=== PATIENT | male | born 1970 | race Hispanic/Latino ===

== ENCOUNTER → 2020-05-09 | Emergency (ER) | payer MEDICARE, OTHER ==
[~2020-05-09] VITALS: Ht 190.5 cm; Wt 145.1 kg
[~2020-05-09] MED LIST: ABILIFY10 MG PO; AMITRIPTYLINE100 MG PO; BACTRIM DS TAB1 EACH PO; CLONIDINE HCL 0.1 MG TAB ONE; DIPHENHYDRAMINE HCL INJ 50 MG/ML VIAL IV ONE; KETOROLAC TROMETHAMINE 30 MG/ML VIAL IV STA; METOCLOPRAMIDE HCL 10 MG/2ML VIAL IV ONE; NORCO 10-325 T1 EACH PO; ONDANSETRON HCL INJ 2MG/ML 2ML 2 MG/ML VIAL IV STA; PANTOPRAZOLE 40 MG 10ML VIAL IV STA; SODIUM CHLORIDE 0.9% 1000ML 1,000 ML IV STA; SOMA350 MG PO; XANAX2 MG PO
[2020-05-09 17:14] LABS: CLARITY,URINE CLEAR (CLEAR); COLOR,URINE YELLOW (YELLOW)
[2020-05-09 17:15] LABS: BILIRUBIN,URINE NEGATIVE (NEGATIVE); KETONES,URINE NEGATIVE (NEGATIVE); LEUKOCYTE ESTERASE ,URINE NEGATIVE (NEGATIVE); NITRITE,URINE NEGATIVE (NEGATIVE); PROTEIN,URINE DIPSTICK NEGATIVE (NEGATIVE); URINE UROBILINOGEN 0.2 mg/dL (0.2 - 1)
[2020-05-09 17:25] LABS: EPITHELIAL CELLS,URINE FEW /LPF
[2020-05-09 17:33] LABS: BASOPHILS # (AUTO) 0.1 (0.0-0.1); BASOPHILS % 0.7 % (0.0-1.0); EOSINOPHILS # (AUTO) 0.3 (0.0-0.4); EOSINOPHILS % 3.7 % (0.0-6.0); HEMATOCRIT 33.4 % (38.2-49.6); HEMOGLOBIN 10.8 g/dL (14.0-18.0); LYMPHOCYTES # (AUTO) 2.4 (1.0-3.2); LYMPHOCYTES % 31.6 % (18.0-39.1); MEAN CORPUSCULAR HEMOGLOBIN 27.2 pg (28-32); MEAN CORPUSCULAR HGB CONC 32.3 g/dL (31-35); MEAN CORPUSCULAR VOLUME 84.1 fL (81-99); MONOCYTES # (AUTO) 0.7 (0.2-0.8); MONOCYTES % 9.1 % (4.4-11.3); NEUTROPHILS # (AUTO) 4.1 (2.1-6.9); NEUTROPHILS % 54.6 % (38.7-80.0); PLATELET COUNT 233 x10e3/uL (140-360); RED BLOOD COUNT 3.97 x10e6/uL (4.3-5.7)
[2020-05-09 17:36] LABS: ALANINE AMINOTRANSFERASE 26 IU/L (0-55); ALBUMIN 3.5 g/dL (3.5-5.0); ALBUMIN/GLOBULIN RATIO 0.9 (0.8-2.0); ALKALINE PHOSPHATASE 109 IU/L (40-150); ANION GAP 12.8 mmol/L (8-16); BLOOD UREA NITROGEN 15 mg/dL (7-26); BUN/CREATININE RATIO 13 (6-25); CALCIUM 8.4 mg/dL (8.4-10.2); CARBON DIOXIDE 24 mmol/L (22-29); CHLORIDE 104 mmol/L (98-107); CREATINE KINASE 181 IU/L (30-200); CREATININE, SERUM 1.15 mg/dL (0.72-1.25); EST GLOMERULAR FILTRATION RATE > 60 ML/MIN (60-); GLUCOSE 108 mg/dL (74-118); LIPASE 162 U/L (8-78); MAGNESIUM 1.6 MG/DL (1.3-2.1); POTASSIUM 3.8 mmol/L (3.5-5.1); SODIUM 137 mmol/L (136-145)
--- NOTE | 2020-05-09 17:38 | Diagnostic Imaging Report ---
Exam: Head CT without contrast History: Headache, nausea, vomiting Comparison studies: None Technique: Axial images were obtained from the skull base to the vertex. Coronal and sagittal images reconstructed from the axial data. Dose modulation, iterative reconstruction, and/or weight based adjustment of the mA/kV was utilized to reduce the radiation dose to as low as reasonably achievable. Radiation dose: Total DLP: 936.21 mGy*cm. Estimated effective dose: DLP x 0.015 Intravenous contrast: None Findings: Scalp: No abnormalities. Bones: No fractures, blastic or lytic lesions. Brain sulci: Appropriate for age. Ventricles: Normal in size and configuration. No hydrocephalus. Extra-axial spaces: No masses, no fluid collection. Parenchyma: No abnormal densities. No masses, acute hemorrhage, acute or chronic vascular insults. Sellar/suprasellar region: No abnormalities. Craniocervical junction: Patent foramen magnum. No Chiari one malformation. Incidental findings: Opacified right maxillary sinus which contains peripheral mucosal thickening and secretions. 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 IMPRESSION: 1. No acute intracranial abnormalities. 2. Nonspecific acute on chronic right maxillary sinusitis. Signed by: Dr. Anthony Noble M.D. on 05/09/2020 5:34 PM
--- NOTE | 2020-05-09 17:40 | Diagnostic Imaging Report ---
EXAMINATION: CHEST SINGLE (PORTABLE) INDICATION: ^N/V/HEADACHE ^[id number] ^1700 COMPARISON: None FINDINGS: AP view TUBES and LINES: None. LUNGS: Limited by body habitus. Lungs are well inflated. There is no evidence of pneumonia or pulmonary edema. PLEURA: No pleural effusion or pneumothorax. HEART AND MEDIASTINUM: The cardiomediastinal silhouette is unremarkable. BONES AND SOFT TISSUES: No acute osseous lesion. Tiny metallic densities projecting over right lateral chest and arm. Surgical clip projecting over left neck base. UPPER ABDOMEN: No free air under the diaphragm. IMPRESSION: No acute thoracic abnormality. Signed by: Dr. Shukri Mason MD on 05/09/2020 5:37 PM
[2020-05-09 17:43] LABS: PARTIAL THROMBOPLASTIN TIME 29.4 seconds (23.8-35.5)
[2020-05-09 17:48] LABS: INR 0.88; PROTHROMBIN TIME 12.5 seconds (11.9-14.5)
--- NOTE | 2020-05-09 19:26 | Emergency Department Note ---
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 Historian: Patient Arrival Mode: Car Live In Housekeeper Nanny Required: No Onset (how long ago): day(s) (YESTERDAY) Location: ENTIRE HEAD Quality: PAIN Radiation: Reports non-radiation Severity: severe Onset quality: gradual Timing of current episode: constant Progression: unchanged Chronicity: recurrent Context: Denies recent illness Relieving factors: none Exacerbating factors: none Associated symptoms: Reports denies other symptoms Treatments prior to arrival: none Past Medical/Family History Physician Review I have reviewed the patient's past medical and family history. Any updates have been documented here. Past Medical History Recent Fever: No Clinical Suspicion of Infectio: Yes New/Unexplained Change in Ment: No Past Medical History: Hypertension Other Medical History: DEPRESSION, PTSD, BIPOLAR cellulitis Other Surgery: CARDIAC STENTS right ankle right shoulder Social History Smoking Cessation: Current every day smoker Counseling Performed: Yes Alcohol Use: Social Any Illegal Drug Use: Yes TB Exposure/Symptoms: No Physically hurt or threatened: No Family History Family history of heart diseas: No Other Last Tetanus: 2004 Any Pre-Existing Lines (PICC,: No Review of Systems Review of Systems Constitutional: Reports no symptoms EENTM: Reports no symptoms Cardiovascular: Reports no symptoms Respiratory: Reports no symptoms Gastrointestinal: Reports as per HPI Genitourinary: Reports no symptoms Musculoskeletal: Reports no symptoms Integumentary: Reports no symptoms Neurological: Reports as per HPI Psychological: Reports no symptoms Endocrine: Reports no symptoms Hematological/Lymphatic: Reports no symptoms Physical Exam Related Data Allergies: Coded Allergies: No Known Allergies (Unverified , 04/30/14) Triage Vital Signs Vital Signs Date Time Temp Pulse Resp B/P (MAP) Pulse Ox O2 Delivery O2 Flow Rate FiO2 05/09/20 16:26 98.4 88 22 151/94 98 Room Air Vital signs reviewed: Yes Physical Exam CONSTITUTIONAL Constitutional: Present well-developed, Present well-nourished HENT HENT: Present normocephalic, Present atraumatic, Present oropharynx clear/moist, Present nose normal HENT L/R: Present left ext ear normal, Present right ext ear normal EYES Eyes: Reports PERRL, Reports conjunctivae normal NECK Neck: Present ROM normal PULMONARY Pulmonary: Present effort normal, Present breath sounds normal CARDIOVASCULAR Cardiovascular: Present regular rhythm, Present heart sounds normal, Present capillary refill normal, Present normal rate GASTROINTESTINAL Abdominal: Present soft, Present nontender, Present bowel sounds normal GENITOURINARY Genitourinary: Present exam deferred SKIN Skin: Present warm, Present dry MUSCULOSKELETAL Musculoskeletal: Present ROM normal NEUROLOGICAL Neurological: Present alert, Present oriented x 3, Present no gross motor or sensory deficits PSYCHOLOGICAL Psychological: Present mood/affect normal, Present judgement normal Results Laboratory Result Diagram: 05/09/20 1658 05/09/20 1658 Laboratory Laboratory Tests Test 05/09/20 16:58 05/09/20 16:11 White Blood Count 7.57 x10e3/uL (4.8-10.8) Red Blood Count 3.97 x10e6/uL (4.3-5.7) Hemoglobin 10.8 g/dL (14.0-18.0) Hematocrit 33.4 % (38.2-49.6) Mean Corpuscular Volume 84.1 fL (81-99) Mean Corpuscular Hemoglobin 27.2 pg (28-32) Mean Corpuscular Hemoglobin Concent 32.3 g/dL (31-35) Red Cell Distribution Width 13.0 % (11.7-14.4) Platelet Count 233 x10e3/uL (140-360) Neutrophils (%) (Auto) 54.6 % (38.7-80.0) Lymphocytes (%) (Auto) 31.6 % (18.0-39.1) Monocytes (%) (Auto) 9.1 % (4.4-11.3) Eosinophils (%) (Auto) 3.7 % (0.0-6.0) Basophils (%) (Auto) 0.7 % (0.0-1.0) Neutrophils # (Auto) 4.1 (2.1-6.9) Lymphocytes # (Auto) 2.4 (1.0-3.2) Monocytes # (Auto) 0.7 (0.2-0.8) Eosinophils # (Auto) 0.3 (0.0-0.4) Basophils # (Auto) 0.1 (0.0-0.1) Absolute Immature Granulocyte (auto 0.02 x10e3/uL (0-0.1) Prothrombin Time 12.5 seconds (11.9-14.5) Prothromb Time International Ratio 0.88 Activated Partial Thromboplast Time 29.4 seconds (23.8-35.5) Sodium Level 137 mmol/L (136-145) Potassium Level 3.8 mmol/L (3.5-5.1) Chloride Level 104 mmol/L (98-107) Carbon Dioxide Level 24 mmol/L (22-29) Anion Gap 12.8 mmol/L (8-16) Blood Urea Nitrogen 15 mg/dL (7-26) Creatinine 1.15 mg/dL (0.72-1.25) Estimat Glomerular Filtration Rate > 60 ML/MIN (60-) BUN/Creatinine Ratio 13 (6-25) Glucose Level 108 mg/dL (74-118) Lactic Acid Level 1.3 mmol/L (0.5-2.0) Calcium Level 8.4 mg/dL (8.4-10.2) Magnesium Level 1.6 MG/DL (1.3-2.1) Total Bilirubin 0.3 mg/dL (0.2-1.2) Aspartate Amino Transf (AST/SGOT) 29 IU/L (5-34) Alanine Aminotransferase (ALT/SGPT) 26 IU/L (0-55) Alkaline Phosphatase 109 IU/L (40-150) Creatine Kinase 181 IU/L (30-200) Creatine Kinase MB 3.40 ng/mL (0-5.0) Troponin I 0.009 ng/mL (0-0.300) Total Protein 7.6 g/dL (6.5-8.1) Albumin 3.5 g/dL (3.5-5.0) Globulin 4.1 g/dL (2.3-3.5) Albumin/Globulin Ratio 0.9 (0.8-2.0) Lipase 162 U/L (8-78) Urine Color Yellow (YELLOW) Urine Clarity Clear (CLEAR) Urine pH 6.5 (5 - 7) Urine Specific [place] 1.015 (1.010-1.025) Urine Protein Negative (NEGATIVE) Urine Glucose (UA) Negative (NEGATIVE) Urine Ketones Negative (NEGATIVE) Urine Blood Negative (NEGATIVE) Urine Nitrite Negative (NEGATIVE) Urine Bilirubin Negative (NEGATIVE) Urine Urobilinogen 0.2 mg/dL (0.2 - 1) Urine Leukocyte Esterase Negative (NEGATIVE) Urine RBC None /HPF (0-5) Urine WBC 6-10 /HPF (0-5) Urine Epithelial Cells Few /LPF (NONE) Urine Bacteria None /HPF (NONE) Lab results reviewed: Yes Imaging Imaging results reviewed: Yes Impressions EXAMINATION: CHEST SINGLE (PORTABLE) INDICATION: ^N/V/HEADACHE ^[id number] ^1699 COMPARISON: None FINDINGS: AP view TUBES and LINES: None. LUNGS: Limited by body habitus. Lungs are well inflated. There is no evidence of pneumonia or pulmonary edema. PLEURA: No pleural effusion or pneumothorax. HEART AND MEDIASTINUM: The cardiomediastinal silhouette is unremarkable. BONES AND SOFT TISSUES: No acute osseous lesion. Tiny metallic densities projecting over right lateral chest and arm. Surgical clip projecting over left neck base. UPPER ABDOMEN: No free air under the diaphragm. IMPRESSION: No acute thoracic abnormality. Signed by: Dr. Shukri Mason MD on 05/09/2020 5:37 PM Procedure: [id number] CT/CT BRAIN WO Exam Date: 05/09/20 Exam Time: 1705 REPORT STATUS: Signed Exam: Head CT without contrast History: Headache, nausea, vomiting Comparison studies: None Technique: Axial images were obtained from the skull base to the vertex. Coronal and sagittal images reconstructed from the axial data. Dose modulation, iterative reconstruction, and/or weight based adjustment of the mA/kV was utilized to reduce the radiation dose to as low as reasonably achievable. Radiation dose: Total DLP: 936.21 mGy*cm. Estimated effective dose: DLP x 0.015 Intravenous contrast: None Findings: Scalp: No abnormalities. Bones: No fractures, blastic or lytic lesions. Brain sulci: Appropriate for age. Ventricles: Normal in size and configuration. No hydrocephalus. Extra-axial spaces: No masses, no fluid collection. Parenchyma: No abnormal densities. No masses, acute hemorrhage, acute or chronic vascular insults. Sellar/suprasellar region: No abnormalities. Craniocervical junction: Patent foramen magnum. No Chiari one malformation. Incidental findings: Opacified right maxillary sinus which contains peripheral mucosal thickening and secretions. 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 IMPRESSION: 1. No acute intracranial abnormalities. 2. Nonspecific acute on chronic right maxillary sinusitis. Signed by: Dr. Anthony Noble M.D. on 05/09/2020 5:34 PM Procedures 12 Lead ECG Interpretation ECG Interpretation : ECG: ECG 1 Live In Housekeeper Nanny: Interpreted by ED physician Date: May 09, 2020 Time: 16:39 Rhythm: sinus rhythm Rate: normal QRS axis: normal ST segments normal: Yes T waves normal: Yes Clinical Impression: normal ECG Assessment & Plan Medical Decision Making MDM HEADACHE AND N/V, DRUG ABUSE - CBC, CHEM, CARDIACS, CXR, CT BRAIN, UA - R/O LEUKOCYTOSIS, RENAL INSUFF DEHYDRATION, STEMI/NSTEMI, CEREBRAL BLEED, RHABDOMYO LYSIS Reassessment Reassessment IMPROVED, DC HOME, FIORICET (#10), PHENERGAN (#10), F/U PCP TOMORROW Assessment & Plan Final Impression: (1) Headache (2) Drug abuse Depart Disposition: HOME, SELF-CARE Last Vital Signs Date Time Temp Pulse Resp B/P (MAP) Pulse Ox O2 Delivery O2 Flow Rate FiO2 05/09/20 16:26 98.4 88 22 151/94 98 Room Air Home Meds Reported Medications Sulfamethoxazole/Trimethoprim (BACTRIM DS TABLET) 1 Each Tablet, 1 TAB PO BID for 10 Days, TAB 03/10/16 Amitriptyline Hcl (AMITRIPTYLINE HCL) 100 Mg Tablet, 100 MG PO MG 04/30/14 Aripiprazole (ABILIFY) 10 Mg Tablet, 10 MG PO DAILY 04/30/14 Carisoprodol (SOMA) 350 Mg Tablet, 350 MG PO DAILY 04/30/14 Alprazolam (XANAX) 2 Mg Tablet, 2 MG PO BID 04/30/14 Hydrocodone Bit/Acetaminophen (NORCO 10-325 TABLET) 1 Each Tablet, 1 TAB PO PRN 04/30/14 Medications in the ED Pantoprazole Sodium 40 mg ONCE STAT IV Last administered on 05/09/20at 17:28; Admin Dose 40 MG; Start 05/09/20 at 16:29; Stop 05/09/20 at 16:53; Status DC Ondansetron HCl 4 mg ONCE STAT IV Last administered on 05/09/20at 17:28; Admin Dose 4 MG; Start 05/09/20 at 16:29; Stop 05/09/20 at 16:52; Status DC Sodium Chloride 1,000 ml @ 0 mls/hr Q0M STAT IV Last administered on 05/09/20at 17:28; Admin Dose 999 MLS/HR; Start 05/09/20 at 16:29; Stop 05/09/20 at 16:33; Status DC Ketorolac Tromethamine 30 mg ONCE STAT IV ; Start 05/09/20 at 18:46; Stop 05/09/20 at 18:49; Status DC Metoclopramide HCl 10 mg ONCE ONCE IV ; Start 05/09/20 at 19:00; Stop 05/09/20 at 19:01; Status DC Diphenhydramine HCl 25 mg NOW ONCE IV ; Start 05/09/20 at 19:00; Stop 05/09/20 at 19:01; Status DC SCOOTER DE LOS SANTOS MD May 09, 2020 19:26
[2020-05-09 20:47] VITALS: BP 136/72
== END | disposition home or self-care (01) ==
LOC: ER 15:53
DX: R51 Headache (principal); R11.2 Nausea with vomiting, unspecified; F15.10 Other stimulant abuse, uncomplicated; I10 Essential (primary) hypertension; F43.10 Post-traumatic stress disorder, unspecified; Z95.5 Presence of coronary angioplasty implant and graft; F17.210 Nicotine dependence, cigarettes, uncomplicated
CPT/HCPCS: 36415; 70450; 71045; 80053; 81001; 82550; 82553; 83605; 83690; 83735; 84484; 85025; 85610; 85730; 87040; 87086; 93005; 99284; C9113; J1200; J1885; J2405; J2765; J7030

== ENCOUNTER 2020-09-07 11:34 | Observation (INO) | payer MEDICARE, OTHER ==
[~2020-09-07] VITALS: Ht 188 cm; Wt 158.8 kg
[~2020-09-07 11:34] MED LIST changes: -CLONIDINE HCL 0.1 MG TAB ONE; -DIPHENHYDRAMINE HCL INJ 50 MG/ML VIAL IV ONE; -KETOROLAC TROMETHAMINE 30 MG/ML VIAL IV STA; -METOCLOPRAMIDE HCL 10 MG/2ML VIAL IV ONE; -ONDANSETRON HCL INJ 2MG/ML 2ML 2 MG/ML VIAL IV STA; -PANTOPRAZOLE 40 MG 10ML VIAL IV STA; -SODIUM CHLORIDE 0.9% 1000ML 1,000 ML IV STA
[2020-09-07] MEDS ORDERED: PANTOPRAZOLE 40 MG 10ML VIAL IV STA (12:22)
[2020-09-07 12:36] LABS: BASOPHILS # (AUTO) 0.1 (0.0-0.1); EOSINOPHILS # (AUTO) 0.6 (0.0-0.4); EOSINOPHILS % 7.6 % (0.0-6.0); HEMATOCRIT 40.2 % (38.2-49.6); HEMOGLOBIN 12.7 g/dL (14.0-18.0); LYMPHOCYTES # (AUTO) 2.4 (1.0-3.2); LYMPHOCYTES % 32.6 % (18.0-39.1); MEAN CORPUSCULAR HGB CONC 31.6 g/dL (31-35); MEAN CORPUSCULAR VOLUME 88.5 fL (81-99); MONOCYTES # (AUTO) 0.6 (0.2-0.8); MONOCYTES % 8.8 % (4.4-11.3); NEUTROPHILS # (AUTO) 3.6 (2.1-6.9); NEUTROPHILS % 49.9 % (38.7-80.0); PLATELET COUNT 269 x10e3/uL (140-360); RED BLOOD COUNT 4.54 x10e6/uL (4.3-5.7); RED CELL DISTRIBUTION WIDTH 13.8 % (11.7-14.4)
[2020-09-07 12:47] LABS: INR 0.94
[2020-09-07 12:48] LABS: PARTIAL THROMBOPLASTIN TIME 28.1 seconds (23.8-35.5)
--- OUTSIDE RECORDS SUMMARY | 2020-09-07 12:52 | XMS REPORT | Clinical Summary ---
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 PATHOLOGY AND GENOMIC MEDICINE [place] [id number] [address] [facility] * Group A strep, rapid antigen (04/12/2020 4:08 AM CDT) [facility] Group A strep, Negative for Group A [facility] rapid antigen Streptococcus antigen. TENRIISM result Comment: SYLVIA Specimen Information HOSPITAL Specimen Source: Throat Specimen Site: Not otherwise specified Specimen Throat - Not otherwise specified Performing Organization Address City/State/ZIP [place] [address] PATHOLOGY AND GENOMIC MEDICINE [place] [address] [place] [address] * Strep screen culture (04/12/2020 4:08 AM CDT) [facility] Strep screen No beta hemolytic Streptococci [facility] N culture isolate isolated [facility]ISM Comment: HOSPITAL Specimen Information Specimen Source: Throat Specimen Site: Not otherwise specified Specimen Throat - Not otherwise specified Performing Organization Address City/[facility] P severiano Number [facility] [place] [address] PATHOLOGY AND GENOMIC MEDICINE [place] [address] [place] [address] HOSPITAL * Fibrinogen (04/12/2020 4:05 AM CDT) [facility] Fibrinogen 406.0Comment: The reference 200.0 - 450.0 mg/d L [place] range has changed starting TENRIISM 04/02/2010 @12:00pm [facility] Specimen Blood Performing Organization Address City/State/[facility] [place] [address] PATHOLOGY AND GENOMIC MEDICINE [place] [address] [place] [address] * D-dimer (04/12/2020 4:05 AM CDT) [facility] D-dimer 2.37 (H) 0.00 - 0.40 ug/mL [place] Comment: FEU T[facility]RIISM When combined with low SYLVIA clinical probability, D-dimer HOSPITAL results of less than 0.5 ug/ml FEU have a good negative predictive value in excluding PE or DVT. For D-dimer results greater than 0.5 ug/ml FEU further testing is indicated if PE or DVT is suspected clinically. Elevated D-dimer results have been reported in DVT, PE, and DIC cases and may indicate the presence of a clot. D-dimer results may be elevated due to old age, , inflammatory diseases, trauma, post-operative states, sepsis, and malignancies. Specimen Blood Performing Organization Address City/State/ZIP Code P severiano Number [facility] [place] [address] PATHOLOGY AND GENOMIC MEDICINE [address] * Type and screen (04/12/2020 4:05 AM CDT) ABO grouping O [facility] Rh type POS [facility] Antibody screen NEG [place] (gel) [facility] Specimen Blood Performing Organization Address City/State/ZIP [facility] P severiano Number [place] [address] PATHOLOGY AND GENOMIC MEDICINE [address] * C-reactive protein (04/12/2020 4:05 AM CDT) CRP 3.40 (H) 0.00 - 1.00 mg/dL [facility] Specimen Blood Performing Organization Address City/[facility]/ZIP Code P severiano Number [facility] [place] [address] PATHOLOGY AND GENOMIC MEDICINE [address] * LDH (04/12/2020 4:05 AM CDT) LDH 195 (L) 300 - 600 U/L [facility] Specimen Blood Performing Organization Address City/State/ZIP Code P severiano Number [place] [address] PATHOLOGY AND GENOMIC MEDICINE [address] * Ferritin level (04/12/2020 4:05 AM CDT) Ferritin level 132 18 - 464 ng/mL [facility] Specimen Blood Performing Organization Address City/State/ZIP Code P severiano Number [facility] [place] [address] PATHOLOGY AND GENOMIC MEDICINE [address] * Creatine kinase, total (CPK) (04/12/2020 4:05 AM CDT) Creatine kinase 90 35 - 200 U/L [facility] Specimen Blood Performing Organization Address City/State/ZIP Code P severiano Number [address] [address] PATHOLOGY AND GENOMIC MEDICINE [address] [place], [place] [address] [facility] * Lipid panel (04/12/2020 4:05 AM CDT) Cholesterol 120 0 - 199 mg/dL [facility] Triglycerides 90 0 - 149 mg/dL [facility] HDL cholesterol 37 (L) 40 - 9,999 mg/dL [facility] LDL cholesterol 74 0 - 99 mg/dL [facility] Lipid panel See below [facility] interpretation Comment: TENRIISM Total Cholesterol (mg/dL) [facility] <200 Desirable 200-239 Borderline-high >=240 High Triglycerides (mg/dL) <150 Normal 150-199 Borderline-high 200-499 High >=500 Very high HDL Cholesterol (mg/dL) <40 Low (male) <50 Low (female) LDL Cholesterol (mg/dL) <100 Optimal 100-129 Near or above optimal 130-159 Borderline-high 160-189 High >=190 Very high Risk Catergories that modify LDL goals. Risk Catergories LDL goal (mg/dL) CHD and CHD risk equivalent <100 (10-year risk >20%) Multiple (2+) risk factors <130 (10-year risk =<20%) 0-1 risk factors <160 (<10-year risk) Defining levels of lipids in metabolic syndrome Triglycerides >=150 mg/dL HDL Cholesterol Men <40 mg/dL Women <50 mg/dL Non-HDL cholesterol is a second target for therapy in persons with high triglycerides (>=200 mg/dL) Specimen Blood Performing Organization Address City/State/ZIP Code P severiano Number [address] [address] PATHOLOGY AND GENOMIC MEDICINE [address] [place], [place] [address] [facility] * Lactic acid level, SEPSIS - Now and repeat 2x every 3 hours (04/11/2020 10:40 PM CDT) Only the most recent of 2 results within the time period is included. Lactic acid 2.4 (H) 0.5 - 2.2 mmol/L [facility] Specimen Blood Performing Organization Address City/[facility]/ZIP Code P severiano Number [facility] DEPARTMENT [address] [facility] [address] [place] [address] PATHOLOGY AND GENOMIC MEDICINE [facility] [address] [facility] [address] [place], [place] [address] [facility] * CRITICAL CARE (04/11/2020 7:17 PM CDT) Narrative Performed At Tanika Barbosa MD 04/11/2020 9:02 PM Critical Care Performed by: Tanika Barbosa MD Authorized by: Tanika Barbosa MD Critical care provider statement: Critical care time (minutes): 35 Critical care start time: 04/11/2020 6:16 PM Critical care end time: 04/11/2020 8 :43 PM Critical care time was exclusive of: Separately billable procedures and treating other patients Critical care was necessary to treat or prevent imminent or life-threatening deterioration of the f ollowing conditions: Sepsis and respiratory failure Critical care was time spent personal ly by me on the following activities: Development of treatment plan with patient or surrogate, discussions with primary provider, eval uation of patient's response to treatment, examination of patient, inte rpretation of cardiac output measurements, ordering and performing t reatments and interventions, ordering and review of radiographic sherrell dies, ordering and review of laboratory studies, pulse oximetry, re- evaluation of patient's condition and review of old charts * COVID-19 qualitative PCR (04/11/2020 6:58 PM CDT) Interpretation Negative results do not MATTA preclude 2019-nCoV infection [facility] and should not be used as the HOSPITAL sole basis for treatment or other patient management decisions. Negative results must be combined with clinical observations, patient history, and epidemiological information. COVID-19 Not-Detected Not-Detected [facility] qualitative PCR [facility] result HOSPITAL COVID-19 See link below for PDF Lab [facility] qualitative PCR ReportComment: Case Number: T[facility]ISM [id number] HOSPITAL Specimen Performing Organization Address City/[facility]/ZIP Code P severiano Number [facility] DEPARTMENT OF [address] [place] [address] PATHOLOGY AND GENOMIC MEDICINE [facility] [address] [place] [address] [facility] * Blood culture, aerobic & anaerobic (04/11/2020 6:46 PM CDT) Only the most recent of 2 results within the time period is included. Blood culture No growth after 5 days of [place] isolate incubation. TENRIISM Comment: HOSPITAL Specimen Information Specimen Source: Blood Specimen Site: Arm, left Specimen Blood - Arm, left Performing Organization Address City/State/ZIP Code P severiano Number [facility] DEPARTMENT OF [address] [place] [address] PATHOLOGY AND GENOMIC MEDICINE [facility] [address] [place] [address] HOSPITAL * B natriuretic peptide (04/11/2020 6:42 PM CDT) BNP 56 0 - 100 pg/mL [facility] Specimen Blood Performing Organization Address City/State/ZIP [facility] P severiano Number [facility] DEPARTMENT [address] [facility] [address] [place] [address] PATHOLOGY AND GENOMIC MEDICINE [facility] [address] [facility] [address] [place], [place] [address] [facility] after 09/07/2019 Insurance Type Payer Benefit Subscriber ID Effective Phone Address Plan / Dates Group HMO [employer] [id number] 2019-P DUAL resent OPTIONS STARPLUS [facility] MEDICARE [place] [id number] 2020-P CONNECTED resent (MEDICARE- MEDICAID PLAN) Advance Directives For more information, please contact: [phone] 

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
--- OUTSIDE RECORDS SUMMARY | 2020-09-07 12:53 | XMS REPORT | Continuity of Care Document ---
Author Author [facility] Organization [facility] Address [address] [place] [id number] Phone Unavailable Care Team Providers Care Real Property Evaluator Name Role Phone Giovanny YOST, Latisha PCP Odita, N Arickmarielamejj Attphys Unavailable Odita, N Arickuemeka Attphys Unavailable Lester Mueller DO Attphys Judy MORENO Attphys Unavailable Toño Watkins Attphys Chelsey YOST, Tanika Attphys Antony YOST, Adriana Ware Attphys [phone] Ladonna YOST, Daly Attphys Ze Quezada MD Attphys Dede YOST, Ceci Kaplan Attphys BriannaVandanaa Attphys Apolinar Juarez Attphys Rafi Shepherd Attphys Naina Li Attphys Judy Dai Attphys Lina Russ Attphys Juvencio Dickson Jr Attphys Deepa Barkley Attphys Cj Costa Admphys Unavailable Toño Watkins Admphys DALY DOUGHERTY Admphys Unavailable Judy Dai Admphys Payers Payer Name Policy Type Policy Number Effective Date Expiration Date Debbie barnes [employer] D[employer] OPTIONS STARPLUS [id number] [id number] 2019 00:00:00 Lázaro Pedraza UHC MEDICAREUHC CONNECTED (MEDICARE-MEDICAID PLAN)xxxx [id number] 2020 00:00:00 Lázaro hurst Problems Condition Name Condition Details Condition Category Status Onset Date Resolution Date Last Treatment Date Treating Clinician Comments Source SHORT OF BREATH, CHEST PAIN SH ORT OF BREATH, CHEST PAIN Active 05/05/[address] [facility] [place] [place] Diagnosis Active 2020-05-05 00:00:0 0 2020-05-05 19:42:00 [facility] CELLULITIS OF RIGHT LOWER EXTREMITY, CHUN CELLULITIS OF RIGHT LOWER EXTREMITY, CHUN Active 05/05/[address] [facility] [place] [place] Diagnosis Active 2020-05-05 00:00:00 2020-05-21 14:36:00 [facility] Suspected COVID-19 virus infection Suspected COVID-19 virus infe ction Disease Active 2020-04-11 00:00:00 [place] [facility] CHEST DISCOMFORT CHES T DISCOMFORT Active 12/23/[address] [facility] [place] [place] Diagnosis Active 2019-12-23 00:00:00 2019-12-30 13:10:00 [facility] SOB SOB Active 07/24/[address] [facility] [place] [place] Diagnosis Active 2019-07-24 00:00:00 2020-07-30 11:22:00 [facility] , HEAR T BURN , Active 07/05/2019 [facility] Diagnosis Active 2019-07-05 00:00:00 2019-07-08 12:32:00 [facility] CELLULITIS CELL ULITIS Active 05/07/2019 [facility] Diagnosis Active 2019-05-07 00:00:00 2019-05-16 11:45:00 Aki Jett Bilateral lower extremity edema Bilateral lower extremity edema Dis ease Active 2019-02-27 00:00:00 Lázaro Pedraza LEG SWELLING LEG SWELLING Active 01/20/2019 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 Diagnosis Active 2016-12-24 00:00:00 2017-01-01 05:06:00 [facility] CHEST PAIN CHES T PAIN Active 08/28/2015 [facility] Diagnosis Active 2015-08-28 00:00:00 2015-08-28 20:19:00 [facility] ABSCESS ABSC ESS Active 07/02/2014 [facility] Diagnosis Active 2014-07-02 00:00:00 2014-07-02 14:28:00 [facility] TOOTH ACHE TOOT H ACHE Active 05/07/2014 [facility] Diagnosis Active 2014-05-07 00:00:00 2014-07-03 09:51:00 [facility] RASH RASH Active 01/04/2014 [facility] Diagnosis Active 2014-01-04 12:00:00 2014-07-03 09:49:00 [facility] Methicillin resistant Staphylococcus aureus (organism) Methicillin resistant Staphylococcus aureus (organism) Active 06/04/2013 Problem 05/08/2020 MRSA boil,Problem added by Discern Expert. [facility] [place] [place],[facility] Problem Active 2013-06-04 00:00:00 2020-05-08 21:28:42 [facility] Anxiety (finding) Anxi ety (finding) Resolved Problem 05/08/2020 [facility] [place] [place],[facility] Problem Resolved 2020-05-08 21:28:42 [facility] Chronic pain (finding) Aperture Mask Etcher adilene pain (finding) Resolved Problem 05/08/2020 [facility] [place] [place],[facility] Problem Resolved 2020-05-08 21:28:42 [facility] Hypertensive disorder, systemic arterial (disorder) Hypertensive disorder, systemic arterial (disorder) Resolved Problem 05/08/2020 [facility] [place] [place],[facility] Problem Resolved 2020-05-08 21:28:42 [facility] Psychiatry service (qualifier value) Psychiatry service (qualifier value) Resolved Problem 05/08/2020 [facility] [place] [place],[facility] Problem Resolved 2020-05-08 21:28:42 [facility] CELLULITIS NOS CELL ULITIS NOS Active [facility] Diagnosis Active 2014-07-18 12:04:00 [facility] CELLULITIS OF RIGHT LOWER LIMB CELLULITIS OF RIGHT LOWER LIMB Active [facility] [place] [place] Diagnosis Active 2019 14:36:00 [facility] CHEST PAIN, UNSPECIFIED CHES T PAIN, UNSPECIFIED Active [facility] [place] Diagnosis Active 2020-05-21 14:36:00 [facility] Other chest pain Othe r chest pain 12/23/2019 12/25/[address] [facility] [place] Problem 2019-12-23 18:00:00 2019-12-25 23:30: 38 2019-12-25 23:30:38 [facility] Acute upper respiratory infection, unspecified Acute upper respiratory infection, unspecified 07/24/2019 07/26/[address] [facility] [place] Problem 2019-07-24 17:00:00 2019-07-26 21:29:36 2019-07-26 21:29 :36 [facility] Edema, unspecified Owen a, unspecified 05/07/2019 05/09/2019 [facility] Problem 2019-05-07 17:00:00 2019-05-09 22:10:20 2019-05-09 22:10:20 [facility] Cellulitis of right lower limb Cellulitis of right lower limb 05/07/2019 05/09/2019 [facility] Problem 2019-05-0 6 17:00:00 2019-05-09 22:10:20 2019-05-09 22:10:20 [facility] rivera Discharge Diagnosis: Heroin abuse Discharge Diagnosis: Heroin abuse 12/24/2016 12/27/2016 [facility] Problem 2016-12-24 06:00:00 2016-12-27 04:18:03 2016-12-27 04:18:03 [facility]: Chest pain Discharge Diagnosis: Chest pain 12/24/2016 12/27/2016 [facility] Problem 2016-12-24 06:00:00 2016-12-27 04:18:03 2016-12-27 04:18:03 [facility] Dis[facility] Diagnosis: Chest pain Discharge Diagnosis: Chest pain 08/28/2015 08/31/2015 [facility] Problem 201 03-11-27 05:00:00 2015-08-31 04:35:14 2015-08-31 04:35:14 [facility] Discharge Diagnosis: Dental caries Discharge Diagnosis: Dental caries 05/07/2014 05/09/2014 [facility] Problem 2014-05-07 05:00:00 2014-05-09 21:51:16 2014-05-09 21:51:16 [facility] Diagnosis: Dental abscess Discharge Diagnosis: Dental abscess 05/07/2014 05/09/2014 [facility] Problem 2014-05-07 05:00:00 2014-05-09 21:51:16 2014-05-09 21:51:16 [facility] Allergies, Adverse Reactions, Alerts Allergy Name Allergy Type Status Severity Reaction(s) Onset Date Inacti ve Date Treating Clinician Comments Source No Known Allergies DA Active U 2019-10-19 00:00:00 [facility] No Known Allergies DA Active U 2018-07-12 00:00:00 [facility] No Known Allergies DA Active U 2018-01-02 00:00:00 [facility] No Known Medication Allergies No Known Medication Allergies Active [facility] Family History Family Member Diagnosis Comments Start Date Stop Date Source Natural father Heart disease Lázaro Pedraza Natural father Hypertension Lázaro Pedraza Natural father Stroke [facility] thodist Natural mother No Known Problems Efren Pedraza Social History Social Habit Start Date Stop Date Quantity Comments Source History of tobacco use Cigarette Smoker Lázaro Pedraza Sex Assigned At Efren Pedraza Tobacco use and exposure 2020-04-11 00:00:00 2020-04-11 00:00:00 Debra lowe used Lázaro Pedraza Alcohol intake 2020-04-11 00:00:00 2020-04-11 00:00:00 Current non-drinker of alcohol (finding) Lázaro Pedraza Social History 2014-01-05 00:15:48 2014-01-05 00:15:48 Aki Jett Smoking Status Start Date Stop Date Source Current some day smoker 2020-04-11 00:00:00 Taye Pedraza Social History Aki Jett Medications Ordered Medication Name Filled Medication Name Start Date Stop Da te Current Medication? Ordering Clinician Indication Dosage Frequency Signature (SIG) Comments Components Source clindamycin 150 mg oral capsule 2020-05-06 19:40:00 Yes 450 mg = 3 cap, PO, TID, X 9 day, # 81 cap, 0 Refill(s), Pharmacy: [facility] [id number], 187.96, cm, 05/06/20 1:51:00 CDT, Height, 145.227, kg, 05/06/20 1:51:00 CDT, Weight Aki Jett Robaxin 2020-05-06 17:05:00 No Notes: (Same as:Robaxin) Aki Jett Carisoprodol 2020-05-06 16:55:00 No 350 mg, Route: PO, Drug form: TAB, BID, Dosing Weight 145.227, kg, PRN Spasm, Start date: 05/06/20 11:55:00 CDT, Duration: 5 day, Stop date: 05/11/20 11:54:00 CDT [facility] Atenolol 50 MG Oral Tablet 2020-05-06 14:00:00 No Notes: (Same As:Tenormin) Aki Jett Clindamycin 2020-05-06 12:00:00 No 600 mg, 50 mL, Route: IVPB, Drug form: INJ, ABXQ8H, Dosing Weight 136.364, kg, Start date: 05/06/20 7:00:00 CDT, Duration: 5 day, Stop date: 05/10/20 23:00:00 CDT, ABX Indication: Skin/Soft Tissue Infection, 0 Aki Jett NS 1,000 mL 2020-05-06 04:47:00 No 1,000 mL, Rate: 75 ml/hr, Infuse over: 13.3 hr, Route: IV, Dosing Weight 136.364 kg, Total Volume: 1,000, Start date: 05/05/20 23:47:00 CDT, Duration: 30 day, Stop date: 06/04/20 23:46:00 CDT, 2.69, m2, 0 Aki Jett Dextrose 50% Syringe (D50W) 2020-05-06 04:40:00 No 12.5 gm, 25 mL, Route: IVP, Drug Form: INJ, Dosing Weight 136.364, kg, PRN, PRN Blood Glucose Results, Start date: 05/05/20 23:40:00 CDT, Duration: 30 day, Stop date: 06/04/20 23:39:00 CDT, 0 Aki Alexander n Glucagon 2020-05-06 04:40:00 No 1 mg, Route: IM, Drug form: PDR/INJ, PRN, Dosing Weight 136.364, kg, PRN Blood Glucose Results, Start date: 05/05/20 23:40:00 CDT, Duration: 30 day, Stop date: 06/04/20 23:39:00 CDT, 0 Aki Jett Docusate 2020-05-06 04:40:00 No Notes: (Same as: Colace) (Do Not Crush) Aki Jett Ondansetron 2020-05-06 04:40:00 No Notes: (Same as: Zofran) MEDICATION WASTE Product Size: 4 mg Product Wasted: ___ mg Aki Jett Melatonin 2020-05-06 04:40:00 No Notes: (Sa me as: Melatonin) [facility] Acetaminophen 2020-05-06 04:40:00 No Notes: Do not exceed 4 gm/day. (Same as: Tylenol) A[facility] Martinezann Benadryl 2020-05-06 04:38:00 No Notes: (Marco Antonio e as: Benadryl) [facility] Acetaminophen 325 MG / Hydrocodone Yevgeniy trate 7.5 MG Oral Tablet [[place] 7.5/325] 2020-05-06 04:38:00 No Notes: Same as [place] 325-7.5mg Do not exceed 4gm/day of acetaminophen. Kailee mcginnis [facility] Morphine 2020-05-06 04:38:00 No Not es: (Same as:MORPhine Sulfate) [facility] Aspirin 2020-05-06 04:23:00 No 325 mg, Route: PO, Drug form: TAB, ONCE, Dosing Weight 136.364, kg, Priority: STAT, Start date: 05/05/20 23:23:00 CDT, Stop date: 05/05/20 23:23:00 CDT Ms mira [facility] Morphine 2020-05-06 04:08:00 No Not es: (Same as:MORPhine Sulfate) [facility] Zofran 2020-05-06 04:08:00 No Notes: (Same as: Bishop) MEDICATION WASTE Product Size: 4 mg Product Wasted: ___ mg [facility] Clindamycin 2020-05-06 03:47:00 No 600 mg, 50 mL, Route: IVPB, Drug form: INJ, ONCE, Dosing Weight 136.364, kg, Priority: STAT, Start date: 05/05/20 22:47:00 CDT, Stop date: 05/05/20 22:47:00 CDT, ABX Indication: Skin/Soft Tissue Infection, 0 [facility] Morphine 2020-05-06 02:37:00 No 4 mg, Route: IVP, ONCE, Dosing Weight 136.364, kg, Priority: STAT, Start date: 05/05/20 21:37:00 CDT, Stop date: 05/05/20 21:37:00 CDT [facility] Zofran 2020-05-06 02:37:00 No 4 mg, Route: IVP, Drug form: INJ, ONCE, Dosing Weight 136.364, kg, Priority: STAT, Start date: 05/05/20 21:37:00 CDT, Stop date: 05/05/20 21:37:00 CDT Ms mira [facility] Saline Flush 0.9% 2020-05-05 23:56:00 No Notes: (Same as: BD Posiflush) Aki Jett HYDROcodone-acetaminophen (NORCO) 10-325 mg per tablet 2020-04-14 12:19:47 Yes 1{tbl} Q6H Take 1 tablet b y mouth every 6 (six) hours as needed for moderate pain. Lázaro Pedraza NIFEdipine XL (PROCARDIA XL) 30 MG 24 hr tablet 2020-04-14 00:00:00 2020-05-14 23:59:00 No 30mg QD Take 1 tablet (30 mg total) by mouth daily for 30 days. Lázaro Pedraza pantoprazole (Protonix) 40 MG EC tablet 00:00:00 2020-05-14 23:59:00 No 40mg QD Take 1 tablet (40 mg total) by mouth daily for 30 days. Lázaro Pedraza keTOROlac (TORadol) 10 mg tablet 2020-04-14 00:00:00 2020-04 23:59:00 No 10mg Q6H Take 1 tablet (10 mg total) by mouth every 6 (six) hours as needed for moderate pain for up to 5 days. Lázaro Pedraza tramadol hydrochloride 50 MG Oral Tablet 2019-12-24 03:52:00 Yes 50 mg, PO, Q4-6H, PRN Pain, X 4 day, # 20 tab, 0 Refill(s) Aki Jett Fentanyl 2019-12-24 03:31:00 No 50 microgram, Route: IVP, ONCE, Dosing Weight 145.455, kg, Priority: STAT, Start date: 12/23/19 21:31:00 [employer], Stop date: 12/23/19 21:31:00 [employer] Kailee Jett tramadol hydrochloride 50 MG Oral Tablet 2019-12-24 03:20:00 No Notes: Not to exceed 400mg/day. (Same As: Ultram) Aki Jett Saline Flush 0.9% 2019-12-24 01:34:00 No Notes: (Same as: BD Posiflush) Aki Jett Ketorolac 2019-12-24 01:34:00 No 4 days MEDICATION WASTE Product Size: 30 mg Product Wasted: ___ mg Aki Jett atenolol (TENORMIN) 50 MG tablet 2019-09-12 15:59:04 2019-09 15:59:03 No 50mg Q.5D Take 50 mg by mouth 2 (two) times a day. Lázaro Pedraza zolpidem (AMBIEN) 5 MG tablet 2019-09-09 15:18:24 2019-09-09 00: 00:00 No 5mg QD Take 5 mg by mouth nightly as needed for sleep. Lázaro Pedraza cholecalciferol, vitamin D3, (VITAMIN D3) 1,000 unit tablet 2019-09-09 15:17:12 2019-09-09 00:00:00 No 1000U QD Take 1,000 Units by mouth daily. Lázaro Pedraza carisoprodol (SOMA) 350 MG tablet 2019-09-09 15:16:59 2018 00:00:00 No 350mg Q.25D Take 350 mg by m outh 4 (four) times a day as needed for muscle spasms. Lázaro Pedraza 200 ACTUAT Albuterol 0.09 MG/ACTUAT Dry Powder Inhaler 2019-07-24 19:08:00 Yes 2 puff, INHALATION, Q4H, PRN Wheezing, # 1 unit, 0 Refill(s) Aki Jett Ketorolac 2019-07-24 17:34:00 No 4 days MEDICATION WASTE Product Size: 30 mg Product Wasted: ___ mg Aki Jett Saline Flush 0.9% 2019-07-24 17:19:00 No Notes: preservative free. Aki Jett omeprazole 40 mg oral delayed release capsule 2019-07-08 20:40:0 0 Yes 40 mg = 1 cap, PO, Daily, please take 45 minutes before a meal, # 60 cap, 1 Refill(s) Aki Jett Sucralfate 100 MG/ML Oral Suspension 2019-07-08 20:40:00 Ye s 1 gm = 10 ml, PO, Before Meals & Bedtime, # 400 mL, 0 Refill(s) Aki Jett Acetaminophen 325 MG / Hydrocodone Bitartrate 10 MG Or al Tablet [[place] 10/325] 2019-07-08 18:07:00 Yes 1 tab, PO, Q6H, 0 Refill(s) Aki Jett Carisoprodol 350 MG Oral Tablet [Soma] 2019-07-08 18:07:00 Yes 350 mg = 1 tab, PO, QID, 0 Refill(s) Kailee Jett meloxicam 2019-07-08 18:07:00 Yes 20 mg, PO, Daily, 0 Refill(s) Aki Jett losartan 50 mg oral tablet 2019-07-08 18:07:00 Yes 50 mg = 1 tab, PO, Daily, 0 Refill(s) Aki Jett Cephalexin 500 MG Oral Capsule [Keflex] 2019-05-08 01:50:00 Yes 500 mg = 1 cap, PO, QID, X 7 day, # 28 cap, 0 Refill(s) Aki Jett acetaminophen-codeine #3 2019-05-08 01:32:00 No Notes: Do not exceed 4gm/day of acetaminophen. (Same as: Tylenol with Codeine # 3) Aki Jett Keflex 2019-05-08 01:05:00 No Notes: Take on empty stomach. (Same As: Keflex) Aki Jett Lasix 2019-05-08 01:05:00 No Notes: (Same as: Lasix) MEDICATION WASTE Product Size: 40 mg Product Wasted: ___ mg [facility] losartan (COZAAR) 50 MG tablet 2019-02-22 00:00:00 Yes 100mg QD Take 100 mg by mouth daily. Lázaro Pedraza meloxicam (MOBIC) 15 mg tablet 2019-02-22 00:00:00 2019-09-09 00 :00:00 No TK 1 T PO BID Lázaro Velasquez ist Cephalexin 2019-01-21 19:00:00 No Notes: Take on empty stomach. (Same As: Keflex) [facility] Doxycycline 2019-01-21 19:00:00 No Notes: (Same as: Vibramycin) No milk/antacids/iron. [facility] cephalexin 500 mg oral tablet 2019-01-21 18:46:00 Yes 500 mg = 1 tab, PO, QID, X 7 day, # 28 tab, 0 Refill(s), Pharmacy: [facility] [id number] [facility] doxycycline hyclate 100 MG Oral Capsule 2019-01-21 18:46:00 Yes 100 mg = 1 cap, PO, BID, X 7 day, # 14 cap, 0 Refill(s), Pharmacy: [facility] [id number] [facility] Soma 2019-01-21 14:00:00 No 350 mg, Route: PO, Drug form: TAB, QID, Dosing Weight 140.455, kg, Start date: 01/21/19 9:00:00 CDT, Duration: 30 day, Stop date: 02/19/19 21:00:00 CDT Kailee Jett Robaxin 2019-01-21 07:30:00 No Notes: (Same as:Robaxin) [facility] Vancomycin 2019-01-21 06:00:00 No 2001 mg: infuse over 2.5 hours [facility] BD Normal Saline Flush 2019-01-21 05:34:00 No Notes: (Same as: BD Posiflush) [facility] Robaxin 2019-01-21 02:00:00 No Notes: (Same as:Robaxin) [facility] heparin 2019-01-21 02:00:00 No Notes: porci ne heparin [facility] Soma 2019-01-21 02:00:00 No 350 mg, Route: PO, Drug form: TAB, QID, Dosing Weight 140.455, kg, Start date: 01/20/19 21:00:00 CDT, Duration: 30 day, Stop date: 02/19/19 17:00:00 CDT Kailee Jett Acetaminophen 325 MG / Hydrocodone Bitartrate 10 MG Or al Tablet [[place] 10/325] 2019-01-21 01:53:00 No Note s: Do not exceed 4gm/day of acetaminophen. (Same as: [place] 325/10) [facility] Morphine 2019-01-21 01:53:00 No Not es: (Same as:MORPhine Sulfate) [facility] Acetaminophen 325 MG / Hydrocodone Bitartrate 10 MG Or al Tablet [[place] 10/325] 2019-01-21 01:26:00 No Note s: Do not exceed 4gm/day of acetaminophen. (Same as: [place] 325/10) [facility] Carisoprodol 350 MG Oral Tablet [[facility]] 2019-01-20 22:48:00 Yes 350 mg = 1 tab, PO, QID, # 21 tab, 0 Refill(s) [facility] Acetaminophen 325 MG / Hydrocodone Bitartrate 10 MG Or al Tablet [[place] 10/325] 2019-01-20 22:48:00 Yes 1-2 tab, PO, Q4-6H, PRN Pain, # 30 tab, 0 Refill(s) [facility] pneumococcal capsular polysaccharide typ e 1 vaccine / pneumococcal capsular polysaccharide type 10A vaccine / pneumococcal capsular polysaccharide type 11A vaccine / pneumococcal capsular polysaccharide type 12F vaccine / pneumococcal capsular polysacchar 2019-01-20 22:45:43 No Notes: (Same as: Pneumovax 23) Refrigerate [facility] cefepime 2019-01-20 22:00:00 No Notes: (Same As: Maxipime) MEDICATION WASTE Product Size: 1000 mg Product Wasted: _0__ mg [facility] Morphine 2019-01-20 21:58:00 No 2 mg, 1 mL, Route: IVP, Drug form: SOLN, ONCE, Dosing Weight 139.091, kg, Priority: STAT, Start date: 01/20/19 16:58:00 CDT, Stop date: 01/20/19 16:58:00 CDT [facility] Acetaminophen 2019-01-20 20:54:00 No Notes: Do not exceed 4 gm/day. (Same as: Tylenol) [facility] Vancomycin 2019-01-20 20:52:00 No 2001 mg: infuse over 2.5 hours [facility] Vancomycin 2019-01-20 20:18:00 No 2001 mg: infuse over 2.5 hours For adult patients only: Round to nearest 250 mg per Medical Staff approval MEDICATION WASTE Product Size: 1000 mg Product Wasted: 0mg [facility] Ancef + sterile water 20 mL 2019-01-20 20:18:00 No Notes: (Same As: AncNael castellanos) MEDICATION WASTE Product Size: 1000 mg Product Wasted: 0 mg [facility] Zofran 2019-01-20 18:25:00 No Notes: (Same as: Zofran) MEDICATION WASTE Product Size: 4 mg Product Wasted: _0__ mg [facility] Morphine 2019-01-20 18:25:00 No Not es: (Same as:MORPhine Sulfate) [facility] Sodium Chloride 0.9% (Bolus) IV 2019-01-20 16:49:00 No 500 mL, 500 ml/hr, Infuse Over: 1 hr, Route: IV, 500, Drug form: INJ, ONCE, Priority: STAT, Dosing Weight 139.091 kg, Start date: 01/20/19 11:49:00 CDT, Stop date: 01/20/19 11:49:00 CDT [facility] Saline Flush 0.9% 2019-01-20 16:49:00 No Notes: (Same as: BD Posiflush) [facility] Clindamycin 2019-01-20 16:49:00 No Notes: ( Same As: Cleocin) [facility] Acetaminophen 325 MG / Hydrocodone Bitartrate 5 MG Oral Tabl et [[place] 5/325] 2019-01-20 16:49:00 No Notes: (Same as: [place] 325/5) Do not exceed 4gm/day of acetaminophen. [facility] Saline Flush 0.9% 2016-12-24 06:41:00 No 10 mL, Route: IVP, Drug Form: INJ, Dosing Weight 121.364, kg, PRN, PRN Line Flush, Start date: 12/24/16 0:41:00 [employer], Duration: 30 day, Stop date: 01/23/17 1:40:00 CDT [facility] Acetaminophen 300 MG / Codeine Phosphate 30 MG Oral Tablet [Tylenol with Codeine #3] 2015-08-29 01:54:00 No 1 tab, Route: PO, Drug Form: TAB, Dosing Weight 136.364, kg, ONCE, STAT, Start date: 08/28/15 20:54:00, Stop date: 08/28/15 20:54:00 [facility] Ativan 2015-08-29 01:54:00 No 1 mg, Route: IVP, Drug form: INJ, ONCE, Dosing Weight 136.364, kg, Priority: STAT, Start date: 08/28/15 20:54:00, Stop date: 08/28/15 20:54:00 [facility] Saline Flush 0.9% 2015-08-28 23:43:00 No Notes: (Same as: BD Posiflush) [facility] Acetaminophen 325 MG / Hydrocodone Bitartrate 5 MG Oral Tabl et [[place] 5/325] 2014-07-02 19:40:00 Yes 1-2 tab, PO, Q4-6H, Pain, # 15 tab, 0 Refill(s) [facility] Cephalexin 500 MG Oral Capsule [Keflex] 2014-07-02 19:40:00 Yes 500 mg = 1 cap, PO, QID, # 40 cap, 0 Refill(s) Aki Jett Sulfamethoxazole 800 MG / Trimethoprim 160 MG Oral Tablet [B actrim] 2014-07-02 19:40:00 Yes 1 tab, PO, BID, # 20 tab, 0 Refill(s) Aki Jett Ibuprofen 2014-07-02 18:57:00 No 800 mg, Route: PO, Drug form: TAB, ONCE, Dosing Weight 150, kg, Priority: STAT, Start date: 07/02/14 13:57:00, Stop date: 07/02/14 13:57:00 Aki alejandro Acetaminophen 325 MG / Hydrocodone Bitartrate 5 MG Oral Tabl et [[place] 5/325] 2014-05-08 01:03:00 Yes 1-2 tab, PO, Q4-6H, Pain, # 30 tab, 0 Refill(s) Aki Jett Sulfamethoxazole 800 MG / Trimethoprim 160 MG Oral Tablet [B actrim] 2014-05-08 01:03:00 Yes 1 tab, PO, BID, # 20 tab, 0 Refill(s) Aki Jett Bupivacaine Hydrochloride 5 MG/ML / Epinephrine 0.005 MG/ML Injectable Solution 2014-05-08 01:02:00 Yes Note s: (bupivacaine-epi 0.5%-1:200,000 30 ml VL) Not for use in continuous infusion. (Same As: Marcaine w/Epi) Aki Jett Acetaminophen 325 MG / Hydrocodone Bitartrate 5 MG Oral Tabl et 2014-05-08 01:02:00 No 1 tab, Rou te: PO, Dosing Weight 140, kg, ONCE, STAT, Start date: 05/07/14 20:02:00, Stop date: 05/07/14 20:02:00 Aki Jett Vital Signs Vital Name Observation Time Observation Value Comments Source Systolic blood pressure 2020-07-04 09:20:00 120 mm[Hg] Lázaro Pedraza Diastolic blood pressure 2020-07-04 09:20:00 68 mm[Hg] Lázaro Pedraza Heart rate 2020-07-04 09:20:00 65 /min Lázaro Pedraza Body temperature 2020-07-04 09:20:00 36.61 Paulette Hous ton [facility] Respiratory rate 2020-07-04 09:20:00 19 /min Taye Pedraza Oxygen saturation in Arterial blood by Pulse oximetry 07-04 09:20:00 99 /min Lázaro Pedraza Body height 2020-07-04 07:17:00 188 cm Lázaro Sabianism Body weight 2020-07-04 07:17:00 147.419 kg Lázaro [facility]ism BMI 2020-07-04 07:17:00 41.73 kg/m2 Lázaro [facility]ian[facility] Temperature Oral (F) 2020-05-06 16:54:00 98.2 F [facility] Heart Rate 2020-05-06 16:54:00 [facility] Respitory Rate 2020-05-06 16:54:00 [facility] Systolic (mm Hg) 2020-05-06 16:54:00 [facility] Diastolic (mm Hg) 2020-05-06 16:54:00 [facility] Temperature Oral (F) 2020-05-06 12:49:00 98.3 F [facility] Systolic (mm Hg) 2020-05-06 12:49:00 [facility] Diastolic (mm Hg) 2020-05-06 12:49:00 [facility] Heart Rate 2020-05-06 12:49:00 [facility] Systolic (mm Hg) 2020-05-06 09:00:00 [facility] Diastolic (mm Hg) 2020-05-06 09:00:00 [facility] Temperature Oral (F) 2020-05-06 09:00:00 98.1 F [facility] Heart Rate 2020-05-06 09:00:00 [facility] Height 2020-05-06 06:51:00 187.96 cm [facility] Weight 2020-05-06 06:51:00 [facility] BMI Calculated 2020-05-06 06:51:00 [facility] Respitory Rate 2020-05-06 06:00:00 [facility] Respitory Rate 2020-05-06 04:00:00 [facility] BMI Calculated 2020-05-05 23:56:00 [facility] Height 2020-05-05 23:45:00 187.96 cm [facility] BMI Calculated 2020-05-05 23:45:00 [facility] Weight 2020-05-05 23:45:00 [facility] Respitory Rate 2019-12-24 04:26:00 [facility] Systolic (mm Hg) 2019-12-24 04:26:00 [facility] Diastolic (mm Hg) 2019-12-24 04:26:00 [facility] Temperature Oral (F) 2019-12-24 04:26:00 98.0 F [facility] Respitory Rate 2019-12-24 02:25:00 [facility] Systolic (mm Hg) 2019-12-24 02:25:00 [facility] Diastolic (mm Hg) 2019-12-24 02:25:00 [facility] BMI Calculated 2019-12-24 01:34:00 [facility] Systolic (mm Hg) 2019-12-24 00:14:00 [facility] Diastolic (mm Hg) 2019-12-24 00:14:00 [facility] Heart Rate 2019-12-24 00:14:00 [facility] Respitory Rate 2019-12-24 00:14:00 [facility] Temperature Oral (F) 2019-12-24 00:14:00 98.4 F [facility] Height 2019-12-24 00:14:00 187.96 cm [facility] BMI Calculated 2019-12-24 00:14:00 [facility] Weight 2019-12-24 00:14:00 [facility] Systolic (mm Hg) 2019-07-24 19:15:00 [facility] Diastolic (mm Hg) 2019-07-24 19:15:00 [facility] Temperature Oral (F) 2019-07-24 19:15:00 98.4 F [facility] Systolic (mm Hg) 2019-07-24 18:06:00 [facility] Diastolic (mm Hg) 2019-07-24 18:06:00 [facility] Temperature Oral (F) 2019-07-24 18:06:00 98.4 F [facility] Respitory Rate 2019-07-24 18:06:00 [facility] Systolic (mm Hg) 2019-07-24 16:49:00 [facility] Diastolic (mm Hg) 2019-07-24 16:49:00 [facility] Heart Rate 2019-07-24 16:49:00 [facility] Respitory Rate 2019-07-24 16:49:00 [facility] Temperature Oral (F) 2019-07-24 16:49:00 98.9 F [facility] Height 2019-07-24 16:49:00 187.96 cm [facility] BMI Calculated 2019-07-24 16:49:00 [facility] Weight 2019-07-24 16:49:00 [facility] Height 2019-07-08 18:03:00 187.96 cm [facility] Weight 2019-07-08 18:03:00 [facility] BMI Calculated 2019-07-08 18:03:00 [facility] Respitory Rate 2019-05-08 03:42:00 [facility] Heart Rate 2019-05-08 03:42:00 [facility] Systolic (mm Hg) 2019-05-08 03:42:00 [facility] Diastolic (mm Hg) 2019-05-08 03:42:00 [facility] Systolic (mm Hg) 2019-05-08 01:24:00 [facility] Diastolic (mm Hg) 2019-05-08 01:24:00 [facility] Respitory Rate 2019-05-08 01:24:00 [facility] Heart Rate 2019-05-08 01:24:00 [facility] Temperature Oral (F) 2019-05-08 01:24:00 98.2 F [facility] Weight 2019-05-07 22:10:00 [facility] BMI Calculated 2019-05-07 22:10:00 [facility] Height 2019-05-07 22:10:00 187.96 cm [facility] Temperature Oral (F) 2019-05-07 22:10:00 97.9 F [facility] Respitory Rate 2019-05-07 22:10:00 [facility] Systolic (mm Hg) 2019-05-07 22:10:00 [facility] Diastolic (mm Hg) 2019-05-07 22:10:00 [facility] Heart Rate 2019-05-07 22:10:00 [facility] Temperature Oral (F) 2019-01-21 20:00:00 97.8 F [facility] Heart Rate 2019-01-21 20:00:00 [facility] Respitory Rate 2019-01-21 20:00:00 [facility] Systolic (mm Hg) 2019-01-21 20:00:00 [facility] Diastolic (mm Hg) 2019-01-21 20:00:00 [facility] Respitory Rate 2019-01-21 16:00:00 [facility] Systolic (mm Hg) 2019-01-21 16:00:00 [facility] Diastolic (mm Hg) 2019-01-21 16:00:00 [facility] Temperature Oral (F) 2019-01-21 16:00:00 98.0 F [facility] Heart Rate 2019-01-21 16:00:00 [facility] Temperature Oral (F) 2019-01-21 12:00:00 97.8 F [facility] Heart Rate 2019-01-21 12:00:00 [facility] Respitory Rate 2019-01-21 12:00:00 [facility] Systolic (mm Hg) 2019-01-21 12:00:00 [facility] Diastolic (mm Hg) 2019-01-21 12:00:00 [facility] BMI Calculated 2019-01-20 22:40:00 [facility] Height 2019-01-20 22:40:00 187.96 cm [facility] Weight 2019-01-20 22:40:00 [facility] Weight 2019-01-20 16:40:00 [facility] BMI Calculated 2019-01-20 16:40:00 [facility] Height 2019-01-20 16:40:00 190.5 cm [facility] Respitory Rate 2016-12-24 10:30:00 [facility] Systolic (mm Hg) 2016-12-24 10:30:00 [facility] Diastolic (mm Hg) 2016-12-24 10:30:00 [facility] Systolic (mm Hg) 2016-12-24 06:53:00 [facility] Diastolic (mm Hg) 2016-12-24 06:53:00 [facility] Respitory Rate 2016-12-24 06:53:00 [facility] BMI Calculated 2016-12-24 06:35:00 [facility] Weight 2016-12-24 06:35:00 [facility] Height 2016-12-24 06:35:00 190.5 cm [facility] Temperature Oral (F) 2016-12-24 06:35:00 98.3 F [facility] Heart Rate 2016-12-24 06:35:00 [facility] Systolic (mm Hg) 2016-12-24 06:35:00 [facility] Diastolic (mm Hg) 2016-12-24 06:35:00 [facility] Respitory Rate 2016-12-24 06:35:00 [facility] Respitory Rate 2015-08-29 03:24:00 [facility] Systolic (mm Hg) 2015-08-29 03:24:00 [facility] Diastolic (mm Hg) 2015-08-29 03:24:00 [facility] Systolic (mm Hg) 2015-08-29 02:48:00 [facility] Diastolic (mm Hg) 2015-08-29 02:48:00 [facility] Respitory Rate 2015-08-29 02:48:00 [facility] Systolic (mm Hg) 2015-08-29 01:40:00 [facility] Diastolic (mm Hg) 2015-08-29 01:40:00 [facility] Respitory Rate 2015-08-29 01:40:00 [facility] Heart Rate 2015-08-28 22:49:00 [facility] BMI Calculated 2015-08-28 22:49:00 [facility] Weight 2015-08-28 22:49:00 [facility] Height 2015-08-28 22:49:00 190.5 cm [facility] Temperature Oral (F) 2015-08-28 22:49:00 97.9 F [facility] Respitory Rate 2014-07-02 19:54:00 [facility] Systolic (mm Hg) 2014-07-02 19:54:00 [facility] Diastolic (mm Hg) 2014-07-02 19:54:00 [facility] Temperature Oral (F) 2014-07-02 19:54:00 98.8 F [facility] Heart Rate 2014-07-02 19:54:00 [facility] Weight 2014-07-02 18:43:00 [facility] BMI Calculated 2014-07-02 18:43:00 [facility] Height 2014-07-02 18:43:00 187.96 cm [facility] Respitory Rate 2014-07-02 18:43:00 [facility] Heart Rate 2014-07-02 18:43:00 [facility] Temperature Oral (F) 2014-07-02 18:43:00 98.2 F [facility] Diastolic (mm Hg) 2014-07-02 18:43:00 [facility] Systolic (mm Hg) 2014-07-02 18:43:00 [facility] Respitory Rate 2014-05-08 02:20:00 [facility] Systolic (mm Hg) 2014-05-08 02:20:00 [facility] Diastolic (mm Hg) 2014-05-08 02:20:00 [facility] Temperature Oral (F) 2014-05-08 02:20:00 98.1 F [facility] Heart Rate 2014-05-08 02:20:00 [facility] Temperature Oral (F) 2014-05-07 23:59:00 98.6 F [facility] Respitory Rate 2014-05-07 23:59:00 [facility] Diastolic (mm Hg) 2014-05-07 23:59:00 [facility] Heart Rate 2014-05-07 23:59:00 [facility] Systolic (mm Hg) 2014-05-07 23:59:00 [facility] Procedures Procedure Date / Time Performed Performing Clinician [facility] e XR CHEST 1 VW PORTABLE 2020-07-04 08:22:[address] CRITICAL CARE, E/M 30-74 MINUTES 2020-07-04 07:58:49 Andriy Mueller ECG ED PRELIMINARY INTERPRETATION 2020-07-04 07:58:49 Giles Mueller HC COMPLETE BLD COUNT W/AUTO DIFF 2020-07-04 07:46:00 Giles Mueller COMPREHENSIVE METABOLIC PANEL 2020-07-04 07:46:00 Mike Mueller TROPONIN 2020-07-04 07:46:00 Andriy Mueller ethodist ESTIMATED GFR 2020-07-04 07:46:00 Andriy Mueller ethodist ECG 12-LEAD 2020-07-04 07:28:39 Eliza Yang Lázaro [facility] HC COMPLETE BLD COUNT W/AUTO DIFF 2020-04-14 06:40:00 Chino Barkley [facility] COMPREHENSIVE METABOLIC PANEL 2020-04-14 06:40:00 Gretchen Barkley [facility] T4, FREE 2020-04-14 06:40:00 Graciela Aguayoobolamemoe Ceci Sesay [facility] THYROID STIMULATING HORMONE 2020-04-14 06:40:00 Adejose Omobol anle Ceci Sesay [facility] ESTIMATED GFR 2020-04-14 06:40:00 AdeyekunGracielaobolanle Ceci Sesay [facility] VANCOMYCIN LEVEL, TROUGH 2020-04-13 09:12:00 Gretchen Barkley [facility] HC COMPLETE BLD COUNT W/AUTO DIFF 2020-04-13 03:38:00 Chino Barkley COMPREHENSIVE METABOLIC PANEL 2020-04-13 03:38:00 Gretchen Barkley [facility] ESTIMATED GFR 2020-04-13 03:38:[address] on [facility] [address] CHEST WO CONTRAST 2020-04-12 13:06:06 Soy Driscoll [facility] NM LUNG PERFUSION IMAGING 2020-04-12 13:05:05 Daly Dougherty LEGIONELLA URINARY ANTIGEN 2020-04-12 09:15:00 Gretchen Barkley STREPTOCOCCUS PNEUMONIAE URINARY ANTIGEN 2020-04-12 09:15:00 Gretchen aBrkley URINE CULTURE 2020-04-12 09:15:00 Gretchen Barkley on [facility] URINALYSIS SCREEN AND MICROSCOPY, WITH REFLEX TO CULTURE 202 09:15:00 Gretchen Barkley ARTERIAL BLOOD GAS 2020-04-12 05:23:00 Daly Dougherty ethodist INFLUENZA ANTIGEN 2020-04-12 04:10:00 Daly Dougherty [facility] RESPIRATORY PATHOGEN PANEL 2020-04-12 04:10:00 Daly Dougherty GROUP A STREP, RAPID ANTIGEN 2020-04-12 04:08:00 Daly Dougherty STREP SCREEN CULTURE 2020-04-12 04:08:00 Daly Dougherty HC COMPLETE BLD COUNT W/AUTO DIFF 2020-04-12 04:05:00 Ladonna Ra robynkaterinejudy Pedraza COMPREHENSIVE METABOLIC PANEL 2020-04-12 04:05:00 Lorrie Dougherty C-REACTIVE PROTEIN 2020-04-12 04:05:00 Daly Dougherty ethodist D-DIMER 2020-04-12 04:05:00 Daly Dougherty Meth odjalil CREATINE KINASE, TOTAL (CPK) 2020-04-12 04:05:00 Daly Dougherty FERRITIN LEVEL 2020-04-12 04:05:00 Daly Dougherty Meth odist FIBRINOGEN 2020-04-12 04:05:00 Daly Dougherty Meth odist LDH 2020-04-12 04:05:00 Daly Dougherty Meth odist LIPID PANEL 2020-04-12 04:05:00 Daly Dougherty odist TYPE AND SCREEN 2020-04-12 04:05:00 Daly Dougherty Meth odist ESTIMATED GFR 2020-04-12 04:05:00 Daly Dougherty Meth odist TROPONIN 2020-04-12 04:05:00 Daly Dougherty Meth odjalil LACTIC ACID LEVEL, SEPSIS - NOW AND REPEAT 2X EVERY 3 HOURS 2020-04-11 22:40:00 Tanika Barbosa ECG 12-LEAD 2020-04-11 20:57:[address] CRITICAL CARE, E/M 30-74 MINUTES 2020-04-11 19:17:37 Tanika Barbosa ECG ED PRELIMINARY INTERPRETATION 2020-04-11 19:17:37 Deepa Barbosa COVID-19 QUALITATIVE PCR 2020-04-11 18:58:00 Tanika Barbosa LACTIC ACID LEVEL, SEPSIS - NOW AND REPEAT 2X EVERY 3 HOURS 2020-04-11 18:55:00 Chelsey Tanikajudy Pedraza BLOOD CULTURE, AEROBIC & ANAEROBIC 2020-04-11 18:46:00 Chelsey Tanikajudy Pedraza BLOOD CULTURE, AEROBIC & ANAEROBIC 2020-04-11 18:42:00 Chelsey Tanikajudy Pedraza HC COMPLETE BLD COUNT W/AUTO DIFF 2020-04-11 18:42:00 Deepa Barbosa COMPREHENSIVE METABOLIC PANEL 2020-04-11 18:42:00 Agueda Barbosa TROPONIN 2020-04-11 18:42:00 Chelsey Tanikajudy Sesay [facility] B NATRIURETIC PEPTIDE 2020-04-11 18:42:00 Tanika Barbosa ESTIMATED GFR 2020-04-11 18:42:00 Sandra Barbosanicjudy Sesay [facility] XR CHEST 1 VW PORTABLE 2020-04-11 18:31:05 Tanika Barbosa Ankle joint operations [facility] Appendectomy [facility] Shoulder joint operations [facility] Open removal foreign body from joint [facility] ORIF - Open reduction of fracture of ankle with internal fixatio n [facility] Plan of Care Planned Activity Planned Date Details Comments Source Future Scheduled Test 2020 00:00:00 COLONOSCOPY SCREEN ING [code = COLONOSCOPY SCREENING] Lázaro Pedraza Future Scheduled Test 2020 00:00:00 SHINGLES VACCINES (#1) [code = SHINGLES VACCINES (#1)] Lázaro Pedraza Future Scheduled Test 2020-06-02 00:00:00 INFLUENZA VACCINE [code = INFLUENZA VACCINE] Lázaro Pedraza Encounters Start Date/Time End Date/Time Encounter Type Admission Type Attendi [facility] Care Department Encounter ID Source 2020-07-05 20:30:00 2020-07-07 18:30:00 Inpatient 1 O Chante duenas [place] [facility] [id number] [facility] 2020-07-05 20:30:00 2020-07-05 20:30:00 Inpatient 1 O Chante duenas [place] [facility] [id number] [facility] 2020-07-04 00:00:00 2020-07-04 00:00:00 Emergency MIKE MUELLER [facility] [id number] [facility] 2020-05-05 16:52:08 2020-05-06 15:48:00 [facility] [id number] 2020-05-06 14:16:00 2020-05-06 14:16:00 Outpatient E [facility] [id number] [facility] 2020-04-11 00:00:00 2020-04-14 00:00:00 Inpatient NJ AGUAYO [facility] [id number] [facility] 2019-12-23 18:13:00 2019-12-23 22:28:00 Outpatient BriannaGuilherme Vandana [facility] [id number] 2019-12-23 18:13:00 2019-12-23 18:13:00 Emergency E [facility] 2019-07-24 11:45:00 2019-07-24 14:58:00 Outpatient Enmanuel Juarez [facility] [id number] 2019-07-24 11:45:00 2019-07-24 11:45:00 Emergency E [facility] [id number] [facility] 2019-07-08 12:20:00 2019-07-08 15:45:00 Outpatient Néstor Shepherd [facility] [id number] 2019-07-08 12:20:00 2019-07-08 12:20:00 Outpatient [facility] [id number] [facility] 2019-05-07 17:05:29 2019-05-07 22:46:00 Outpatient Andrea Hanson [facility] [id number] 2019-05-07 17:05:00 2019-05-07 17:05:00 Emergency E SW [facility] [id number] [facility] 2019-01-20 11:35:00 2019-01-21 18:15:00 Outpatient El Dai [id number] 2016-12-24 00:30:00 2016-12-24 04:30:00 Outpatient Indira Hudson [id number] 2015-08-28 17:34:00 2015-08-28 22:45:00 Outpatient Andriy Reyez [facility] [id number] 2014-07-02 13:42:00 2014-07-02 14:49:00 Outpatient Guilherme Reed [facility] [id number] 2014-05-07 18:45:00 2014-05-07 21:26:00 Outpatient Arleen Barkley V [facility] [id number] Results Test Description Test Time Test Comments Results Result Comments Source Urine Culture 2020-07-07 09:24:02 Test Item ORGANISM (test code = ORGANISM) Enterococcus group D Ampicillin (test code = Amp) S Ciprofloxacin (test code = Cipro) S Gentamicin synergy (test code = Gent-Syn) R Levofloxacin (test code = Levo) S Linezolid (test code = Linez) S Nitrofurantoin (test code = Nitro) S Penicillin (test code = Pen) S Streptomycin synergy (test code = Strep-Syn) S Tetracycline (test code = Tetra) R Vancomycin (test code = Vanc) S Final Report (test code = Final Report) 10,000 cfu/ml Enterococcus group D C Urine Added by [email or web address] Metabolic [id number] 07:18:28* Test Item Value Reference Range Interpretation Comments Sodium Level (test code = Sodium Level) 140.0 mmol/L 136.0-145.0 Potassium Level (test code = Potassium Level) 3.70 mmol/L 3.50-5.1 0 Chloride Level (test code = Chloride Level) 111.0 mmol/L 98.0-107.0 H CO2 (test code = CO2) 24 mmol/L 20-31 Anion Gap (test code = Anion Gap) 5.1 mmol/L 5.0-15.0 BUN (test code = BUN) 24 mg/dL 9-23 H Creatinine Level (test code = Creatinine Level) 1.25 mg/dL 0.70-1 .30 BUN/Creat Ratio (test code = BUN/Creat Ratio) 19.2 ratio 10.0-20. 0 Glucose Level (test code = Glucose Level) 90 mg/dL 74-106 Calcium Level (test code = Calcium Level) 8.0 mg/dL 8.3-10.6 L Hemolysis (test code = Hemolysis) 0 mg/dL 8-11 L Icterus (test code = Icterus) 0 mg/dL 8-11 L Lipemia (test code = Lipemia) 0 mg/dL 8-11 L Basic Metabolic [id number] 07:18:28* Test Item Value Reference Range Interpretation Comments Sodium Level (test code = Sodium Level) 140.0 mmol/L 136.0-145.0 Potassium Level (test code = Potassium Level) 3.70 mmol/L 3.50-5.1 0 Chloride Level (test code = Chloride Level) 111.0 mmol/L 98.0-107.0 H CO2 (test code = CO2) 24 mmol/L 20-31 Anion Gap (test code = Anion Gap) 5.1 mmol/L 5.0-15.0 BUN (test code = BUN) 24 mg/dL 9-23 H Creatinine Level (test code = Creatinine Level) 1.25 mg/dL 0.70-1 .30 BUN/Creat Ratio (test code = BUN/Creat Ratio) 19.2 ratio 10.0-20. 0 Glucose Level (test code = Glucose Level) 90 mg/dL 74-106 Calcium Level (test code = Calcium Level) 8.0 mg/dL 8.3-10.6 L eGFR AA (test code = eGFR AA) >60 mL/min/1.73 m2 >=60 eGFR (estimated Glomerular Filtration Rate) is an estimated value, calculated from the patient's serum creatinine using the MDRD equation. It is NOT the patient's actual GFR. The eGFR provides a more clinically useful measure of kidney disease than serum creatinine alone.This calculation takes sex and race into account, if the information is provided. If the race is not provided, and the patient is -[place]anese, multiply by 1.212. If sex is not provided, and the patient is female, multiply by 0.742. Results for patients <18 years of age have not been validated by the MDRD study and should be interpreted with caution. eGFR Result Interpretation:eGFR > or = 60 is in the Normal RangeeGFR < 60 may mean kidney diseaseeGFR < 15 may mean kidney failure Ranges recommended by the National Kidney Foundation, http://nkdep.nih.gov Hemolysis (test code = Hemolysis) 0 mg/dL 8-11 L Icterus (test code = Icterus) 0 mg/dL 8-11 L Lipemia (test code = Lipemia) 0 mg/dL 8-11 L Basic Metabolic [id number] 07:18:28* Test Item Value Reference Range Interpretation Comments Sodium Level (test code = Sodium Level) 140.0 mmol/L 136.0-145.0 Potassium Level (test code = Potassium Level) 3.70 mmol/L 3.50-5.1 0 Chloride Level (test code = Chloride Level) 111.0 mmol/L 98.0-107.0 H CO2 (test code = CO2) 24 mmol/L 20-31 Anion Gap (test code = Anion Gap) 5.1 mmol/L 5.0-15.0 BUN (test code = BUN) 24 mg/dL 9-23 H Creatinine Level (test code = Creatinine Level) 1.25 mg/dL 0.70-1 .30 BUN/Creat Ratio (test code = BUN/Creat Ratio) 19.2 ratio 10.0-20. 0 Glucose Level (test code = Glucose Level) 90 mg/dL 74-106 Calcium Level (test code = Calcium Level) 8.0 mg/dL 8.3-10.6 L eGFR AA (test code = eGFR AA) >60 mL/min/1.73 m2 >=60 eGFR (estimated Glomerular Filtration Rate) is an estimated value, calculated from the patient's serum creatinine using the MDRD equation. It is NOT the patient's actual GFR. The eGFR provides a more clinically useful measure of kidney disease than serum creatinine alone.This calculation takes sex and race into account, if the information is provided. If the race is not provided, and the patient is -Guyanese, multiply by 1.212. If sex is not provided, and the patient is female, multiply by 0.742. Results for patients <18 years of age have not been validated by the MDRD study and should be interpreted with caution. eGFR Result Interpretation:eGFR > or = 60 is in the Normal RangeeGFR < 60 may mean kidney diseaseeGFR < 15 may mean kidney failure Ranges recommended by the National Kidney Foundation, http://nkdep.nih.gov eGFR Non-AA (test code = eGFR Non-AA) >60.00 mL/min/1.73 m2 >=60.00 eGFR (estimated Glomerular Filtration Rate) is an estimated value, calculated from the patient's serum creatinine using the MDRD equation. It is NOT the patient's actual GFR. The eGFR provides a more clinically useful measure of kidney disease than serum creatinine alone.This calculation takes sex and race into account, if the information is provided. If the race is not provided, and the patient is -Guyanese, multiply by 1.212. If sex is not provided, and the patient is female, multiply by 0.742. Results for patients <18 years of age have not been validated by the MDRD study and should be interpreted with caution. eGFR Result Interpretation:eGFR > or = 60 is in the Normal RangeeGFR < 60 may mean kidney diseaseeGFR < 15 may mean kidney failure Ranges recommended by the National Kidney Foundation, http://nkdep.nih.gov Hemolysis (test code = Hemolysis) 0 mg/dL 8-11 L Icterus (test code = Icterus) 0 mg/dL 8-11 L Lipemia (test code = Lipemia) 0 mg/dL 8-11 L Complete Blood Count with [id number] 06:53:39* Test Item Value Reference Range Interpretation Comments WBC (test code = WBC) 6.7 x10 4.4-10.5 RBC (test code = RBC) 4.06 x10 4.10-5.70 L Hgb (test code = Hgb) 11.2 g/dL 13.4-17.4 L MCV (test code = MCV) 86.70 fL 80.00-100.00 Hct (test code = Hct) 35.2 % 38.7-52.0 L MCHC (test code = MCHC) 31.80 g/dL 32.00-37.50 L RDW CV (test code = RDW CV) 13.9 % 11.5-14.5 MCH (test code = MCH) 27.6 pg 27.0-32.5 Platelets (test code = Platelets) 193.0 x10 140.0-440.0 MPV (test code = MPV) 11.2 fL N Slide Review (test code = Slide Review) Auto Auto Result created by [email or web address] nRBC (test code = nRBC) 0 N NRBC Abs (test code = NRBC Abs) 0.00 x10 N Automated [id number] 06:53:39* Test Item Value Reference Range Interpretation Comments Neutro Auto (test code = Neutro Auto) 57.4 % 36.0-70.0 Lymph Auto (test code = Lymph Auto) 27.9 % 12.0-44.0 Dent Auto (test code = Dent Auto) 9.6 % 0.0-11.0 Eos, Auto (test code = Eos, Auto) 4.2 % 0.0-7.0 Basophil Auto (test code = Basophil Auto) 0.6 % 0.0-2.0 Neutro Absolute (test code = Neutro Absolute) 3.9 x10 1.6-7.4 Lymph Absolute (test code = Lymph Absolute) 1.88 x10 .50-4.60 Dent Absolute (test code = Dent Absolute) .65 x10 .00-1.20 Eos Absolute (test code = Eos Absolute) 0.28 x10 0.00-0.74 Baso Absolute (test code = Baso Absolute) 0.04 x10 0.00-0.21 IG [id number] 06:53:39* Test Item Value Reference Range Interpretation Comments IG (test code = IG) 0.3 % 0.0-5.0 IG Abs (test code = IG Abs) 0 x10 N Creatinine [id number] 04:20:12* Test Item Value Reference Range Interpretation Comments U Creatinine (test code = U Creatinine) 153.2 mg/dL N Reference ranges have not been established for this assay. Sodium [id number] 04:20:12* Test Item Value Reference Range Interpretation Comments U Sodium (test code = U Sodium) 62 mmol/L N Reference ranges have not been established for this assay. US Kidney [id number] 04:05:30Patient: MAGUI BUTLER Date/Time07/06/2020 03:43 CDTReason for ExamNausea and vomitingReportAFTER HOURS SERVICE ON: 07/06/2020 4:03 AMRenal UltrasoundLocation Code [id number]: Nausea and vomitingTechnique: Real-time johnson scale and color flow evaluation was performed using a dedicated transducer.Findings:The right kidney measures 9.2 x 5.3 x 6.9 cm. The left kidney measures 11.4 x 4.8 x 5.7 cm. Renal cortical echogenicities are within normal limits for patient's age. There is no hydronephrosis. Adequate flow noted in both kidneys.Bladder is unremarkable.Impression:Unremarkable renal ultrasound. Final Dictated by: MD Timmons Mohammad TDictated DT/TM: 07/06/2020 4:03 amSigned by: MD Timmons Mohammad TSigned (Electronic Signature): 07/06/2020 4:05 amUrinalysis [id number] 02:35:46* Test Item Value Reference Range Interpretation Comments UA WBC (test code = UA WBC) 6-10 0-5 A UA RBC (test code = UA RBC) 0-5 0-5 UA Bacteria (test code = UA Bacteria) None Seen UA Squam Epithelial (test code = UA Squam Epithelial) 6-10 A UA Mucous (test code = UA Mucous) Few A UA Gran Cast (test code = UA Gran Cast) 1-5 A UA WBC Cast (test code = UA WBC Cast) 1-5 A Urinalysis with Culture, if [id number] 02:18:42* Test Item Value Reference Range Interpretation Comments UA Color (test code = UA Color) YELLO Yellow UA Appear (test code = UA Appear) CLEAR Clear UA pH (test code = UA pH) 6.0 UA Spec Grav (test code = UA Spec Grav) 1.025 1.001-1.035 UA Glucose (test code = UA Glucose) NEG Negative UA Bili (test code = UA Bili) NEG Negative UA Ketones (test code = UA Ketones) NEG Negative UA Blood (test code = UA Blood) SML Negative A UA Protein (test code = UA Protein) 100 mg/dL N UA Urobilinogen (test code = UA Urobilinogen) .2 mg/dL >0.2 UA Nitrite (test code = UA Nitrite) NEG Negative UA Leuk Est (test code = UA Leuk Est) NEG Negative UA Micro Ind? (test code = UA Micro Ind?) Indicated Not Indicate d A Basic Metabolic [id number] 01:10:56* Test Item Value Reference Range Interpretation Comments Sodium Level (test code = Sodium Level) 137.0 mmol/L 136.0-145.0 Potassium Level (test code = Potassium Level) 4.30 mmol/L 3.50-5.1 0 Chloride Level (test code = Chloride Level) 107.0 mmol/L 98.0-107.0 CO2 (test code = CO2) 25 mmol/L 20-31 Anion Gap (test code = Anion Gap) 4.8 mmol/L 5.0-15.0 L BUN (test code = BUN) 26 mg/dL 9-23 H Creatinine Level (test code = Creatinine Level) 2.37 mg/dL 0.70-1 .30 H BUN/Creat Ratio (test code = BUN/Creat Ratio) 11.0 ratio 10.0-20. 0 Glucose Level (test code = Glucose Level) 94 mg/dL 74-106 Calcium Level (test code = Calcium Level) 8.1 mg/dL 8.3-10.6 L Hemolysis (test code = Hemolysis) 0 mg/dL 8-11 L Icterus (test code = Icterus) 0 mg/dL 8-11 L Lipemia (test code = Lipemia) 0 mg/dL 8-11 L Basic Metabolic [id number] 01:10:56* Test Item Value Reference Range Interpretation Comments Sodium Level (test code = Sodium Level) 137.0 mmol/L 136.0-145.0 Potassium Level (test code = Potassium Level) 4.30 mmol/L 3.50-5.1 0 Chloride Level (test code = Chloride Level) 107.0 mmol/L 98.0-107.0 CO2 (test code = CO2) 25 mmol/L 20-31 Anion Gap (test code = Anion Gap) 4.8 mmol/L 5.0-15.0 L BUN (test code = BUN) 26 mg/dL 9-23 H Creatinine Level (test code = Creatinine Level) 2.37 mg/dL 0.70-1 .30 H BUN/Creat Ratio (test code = BUN/Creat Ratio) 11.0 ratio 10.0-20. 0 Glucose Level (test code = Glucose Level) 94 mg/dL 74-106 Calcium Level (test code = Calcium Level) 8.1 mg/dL 8.3-10.6 L eGFR AA (test code = eGFR AA) 36 mL/min/1.73 m2 >=60 L eGFR (estimated Glomerular Filtration Rate) is an estimated value, calculated from the patient's serum creatinine using the MDRD equation. It is NOT the patient's actual GFR. The eGFR provides a more clinically useful measure of kidney disease than serum creatinine alone.This calculation takes sex and race into account, if the information is provided. If the race is not provided, and the patient is -[place], multiply by 1.212. If sex is not provided, and the patient is female, multiply by 0.742. Results for patients <18 years of age have not been validated by the MDRD study and should be interpreted with caution. eGFR Result Interpretation:eGFR > or = 60 is in the Normal RangeeGFR < 60 may mean kidney diseaseeGFR < 15 may mean kidney failure Ranges recommended by the National Kidney Foundation, http://nkdep.nih.gov Hemolysis (test code = Hemolysis) 0 mg/dL 8-11 L Icterus (test code = Icterus) 0 mg/dL 8-11 L Lipemia (test code = Lipemia) 0 mg/dL 8-11 L Basic Metabolic [id number] 01:10:56* Test Item Value Reference Range Interpretation Comments Sodium Level (test code = Sodium Level) 137.0 mmol/L 136.0-145.0 Potassium Level (test code = Potassium Level) 4.30 mmol/L 3.50-5.1 0 Chloride Level (test code = Chloride Level) 107.0 mmol/L 98.0-107.0 CO2 (test code = CO2) 25 mmol/L 20-31 Anion Gap (test code = Anion Gap) 4.8 mmol/L 5.0-15.0 L BUN (test code = BUN) 26 mg/dL 9-23 H Creatinine Level (test code = Creatinine Level) 2.37 mg/dL 0.70-1 .30 H BUN/Creat Ratio (test code = BUN/Creat Ratio) 11.0 ratio 10.0-20. 0 Glucose Level (test code = Glucose Level) 94 mg/dL 74-106 Calcium Level (test code = Calcium Level) 8.1 mg/dL 8.3-10.6 L eGFR AA (test code = eGFR AA) 36 mL/min/1.73 m2 >=60 L eGFR (estimated Glomerular Filtration Rate) is an estimated value, calculated from the patient's serum creatinine using the MDRD equation. It is NOT the patient's actual GFR. The eGFR provides a more clinically useful measure of kidney disease than serum creatinine alone.This calculation takes sex and race into account, if the information is provided. If the race is not provided, and the patient is -Guyanese, multiply by 1.212. If sex is not provided, and the patient is female, multiply by 0.742. Results for patients <18 years of age have not been validated by the MDRD study and should be interpreted with caution. eGFR Result Interpretation:eGFR > or = 60 is in the Normal RangeeGFR < 60 may mean kidney diseaseeGFR < 15 may mean kidney failure Ranges recommended by the National Kidney Foundation, http://nkdep.nih.gov eGFR Non-AA (test code = eGFR Non-AA) 29.34 mL/min/1.73 m2 >=60.00 L eGFR (estimated Glomerular Filtration Rate) is an estimated value, calculated from the patient's serum creatinine using the MDRD equation. It is NOT the patient's actual GFR. The eGFR provides a more clinically useful measure of kidney disease than serum creatinine alone.This calculation takes sex and race into account, if the information is provided. If the race is not provided, and the patient is -Guyanese, multiply by 1.212. If sex is not provided, and the patient is female, multiply by 0.742. Results for patients <18 years of age have not been validated by the MDRD study and should be interpreted with caution. eGFR Result Interpretation:eGFR > or = 60 is in the Normal RangeeGFR < 60 may mean kidney diseaseeGFR < 15 may mean kidney failure Ranges recommended by the National Kidney Foundation, http://nkdep.nih.gov Hemolysis (test code = Hemolysis) 0 mg/dL 8-11 L Icterus (test code = Icterus) 0 mg/dL 8-11 L Lipemia (test code = Lipemia) 0 mg/dL 8-[address] Abdomen and Pelvis w/o [id number] 00:11:06Patient: MAGUI BUTLER Date/Time07/05/2020 23:30 CDTReason for Examcreat too high for contrast;InjuryReportLOCATION: [id number]: 49-year-old male who presents with a trauma historyCOMMENT:Axial CT imaging of this patient's chest, abdomen, and pelvis was obtained from the thoracic inlet through the pelvic floor without IV contrast with trauma technique. Coronal and sagittal soft tissue reconstructions were included.Axial CT imaging of the thoracolumbar spine was included and submitted in soft tissue and bone technique. Coronal and sagittal reconstructions were provided.One or more of the following dose reduction techniques are used: Automated exposure control, adjustment of the mA and/or kV according the patient size, and/or utilization of iterative reconstruction technique.DLP: 2141.8 mGy-cmCONTRAST: NoneFINDIN GS:CHEST CT:The lungs are well-expanded and clear. The cardiac silhouette and va scular structures are unremarkable. No adenopathy is seen. The thoracic inlet an d chest wall are unremarkable. The visualized rib cage is intact.ABDOMEN/PELVIS CT:The liver, spleen, pancreas, adrenal glands, kidneys, and gallbladder are unr emarkable. The upper intestinal tract and small intestine are unremarkable. The appendix is not seen. The colon exhibits no acute findings. Scattered diverticul osis is seen in the left hemicolon. There is no ascites or adenopathy present. T he vascular anatomy is unremarkable. The musculoskeletal anatomy is unremarkable .Within the pelvis the urinary bladder, prostate gland, and seminal vesicles are unremarkable. The visualized bony pelvis and proximal femora are intact.THORACO LUMBAR SPINE CT:The lumbar skeleton and thoracic skeleton are intact. The alignm ent is adequate. Ventral spurring is seen at multiple levels in the thoracic spi ne examination. The paraspinous soft tissues and visualized rib cage are intact. In the lumbar spine degenerative spurring with disc disease is seen at multiple levels. Posterior facet arthropathy is widespread. The paraspinous soft tissues are unremarkable.IMPRESSION:Exam Date/Time07/05/2020 23:30 CDTReportThere are no acute injury seen in this patient's chest, abdomen, pelvis, thoracic spine, or l umbar spine this series of CT examinations obtained with trauma technique. Final Dictated by: MD Haley Robert LDictated DT/TM: 07/06/2020 0:06 am Signed by: MD Haley Robert LSigned (Electronic Signature): 07/06/2020 0:11 a mCT Spine Lumbar w/o [id number] 00:11:06Patient: MAGUI BUTLER Date/Time07/05/2020 23:30 CDTReason for ExamTraumaReportLOCATION: [id number]: 49-year-old male who presents with a trauma historyCOMMENT:Axial CT imaging of this patient's chest, abdomen, and pelvis was obtained from the thoracic inlet through the pelvic floor without IV contrast with trauma technique. Coronal and sagittal soft tissue reconstructions were included.Axial CT imaging of the thoracolumbar spine was included and submitted in soft tissue and bone technique. Coronal and sagittal reconstructions were provided.One or more of the following dose r eduction techniques are used: Automated exposure control, adjustment of the mA a nd/or kV according the patient size, and/or utilization of iterative reconstruct ion technique.DLP: 2141.8 mGy-cmCONTRAST: NoneFINDINGS:CHEST CT:The lungs are we ll-expanded and clear. The cardiac silhouette and vascular structures are unrema rkable. No adenopathy is seen. The thoracic inlet and chest wall are unremarkabl e. The visualized rib cage is intact.ABDOMEN/PELVIS CT:The liver, spleen, pancre as, adrenal glands, kidneys, and gallbladder are unremarkable. The upper intesti nal tract and small intestine are unremarkable. The appendix is not seen. The co romeo exhibits no acute findings. Scattered diverticulosis is seen in the left hem icolon. There is no ascites or adenopathy present. The vascular anatomy is unrem arkable. The musculoskeletal anatomy is unremarkable.Within the pelvis the urina ry bladder, prostate gland, and seminal vesicles are unremarkable. The visualize d bony pelvis and proximal femora are intact.THORACOLUMBAR SPINE CT:The lumbar s keleton and thoracic skeleton are intact. The alignment is adequate. Ventral spu rring is seen at multiple levels in the thoracic spine examination. The paraspin ous soft tissues and visualized rib cage are intact. In the lumbar spine degener ative spurring with disc disease is seen at multiple levels. Posterior facet art hropathy is widespread. The paraspinous soft tissues are unremarkable.IMPRESSION :Exam Date/Time07/05/2020 23:30 CDTReportThere are no acute injury seen in this pa tient's chest, abdomen, pelvis, thoracic spine, or lumbar spine this series of C T examinations obtained with trauma technique. Final Dictated by: Judy gonzalez MD, Andriy LDictated DT/TM: 07/06/2020 0:06 amSigned by: MD Haley Rober t LSigned (Electronic Signature): 07/06/2020 0:11 [facility] [place] [id number] 00:11:06Patient: MAGUI BUTLER Date/Time07/05/2020 23:30 CDTReason for ExamTraumaReportLOCATION: [id number]: 49-year-old male who presents with a trauma historyCOMMENT:Axial CT imaging of this patient's chest, abdomen, and pelvis was obtained from the thoracic inlet through the pelvic floor without IV contrast with trauma technique. Coronal and sagittal soft tissue reconstructions were included.Axial CT imaging of the thoracolumbar spine was included and submitted in soft tissue and bone technique. Coronal and sagittal reconstructions were provided.One or more of the following dose reduction techniques are used: Automated exposure control, adjustment of the mA and/or kV according the patient size, and/or utilization of iterative reconstruction technique.DLP: 2141.8 mGy-cmCONTRAST: NoneFINDINGS:CHEST CT:The lungs are well- expanded and clear. The cardiac silhouette and vascular structures are unrema rkable. No adenopathy is seen. The thoracic inlet and chest wall are unremarkabl e. The visualized rib cage is intact.ABDOMEN/PELVIS CT:The liver, spleen, pancre as, adrenal glands, kidneys, and gallbladder are unremarkable. The upper intesti nal tract and small intestine are unremarkable. The appendix is not seen. The co romeo exhibits no acute findings. Scattered diverticulosis is seen in the left hem icolon. There is no ascites or adenopathy present. The vascular anatomy is unrem arkable. The musculoskeletal anatomy is unremarkable.Within the pelvis the urina ry bladder, prostate gland, and seminal vesicles are unremarkable. The visualize d bony pelvis and proximal femora are intact.THORACOLUMBAR SPINE CT:The lumbar s keleton and thoracic skeleton are intact. The alignment is adequate. Ventral spu rring is seen at multiple levels in the thoracic spine examination. The paraspin ous soft tissues and visualized rib cage are intact. In the lumbar spine degener ative spurring with disc disease is seen at multiple levels. Posterior facet art hropathy is widespread. The paraspinous soft tissues are unremarkable.IMPRESSION :Exam Date/Time07/05/2020 23:30 CDTReportThere are no acute injury seen in this pa tient's chest, abdomen, pelvis, thoracic spine, or lumbar spine this series of C T examinations obtained with trauma technique. Final Dictated by: Judy gonzalez MD, Robert LDictated DT/TM: 07/06/2020 0:06 amSigned by: MD Haley Rober t LSigned (Electronic Signature): 07/06/2020 0:11 amCT Chest w/o Contrast 2020-07-06 00:11:06Patient: MAGUI BUTLER Date/Time07/05/2020 23:30 CDTReason for Examcreat too high for contrast;InjuryReportLOCATION: [id number]: 49-year-old male who presents with a trauma historyCOMMENT:Axial CT imaging of this patient's chest, abdomen, and pelvis was obtained from the thoracic inlet through the pelvic floor without IV contrast with trauma technique. Coronal and sagittal soft tissue reconstructions were included.Axial CT imaging of the thoracolumbar spine was included and submitted in soft tissue and bone technique. Coronal and sagittal reconstructions were provided.One or more of the following dose reduction techniques are used: Automated exposure control, adjustment of the mA and/or kV according the patient size, and/or utilization of iterative reconstruction technique.DLP: 2141.8 mGy-cmCONTRAST: NoneFINDINGS:CHEST CT:The lungs are well- expanded and clear. The cardiac silhouette and vascular structures are unremarkable. No adenopathy is seen. The thoracic inlet and chest wall are unremarkable. The visualized rib cage is intact.ABDOMEN/PELVIS CT:The liver, spleen, pancreas, adrenal glands, kidneys, and gallbladder are unremarkable. The upper intestinal tract and small intestine are unremarkable. The appendix is not seen. The colon exhibits no acute findings. Scattered diverticulosis is seen in the left hemicolon. There is no ascites or adenopathy present. The vascular anatomy is unremarkable. The musculoskeletal anatomy is unremarkable.Within the pelvis the urinary bladder, prostate gland, and seminal vesicles are unremarkable. The visualized bony pelvis and proximal femora are intact.THORACO LUMBAR SPINE CT:The lumbar skeleton and thoracic skeleton are intact. The alignm ent is adequate. Ventral spurring is seen at multiple levels in the thoracic spi ne examination. The paraspinous soft tissues and visualized rib cage are intact. In the lumbar spine degenerative spurring with disc disease is seen at multiple levels. Posterior facet arthropathy is widespread. The paraspinous soft tissues are unremarkable.IMPRESSION:Exam Date/Time07/05/2020 23:30 CDTReportThere are no acute injury seen in this patient's chest, abdomen, pelvis, thoracic spine, or l umbar spine this series of CT examinations obtained with trauma technique. Final Dictated by: MD Haley Robert LDictated DT/TM: 07/06/2020 0:06 am Signed by: MD Haley Robert LSigned (Electronic Signature): 07/06/2020 0:11 a mCT Maxillofacial w/o [id number] 00:04:15Patient: MAGUI BUTLER Date/Time07/05/2020 23:30 CDTReason for ExamInjuryReportLOCATION: [id number]: 49-year-old male who presents with a trauma history.COMMENT:CT imaging of this patient's head, cervical spine, and maxillofacial anatomy was obtained.Axial CT imaging of the patient's brain were obtained without intravenous contrast. Soft tissue and bone windowing technique were submitted. Coronal and sagittal soft tissue reconstructions were provided. The study was obtained within 24 hours of the patient's arrival to this facility.Axial CT imaging of the cervical spine was o btained. Soft tissue and bone the images were submitted. Coronal and sagittal re constructions were included. The patient was wearing a cervical collar.Axial CT imaging of the maxillofacial anatomy was obtained. Soft tissue and bone window i mages were submitted. Coronal and sagittal reconstructions were included.One or more of the following dose reduction techniques are used: Automated exposure con trol, adjustment of the mA and/or kV according to patient size, and/or utilizati on of iterative reconstruction technique.DLP: 2045.9 mGy-cmCONTRAST: NoneFINDING S:HEAD CT:There is no evidence of acute mass effect, midline shift, hemorrhage, or herniation. The ventricles, sulci, and cisterns are within normal limits. The re is no CT evidence of an acute infarct.The skeleton is intact. The visualized paranasal sinuses and air cells are clear. The soft tissues are unremarkable.C-S PINE CT:The cervical skeleton is intact and the alignment is anatomic. The inter vertebral discs, uncovertebral joints, and the posterior facet joints are unrema rkable. The soft tissues are unremarkableMAXILLOFACIAL CT:The midface skeleton i s intact. There is soft tissue swelling seen above the left orbit. The orbital c ontents is intact. The visualized paranasal sinuses and air cells are clear.IMPR ESSION:Soft tissue swelling is seen in the left frontal scalp just above the lef t bony orbit. The orbital contents is intact. No acute injury is seen elsewhere in the maxillofacial anatomy.Exam Date/Time07/05/2020 23:30 CDTReportNo acute inju ry is seen in the head CT examination or in the cervical spine CT examination. Final Dictated by: MD Haley Robert LDictated DT/TM: 07/05/2020 11: 59 pmSigned by: MD Haley Robert LSigned (Electronic Signature): 07/06/2020 0 :04 amCT Spine Cervical w/o [id number] 00:04:15Patient: MAGUI BUTLER Date/Time07/05/2020 23:30 CDTReason for ExamTraumaReportLOCATION: [id number]: 49-year-old male who presents with a trauma history.COMMENT:CT imaging of this patient's head, cervical spine, and maxillofacial anatomy was obtained.Axial CT imaging of the patient's brain were obtained without intravenous contrast. Soft tissue and bone windowing technique were submitted. Coronal and sagittal soft tissue reconstructions were provided. The study was obtained within 24 hours of the patient's arrival to this facility.Axial CT imaging of the cervical spine was o btained. Soft tissue and bone the images were submitted. Coronal and sagittal re constructions were included. The patient was wearing a cervical collar.Axial CT imaging of the maxillofacial anatomy was obtained. Soft tissue and bone window i mages were submitted. Coronal and sagittal reconstructions were included.One or more of the following dose reduction techniques are used: Automated exposure con trol, adjustment of the mA and/or kV according to patient size, and/or utilizati on of iterative reconstruction technique.DLP: 2045.9 mGy-cmCONTRAST: NoneFINDING S:HEAD CT:There is no evidence of acute mass effect, midline shift, hemorrhage, or herniation. The ventricles, sulci, and cisterns are within normal limits. The re is no CT evidence of an acute infarct.The skeleton is intact. The visualized paranasal sinuses and air cells are clear. The soft tissues are unremarkable.C-S PINE CT:The cervical skeleton is intact and the alignment is anatomic. The inter vertebral discs, uncovertebral joints, and the posterior facet joints are unrema rkable. The soft tissues are unremarkableMAXILLOFACIAL CT:The midface skeleton i s intact. There is soft tissue swelling seen above the left orbit. The orbital c ontents is intact. The visualized paranasal sinuses and air cells are clear.IMPR ESSION:Soft tissue swelling is seen in the left frontal scalp just above the lef t bony orbit. The orbital contents is intact. No acute injury is seen elsewhere in the maxillofacial anatomy.Exam Date/Time07/05/2020 23:30 CDTReportNo acute inju ry is seen in the head CT examination or in the cervical spine CT examination. Final Dictated by: MD Haley Robert LDictated DT/TM: 07/05/2020 11: 59 pmSigned by: MD Haley Robert LSigned (Electronic Signature): 07/06/2020 0 :04 amCT Brain/Head w/o [id number] 00:04:15Patient: MAGUI BUTLER Date/Time07/05/2020 23:30 CDTReason for ExamTraumaReportLOCATION: [id number]: 49-year-old male who presents with a trauma history.COMMENT:CT imaging of this patient's head, cervical spine, and maxillofacial anatomy was obtained.Axial CT imaging of the patient's brain were obtained without intravenous contrast. Soft tissue and bone windowing technique were submitted. Coronal and sagittal soft tissue reconstructions were provided. The study was obtained within 24 hours of the patient's arrival to this facility.Axial CT imaging of the cervical spine was o btained. Soft tissue and bone the images were submitted. Coronal and sagittal re constructions were included. The patient was wearing a cervical collar.Axial CT imaging of the maxillofacial anatomy was obtained. Soft tissue and bone window i mages were submitted. Coronal and sagittal reconstructions were included.One or more of the following dose reduction techniques are used: Automated exposure con trol, adjustment of the mA and/or kV according to patient size, and/or utilizati on of iterative reconstruction technique.DLP: 2045.9 mGy-cmCONTRAST: NoneFINDING S:HEAD CT:There is no evidence of acute mass effect, midline shift, hemorrhage, or herniation. The ventricles, sulci, and cisterns are within normal limits. The re is no CT evidence of an acute infarct.The skeleton is intact. The visualized paranasal sinuses and air cells are clear. The soft tissues are unremarkable.C-S PINE CT:The cervical skeleton is intact and the alignment is anatomic. The inter vertebral discs, uncovertebral joints, and the posterior facet joints are unrema rkable. The soft tissues are unremarkableMAXILLOFACIAL CT:The midface skeleton i s intact. There is soft tissue swelling seen above the left orbit. The orbital c ontents is intact. The visualized paranasal sinuses and air cells are clear.IMPR ESSION:Soft tissue swelling is seen in the left frontal scalp just above the lef t bony orbit. The orbital contents is intact. No acute injury is seen elsewhere in the maxillofacial anatomy.Exam Date/Time07/05/2020 23:30 CDTReportNo acute inju ry is seen in the head CT examination or in the cervical spine CT examination. Final Dictated by: MD Haley Robert LDictated DT/TM: 07/05/2020 11: 59 pmSigned by: MD Haley Robert LSigned (Electronic Signature): 07/06/2020 0 :04 amComplete Blood Count with [id number] 22:52:05* Test Item Value Reference Range Interpretation Comments WBC (test code = WBC) 10.2 x10 4.4-10.5 RBC (test code = RBC) 4.54 x10 4.10-5.70 Hgb (test code = Hgb) 12.5 g/dL 13.4-17.4 L MCV (test code = MCV) 89.00 fL 80.00-100.00 Hct (test code = Hct) 40.4 % 38.7-52.0 MCHC (test code = MCHC) 30.90 g/dL 32.00-37.50 L RDW CV (test code = RDW CV) 14.1 % 11.5-14.5 MCH (test code = MCH) 27.5 pg 27.0-32.5 Platelets (test code = Platelets) 244.0 x10 140.0-440.0 MPV (test code = MPV) 11.9 fL N Slide Review (test code = Slide Review) Auto Auto Result created by GL_SJM_SLIDE_REV_AUTO nRBC (test code = nRBC) 0 N NRBC Abs (test code = NRBC Abs) 0.00 x10 N Automated Hqyxfqyamjjp1392-64-34 22:52:05* Test Item Value Reference Range Interpretation Comments Neutro Auto (test code = Neutro Auto) 63.1 % 36.0-70.0 Lymph Auto (test code = Lymph Auto) 21.7 % 12.0-44.0 Dent Auto (test code = Dent Auto) 11.4 % 0.0-11.0 H Eos, Auto (test code = Eos, Auto) 2.6 % 0.0-7.0 Basophil Auto (test code = Basophil Auto) 0.8 % 0.0-2.0 Neutro Absolute (test code = Neutro Absolute) 6.4 x10 1.6-7.4 Lymph Absolute (test code = Lymph Absolute) 2.21 x10 .50-4.60 Dent Absolute (test code = Dent Absolute) 1.16 x10 .00-1.20 Eos Absolute (test code = Eos Absolute) 0.26 x10 0.00-0.74 Baso Absolute (test code = Baso Absolute) 0.08 x10 0.00-0.21 IG [id number] 22:52:05* Test Item Value Reference Range Interpretation Comments IG (test code = IG) 0.4 % 0.0-5.0 IG Abs (test code = IG Abs) 0 x10 N Comprehensive Metabolic Ibvfv8748-09-35 22:45:36* Test Item Value Reference Range Interpretation Comments Sodium Level (test code = Sodium Level) 135.0 mmol/L 136.0-145.0 L Potassium Level (test code = Potassium Level) 5.50 mmol/L 3.50-5.1 0 H Chloride Level (test code = Chloride Level) 103.0 mmol/L 98.0-107.0 CO2 (test code = CO2) 22 mmol/L 20-31 Anion Gap (test code = Anion Gap) 9.7 mmol/L 5.0-15.0 BUN (test code = BUN) 26 mg/dL 9-23 H Creatinine Level (test code = Creatinine Level) 2.79 mg/dL 0.70-1 .30 H BUN/Creat Ratio (test code = BUN/Creat Ratio) 9.3 ratio 10.0-20. 0 L Glucose Level (test code = Glucose Level) 93 mg/dL 74-106 Calcium Level (test code = Calcium Level) 9.1 mg/dL 8.3-10.6 Alk Phos (test code = Alk Phos) 125 U/L 46-116 H Bilirubin Total (test code = Bilirubin Total) 0.5 mg/dL 0.2-1.1 Albumin Level (test code = Albumin Level) 4.8 g/dL 3.2-4.8 Protein Total (test code = Protein Total) 7.3 g/dL 5.7-8.2 ALT (test code = ALT) 50 U/L 10-49 H AST (test code = AST) 79 U/L <=34 H Globulin (test code = Globulin) 2.5 g/dL 2.3-3.5 A/G Ratio (test code = A/G Ratio) 1.9 g/dL 0.8-2.0 Hemolysis (test code = Hemolysis) 0 g/dL 1-2 Icterus (test code = Icterus) 0 g/dL 1-2 Lipemia (test code = Lipemia) 0 g/dL 1-2 Comprehensive Metabolic [id number] 22:45:36* Test Item Value Reference Range Interpretation Comments Sodium Level (test code = Sodium Level) 135.0 mmol/L 136.0-145.0 L Potassium Level (test code = Potassium Level) 5.50 mmol/L 3.50-5.1 0 H Chloride Level (test code = Chloride Level) 103.0 mmol/L 98.0-107.0 CO2 (test code = CO2) 22 mmol/L 20-31 Anion Gap (test code = Anion Gap) 9.7 mmol/L 5.0-15.0 BUN (test code = BUN) 26 mg/dL 9-23 H Creatinine Level (test code = Creatinine Level) 2.79 mg/dL 0.70-1 .30 H BUN/Creat Ratio (test code = BUN/Creat Ratio) 9.3 ratio 10.0-20. 0 L Glucose Level (test code = Glucose Level) 93 mg/dL 74-106 Calcium Level (test code = Calcium Level) 9.1 mg/dL 8.3-10.6 Alk Phos (test code = Alk Phos) 125 U/L 46-116 H Bilirubin Total (test code = Bilirubin Total) 0.5 mg/dL 0.2-1.1 Albumin Level (test code = Albumin Level) 4.8 g/dL 3.2-4.8 Protein Total (test code = Protein Total) 7.3 g/dL 5.7-8.2 ALT (test code = ALT) 50 U/L 10-49 H AST (test code = AST) 79 U/L <=34 H Globulin (test code = Globulin) 2.5 g/dL 2.3-3.5 A/G Ratio (test code = A/G Ratio) 1.9 g/dL 0.8-2.0 eGFR AA (test code = eGFR AA) 29 mL/min/1.73 m2 >=60 L eGFR (estimated Glomerular Filtration Rate) is an estimated value, calculated from the patient's serum creatinine using the MDRD equation. It is NOT the patient's actual GFR. The eGFR provides a more clinically useful measure of kidney disease than serum creatinine alone.This calculation takes sex and race into account, if the information is provided. If the race is not provided, and the patient is -Guyanese, multiply by 1.212. If sex is not provided, and the patient is female, multiply by 0.742. Results for patients <18 years of age have not been validated by the MDRD study and should be interpreted with caution. eGFR Result Interpretation:eGFR > or = 60 is in the Normal RangeeGFR < 60 may mean kidney diseaseeGFR < 15 may mean kidney failure Ranges recommended by the National Kidney Foundation, http://nkdep.nih.gov Hemolysis (test code = Hemolysis) 0 g/dL 1-2 Icterus (test code = Icterus) 0 g/dL 1-2 Lipemia (test code = Lipemia) 0 g/dL 1-2 Alcohol [id number] 22:45:36* Test Item Value Reference Range Interpretation Comments Ethanol Level (test code = Ethanol Level) 4.1 mg/dL N The pharmacological response to blood alcohol levels may vary from individual to individual. The fatal concentration has been reported to be >400 mg/dl. Comprehensive Metabolic [id number] 22:45:36* Test Item Value Reference Range Interpretation Comments Sodium Level (test code = Sodium Level) 135.0 mmol/L 136.0-145.0 L Potassium Level (test code = Potassium Level) 5.50 mmol/L 3.50-5.1 0 H Chloride Level (test code = Chloride Level) 103.0 mmol/L 98.0-107.0 CO2 (test code = CO2) 22 mmol/L 20-31 Anion Gap (test code = Anion Gap) 9.7 mmol/L 5.0-15.0 BUN (test code = BUN) 26 mg/dL 9-23 H Creatinine Level (test code = Creatinine Level) 2.79 mg/dL 0.70-1 .30 H BUN/Creat Ratio (test code = BUN/Creat Ratio) 9.3 ratio 10.0-20. 0 L Glucose Level (test code = Glucose Level) 93 mg/dL 74-106 Calcium Level (test code = Calcium Level) 9.1 mg/dL 8.3-10.6 Alk Phos (test code = Alk Phos) 125 U/L 46-116 H Bilirubin Total (test code = Bilirubin Total) 0.5 mg/dL 0.2-1.1 Albumin Level (test code = Albumin Level) 4.8 g/dL 3.2-4.8 Protein Total (test code = Protein Total) 7.3 g/dL 5.7-8.2 ALT (test code = ALT) 50 U/L 10-49 H AST (test code = AST) 79 U/L <=34 H Globulin (test code = Globulin) 2.5 g/dL 2.3-3.5 A/G Ratio (test code = A/G Ratio) 1.9 g/dL 0.8-2.0 eGFR AA (test code = eGFR AA) 29 mL/min/1.73 m2 >=60 L eGFR (estimated Glomerular Filtration Rate) is an estimated value, calculated from the patient's serum creatinine using the MDRD equation. It is NOT the patient's actual GFR. The eGFR provides a more clinically useful measure of kidney disease than serum creatinine alone.This calculation takes sex and race into account, if the information is provided. If the race is not provided, and the patient is -Guyanese, multiply by 1.212. If sex is not provided, and the patient is female, multiply by 0.742. Results for patients <18 years of age have not been validated by the MDRD study and should be interpreted with caution. eGFR Result Interpretation:eGFR > or = 60 is in the Normal RangeeGFR < 60 may mean kidney diseaseeGFR < 15 may mean kidney failure Ranges recommended by the National Kidney Foundation, http://nkdep.nih.gov eGFR Non-AA (test code = eGFR Non-AA) 24.31 mL/min/1.73 m2 >=60.00 L eGFR (estimated Glomerular Filtration Rate) is an estimated value, calculated from the patient's serum creatinine using the MDRD equation. It is NOT the patient's actual GFR. The eGFR provides a more clinically useful measure of kidney disease than serum creatinine alone.This calculation takes sex and race into account, if the information is provided. If the race is not provided, and the patient is -Guyanese, multiply by 1.212. If sex is not provided, and the patient is female, multiply by 0.742. Results for patients <18 years of age have not been validated by the MDRD study and should be interpreted with caution. eGFR Result Interpretation:eGFR > or = 60 is in the Normal RangeeGFR < 60 may mean kidney diseaseeGFR < 15 may mean kidney failure Ranges recommended by the National Kidney Foundation, http://nkdep.nih.gov Hemolysis (test code = Hemolysis) 0 g/dL 1-2 Icterus (test code = Icterus) 0 g/dL 1-2 Lipemia (test code = Lipemia) 0 g/dL 1-2 XR Shoulder Complete 2+ Views Bgthp9630-05-89 21:15:39Patient: MAGUI BUTLER Date/Time07/05/2020 21:07 CDTReason for ExamTraumaReportLOCATION: [id number]: 49-year-old male presents with a trauma history.COMMENT:Frontal radiographs of the patient's right shoulder were obtained with the humerus in external and internal rotation.The skeleton is intact, and normally mineralized. The glenohumeral joint space and acromioclavicular joint space are within normal limits. The soft tissues are unremarkable.Small fragments of metal are superimposed on the shoulder soft tissues.IMPRESSION:Unremarkable radiographic examination of the right sh oulder. Final Dictated by: MD Haley Robert LDictated DT/TM: 07/05 9:15 pmSigned by: MD Haley Robert LSigned (Electronic Signature): 01/2020 9:15 pmXR Humerus Dpcrf6882-57-45 21:14:40Patient: MAGUI BUTLER Date/Time07/05/2020 21:07 CDTReason for ExamFallReportLOCATION: [id number]: 49-year-old male who suffered a fall.COMMENT:Frontal radiographs of the patient's right humerus were obtained with the arm in internal and external rotation.The humerus is intact and normally mineralized. The soft tissue anatomy is within normal limits.IMPRESSION:Unremarkable radiographic examination of the right humerus. Final Dictated by: MD Haley Robert LDictated DT/TM: 07/05/2020 9 :14 pmSigned by: MD Haley Robert LSigned (Electronic Signature): 07/05/2020 9:14 pmECG 12 rkvp2521-17-70 08:32:30* Test Item Value Reference Range Interpretation Comments Ventricular rate (test code = 253) 67 Atrial rate (test code = 255) 67 CT interval (test code = 266) 184 QRSD interval (test code = 260) 80 QT interval (test code = 264) 412 QTC interval (test code = 265) 435 P axis 1 (test code = 267) 17 QRS axis 1 (test code = 268) 25 T wave axis (test code = 270) 22 EKG impression (test code = 273) Normal sinus rhythm-E lectronically Signed By Aris Mckinley MD ([id number]) on 07/04/2020 8:32:27 AM [facility] MethodistXR Chest 1 Vw Sgqpwxlf1051-96-26 08:24:52Hm Interface, Radiology Results 07/04/2020 8:27 AM CDTEXAMINATION: XR CHEST 1 VW PORTABLECLINICAL HISTORY: SOBCOMPARISON: Most Recent Prior at HIMPRESSION:Lines: NoneLungs and pleura: No consolidations. No pleural effusion or pneumothorax.Heart and mediastinum: Stable appearance of cardiomediastinal si lhouette. Bones: No suspicious osseous lesions. Foreign bodies present over the right chest and axilla, unchanged.[id number]-[id number] MethodistTropodania 2020-07-04 08:17:39* Test Item Value Reference Range Interpretation Comments Troponin (test code = 30273-2) <0.006 0-0.04 In patients suspected of having a myocardial infarction, along with all other appropriate clinical measures and actions including ECG and other diagnostics as appropriate, measure Ultra TnI at 0 hrs and at 3 hrs.Myocardial infarction VERY LIKELYThe 0 hr TnI level is > 0.10 ng/mL Alexandru cardial infarction LIKELYThe 0 hr TnI level is > 0.04 ng/mL and 3 hr level is increased or decreased by at least 0.020 ng/mL Myocardi al infarction VERY UNLIKELYBoth the 0 hr and 3 hr TnI levels <= 0.04 ng/mL(within normal limits) OR 0 hr is > 0.04 ng/mL and 3 hr is increased OR decreased by less than 0.020 ng/mL [facility] MethodistComprehensive metabolic hyfvq8448-27-29 08:14:51* Test Item Value Reference Range Interpretation Comments Sodium (test code = 2951-2) 137 135- 148 mEq/L Potassium (test code = 2823-3) 3.5 3.5- 5.0 mEq/L Chloride (test code = 5-0) 98 98- 112 mEq/L CO2 (test code = 2027-9) 21 24- 31 mEq/L L Anion gap (test code = 17408-0) 18@ANIO 7- 15 mEq/L H BUN (test code = 3094-0) 23 mg/dL 6-20 H Creatinine (test code = 2160-0) 1.11 mg/dL 0.7-1.2 Glucose (test code = 2345-7) 102 mg/dL 65-99 H Calcium (test code = 94034-1) 8.4 mg/dL 8.3-10.2 Protein (test code = 2885-2) 7.6 g/dL 6.3-8.3 - 4.6- 7.0 g/dL1 week 4.4-7.6 g/dL7 months-1year 5.1-7.3 g/dL1-2 years 5.6-7.5 g/dL>3 years 6.0-8.0 g/aR57-621 6.3-8.3 g/dL Albumin (test code = 1751-7) 3.6 g/dL 3.5-5 A/G ratio (test code = 1759-0) 0.9 0.7-3.8 Alkaline phosphatase (test code = 6768-6) 121 U/L 40-129 AST (test code = 1920-8) 29 U/L 10-50 ALT (test code = 174-6) 31 U/L 5-50 Total bilirubin (test code = 1974-) <0.2 0-1.2 Lab Interpretation (test code = 65749-4) Abnormal [facility] MethodistEstimated [id number] 08:14:51* Test Item Value Reference Range Interpretation Comments Estimated GFR (test code = 5488) 77 mL/min/1.73 m2 Catergory Units InterpretationG1 >=90 Normal or highG2 60-89 Mildly onukjzhelL8d 45-59 Mildly to moderately mxgmjbgymG9f 30-44 Moderately to severely decreasedG4 15-29 Severely decreasedG5 <15 Kidney failureThe eGFR was calculated using the Chronic Kidney Disease Epidemiology Collaboration (CKD-EPI) equation. Interpretation is based on recommendations of the National Kidney Foundation-Kidney Disease Outcomes Quality Initiative (NKF-KDOQI) published in 2014. [facility]istCR[facility] LCKU2095-49-91 07:58:49Andriy Mueller DO 07/07/2020 7:24 AMCritical CarePerformed by: Andriy Mueller, DOAuthorized by: Andriy Mueller DO Critical care provider statement: Critical care time (minutes): 60 Critical care was necessary to treat or prevent imminent or life-threatening deterioration of the following conditions: Circulatory failure and metabolic crisis Critical care was time spent personally by me on the following activities: Ordering and performing treatments and interventions, ordering and review of laboratory studies, ordering and review of radiographic studies, pulse oximetry, re-evaluation of patient's condition, review of old charts, examination of patient, evaluation of patient's response to treatment, discussions with primary provider, discussions with consultants and development of treatment plan with [facility] or [facility] Preliminary Interpretation - Not an Oirwb5453-90-65 07:58:49Andriy Mueller DO 07/07/2020 7:24 AMECG ED Preliminary Interpretation - Not an OrderPerformed by: Andriy Mueller, Authorized by: Andriy Mueller DO ECG reviewed by ED Physician in the absence of a boat laborer: yes Previous ECG: Previous ECG: UnavailableRate: ECG rate: 68 ECG rate assessment: normal Rhythm: Rhythm: sinus rhythm Ectopy: Ectopy: none QRS: QRS axis: Normal QRS intervals: NormalConduction: Conduction: normal ST segments: ST segments: NormalT waves: T waves: normal [facility] DentonistCBC with platelet and differential 2020-07-04 07:49:14* Test Item Value Reference Range Interpretation Comments WBC (test code = 47303-0) 9.58 4.50- 11.00 k/uL RBC (test code = 30493-0) 4.32 m/uL 4.4-6 L HGB (test code = 718-7) 12.1 g/dL 14-18 L HCT (test code = 4544-3) 36.7 % 41-51 L MCV (test code = 787-2) 85.0 fL 82-100 MCH (test code = 785-6) 28.0 pg 27-34 MCHC (test code = 786-4) 33.0 g/dL 31-37 RDW - SD (test code = 84655-0) 43.2 fL 37-55 MPV (test code = 80637-9) 10.6 fL 8.8-13.2 Platelet count (test code = 71516-8) 247 150- 400 k/uL Nucleated RBC (test code = 04709-9) 0.00 /100 WBC Neutrophils (test code = 88902-9) 63.7 % 39-69 Lymphocytes (test code = 07291-2) 24.7 % 25-45 L Monocytes (test code = 66227-7) 7.8 % 0-10 Eosinophils (test code = 28114-4) 2.9 % 0-5 Basophils (test code = 41889-1) 0.6 % 0-1 Immature granulocytes (test code = 01071-6) 0.3 % 0-1 "Immature granulocytes" (promyelocytes, myelocytes, metamyelocytes) Lab Interpretation (test code = 06398-8) Abnormal [facility] SINGLE (PORTABLE)2020-05-09 17:36:00 [facility] [address] [address] Patient Name: MAGUI BUTLER MR #: [id number] : 1970 Age/Sex: 49/M Req #: [id number] Adm Physician: Ordered by: SCOOTER MORENO MD Report #: [id number] Location: ER Room/Bed: Procedure: [id number] DX/CHEST SINGLE ( PORTABLE) Exam Date: 05/09/20 Exam Time: 1700 REPORT STATUS: Signed EXAMINATION: CH EST SINGLE (PORTABLE) INDICATION: N/V/HEADACHE [id number] COMPARISON: None FINDINGS: AP view TUBES and LINES : None. LUNGS: Limited by body habitus. Lungs are well inflated. There i s no evidence of pneumonia or pulmonary edema. PLEURA: No pleural effusi on or pneumothorax. HEART AND MEDIASTINUM: The cardiomediastinal silhouett e is unremarkable. BONES AND SOFT TISSUES: No acute osseous lesion. T iny metallic densities projecting over right lateral chest and arm. Surgical c lip projecting over left neck base. UPPER ABDOMEN: No free air under the diaphragm. IMPRESSION: No acute thoracic abnormality. Signed by: Dr. Jimmie Heredia MD on 05/09/2020 5:37 PM Dictated By: JIMMIE HEREDIA MD 36 Transcribed By: JD on 05/09/201736 COPY TO: SCOOTER MORENO MD CT BRAIN WO 2020-05-09 17:31:00 [address] [address] Patient Name: MAGUI BUTLER MR #: [id number] : 1970 Age/Sex: 49/M Req #: [id number] Adm Physician: Ordered by: SCOOTER MORENO MD Report #: [id number] Location: Room/Bed: Procedure: [id number] CT/CT BRAIN ALLYSON palma Date: 05/09/20 Exam Time: 1705 REPORT STATUS: Signed Exam: Head CT without contra st History: Headache, nausea, vomiting Comparison studies: None Techni que: Axial images were obtained from the skull base to the vertex. Coronal a nd sagittal images reconstructed from the axial data. Dose modulation, iterat ashwini reconstruction, and/or weight based adjustment of the mA/kV was utilized t o reduce the radiation dose to as low as reasonably achievable. Radiati on dose: Total DLP: 936.21 mGy*cm. Estimated effective dose: DLP x 0.015 Intravenous contrast: None Findings: Scalp: No abnormalities. Bone s: No fractures, blastic or lytic lesions. Brain sulci: Appropriate for age . Ventricles: Normal in size and configuration. No hydrocephalus. Extra-axia l spaces: No masses, no fluid collection. Parenchyma: No abnormal densi ties. No masses, acute hemorrhage, acute or chronic vascular insults. Se llar/suprasellar region: No abnormalities. Craniocervical junction: Patent for amen magnum. No Chiari one malformation. Incidental findings: Opacified right maxillary sinus which contains peripheral mucosal thickening and secreti ons. 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 IMPRESSION: 1. No acute intracranial a bnormalities. 2. Nonspecific acute on chronic right maxillary sinusitis. Signed by: Dr. Sarbjit Ritter M.D. on 05/09/2020 5:34 PM Dictated By: SARBJIT RITTER MD 33 T ranscribed By: JD on 05/09/201733 COPY TO: SCOOTER MORENO MD CARDIAC HVHEWBG7135-99-60 10:51:00<0.02[facility]annCHEM ZULNS1029-08-26 10:51:0095[facility]annCHEM YOELO1130-49-91 10:51:0023[facility]annCHEM TDAKW3366-10-47 10:51:001.15[facility]annCHEM LPGPY3276-15-13 10:51:96520 [facility]annCHE[facility] HNJWM7852-59-14 10:51:004.4[facility]annCHEM PANEL 2020-05-06 10:51:01218Erdvcfse HermannCHEM JZKZF7972-05-06 10:51:0028[facility]annCHEM MFGGJ1967-06-55 10:51:008.1[facility]annCHEM ODMCF7291-07-49 10:51:009.4[facility]annCHEM GVZMV4641-99-65 10:51:0074[facility] SDTDFQMPUL8568-74-51 10:51:005.1[facility] QkzwfvmMBJZJTJMWG5183-43-85 10:51:00 4.26[facility] WjhohvlGTECRPBQVT7923-39-14 10:51:0011.9[facility] HermannHEMATOLOGY 2020-05-06 10:51:0036.4[facility] UoajqgsTDOILKXXNM1096-11-61 10:51:0085.3[facility] BltamypDLPIZPFBZE7789-15-08 10:51:00* Test Item Value Reference Range Interpretation Comments MCH (test code = MCH) 28.0 pg 27.0-31.0 [facility] FvhjacuINONOTXUNG9412-65-52 10:51:0032.8[facility] HermannHEMATOLOGY 2020-05-06 10:51:0014.1[facility] GtttabtCMDTYPKMZE8006-00-61 10:51:88773Prvjcryu ZqahxnhYJTCHSHFEH5055-26-13 10:51:008.6[facility] JzxupfpRTGJAZPANB1960-22-33 10:51:0036.7[facility] EqkkjxhWDKQRKSKDN9756-51-80 10:51:0040.4[facility] Johnie OOOYCVSFTW6770-06-48 10:51:0015.2[facility] LzqadmbCHPJJVASNS5853-94-94 10:51:00 6.8[facility] XycexylSGMKWMVKIT8793-04-16 10:51:000.9[facility]annHEMATOLOGY 2020-05-06 10:51:001.9[facility] PeqkedtBWWITYDJTU3450-72-77 10:51:002.1[facility] UyqddykNKFJWSTAXK1078-28-52 10:51:000.8[facility] AkxpahgZDLVNJQJZI8713-22-01 10:51:000.4[facility] HermannBACTERIAL - PFPYCCYF7895-26-27 06:31:00Negative (05/06/20 1:31 AM)[facility]annCARDIAC XXXXNKX6933-62-17 06:01:00<0.02[facility]annCHEM ZTSPC0150-10-87 05:00:001.7[facility]annCHEM WNODN5444-60-35 02:26:001.2[facility]annCARDIAC IUFZWZI5474-20-67 00:28:85389Jrdatdww Johnie CARDIAC YNTZHLI4164-43-87 00:28:0062[facility]annCHEM QRMIQ1417-38-92 00:28:0089[facility]annCHEM GRMJJ0372-09-64 00:28:0023[facility]annCHEM YRWDT1365-79-23 00:28:001.48[facility]annCHEM PKEVU7716-79-84 00:28:78089 [facility]annCHEM ZNHUA8846-51-88 00:28:004.5[facility]annCHEM PANEL 2020-05-06 00:28:76451Rfxzinub HermannCHEM IORTE8914-41-37 00:28:0032[facility]annCHEM SQGLJ3547-93-31 00:28:008.8[facility]annCHEM UWHEO4892-52-11 00:28:007.9[facility]annCHEM CRERU1247-18-73 00:28:003.7[facility]annCHEM TKMPS1930-88-91 00:28:0035[facility]annCHEM VPEKS0188-13-69 00:28:0032 [facility]annCHEM LOVVB9797-34-78 00:28:97493Kmdxgcbx HermannCHEM PANEL 2020-05-06 00:28:000.3[facility]annCHEM BGMSI1014-18-64 00:28:007.5[facility]annCHEM GTYEJ6941-10-60 00:28:00* Test Item Value Reference Range Interpretation Comments B/C Ratio (test code = B/C Ratio) 16 1 6-25 [facility]annCHEM GEYQQ3012-27-34 00:28:004.2[facility]annCHEM PANEL 2020-05-06 00:28:00* Test Item Value Reference Range Interpretation Comments A/G Ratio (test code = A/G Ratio) 0.9 1 0.7-1.6 [facility]annCHEM QDDZF8214-30-44 00:28:0055[facility]annCHEM PANEL 2020-05-06 00:28:000.08[facility] VvrrqkvXSMLZNQHSA5128-48-10 00:28:006.1[facility] OmfkzdvPXDQKVGOWX1707-46-75 00:28:004.44[facility] JetrwrlUOCRYHFMTW5565-64-55 00:28:0012.4[facility] VehcquoZYODALYZLC5625-62-12 00:28:0038.2[facility] RPUACSHYCF5755-64-57 00:28:0086.1[facility] YlczlwyJTTOGZUAZD4324-76-02 00:28:00* Test Item Value Reference Range Interpretation Comments MCH (test code = MCH) 28.0 pg 27.0-31.0 [facility] JsbjrurYEYCVTHDTH6156-06-53 00:28:0032.5[facility] HermannHEMATOLOGY 2020-05-06 00:28:0014.5[facility] QrbwewrDDTKCARZAZ2019-97-13 00:28:46461Ggiowkmc AphbmfiNYIGLKKCKP6362-98-40 00:28:008.1[facility] JvoteyuZAKSSJUYRD7702-45-21 00:28:00Normal (05/05/20 7:28 PM)[facility] JmxuessOAJBLNMERG4533-34-14 00:28:00 Normal (05/05/20 7:28 PM)[facility] ZxxalgtZDSOUFFDXL6919-02-97 00:28:0045.3[facility] BdpckroDFRQSBBVKQ6716-18-42 00:28:0035.2[facility] UlsneswOXBRLDJUES8205-32-33 00:28:0013.0[facility] UjtmrblQRYNVTZPNW0559-21-62 00:28:005.7[facility] Johnie VPFAYOJAMW5086-27-84 00:28:000.8[facility] KpdnsyuLZJNXUDYYB7150-03-72 00:28:002.8 [facility] BewlfccPKNIGPTPBJ6149-05-50 00:28:002.2[facility] HermannHEMATOLOGY 2020-05-06 00:28:000.8[facility] MpbyznhAUWNCBZKUD5592-22-30 00:28:000.3[facility] HermannBlood culture, aerobic & wrfaaluyg4905-27-33 00:03:03* Test Item Value Reference Range Interpretation Comments Blood culture isolate (test code = 600-7) No growth after 5 days of incubation. Specimen InformationSpecimen Source: BloodSpecimen Site: Arm, left [facility] MethodistStrep screen fmguciv4348-24-85 11:47:01* Test Item Value Reference Range Interpretation Comments Strep screen culture isolate (test code = 2246) No bet a hemolytic Streptococci isolated Specimen Information Specimen Source: ThroatSpecimen Site: Not otherwise specified [facility] MethodistGroup A strep, rapid cgaqmuq4499-26-55 11:47:01* Test Item Value Reference Range Interpretation Comments Group A strep, rapid antigen result (test code = 86643 79) Negative for Group A Streptococcus antigen. Specimen Informat ionSpecimen Source: ThroatSpecimen Site: Not otherwise specified Sesay MethodistT4, yabo2949-14-38 07:42:53* Test Item Value Reference Range Interpretation Comments T4, free (test code = 3024-7) 1.3 ng/dL 0.8-1.8 [facility] RonistThyroid stimulating vvkwtip9595-61-26 07:42:53* Test Item Value Reference Range Interpretation Comments TSH (test code = 3016-3) 3.50 0.55- 4.78 uIU/mL [facility] SabianismVancomycin level, nhmihg7846-89-73 09:54:01* Test Item Value Reference Range Interpretation Comments Vancomycin, trough (test code = 23234-1) 20.2 ug/mL 10-20 HH Therapeutic Ranges: Peak 30.0 - 40.0 ug/mL Trough 10.0 - 20.0 ug/mLFinal results called to and read back by Clayton White RN 04/13/2020 09:51 edp Lab Interpretation (test code = 18819-2) Abnormal [facility] MethodistLegionella urinary nzullni0935-92-35 17:08:11* Test Item Value Reference Range Interpretation Comments Legionella urinary antigen (test code = 1658) Negative for Legionella serogroup 1 antigen. Specimen Information Specimen Source: UrineSpecimen Site: Random void [facility] Auretreptococcus pneumoniae urinary lqcuoua3114-75-14 17:08:11* Test Item Value Reference Range Interpretation Comments Strep pneumo urinary Ag (test code = 2245) Negative fo r Streptococcus pneumoniae antigen. Specimen Information Specimen Source: UrineSpecimen Site: Random [facility] Ktglnra4998-92-22 16:40:31Hm Interface, Radiology Results - 04/12/2020 4:43 PM CDTPROCEDURE: NM LUNG PERFUSION IMAGINGINDICATION: PE suspected intermediate prob positive D-d kolton.COMPARISON: CT chest dated April 12, 2020. VQ scan dated February 07, 2007.TECH NIQUE: Ventilation images were not obtained. The patient was injected with 5 mC i of hitpmgszts-90c-WKV intravenously, followed by imaging of the lungs in 8 pro jections.FINDINGS: Mild left perihilar perfusion defect, nonsegmental. IMPRESSI ON:Very Low probability for pulmonary embolism. [facility]-[id number] and appro tarun by market president/fellow: Rolando Head M.D.I, Bro Grimes, personal ly reviewed the images and resident's/fellow's findings and agree with the final report.[facility]CT [facility] Wo Igxzkhus4680-06-05 13:29:43Hm Interface, Radiology Results 04/12/2020 1:32 PM CDTEXAMINATION: CT CHEST WO CONTRASTCLINICAL HISTORY: 49 years Male Shortness of breathTECHNIQUE: Multiple axial images of the chest were obtained without intravenous contrast. Sagittal and coronal computerized reformatted images were also obtained. CT imaging was performed with iterative reconstruction techniques and/or automated exposure control to reduce radiation dose. COMPARISON:To previous study from 02/17/2008 chest x-ray from 04/11/2020IMPRESSION:Lungs and airways: No acute airspace d isease or suspicious pulmonary nodules. Pleura: No pleural effusion or pneumotho rax.Mediastinum and lymph nodes: No lymphadenopathy. Cardiovascular: The heart s ize is normal. No pericardial effusion. The thoracic aorta is normal in caliber. Upper abdomen: No suspicious abnormalities.Bones: No suspicious osseous lesions. Arthritic changes are noted involving the spine.Other: None.SUMMARY:1.Negative study.[facility]-[id number] MethodistRespiratory pathogen cwrgn3091-35-17 12:40:04* Test Item Value Reference Range Interpretation Comments Adenovirus PCR (test code = 7092) Not Detected Specimen InformationSpecimen Source: NaresSpecimen Site: Left Coronavirus HKU1 PCR (test code = 7093) Not Detected Coronavirus NL63 PCR (test code = 7094) Not Detected Coronavirus 229E PCR (test code = 7095) Not Detected Coronavirus OC43 PCR (test code = 7096) Not Detected Human metapneumovirus PCR (test code = 7097) Not Detected Human rhinovirus/enterovirus PCR (test code = 7098) Not Detected Influenza A PCR (test code = 7099) Not Detected Influenza A/H1 PCR (test code = 7100) Not Reported Influenza A/H3 PCR (test code = 7102) Not Reported Influenza A/H1-2009 PCR (test code = 7101) Not Reported Influenza B PCR (test code = 7104) Not Detected Parainfluenza virus 1 PCR (test code = 7105) Not Detected Parainfluenza virus 2 PCR (test code = 7106) Not Detected Parainfluenza virus 3 PCR (test code = 7107) Not Detected Parainfluenza virus 4 PCR (test code = 7108) Not Detected Respiratory syncytial virus PCR (test code = 7109) Not Detected Bordetella pertussis PCR (test code = 5905760) Not Detected Bordetella parapertussis PCR (test code = 2219660) Not Detected Chlamydia pneumoniae PCR (test code = 3753) Not Detected Mycoplasma pneumoniae PCR (test code = 7110) Not Detected Influenza A no sub type PCR (test code = 7127) Not Reported Lázaro MethodistUrinalysis screen and microscopy, with reflex to culture 2020-04-12 09:48:58* Test Item Value Reference Range Interpretation Comments Specimen site (test code = 7320964) Clean catch Color, UA (test code = 5778-6) Yellow YELLOW Appearance, UA (test code = 5767-9) Clear Clear Specific gravity, UA (test code = 5811-5) 1.009 1.005-1.030 pH, UA (test code = 5803-2) 6.0 5.0-8.0 Protein, UA (test code = 11836-6) Negative Negative Glucose, UA (test code = 75397-3) Negative Negative Ketones, UA (test code = 2514-8) Negative Negative Bilirubin, UA (test code = 5770-3) Negative Negative Blood, UA (test code = 5794-3) Negative Negative Nitrite, UA (test code = 5802-4) Negative NEGATIVE Urobilinogen, UA (test code = 32961-9) <2.0 <2.0 E.U./dL Leukocyte esterase, UA (test code = 5799-2) Negative Negative Epithelial cells, UA (test code = 5787-7) <1 0- 15 /HPF WBC, UA (test code = 5821-4) 1 0- 5 /Hpf RBC, UA (test code = 18759-3) 3 0- 5 /HPF Bacteria, UA (test code = 61128-6) Few None seen A Yeast, UA (test code = 03034-1) None seen None Seen Yeast with pseudohyphae, UA (test code = 65174-3) None seen Lab Interpretation (test code = 59762-5) Abnormal [facility] MethodistUrine ejpuwqn1232-50-58 09:36:40* Test Item Value Reference Range Interpretation Comments Urine culture (test code = 9412177) SEE COMMENT Bacteriuria screen negative. [facility] MethodistInfluenza vtdrxvg5875-79-99 05:53:21* Test Item Value Reference Range Interpretation Comments Influenza antigen (test code = 67879-4) Negative for Influenza A/B antigen. Specimen InformationSpecimen Source: NaresSpecimen Site: Left [facility] MethodistArterial blood oaw1139-25-34 05:41:54* Test Item Value Reference Range Interpretation Comments pH, arterial (test code = 2744-1) 7.38 7.35- 7.45 Units pCO2, arterial (test code = 2019-06) 39 35- 45 mmHg pO2, arterial (test code = 2703-7) 93 83- 108 mmHg Bicarbonate, arterial (test code = 1959-4) 22.6 21.0- 28.0 mEq/L Base excess, arterial (test code = 1925-7) -1.7 -0.2 - 0.3 mEq-L L O2 saturation, arterial (test code = 2708-6) 97 % 95-98 FiO2 (test code = 3150-0) 21.0 Total CO2 (test code = 2027-) 21 mEq/L O2 content (test code = 1828) 15.1 15.0- 23.0 VOL % Lab Interpretation (test code = 09471-0) Abnormal [facility] MethodistType and nqoruz5734-02-28 05:28:00* Test Item Value Reference Range Interpretation Comments ABO grouping (test code = 883-9) O Rh type (test code = 52759-1) POS Antibody screen (gel) (test code = 890-4) NEG [facility] MethodistLipid aoyhh2511-17-10 05:17:03* Test Item Value Reference Range Interpretation Comments Cholesterol (test code = 2093-3) 120 mg/dL 0-199 Triglycerides (test code = 2571-8) 90 mg/dL 0-149 HDL cholesterol (test code = 5-9) 37 mg/dL 40-9999 L LDL cholesterol (test code = 2088-1) 74 mg/dL 0-99 Lipid panel interpretation (test code = 97892-8) See below Total Cholesterol (mg/dL) <200 Desirable 200-239 Borderline-high >=240 High Triglycerides (mg/dL) <150 Normal 150-199 Borderline-high 200-499 High >=500 Very high HDL Cholesterol (mg/dL) <40 Low (male) <50 Low (female) LDL Cholesterol (mg/dL) <100 Optimal 100-129 Near or above optimal 130-159 Borderline-high 160-189 High >=190 Very high Risk Catergories that modify LDL goals.Risk Catergories LDL goal (mg/dL)CHD and CHD risk equivalent <100 (10-year risk >20%)Multiple (2+) risk factors <130 (10-year risk =<20%)0-1 risk factors <160 (<10-year risk) Defining levels of lipids in metabolic syndromeTriglycerides >=150 mg/dLHDL Cholesterol Men <40 mg/dL Women <50 mg/dL Non-HDL cholesterol is a second target for therapy in personswith high triglycerides (>=200 mg/dL) Lab Interpretation (test code = 53019-5) Abnormal [facility] MethodistFerritin jqmwn4519-49-82 05:17:03* Test Item Value Reference Range Interpretation Comments Ferritin level (test code = 2276-4) 132 ng/mL 18-464 [facility] SabianismCreatine kinase, total (CPK)2020-04-12 05:17:01* Test Item Value Reference Range Interpretation Comments Creatine kinase (test code = 2157-6) 90 U/L 35-200 [facility] PtmpsuvrgSAO7426-98-17 05:16:58* Test Item Value Reference Range Interpretation Comments LDH (test code = 75580-4) 195 U/L 300-600 L Lab Interpretation (test code = 36770-5) Abnormal [facility] MethodistC-reactive drwthzi5130-50-50 05:16:58* Test Item Value Reference Range Interpretation Comments CRP (test code = 1988-5) 3.40 mg/dL 0-1 H Lab Interpretation (test code = 16987-3) Abnormal [facility] QhsfkjuzpX-hudhg1041-23-11 04:59:42* Test Item Value Reference Range Interpretation Comments D-dimer (test code = 86909-1) 2.37 0.00- 0.40 ug/mL FEU H When combined with low clinical probability, D-dimer results of less than 0.5 ug/ml FEU have a good negative predictive value in excluding PE or DVT. For D-dimer results greater than 0.5 ug/ml FEU further testing is indicated if PE or DVT is suspected clinically.Elevated D-dimer results have been reported in DVT, PE, and DIC cases and may indicate the presence of a clot. D-dimer results may be elevated due to old age, , inflammatory diseases, trauma, post-operative states, sepsis, and malignancies. Lab Interpretation (test code = 76052-9) Abnormal [facility] HopztisexOjmlhgodfm7086-19-14 04:57:03* Test Item Value Reference Range Interpretation Comments Fibrinogen (test code = 47628-3) 406.0 mg/dL 200-450 The reference range has changed starting 04/02/2010 @12:00pm Sesay SabianismCOVID-19 qualitative PPB3954-06-32 04:39:21* Test Item Value Reference Range Interpretation Comments Interpretation (test code = 7593699) Negative results do not preclude 2019-nCoV infection and should not be used as the sole basis for treatment or other patient management decisions. Negative results must be combined with clinical observations, patient history, and epidemiological information. COVID-19 qualitative PCR result (test code = 92959-8) Not-Detect ed Not-Detected COVID-19 qualitative PCR (test code = 7070) See link below for P DF Lab Report [facility] MethodistLactic acid level, SEPSIS - Now and repeat 2x every 3 hours 2020-04-11 23:12:04* Test Item Value Reference Range Interpretation Comments Lactic acid (test code = 92008-4) 2.4 mmol/L 0.5-2.2 H Lab Interpretation (test code = 09676-4) Abnormal [facility] MethodistB natriuretic kacclvn5286-17-45 19:38:44* Test Item Value Reference Range Interpretation Comments BNP (test code = 93804-9) 56 pg/mL 0-100 [facility] MethodistCRITICAL DUFJ8799-91-57 19:17:37Tanika Barbosa MD 04/11/2020 9:02 PMCritical CarePerformed by: Tanika Barbosa MDAuthorized by: Tanika Barbosa MD Critical care provider statement: Critical care time (minutes): 35 Critical care start time: 04/11/2020 6:16 PM Critical care end time: 04/11/2020 8:43 PM Critical care time was exclusive of: Separately billable procedures and treating other patients Critical care was necessary to treat or prevent imminent or life-threatening deterioration of the following conditions: Sepsis and respiratory failure Critical care was time spent personally by me on the following activities: Development of treatment plan with patient or surrogate, discussions with primary provider, evaluation of patient's response to treatment, examination of patient, interpretation of c ardiac output measurements, ordering and performing treatments and interventions , ordering and review of radiographic studies, ordering and review of laboratory studies, pulse oximetry, re-evaluation of patient's condition and review of old chartsTonica MethodistCARDIAC QZCUWVW3581-89-96 02:08:84406Sjwkfshh [place] CARDIAC VDKAVIE4051-18-10 02:08:00<0.02[facility] HermannCARDIAC UWESKMC7515-70-84 02:08:0053[facility] HermannCHEM LUSCA3709-87-97 02:08:0087[facility] HermannCHEM KXTWU4823-08-86 02:08:0022[facility] HermannCHEM SRAUZ2774-05-50 02:08:001.13 [facility]annCHEM YAZBG5024-04-23 02:08:04474Esctojno HermannCHEM PANEL 2019-12-24 02:08:004.3[facility] HermannCHEM WEXFV9654-63-07 02:08:35082Pkfzaozj HermannCHEM CRKYW8704-65-29 02:08:0025[facility] HermannCHEM URLMQ6965-39-57 02:08:009.1[facility] HermannCHEM OEIGR5977-82-72 02:08:009.2[facility] HermannCHEM FVXLB5703-37-58 02:08:004.2[facility] HermannCHEM PRUUJ4138-29-19 02:08:0044 [facility] HermannCHEM XWVXY9841-24-43 02:08:0026[facility] HermannCHEM PANEL 2019-12-24 02:08:11364Cuiteytb HermannCHEM VBZCG8826-18-83 02:08:000.3[facility] HermannCHEM NNDWY2601-45-00 02:08:009.3[facility] HermannCHEM LZZUO6325-17-72 02:08:00* Test Item Value Reference Range Interpretation Comments B/C Ratio (test code = B/C Ratio) 19 1 6-25 [facility] HermannCHEM DPHZU5821-48-75 02:08:005.0[facility] HermannCHEM PANEL 2019-12-24 02:08:00* Test Item Value Reference Range Interpretation Comments A/G Ratio (test code = A/G Ratio) 0.8 1 0.7-1.6 [facility] HermannCHEM IHDZP7865-01-24 02:08:0076[facility] HermannHEMATOLOGY 2019-12-24 02:08:009.4[facility] GpcolbbJGOHZONUYL3997-96-24 02:08:004.64[facility] KdccgamINDPWMZWQG2206-88-70 02:08:0013.2[facility] VxrsgdcRANUSBLVOB2100-29-70 02:08:0039.9[facility] VkzvmvkPBXADYFBMR1025-70-95 02:08:0086.0[facility] SECPQHSALZ5150-68-81 02:08:00* Test Item Value Reference Range Interpretation Comments MCH (test code = MCH) 28.4 pg 27.0-31.0 [facility] UdtzwfsIEBQCEHSMM9314-19-83 02:08:0033.0[facility] HermannHEMATOLOGY 2019-12-24 02:08:0015.1[facility] WhgvoyiDYGWFJHPKC7782-94-92 02:08:47928Sppifwso OltdmtcDLKNKAKPVT8875-73-46 02:08:009.3[facility] BokynpuRCDLODCTED7147-56-22 02:08:0070.1[facility] AhpixbtOSIQRPETMW7152-16-68 02:08:0019.3[facility] Johnie DVSGAUXPOB3029-71-79 02:08:007.8[facility] BfjdfofSDMMUZXZLB1485-11-24 02:08:001.6 [facility] EgrzjasGYNELDANNP1538-03-44 02:08:001.2[facility] HermannHEMATOLOGY 2019-12-24 02:08:006.6[facility] QuxavbeSVSBCDABAP6186-38-93 02:08:001.8[facility] IfgcietCKHPESYZOF8157-45-41 02:08:000.7[facility] PcjhjiaERMFMCXULR1049-43-33 02:08:000.2[facility] DtjpmjyIOYZCDMAWY8939-95-31 02:08:000.1[facility] Johnie IGIFZVKU-M5775-12-18 02:11:00* Test Item Value Reference Range Interpretation Comments TROPONIN-I (test code = TROPI) <0.020 ng/mL 0.000-0.034 N BASIC METABOLIC DLMRH1471-86-01 02:02:00* Test Item Value Reference Range Interpretation Comments SODIUM (test code = NA) 140 mmol/L 135-145 N POTASSIUM (test code = K) 3.7 mmol/L 3.6-5.0 N CHLORIDE (test code = CL) 107 mmol/L 101-111 N CARBON DIOXIDE (test code = CO2) 23 mmol/L 21-31 N GLUCOSE (test code = GLU) 117 mg/dl 70-100 H BLOOD UREA NITROGEN (test code = BUN) 15 mg/dl 6-20 N GLOMERULAR FILTRATION RATE (test code = GFR) >=60 max estimate >60 The estimated glomerular filtration rate is computed usingpatient race, age (>18), sex, and serum creatinine. If anyof the needed data elements are missing the Laboratory cannot compute an estimation of the glomerular filtration rate. CREATININE (test code = CREAT) 1.08 mg/dL 0.64-1.27 N CALCIUM (test code = CA) 8.7 mg/dL 8.5-10.5 N CBC W/AUTO [id number] 01:42:00* Test Item Value Reference Range Interpretation Comments WHITE BLOOD CELL (test code = WBC) 8.5 x10 3/uL 3.2-11.5 N RED BLOOD CELL (test code = RBC) 4.52 x10(6)/m 4.20-5.70 N HEMOGLOBIN (test code = HGB) 12.2 g/dL 12.9-17.3 L HEMATOCRIT (test code = HCT) 38.0 % 38.7-51.0 L MEAN CELL VOLUME (test code = MCV) 84 fL 80-100 N MEAN CELL HGB (test code = MCH) 27.0 pg 26.7-33.3 N MEAN CELL HGB CONCENTRATION (test code = MCHC) 32.1 g/dL 30.0-34 .0 N RED CELL DISTRIBUTION WIDTH (test code = RDW) 13.5 % 11.3-14. 5 N PLATELET COUNT (test code = PLT) 288 x10 3/uL 130-408 N MEAN PLATELET VOLUME (test code = MPV) 10.6 fL 8.6-12.6 N NEUTROPHIL % (test code = NT%) 45.8 % 40.0-70.0 N IMMATURE GRANULOCYTE % (test code = IG%) 0.2 % 0.0-2.0 N LYMPHOCYTE % (test code = LY%) 42.4 % 20-40 H MONOCYTE % (test code = MO%) 7.1 % 1-10 N EOSINOPHIL % (test code = EO%) 3.7 % 0.0-5.0 N BASOPHIL % (test code = BA%) 0.8 % 0.0-1.0 N NUCLEATED RBC % (test code = NRBC%) 0.0 % 0.0-0.9 N NEUTROPHIL # (test code = NT#) 3.9 x10 3/uL 1.6-7.2 N LYMPHOCYTE # (test code = LY#) 3.62 x10 3/uL 1.1-2.7 H MONOCYTE # (test code = MO#) 0.6 x10 3/uL 0.3-0.8 N EOSINOPHIL # (test code = EO#) 0.3 x10 3/uL 0.0-0.5 N BASOPHIL # (test code = BA#) 0.1 x10 3/uL 0.0-0.1 N - XR CHEST 1 [id number] 01:32:00Patient Name: MAGUI BUTLER Unit No: [id number] EXAMS: CPT: [id number] XR CHEST 1 V 92059 CHEST 1 VIEW CLINICAL HISTORY: Shortness of breath COMPARISON: None. A single frontal view of the chest is submitted. FINDINGS: The cardiac silhouette is normal in size. Vascularity appears normal. The lungs are clear. No pleural effusion or pneumothorax is seen. No osseous abnormalities are seen. IMPRESSION: Negative chest radiograph. at 0132 Reported and signed by: Andriy Price MD CC: Ochoa Zamudio MD Technologist: SAMANTHA Dutta Time: DAP (Gy m2): Air Kerma (mGy): Trscr Dt/Tm: 10/19/2019 (013) by:[email or web address] Orig Print D/T: S: 10/19/2019 (0135) BATCH NO: N/A Name: MAGUI BUTLER [facility] Phys: Ochoa Ellington MD [address] [facility] : 1970 Age: 49 Sex: [place] [address] Loc: N.ERS Exam Date: 10/19/2019 Status: PRE ER PH: FAX: PAGE 1 Signed Report CARDIAC [id number] 18:04:00 446[facility] HermannCHEM ZUDGT4965-79-44 18:04:83645Ttneafbn HermannCHEM PANEL 2019-07-24 18:04:0022[facility] HermannCHEM AHMZK1435-70-84 18:04:001.36[facility] HermannCHEM DOIJX2962-67-64 18:04:49230Ewktxixf HermannCHEM OTRPH2400-41-79 18:04:004.0[facility] HermannCHEM EECOW2903-16-26 18:04:85643Kyvtafrl HermannCHEM ANRHN5452-14-66 18:04:0025[facility] HermannCHEM IRXVZ1836-62-13 18:04:009.3 [facility] HermannCHEM GNRLZ8370-27-41 18:04:009.3[facility] HermannCHEM PANEL 2019-07-24 18:04:004.2[facility] HermannCHEM AANWC1694-27-16 18:04:0032[facility] HermannCHEM XZLIF0821-07-73 18:04:0028[facility] HermannCHEM PJKQW5322-62-51 18:04:71158Ypurdnyx HermannCHEM YHQYD8384-21-73 18:04:000.4[facility] HermannCHEM FLFED0278-67-28 18:04:0061[facility] HermannCHEM OALDO3063-01-70 18:04:0011.0 [facility] HermannCHEM NBADS5404-52-59 18:04:00* Test Item Value Reference Range Interpretation Comments B/C Ratio (test code = B/C Ratio) 16 1 6-25 [facility] HermannCHEM DXCYN8910-85-54 18:04:005.1[facility] HermannCHEM PANEL 2019-07-24 18:04:00* Test Item Value Reference Range Interpretation Comments A/G Ratio (test code = A/G Ratio) 0.8 1 0.7-1.6 [facility] PjiqighBCGLSVPEZK7180-42-04 18:04:0010.2[facility] HermannHEMATOLOGY 2019-07-24 18:04:004.87[facility] KnrdxfzKTLLMZLGNA6003-44-72 18:04:0014.1[facility] VorolevEPIKKBFIPO7411-84-17 18:04:0042.6[facility] UfghxfmUZEKTEJPLG7757-02-26 18:04:0087.5[facility] NdmmsmbXVKVETYADF9606-13-99 18:04:00* Test Item Value Reference Range Interpretation Comments MCH (test code = MCH) 29.0 pg 27.0-31.0 [facility] TheyizpLAKFPTISQI4677-60-83 18:04:0033.1[facility] HermannHEMATOLOGY 2019-07-24 18:04:0014.5[facility] AasujsfEZAKFXHPHO1080-20-79 18:04:23170Ufxtckoi JaiqcvtOITHSNBXAR2934-22-76 18:04:007.7[facility] MqedrmcSDCWTTRYGP2619-29-74 18:04:0068.3[facility] MrcpuafMGHHBHKEQJ6627-54-49 18:04:0022.0[facility] SWUXSZYNXU2225-42-55 18:04:008.3[facility] AzwidwfGDMORRSEBE9620-71-74 18:04:000.7 Memorial XpxvwfcDTJXXPXDCH7057-20-41 18:04:000.7[facility] HermannHEMATOLOGY 2019-07-24 18:04:007.0[facility] YwmahzoOICHFIMPWJ7792-68-05 18:04:002.2[facility] ZidqorkZACLHYWQHF7644-88-39 18:04:000.8[facility] NaaraobFKCPAOOOHG3676-34-40 18:04:000.1[facility] CtiiubdKAXUDCRRMM8762-20-96 18:04:000.1Morial HermannBASIC METABOLIC KCVMW2805-10-92 14:52:00* Test Item Value Reference Range Interpretation Comments SODIUM (test code = NA) 143 mmol/L 136-145 N POTASSIUM (test code = K) 3.8 mmol/L 3.5-5.1 N CHLORIDE (test code = CL) 110.0 mmol/L 98-107 H CARBON DIOXIDE (test code = CO2) 29.0 mmol/L 21-32 N ANION GAP (test code = GAP) 7.8 10-20 L GLUCOSE (test code = GLU) 82 mg/dL 74-106 N BLOOD UREA NITROGEN (test code = BUN) 19 mg/dL 7-18 H GLOMERULAR FILTRATION RATE (test code = GFR) > 60 mL/min >=60 Estimated GFR by using Modified MDRD formula.Chronic kidney disease is defined as either kidney damageor GFR <60 mL/min/1.73 m2 for >3 months. CREATININE (test code = CREAT) 1.20 mg/dL 0.7-1.3 N BUN/CREATININE RATIO (test code = BUN/CREA) 16.0 10-20 N CALCIUM (test code = CA) 9.1 mg/dL 8.5-10.1 N IS FINISHED FOR BLOOD. V.LAB.WV 06/26/19 1420CBC W/AUTO [id number] 14:42:00 * Test Item Value Reference Range Interpretation Comments WHITE BLOOD CELL (test code = WBC) 7.0 K/mm3 4.5-12.5 N RED BLOOD CELL (test code = RBC) 4.61 mill/mm3 4.0-5.8 N HEMOGLOBIN (test code = HGB) 13.0 gram/dL 13.0-17.5 N HEMATOCRIT (test code = HCT) 41.1 % 42.0-52.0 L MEAN CELL VOLUME (test code = MCV) 89.2 fL 80-98 N MEAN CELL HGB (test code = MCH) 28.2 picogram 27.0-33.0 N MEAN CELL HGB CONCETRATION (test code = MCHC) 31.6 gram/dL 33.0-36. 0 L RED CELL DISTRIBUTION WIDTH (test code = RDW) 14.2 % 11.6-16. 2 N RED CELL DISTRIBUTION WIDTH SD (test code = RDW-SD) 46.0 fL 37 .0-51.0 N PLATELET COUNT (test code = PLT) 303 K/mm3 150-450 N MEAN PLATELET VOLUME (test code = MPV) 9.9 fL 6.7-11.0 N NEUTROPHIL % (test code = NT%) 40.9 % 39.0-69.0 N IMMATURE GRANULOCYTE % (test code = IG%) 0.3 % 0.0-5.0 N LYMPHOCYTE % (test code = LY%) 44.2 % 25.0-55.0 N MONOCYTE % (test code = MO%) 5.8 % 0.0-10.0 N EOSINOPHIL % (test code = EO%) 7.8 % 0.0-5.0 H BASOPHIL % (test code = BA%) 1.0 % 0.0-1.0 N NUCLEATED RBC % (test code = NRBC%) 0.0 % 0-0 N NEUTROPHIL # (test code = NT#) 2.87 K/mm3 1.8-7.7 N IMMATURE GRANULOCYTE # (test code = IG#) 0.02 x10 3/uL 0-0.03 N LYMPHOCYTE # (test code = LY#) 3.11 K/mm3 1.0-5.0 N MONOCYTE # (test code = MO#) 0.41 K/mm3 0-0.8 N EOSINOPHIL # (test code = EO#) 0.55 K/mm3 0.0-0.5 H BASOPHIL # (test code = BA#) 0.07 K/mm3 0.0-0.2 N NUCLEATED RBC # (test code = NRBC#) 0.00 K/mm3 0.0-0.1 N MANUAL DIFF REQUIRED (test code = MDIFF) NO DONE FOR BLOOD V.LAB.SC 06/26/19 1421CBC W/AUTO [id number] 14:38:00* Test Item Value Reference Range Interpretation Comments WHITE BLOOD CELL (test code = WBC) K/mm3 4.5-12.5 RED BLOOD CELL (test code = RBC) mill/mm3 4.0-5.8 HEMOGLOBIN (test code = HGB) 13.0 gram/dL 13.0-17.5 N HEMATOCRIT (test code = HCT) % 42.0-52.0 MEAN CELL VOLUME (test code = MCV) fL 80-98 MEAN CELL HGB (test code = MCH) picogram 27.0-33.0 MEAN CELL HGB CONCETRATION (test code = MCHC) gram/dL 33.0-36. 0 RED CELL DISTRIBUTION WIDTH (test code = RDW) % 11.6-16. 2 RED CELL DISTRIBUTION WIDTH SD (test code = RDW-SD) fL 37 .0-51.0 PLATELET COUNT (test code = PLT) K/mm3 150-450 MEAN PLATELET VOLUME (test code = MPV) fL 6.7-11.0 NEUTROPHIL % (test code = NT%) % 39.0-69.0 IMMATURE GRANULOCYTE % (test code = IG%) % 0.0-5.0 LYMPHOCYTE % (test code = LY%) % 25.0-55.0 MONOCYTE % (test code = MO%) % 0.0-10.0 EOSINOPHIL % (test code = EO%) % 0.0-5.0 BASOPHIL % (test code = BA%) % 0.0-1.0 NEUTROPHIL # (test code = NT#) K/mm3 1.8-7.7 LYMPHOCYTE # (test code = LY#) K/mm3 1.0-5.0 MONOCYTE # (test code = MO#) K/mm3 0-0.8 EOSINOPHIL # (test code = EO#) K/mm3 0.0-0.5 BASOPHIL # (test code = BA#) K/mm3 0.0-0.2 DONE FOR BLOOD V.LAB.WV 06/26/19 1421- XR TIBIA/FIBULA 2 V [id number] 14:30:00 FAX: Elissa Siddiqui MD [phone] [place]: St: [facility] FAX: Guille Haley MD [phone] Name: LAW BUTLER [facility] : 1970 Age/S: 48/M [address] [facility] #: [id number] Loc: [place] [address] Phys: Guille Haley MD Acct: [id number] Dis Date: Status: REG ER PHONE #: [phone] Exam Date: 06/26/2019 1408 FAX #: [phone] Reason: concern for fx EXAMS: CPT CODE: [id number] XR TIBIA/FIBULA 2 [place] RT [id number] CLINICAL HISTORY: Pain status post fall TECHNIQUE: AP and lateral views of the right tibia/fibula COMPARISON: 09/02/17 FINDINGS: No acute fracture or dislocation. Bony t rabecular pattern is unremarkable. No cortical destruction or periosteal r eaction. Right knee degenerative arthrosis, most severe laterally. Small k nee joint effusion. Pretibial phleboliths. Lower leg soft tissue edema. IMPRESSION: No acute fracture or disloca tion of the right tibia/fibula. at 1430 Reported and signed by: Lorena villarreal D.O. CC: Elissa Siddiqui MD; Guille Haley MD Technologist: Sundeep Miller RT(R) T rnscrd Date/Time/By: 06/26/2019 (7552) : By: [email or web address] Orig Print D/T: S: 06/26/2019 (0763) PAGE 1 Sign ed Report CARDIAC [id number] 00:09:0097 [facility] [id number] 00:09:63506Vqsxfswb HermannCHEM PANEL 2019-05-08 00:09:0099[facility] [id number] 00:09:006[facility] [id number] 00:09:000.80[facility] [id number] 00:09:000.4[facility] [id number] 00:09:17347Leflmsbj [facility]annCHE[facility] [id number] 00:09:0048[facility] [id number] 00:09:0043 [facility] [id number] 00:09:007.6[facility] PANEL 2019-05-08 00:09:003.2[facility] HermannCHEM XNADD9663-76-80 00:09:008.5[facility]ann[facility]M PQPPE9015-53-03 00:09:003.5[facility]annCHEM VGPNN9849-40-46 00:09:53840Hhfsilrr HermannCHEM YRTEB9301-50-63 00:09:97261Ilgjmnlw HermannCHEM UYOXQ2785-91-59 00:09:0026[facility]ann[facility] VEUCW2789-12-12 00:09:00* Test Item Value Reference Range Interpretation Comments A/G Ratio (test code = A/G Ratio) 0.7 1 0.7-1.6 [facility] RLOVJ9714-28-48 00:09:00* Test Item Value Reference Range Interpretation Comments B/C Ratio (test code = B/C Ratio) 8 1 6-25 [facility]annCHEM OWDFP7608-16-99 00:09:004.4[facility]annCHEM PANEL 2019-05-08 00:09:009.5[facility] FaeovuvYAGRXJYCAB5268-91-98 00:09:007.9[facility] LbtlqqqMGBQUAKHVD6500-88-83 00:09:92793Plcfytjg KebnlvhWYYLRCWVAL2682-70-32 00:09:00* Test Item Value Reference Range Interpretation Comments MCH (test code = MCH) 28.7 pg 27.0-31.0 [facility] JeucdkmUJJQDTAHBM0820-16-09 00:09:0033.2[facility] HermannHEMATOLOGY 2019-05-08 00:09:0014.3[facility] AivhcwsZVJUZDROOH1424-89-78 00:09:0011.8[facility] CsrkbkoSGFRZDMOQV4096-48-01 00:09:005.4[facility] JffgzvaGBLVHSMPSC3675-53-51 00:09:004.13[facility] SnsveayNUMFBVODUH4755-43-79 00:09:0086.4[facility] VOKRKXCRPK1141-29-35 00:09:0035.7[facility] XmuogpiMVMNKSPGPS3790-34-08 00:09:00* Test Item Value Reference Range Interpretation Comments PT (test code = PT) 13.4 s 12.0-14.7 [facility] LnanzdlKEACAGTYLG0293-62-97 00:09:00* Test Item Value Reference Range Interpretation Comments INR (test code = INR) 1.04 1 0.85-1.17 [facility] HdqmugzPFVTFCGTMQ3431-89-52 00:09:00* Test Item Value Reference Range Interpretation Comments PTT (test code = PTT) 30.6 s 22.9-35.8 [facility] MkmdqhwTVTUYDDGDU0317-12-45 00:09:000.6[facility]annHEMATOLOGY 2019-05-08 00:09:000.0[facility] LfwtddeGUIGGWDKST9084-02-48 00:09:000.3[facility] SlgxfxgHHLOMZXISA3348-65-69 00:09:004.9[facility] ZltoxvdRRPTKVARHH9708-32-50 00:09:003.3[facility] BvezhtqOTHXMLOMJL8216-36-89 00:09:001.2[facility] AVZSABBZOK5959-71-19 00:09:000.5[facility] RghlldkLGPUYQWWUY8777-30-15 00:09:00 61.2[facility] DqzwhyoBKDTYRYITX5899-83-24 00:09:0012.0[facility]annHEMATOLOGY 2019-05-08 00:09:0021.4[facility] HermannCHEM MPPFO9565-60-47 09:24:96653Hqnmigya HermannCHEM BSPLP7301-41-01 09:24:85416Rpeblyve HermannCHEM ENXIY2218-42-72 09:24:0016[facility]annCHE[facility] VPUPB0299-31-54 09:24:000.76[facility]annCHEM ACHOO3886-47-97 09:24:0092[facility]annCHE[facility] ZPHRZ5635-31-20 09:24:0026 [facility]annCHE[facility] GIOAE9486-83-54 09:24:004.2[facility]annCHEM PANEL 2019-01-21 09:24:37706Oqsswkdc HermannCHEM LPCHJ7930-05-78 09:24:0020[facility]annCHE[facility] QKKHX2987-97-69 09:24:007.6[facility]annCHEM BNUAF0355-18-91 09:24:006.6[facility]annCHEM KMYYS7435-48-38 09:24:002.6[facility]annCHEM AYBDX9713-27-96 09:24:0017[facility]annCHE[facility] BLKLF9727-52-64 09:24:0078 [facility]CHE[facility] OQCEG7110-39-01 09:24:000.2[facility]annCHEM PANEL 2019-01-21 09:24:00* Test Item Value Reference Range Interpretation Comments A/G Ratio (test code = A/G Ratio) 0.6 1 0.7-1.6 [facility]CHE[facility] CMXYA3565-13-98 09:24:00* Test Item Value Reference Range Interpretation Comments B/C Ratio (test code = B/C Ratio) 21 1 6-25 [facility]CHE[facility] OFZTR7567-97-78 09:24:004.0[facility]annCHEM PANEL 2019-01-21 09:24:007.2[facility] TslbejbEVGRGAMAET5564-13-27 09:24:008.2[facility] IdfibunKUZRTLEXIP2809-74-90 09:24:13437Mwehmvsc KjmovqqHBZUOPKFAQ1342-04-69 09:24:0014.3[facility] SvtylaqTGUVJHMSUN2599-48-30 09:24:006.5[facility] AGQHZDWHXM4151-29-10 09:24:003.31[facility] GxsoixaWKSQBNGMOJ7267-72-85 09:24:00 9.6[facility] OhedyqiMHQENLYESN1100-97-02 09:24:0028.2[facility]annHEMATOLOGY 2019-01-21 09:24:00* Test Item Value Reference Range Interpretation Comments MCH (test code = MCH) 29.0 pg 27.0-31.0 [facility] JcoigqkBRJTRRLOSE9157-02-89 09:24:0085.2[facility] HermannHEMATOLOGY 2019-01-21 09:24:0034.0[facility] EfsokzeYBWZZKKYZG5096-13-44 09:24:0011.1[facility] KbohauzIXBMMJACXG8165-58-44 09:24:000.9[facility] TzhbxcgRTXGJGLOBM0067-46-08 09:24:008.0[facility] GeqzduqMGGBVTLQLV0132-85-28 09:24:000.1[facility] CXHYHLMJDZ7299-16-25 09:24:000.5[facility] UrpmiwfCZNJWMVLQS1516-24-04 09:24:003.7 [facility] BqhsxdvSBWGOQTRLD2106-48-26 09:24:000.7[facility] HermannHEMATOLOGY 2019-01-21 09:24:001.5[facility] OqkbhhrADBGWNAVIF6414-38-33 09:24:0057.0[facility] AuevotwFXOBLEIQPU5020-24-34 09:24:0023.0[facility] HermannBACTERIAL - SEROLOGY 2019-01-21 04:24:00Negative (01/20/19 11:24 PM)[facility]annCHEM PANEL 2019-01-20 21:56:001.2[facility] HermannDRUG BGZKRN4767-93-13 18:53:00Negative *NA*(01/20/19 1:53 PM)[facility]annDR[facility] KYAFMN0798-11-88 18:53:00See Note (01/20/19 1:53 PM)[facility] BMJARV3894-18-38 18:53:00Negative *NA*(01/20/19 1:53 PM)[facility] KLKQWR1323-10-80 18:53:00Positive *ABN*(01/20/19 1:53 PM)[facility] UVHRNF8020-79-20 18:53:00Negative *NA*(01/20/19 1:53 PM)[facility] TDZCJG0651-68-92 18:53:00Negative *NA*(01/20/19 1:53 PM)[facility] FECYPK1919-13-25 18:53:00Negative *NA*(01/20/19 1:53 PM)[facility] KIQSJL7856-10-99 18:53:00Negative *NA*(01/20/19 1:53 PM)[facility]annCARDIAC NOGJEIF4128-66-05 17:17:0031 [facility]annCARDIAC MSXSSLD1920-04-60 17:17:00<0.02[facility]annCHEM SGQXK1969-94-24 17:17:002.1[facility] HermannCHEM FOFHP1705-70-45 17:17:0089 [facility]annCHE[facility] EHLNB6344-87-70 17:17:0098[facility]annCHEM PANEL 2019-01-20 17:17:0024[facility]annCHE[facility] EEZPG8943-66-57 17:17:0027[facility]annCHEM KXVUK5784-89-94 17:17:000.2[facility] HermannCHEM QUKEQ1361-26-67 17:17:78984Ksgbdcpz HermannCHEM BXLRA5316-87-86 17:17:0026[facility]annCHE[facility] SHMWX9090-14-43 17:17:008.0[facility]annCHEM QTIEC8439-46-60 17:17:008.3 [facility]CHE[facility] ZZXNW8431-76-87 17:17:003.1[facility] HermannCHEM PANEL 2019-01-20 17:17:001.00[facility]annCHEM RZNQW4055-66-57 17:17:0020[facility]annCHEM WPEJI7650-82-55 17:17:004.0[facility] HermannCHEM AQISW0252-17-62 17:17:28906Vefgxpeo HermannCHEM OZLOR0545-14-61 17:17:0086[facility]annCHEM PFFUV2084-57-61 17:17:00* Test Item Value Reference Range Interpretation Comments B/C Ratio (test code = B/C Ratio) 20 1 6-25 [facility]annCHE[facility] BRUOO9988-38-38 17:17:00* Test Item Value Reference Range Interpretation Comments A/G Ratio (test code = A/G Ratio) 0.6 1 0.7-1.6 [facility]CHE[facility] FZTGP2178-52-21 17:17:004.9[facility] HermannCHEM PANEL 2019-01-20 17:17:0011.0[facility] FpemthkTCVYDQSZFP9016-89-10 17:17:0096[facility] HzhxpkfIDMHJHCWNZ7758-64-01 17:17:30569Bxvoovol RdxihhqNFVTJYFKLB1882-68-67 17:17:008.0[facility] VtutnmcGZFNBKABHW3283-59-09 17:17:0085.4[facility] QHRJLKGFED4728-11-69 17:17:00* Test Item Value Reference Range Interpretation Comments MCH (test code = MCH) 28.5 pg 27.0-31.0 [facility] YpjxzwyQIGENYODXD6299-32-37 17:17:0014.5[facility] HermannHEMATOLOGY 2019-01-20 17:17:0033.3[facility] KynlmnqHRWOHOWHMI7660-08-53 17:17:003.73[facility] MvynstbEVNNMQMOTG7624-04-49 17:17:0031.9[facility] KtwhrflYPVPZZQEFD3109-24-07 17:17:0010.6[facility] NwvfkltKBLTDKENSU1556-50-67 17:17:007.7[facility] HEFPEEHULB1487-96-56 17:17:000.5[facility] BwnofbnPSPSEDRQHB3689-97-11 17:17:000.1 [facility] XhhucnkBXLEZMVSAB3571-83-79 17:17:007.5[facility] HermannHEMATOLOGY 2019-01-20 17:17:006.7[facility] GrxnwvyPDMHTIYXCG3222-91-36 17:17:000.8[facility] ManicipPRUIRUXCUZ2177-85-23 17:17:005.3[facility] BasayqkLWUEMYWJMF3988-30-81 17:17:001.3[facility] KlbzyugGSAEIMASEC9956-56-66 17:17:000.6[facility] OVXEGKHOKY8904-47-40 17:17:0068.3[facility] TfavcddLGTTCXPKSJ8086-42-03 17:17:00 16.7[facility] FjfvpghDYXJRLZTUR2920-49-53 17:17:0085.7[facility] HermannCARDIAC KEQDZYF8058-23-47 09:27:003.8[facility]annCARDIAC DGVEZGW5871-02-77 09:27:00 964[facility]annCARDIAC SDNOTYZ4016-60-01 09:27:00<0.02[facility] CARDIAC VPFKWQZ6772-29-35 09:27:000.4[facility] HermannCARDIAC XDNKHRI1935-93-05 06:48:00<0.02[facility]annCARDIAC EWFHIJU6104-31-47 06:48:86849Xkyjgpbk HermannCARDIAC BHDDSAA2388-63-45 06:48:003.8[facility] HermannCARDIAC ENZYMES 2016-12-24 06:48:000.4[facility] HermannCHEM AOJMU9569-57-32 06:48:0077[facility]annCHEM YQKMI7154-00-05 06:48:0034[facility]annCHEM LLTVJ7344-58-83 06:48:0033[facility]annCHEM RSJDF5920-65-69 06:48:007.5[facility]annCHEM WBSJC9886-07-74 06:48:003.4[facility]annCHEM YSLUE8294-49-75 06:48:004.1 [facility]annCHEM ELMCK9354-05-91 06:48:000.8[facility] HermannCHEM PANEL 2016-12-24 06:48:0011[facility]annCHEM IQPDV1790-00-79 06:48:000.6[facility]annCHEM LLIDX8153-49-65 06:48:0012.1[facility] HermannCHEM FNYDL2120-37-05 06:48:66824Bbpckwbk HermannCHEM WEWBV2900-42-71 06:48:008.0[facility]annCHEM FUHFY4954-94-39 06:48:0029[facility]annCHEM ODDYI1730-42-47 06:48:28507 [facility]annCHE[facility] UJRCO4682-30-46 06:48:92265Msgvwviv HermannCHEM PANEL 2016-12-24 06:48:004.1[facility] HermannCHEM MMZTF6386-75-20 06:48:0012[facility]annCHEM CUEXK7845-46-18 06:48:001.14[facility]annCHEM DKLIJ6027-49-20 06:48:0080[facility] WafjkobQSWQPQWMEP0540-81-79 06:48:007.5[facility] MFDFNFMUFG7240-79-11 06:48:37331Dwvjtfdg JajbedgPBQOWCDQIH8605-36-90 06:48:00 14.1[facility] PkewtniUMRBHPGQUK2551-98-26 06:48:0033.2[facility] HermannHEMATOLOGY 2016-12-24 06:48:00* Test Item Value Reference Range Interpretation Comments MCH (test code = MCH) 28.3 pg 27.0-31.0 [facility] MrzmfxmINCQRVYMNV4600-95-66 06:48:0011.2[facility] HermannHEMATOLOGY 2016-12-24 06:48:003.97[facility] VvtdrjeFWJYUAEYLQ1919-13-22 06:48:0033.9[facility] VwtqiziCHBXBPKQTC1563-36-52 06:48:0085.3[facility] GgtujqcSOHOJTNKNV0327-46-58 06:48:0016.6[facility] CgpeybvSXRWJGMSBM9534-66-25 06:48:000.9[facility] GQPECIQTKM8205-99-30 06:48:001.1[facility] CzhkyxnKJWDZTRJDY9402-41-51 06:48:00 11.4[facility] HvofskgFPDWJSTOGF3422-26-76 06:48:007.7[facility]annHEMATOLOGY 2016-12-24 06:48:000.2[facility] EdelatdHAHALATCMQ9340-43-92 06:48:0013.1[facility] ClwgnddTMQJRXIDQJ4267-28-11 06:48:000.1[facility] UpyeqasABRAMQJNAM3662-38-67 06:48:001.9[facility] IeiopdxRRMAOVGHBP9163-07-61 06:48:001.3[facility] LFSODZELHA9283-03-89 06:48:0078.9[facility] HermannCARDIAC FMXLXIJ2979-20-17 23:59:001.2[facility] HermannCARDIAC HKHGZJX1835-52-32 23:59:00<0.02[facility]annCARDIAC BFQAFLG2353-67-30 23:59:90570Eegwlsfy HermannCARDIAC ENZYMES 2015-08-28 23:59:000.5[facility] HermannCHEM VQOCA6969-75-61 23:59:000.7[facility] HermannCHEM WPCHD8022-69-78 23:59:0029[facility]annCHEM NDIMB8713-85-59 23:59:0041[facility]annCHEM GMLHV7407-38-04 23:59:0019[facility]annCHEM FMVFY4746-74-62 23:59:004.8[facility] HermannCHEM UHRKA2633-11-57 23:59:008.3 [facility]annCHEM MDWII5150-71-58 23:59:0015[facility]annCHEM PANEL 2015-08-28 23:59:0090[facility]annCHEM GTUHV6935-24-21 23:59:96250Bkfrmqqr [facility]annCHEM HZLPI6900-82-36 23:59:000.2[facility] HermannCHEM FCESC1303-58-69 23:59:17636Wqdbiuai HermannCHEM PEZOW5296-16-51 23:59:000.8[facility]annCHEM QHBFK7202-85-09 23:59:0010.5[facility]annCHEM QJEVA3994-86-78 23:59:003.5 [facility]annCHE[facility] HVJZB2846-66-30 23:59:004.5[facility] HermannCHEM PANEL 2015-08-28 23:59:45971Xroslpqg [facility]annCHE[facility] XIRQE5760-53-21 23:59:008.6[facility]annCHEM UJJTR9757-86-04 23:59:0029[facility]annCHEM KYXBE6507-92-65 23:59:50735Lzpinqsk WcgjnraYMVOTTJSNL1811-80-42 23:59:0089.0[facility] DFUFTHYYXU7501-05-44 23:59:0013.5[facility] YfodrbnKHWIRRBSWP0247-00-65 23:59:00* Test Item Value Reference Range Interpretation Comments MCH (test code = MCH) 29.4 pg 27.0-31.0 [facility] SrqxjijDYAOMUSGEI3865-22-12 23:59:0033.1[facility]annHEMATOLOGY 2015-08-28 23:59:008.9[facility] ImzkfznSFYRIUIDRN2234-12-82 23:59:0040.7[facility] FqenzhjQLCVOEISKS3148-91-10 23:59:0013.2[facility] XwoyvtjOILLHKCZWX2008-18-82 23:59:17054Meytcjcl DkxiaquQHIDNIOKFD5436-90-54 23:59:004.57[facility] ZABGFEJKLM4633-41-06 23:59:0010.2[facility] LfbotynAXEPOYQSXM6319-44-48 23:59:00 0.96[facility] AnganjoCNNIDVLEKD7926-08-03 23:59:00* Test Item Value Reference Range Interpretation Comments PTT (test code = PTT) 26.0 s 22.9-35.8 [facility] RxsjoobFRCZLRLWFH6561-00-88 23:59:00* Test Item Value Reference Range Interpretation Comments PT (test code = PT) 13.1 s 12.0-14.7 [facility] YzgaeyaCJIEBGJCVX1004-89-16 23:59:0034.9[facility]annHEMATOLOGY 2015-08-28 23:59:0050.5[facility] OhjknraTGNLMIGWDV7967-16-75 23:59:000.6[facility] UcakituQGPJIFKJEN9109-18-28 23:59:000.1[facility] KcsyvkcNATTRXAHFJ3914-26-47 23:59:000.8[facility] QtjqoggDSWDQODHYQ2972-45-47 23:59:008.1[facility] YZQKXUZOPD5090-84-70 23:59:005.5[facility] VqoqqcxZRKAIDXIMV1945-81-83 23:59:003.6 [facility] TcvzynmPWHSNMFVSI2485-93-88 23:59:001.0[facility]annHEMATOLOGY 2015-08-28 23:59:005.2[facility]
[2020-09-07 12:54] LABS: ALANINE AMINOTRANSFERASE 39 IU/L (0-55); ALBUMIN/GLOBULIN RATIO 0.9 (0.8-2.0); ALKALINE PHOSPHATASE 121 IU/L (40-150); ANION GAP 15.3 mmol/L (8-16); BLOOD UREA NITROGEN 18 mg/dL (7-26); BUN/CREATININE RATIO 16 (6-25); CALCIUM 9.2 mg/dL (8.4-10.2); CARBON DIOXIDE 22 mmol/L (22-29); CHLORIDE 106 mmol/L (98-107); CREATINE KINASE 360 IU/L (30-200); CREATININE, SERUM 1.12 mg/dL (0.72-1.25); EST GLOMERULAR FILTRATION RATE > 60 ML/MIN (60-); GLUCOSE 87 mg/dL (74-118); MAGNESIUM 2.3 MG/DL (1.3-2.1); POTASSIUM 4.3 mmol/L (3.5-5.1); SODIUM 139 mmol/L (136-145)
--- NOTE | 2020-09-07 14:17 | Diagnostic Imaging Report ---
EXAMINATION: CHEST SINGLE (PORTABLE) INDICATION: Chest pain COMPARISON: Chest radiograph 05/09/2020 FINDINGS: LINES/TUBES:None LUNGS:The lungs are well-inflated. No focal consolidation or pulmonary edema. PLEURA:No pleural effusion or pneumothorax. MEDIASTINUM:The cardiomediastinal silhouette appears normal in size and shape. BONES/SOFT TISSUES:No acute osseous injury. Unchanged metallic fragments overlying the right chest. ABDOMEN:No free air under the diaphragm. IMPRESSION: No focal pneumonia or pulmonary edema. Signed by: Robb Farias MD on 09/07/2020 2:14 PM
[2020-09-07] MEDS ORDERED: ASPIRIN 81 MG CHEW TAB PO STA (14:29)
[2020-09-07] MEDS ORDERED: ONDANSETRON HCL INJ 2MG/ML 2ML 2 MG/ML VIAL IV STA (14:29)
[2020-09-07] MEDS ORDERED: MORPHINE SULFATE 2 MG/ML SYR 1ML IV STA (14:29)
[2020-09-07] MEDS ORDERED: SODIUM CHLORIDE 0.9% 500ML 500 ML IV ONE (14:30)
[2020-09-07] MEDS ORDERED: ENOXAPARIN SODIUM INJ 100 MG/ML SYR SC ONE (14:30)
--- NOTE | 2020-09-07 15:23 | Emergency Department Note ---
History of Present Illnes History of Present Illness Chief Complaint: Chest Pain History of Present Illness This is a 50 year old male PATIENT IN FROM HOME WITH COMPLAINTS OF SHORTNESS OF BREATH AND CHEST PAIN SINCE YESTERDAY, CONSTANT, WORSE WITH DEEP BREATHS; RATES PAIN 8/10. PATIENT ALERT AND ORIENTED, RESP EVEN AND NONLABORED, APPEARS IN NO DISTRESS, AMBULATORY WITH CANE. Historian: Patient Arrival Mode: Car Assistant Purchasing Manager Required: No Onset (how long ago): day(s) Location: CHEST Quality: SHARP Radiation: Reports back Severity: severe Onset quality: gradual Timing of current episode: constant Progression: unchanged Chronicity: new Context: Denies recent illness Relieving factors: none Exacerbating factors: none Associated symptoms: Reports chest pain, Reports shortness of breath; Denies cough Past Medical/Family History Physician Review I have reviewed the patient's past medical and family history. Any updates have been documented here. Past Medical History Recent Fever: No Clinical Suspicion of Infectio: No New/Unexplained Change in Ment: No Past Medical History: Hypertension, Anxiety, Depression, Other Mental Illness, Chronic Back Pain Other Medical History: DEPRESSION, PTSD, BIPOLAR cellulitis Past Surgical History: PCI, Back Surgery Other Surgery: CARDIAC STENTS right ankle right shoulder Social History Smoking Cessation: Former smoker Counseling Performed: No Alcohol Use: None Any Illegal Drug Use: No TB Exposure/Symptoms: No Physically hurt or threatened: No Family History Family history of heart diseas: No Other Last Tetanus: 2004 Any Pre-Existing Lines (PICC,: No Review of Systems Review of Systems Constitutional: Reports no symptoms EENTM: Reports no symptoms Cardiovascular: Reports as per HPI, Reports chest pain Respiratory: Reports dyspnea Gastrointestinal: Reports no symptoms Genitourinary: Reports no symptoms Musculoskeletal: Reports no symptoms Integumentary: Reports no symptoms Neurological: Reports no symptoms Psychological: Reports no symptoms Endocrine: Reports no symptoms Hematological/Lymphatic: Reports no symptoms Physical Exam Related Data Allergies: Coded Allergies: No Known Allergies (Unverified , 09/07/20) Triage Vital Signs Vital Signs Date Time Temp Pulse Resp B/P (MAP) Pulse Ox O2 Delivery O2 Flow Rate FiO2 09/07/20 11:40 98.2 61 24 127/70 100 Room Air Vital signs reviewed: Yes Physical Exam CONSTITUTIONAL Constitutional: Present well-developed, Present well-nourished, Present morbidly obese HENT HENT: Present normocephalic, Present atraumatic, Present oropharynx clear/moist, Present nose normal HENT L/R: Present left ext ear normal, Present right ext ear normal EYES Eyes: Reports PERRL, Reports conjunctivae normal NECK Neck: Present ROM normal PULMONARY Pulmonary: Present effort normal, Present breath sounds normal CARDIOVASCULAR Cardiovascular: Present regular rhythm, Present heart sounds normal, Present capillary refill normal, Present normal rate GASTROINTESTINAL Abdominal: Present soft, Present nontender, Present bowel sounds normal GENITOURINARY Genitourinary: Present exam deferred SKIN Skin: Present warm, Present dry MUSCULOSKELETAL Musculoskeletal: Present ROM normal, Present edema (2+ BILAT LE'S) NEUROLOGICAL Neurological: Present alert, Present oriented x 3, Present no gross motor or sensory deficits PSYCHOLOGICAL Psychological: Present mood/affect normal, Present judgement normal Results Laboratory Result Diagram: 09/07/20 1204 09/07/20 1204 Laboratory Laboratory Tests Test 09/07/20 12:04 White Blood Count 7.25 x10e3/uL (4.8-10.8) Red Blood Count 4.54 x10e6/uL (4.3-5.7) Hemoglobin 12.7 g/dL (14.0-18.0) Hematocrit 40.2 % (38.2-49.6) Mean Corpuscular Volume 88.5 fL (81-99) Mean Corpuscular Hemoglobin 28.0 pg (28-32) Mean Corpuscular Hemoglobin Concent 31.6 g/dL (31-35) Red Cell Distribution Width 13.8 % (11.7-14.4) Platelet Count 269 x10e3/uL (140-360) Neutrophils (%) (Auto) 49.9 % (38.7-80.0) Lymphocytes (%) (Auto) 32.6 % (18.0-39.1) Monocytes (%) (Auto) 8.8 % (4.4-11.3) Eosinophils (%) (Auto) 7.6 % (0.0-6.0) Basophils (%) (Auto) 1.0 % (0.0-1.0) Neutrophils # (Auto) 3.6 (2.1-6.9) Lymphocytes # (Auto) 2.4 (1.0-3.2) Monocytes # (Auto) 0.6 (0.2-0.8) Eosinophils # (Auto) 0.6 (0.0-0.4) Basophils # (Auto) 0.1 (0.0-0.1) Absolute Immature Granulocyte (auto 0.01 x10e3/uL (0-0.1) Prothrombin Time 13.0 seconds (11.9-14.5) Prothromb Time International Ratio 0.94 Activated Partial Thromboplast Time 28.1 seconds (23.8-35.5) D-Dimer Quantitative (PE/DVT) 1.44 ug/mLFEU (0.00-0.45) Sodium Level 139 mmol/L (136-145) Potassium Level 4.3 mmol/L (3.5-5.1) Chloride Level 106 mmol/L (98-107) Carbon Dioxide Level 22 mmol/L (22-29) Anion Gap 15.3 mmol/L (8-16) Blood Urea Nitrogen 18 mg/dL (7-26) Creatinine 1.12 mg/dL (0.72-1.25) Estimat Glomerular Filtration Rate > 60 ML/MIN (60-) BUN/Creatinine Ratio 16 (6-25) Glucose Level 87 mg/dL (74-118) Calcium Level 9.2 mg/dL (8.4-10.2) Magnesium Level 2.3 MG/DL (1.3-2.1) Total Bilirubin 0.3 mg/dL (0.2-1.2) Aspartate Amino Transf (AST/SGOT) 40 IU/L (5-34) Alanine Aminotransferase (ALT/SGPT) 39 IU/L (0-55) Alkaline Phosphatase 121 IU/L (40-150) Creatine Kinase 360 IU/L (30-200) Creatine Kinase MB 5.50 ng/mL (0-4.3) Troponin I < 0.05 ng/mL (0.0-0.40) B-Type Natriuretic Peptide 315.0 pg/mL (0-100) Total Protein 8.6 g/dL (6.5-8.1) Albumin 4.0 g/dL (3.5-5.0) Globulin 4.6 g/dL (2.3-3.5) Albumin/Globulin Ratio 0.9 (0.8-2.0) Lab results reviewed: Yes Imaging Imaging results reviewed: Yes Imaging Comments CT CHEST PENDING Procedures 12 Lead ECG Interpretation ECG Interpretation : ECG: ECG 1 Assistant Purchasing Manager: Interpreted by ED physician Date: Sep 07, 2020 Time: 11:42 Rhythm: sinus bradycardia (TOOK EXTRA ATENOLOL TODAY DUE TO BP HIGH AT HOME) Rate: bradycardia BPM: 58 QRS axis: normal ST segments normal: Yes T waves normal: Yes Clinical Impression: normal ECG Assessment & Plan Medical Decision Making MDM CHEST PAIN - CBC, CHEM, ECG, CARDIACS, BNP, CXR, D-DIMER, CT CHEST IF D-DIMER POS - R/O STEMI/NSTEMI, CHF, PULM EMBOLUS, PNEUMONIA Reassessment Reassessment ADMIT TO DR HERNANDEZ - D-DIMER POSITIVE - DR HERNANDEZ WILL F/U CT CHEST, I GAVE DOSE OF LOVENOX Assessment & Plan Final Impression: (1) Chest pain Depart Disposition: ADMITTED Last Vital Signs Date Time Temp Pulse Resp B/P (MAP) Pulse Ox O2 Delivery O2 Flow Rate FiO2 09/07/20 11:40 98.2 61 24 127/70 100 Room Air Home Meds Reported Medications Carisoprodol (SOMA) 350 Mg Tablet, 350 MG PO DAILY 04/30/14 Alprazolam (XANAX) 2 Mg Tablet, 2 MG PO BID 04/30/14 Hydrocodone Bit/Acetaminophen (NORCO 10-325 TABLET) 1 Each Tablet, 1 TAB PO PRN 04/30/14 Discontinued Reported Medications Sulfamethoxazole/Trimethoprim (BACTRIM DS TABLET) 1 Each Tablet, 1 TAB PO BID for 10 Days, TAB 03/10/16 Amitriptyline Hcl (AMITRIPTYLINE HCL) 100 Mg Tablet, 100 MG PO MG 04/30/14 Aripiprazole (ABILIFY) 10 Mg Tablet, 10 MG PO DAILY 04/30/14 Medications in the ED Pantoprazole Sodium 40 mg ONCE STAT IV ; Start 09/07/20 at 12:22; Stop 09/07/20 at 12:34; Status DC Enoxaparin Sodium 100 mg NOW ONCE SC ; Start 09/07/20 at 14:30; Stop 09/07/20 at 14:40; Status DC Sodium Chloride 500 ml @ 0 mls/hr Q0M ONCE IV ; Start 09/07/20 at 14:30; Stop 09/07/20 at 14:31; Status DC Morphine Sulfate 4 mg ONCE STAT IV ; Start 09/07/20 at 14:29; Stop 09/07/20 at 14:40; Status DC Ondansetron HCl 4 mg ONCE STAT IV ; Start 09/07/20 at 14:29; Stop 09/07/20 at 14:40; Status DC Aspirin 81 mg ONCE STAT PO ; Start 09/07/20 at 14:29; Stop 09/07/20 at 14:40; Status DC SCOOTER MORENO MD Sep 07, 2020 15:23
[2020-09-07] MEDS ORDERED: ONDANSETRON HCL INJ 2MG/ML 2ML 2 MG/ML VIAL IV PRN (16:45)
[2020-09-07] MEDS ORDERED: NITROGLYCERIN 0.4 MG SUBL SL PRN (16:45)
[2020-09-07] MEDS ORDERED: MORPHINE SULFATE 2 MG/ML SYR 1ML IV PRN (16:45)
[2020-09-07] MEDS ORDERED: ATENOLOL50 MG (16:54)
[2020-09-07] MEDS ORDERED: CARISOPRODOL350 MG (16:54)
[2020-09-07] MEDS ORDERED: BUPRENORP-NALO1 EACH (16:54)
[2020-09-07] MEDS ORDERED: MELOXICAM15 MG (16:54)
[2020-09-07] MEDS ORDERED: QUETIAPINE FUM200 MG (16:54)
--- OUTSIDE RECORDS SUMMARY | 2020-09-07 16:56 | XMS REPORT | Clinical Summary ---
Author Author Lázaro [facility] Organization [place] [facility] Address Unknown Phone Unavailable Care Team Providers Care Rubber Turner Name Role Phone Latisha Baltazar MD PCP [...] Ladonna Alves Rajitha, MD Fotso, MD Dede King, Eusebio Ornelas MD Suspected Covid-19 Virus Infection (Prim jaleel Dx); Severe sepsis (HCC) 04/11/2020 [facility] Internal Sd dicine - Encounter 04/14/2020 after 09/07/2019 Surgical History Surgery Date Site/Laterality Comments BACK SURGERY LAMINECTOMY, LUMBAR 05/12/2018 Spine Procedure: LUMBAR LAMINECTOMY L4-L5, L5-S1, Lumbar/Posterio DRAINAGE OF EPIDURAL ABSCES S; Surgeon: Alan Quintanilla MD; Location: [facility] OR; Service: Neurosurgery; Laterality: Posterior; ANKLE SURGERY [...] PRELIMINARY Routine 07/04/2020 INTERPRETATION 7:58 AM CDT [facility] CRITICAL CARE, E/M Routine 07/04/2020 30-74 MINUTES [...] PRELIMINARY Routine 04/11/2020 INTERPRETATION 7:17 PM CDT [place] CRITICAL CARE, E/M Routine 04/11/2020 30-74 MINUTES [...] HISTORY: SOB COMPARISON: Most Recent Prior at [facility] IMPRESSION: Lines: None Lungs and pleura: No consolidations. No pleural effusion or pneumothorax. Heart and mediastinum: Stable appearanc e of cardiomediastinal silhouette. Bones: No suspicious osseous lesions. F oreign bodies present over the right chest and axilla, unchanged. [id number] Procedure Note Hm Interface, Radiology Results Incoming - 07/04/2020 8:27 AM CDT EXAMINATION: XR CHEST 1 VW PORTABLE CLINICAL HISTORY: SOB COMPARISON: Most Recent Prior at [facility] IMPRESSION: Lines: None Lungs and pleura: No consolidations. No pleural effusion or pneumothorax. Heart and mediastinum: Stable appearance of cardiomediastinal silhouette. Bones: No suspicious osseous lesions. Foreign bodies present over the right chest and axilla, unchanged. 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 [facility] Estimated GFR 77 mL/min/1.73 m2 [facility] Comment: [facility] Interpretation G1 >=90 Normal or high G2 [...] Organization Address City/State/ZIP Code P severiano Number [facility] DEPARTMENT OF [address] [place] [address] PATHOLOGY AND GENOMIC MEDICINE [facility] [address] [place] [address] HOSPITAL * Troponin (07/04/2020 7:46 AM CDT) Only the most recent of 3 results within the time period is included. [facility] Troponin <0.006 0.000 - 0.040 ng/mL [facility] Comment: [facility] In patients suspected of HOSPITAL having a [...] Organization Address City/State/ZIP Code P severiano Number [facility] DEPARTMENT OF [address] [place] [address] PATHOLOGY AND GENOMIC MEDICINE [address] * CBC with platelet and differential (07/04/2020 7:46 AM CDT) Only the most recent of 5 results within the time period is included. [facility] WBC 9.58 4.50 - 11.00 k/uL [facility] RBC 4.32 (L) 4.40 - 6.00 m/uL [facility] HGB 12.1 (L) 14.0 - 18.0 g/dL [facility] HCT 36.7 (L) 41.0 - 51.0 % [facility] MCV 85.0 82.0 - 100.0 fL [facility] MCH 28.0 27.0 - 34.0 pg [facility] MCHC 33.0 31.0 - 37.0 g/dL [facility] RDW - SD 43.2 37.0 - 55.0 fL [facility] MPV 10.6 8.8 - 13.2 fL [facility] Platelet count 247 150 - 400 k/uL [facility] Nucleated RBC 0.00 /100 WBC [facility] Neutrophils 63.7 39.0 - 69.0 % [facility] Lymphocytes 24.7 (L) 25.0 - 45.0 % [facility] Monocytes 7.8 0.0 - 10.0 % [facility] Eosinophils 2.9 0.0 - 5.0 % [facility] Basophils 0.6 0.0 - 1.0 % [facility] Immature 0.3Comment: "Immature 0.0 - 1.0 % [facility] granulocytes granulocytes" (promyelocytes, METHOD IST myelocytes, metamyelocytes) HOSPITAL Specimen Blood Performing Organization Address City/State/ZIP Code P severiano Number [facility] DEPARTMENT OF [address] [place] [address] PATHOLOGY AND GENOMIC MEDICINE [address] * Comprehensive metabolic panel (07/04/2020 7:46 AM CDT) Only the most recent of 5 results within the time period is included. Sodium 137 135 - 148 mEq/L [facility] Potassium 3.5 3.5 - 5.0 mEq/L [facility] Chloride 98 98 - 112 mEq/L [facility] CO2 21 (L) 24 - 31 mEq/L [facility] Anion gap 18@ANIO (H) 7 - 15 mEq/L [facility] BUN 23 (H) 6 - 20 mg/dL [facility] Creatinine 1.11 0.70 - 1.20 mg/dL [facility] Glucose 102 (H) 65 - 99 mg/dL [facility] Calcium 8.4 8.3 - 10.2 mg/dL [facility] Protein 7.6 6.3 - 8.3 g/dL [facility] Comment: [facility] [place] 4.6-7.0 g/dL 1 week 4.4-7.6 g/dL 7 months-1year 5.1-7.3 g/dL 1-2 years 5.6-7.5 g/dL >3 years 6.0-8.0 g/dL 18-150 6.3-8.3 g/dL Albumin 3.6 3.5 - 5.0 g/dL [facility] A/G ratio 0.9 0.7 - 3.8 [facility] Alkaline 121 40 - 129 U/L [facility] phosphatase [facility] AST 29 10 - 50 U/L [facility] ALT 31 5 - 50 U/L [facility] Total bilirubin <0.2 0.0 - 1.2 mg/dL [facility] Specimen Blood Performing Organization Address City/[facility]/ZIP Code P severiano Number [facility] [address] [place] [address] PATHOLOGY AND GENOMIC MEDICINE [address] * ECG 12 lead (07/04/2020 7:28 AM CDT) Only the most recent of 2 results within the time period is included. Ventricular 67 [facility] rate Atrial rate 67 [facility] OH interval 184 [facility] QRSD interval 80 [facility] QT interval 412 [facility] QTC interval 435 [facility] P axis 1 17 [facility] QRS axis 1 25 [facility] T wave axis 22 [facility] EKG impression Normal sinus [facility] rhythm- Specimen Narrative Performed At This result has an attachment that is n ot available. Performing Organization Address City/[facility]/ZIP Code P severiano Number [facility] [address] [place] [id number] * Thyroid stimulating hormone (04/14/2020 6:40 AM CDT) TSH 3.50 0.55 - 4.78 uIU/mL [facility] Specimen Blood Performing Organization Address City/State/ZIP Code P severiano Number [facility] DEPARTMENT [address] [facility] [address] [place] [address] PATHOLOGY AND GENOMIC MEDICINE [facility] [address] [facility] [address] [place] [address] [facility] * T4, free (04/14/2020 6:40 AM CDT) T4, free 1.3 0.8 - 1.8 ng/dL [facility] Specimen Blood Performing Organization Address City/State/ZIP Code P seveirano Number [place] [address] PATHOLOGY AND GENOMIC MEDICINE [address] * Vancomycin level, trough (04/13/2020 9:12 AM CDT) Vancomycin, 20.2 () 10.0 - 20.0 ug/mL [facility] trough Comment: [facility] Therapeutic Ranges: [facility] Peak 30.0 - 40.0 HOSPITAL ug/mL Trough 10.0 - 20.0 ug/mL Final results called to and read back by Clayton White RN 04/13/2020 09:51 edp Specimen Blood Performing Organization Address City/State/ZIP Code P severiano [place] [address] PATHOLOGY AND GENOMIC MEDICINE [address] * CT Chest Wo Contrast (04/12/2020 [...] the spine. Other: None. SUMMARY: 1.Negative study. [facility]-[id number] Procedure Note Hm Interface, Radiology Results Incoming [...] the spine. Other: None. SUMMARY: 1.Negative study. [facility]-[id number] Performing Organization Address City/State/ZIP Code P severiano Number [facility] [address] [place] [address] * NM Lung Perfusion Imaging (04/12/2020 1:05 PM CDT) Specimen Narrative Performed At PROCEDURE: NM LUNG PERFUSION IMAGING [facility] INDICATION: PE suspected intermediate prob positive D-dimer. COMPARISON: CT chest dated April 12 020. VQ scan dated February 07, 2007. TECHNIQUE: Ventilation images were no t obtained. The patient was injected with 5 mCi of [id number] intravenous ly, followed by imaging of the lungs in 8 projections. FINDINGS: Mild left perihilar perfusion defect, nonsegmental. IMPRESSION: Very Low probability for pulmonary embo lism. [facility]-[id number] Dictated and approved by radiology resi dent/fellow: [...] patient was injected with 5 mCi of [id number] intravenously, followed by imaging of the lungs in 8 projections. FINDINGS: Mild left perihilar perfusion defect, nonsegmental. IMPRESSION: Very Low probability for pulmonary embolism. [facility]-[id number] Dictated and approved by radiology ct technologist/fellow: Rolando Head M.D. I, Bro Grimes, personally reviewed the images and resident's/fellow's findings and agree with the final report. Performing Organization Address City/[facility]/ZIP Code P severiano Number [facility] [address] [place] [address] * Urinalysis screen and microscopy, with reflex to culture (04/12/2020 9:15 AM CDT) Specimen site Clean catch [facility] Color, UA Yellow YELLOW [facility] Appearance, UA Clear Clear [facility] Specific 1.009 1.005 - 1.030 [facility] gravity, [facility] pH, UA 6.0 5.0 - 8.0 [facility] Protein, UA Negative Negative [facility] Glucose, UA Negative Negative [facility] Ketones, UA Negative Negative [facility] Bilirubin, UA Negative Negative [facility] Blood, UA Negative Negative [facility] Nitrite, UA Negative NEGATIVE [facility] Urobilinogen, <2.0 <2.0 E.U./dL [facility] Leukocyte Negative Negative [facility] esterase, [facility] Epithelial <1 0 - 15 /HPF [facility] cells, [facility] WBC, UA 1 0 - 5 /Hpf [facility] RBC, UA 3 0 - 5 /HPF [facility] Bacteria, UA Few (A) None seen [facility] Yeast, UA None seen None Seen [facility] Yeast with None seen [facility] pseudohyphae, [facility] Specimen Urine Performing Organization Address City/State/ZIP Code P severiano Number [facility] [address] [place] [address] PATHOLOGY AND GENOMIC MEDICINE [facility] [address] [facility] [address] [place], [place] [address] [facility] * Streptococcus pneumoniae urinary antigen (04/12/2020 9:15 AM CDT) Strep pneumo Negative for Streptococcus [facility] urinary Ag pneumoniae antigen. [facility] Comment: HOSPITAL Specimen Information Specimen Source: Urine Specimen Site: Random void Specimen Urine - Random void Performing Organization Address City/State/ZIP Code P severiano Number [facility] [place] [address] PATHOLOGY AND GENOMIC MEDICINE [address] * Legionella urinary antigen (04/12/2020 9:15 AM CDT) Legionella Negative for Legionella [facility] urinary antigen serogroup 1 antigen. [facility] Comment: HOSPITAL Specimen Information Specimen Source: Urine Specimen Site: Random void Specimen Urine - Random void Performing Organization Address City/[facility] [place] [address] PATHOLOGY AND GENOMIC MEDICINE [address] * Urine culture (04/12/2020 9:15 AM CDT) Urine culture SEE COMMENTComment: [facility] Bacteriuria screen negative. [facility] Specimen Performing Organization Address [facility] [place] [address] PATHOLOGY AND GENOMIC MEDICINE [address] [address] [facility] * Arterial blood gas (04/12/2020 5:23 AM CDT) pH, arterial 7.38 7.35 - 7.45 Units [facility] pCO2, arterial 39 35 - 45 mmHg [facility] pO2, arterial 93 83 - 108 mmHg [facility] Bicarbonate, 22.6 21.0 - 28.0 mEq/L [facility] Base excess, -1.7 (L) -0.2 - 0.3 mEq/L [facility] O2 saturation, 97 95 - 98 % [facility] FiO2 21.0 [facility] Total CO2 21 mEq/L [facility] O2 content 15.1 15.0 - 23.0 VOL % [facility] Specimen Blood Performing Organization Address City/[facility]/ZIP [place] [address] PATHOLOGY AND GENOMIC MEDICINE [facility] [address] [facility] [address] [place], [place] [address] [facility] * Respiratory pathogen panel (04/12/2020 4:10 AM CDT) Pathologist [facility] Adenovirus PCR Not Detected [facility] Comment: [facility] Specimen Information HOSPITAL Specimen Source: Nares Specimen Site: Left Coronavirus Not Detected [facility] HKU1 PCR [facility] Coronavirus Not Detected [facility] NL63 [facility] Coronavirus Not Detected [facility] 229E [facility] Coronavirus Not Detected [facility] OC43 PCR [facility] Human Not Detected [facility] metapneumovirus [facility] PCR HOSPITAL Human Not Detected [facility] rhinovirus/ente [facility] rovirus PCR HOSPITAL Influenza A PCR Not Detected [facility] Influenza A/H1 Not Reported [facility] PCR [facility] Influenza A/H3 Not Reported [facility] Influenza Not Reported [facility] A/H1-2009 [facility] Influenza B PCR Not Detected [facility] Parainfluenza Not Detected [facility] virus 1 PCR [facility] Parainfluenza Not Detected [facility] virus 2 PCR [facility] Parainfluenza Not Detected [facility] virus 3 PCR [facility] Par[facility]fluenza Not Detected [facility] virus 4 PCR [facility] Respiratory Not Detected [facility] syncytial virus [facility] PCR [facility] Bordetella Not Detected [facility] pertussis PCR [facility] Bordetella Not Detected [facility] parapertussis [facility] Chlamydia Not Detected [facility] pneumoniae PCR [facility] Mycoplasma Not Detected [facility] pneumoniae PCR [facility] Influenza A no Not Reported [facility] sub type PCR [facility] Specimen Nares - Left Performing Organization Address City/State/ZIP Code P severiano Number [facility] [place] [address] PATHOLOGY AND GENOMIC MEDICINE [address] * Influenza antigen (04/12/2020 4:10 AM CDT) Pathologist [facility] Influenza Negative for Influenza A/B [facility] antigen antigen. [facility] Comment: [facility] Specimen Information HOSPITAL Specimen Source: Nares Specimen Site: Left Specimen Nares - Left Performing Organization Address City/State/ZIP Code P severiano Number [facility] [id number] [place] [address]. [address] [place] [address] PATHOLOGY AND GENOMIC MEDICINE [facility] [address] [address] [facility] * Group A strep, rapid antigen (04/12/2020 4:08 AM CDT) [facility] Group A strep, Negative for Group A [facility] rapid antigen Streptococcus antigen. [facility] result Comment: [facility] Specimen Information HOSPITAL Specimen Source: Throat Specimen Site: Not otherwise specified Specimen Throat - Not otherwise specified Performing Organization Address City/State/[place] [address] PATHOLOGY AND GENOMIC MEDICINE [facility] [address] [place] [address] * Strep screen culture (04/12/2020 4:08 AM CDT) [facility] Strep screen No beta hemolytic Streptococci [place] N culture isolate isolated [facility] Comment: HOSPITAL Specimen Information Specimen Source: Throat Specimen Site: Not otherwise specified Specimen Throat - Not otherwise specified Performing Organization Address City/[facility] P severiano Number [facility] [place] [address] PATHOLOGY AND GENOMIC MEDICINE [facility] [address] [place] [address] HOSPITAL * Fibrinogen (04/12/2020 4:05 AM CDT) [facility] Fibrinogen 406.0Comment: The reference 200.0 - 450.0 mg/d L [facility] range has changed starting [facility] 04/02/2010 @12:00pm [facility] Specimen Blood Performing Organization Address City/State/[facility] [place] [address] PATHOLOGY AND GENOMIC MEDICINE [facility] [address] [place] [address] * D-dimer (04/12/2020 4:05 AM CDT) [facility] D-dimer 2.37 (H) 0.00 - 0.40 ug/mL [facility] Comment: FEU [facility] When combined with low [facility] clinical probability, D-dimer HOSPITAL results of less [...] Organization Address City/State/ZIP Code P severiano Number [facility] [place] [address] PATHOLOGY AND GENOMIC MEDICINE [address] * Type and screen (04/12/2020 4:05 AM CDT) ABO grouping O [facility] Rh type POS [facility] Antibody screen NEG [facility] (gel) [facility] Specimen Blood Performing Organization Address City/State/ZIP [facility] P severiano Number [place] [address] PATHOLOGY AND GENOMIC MEDICINE [address] * C-reactive protein (04/12/2020 4:05 AM CDT) CRP 3.40 (H) 0.00 - 1.00 mg/dL [facility] Specimen Blood Performing Organization Address City/[facility]/ZIP Code P severiano Number [facility] [place] [address] PATHOLOGY AND GENOMIC MEDICINE [address] * LDH (04/12/2020 4:05 AM CDT) LDH 195 (L) 300 - 600 U/L [facility] Specimen Blood Performing Organization Address City/State/ZIP Code P severiano Number [place] [address] PATHOLOGY AND GENOMIC MEDICINE [address] * Ferritin level (04/12/2020 4:05 AM CDT) Ferritin level 132 18 - 464 ng/mL [facility] Specimen Blood Performing Organization Address City/State/ZIP Code P severiano Number [place] [address] PATHOLOGY AND GENOMIC MEDICINE [address] * Creatine kinase, total (CPK) (04/12/2020 4:05 AM CDT) Creatine kinase 90 35 - 200 U/L [facility] Specimen Blood Performing Organization Address City/State/ZIP Code P severiano Number [address] [address] PATHOLOGY AND GENOMIC MEDICINE [address] [place], [place] [address] [facility] * Lipid panel (04/12/2020 4:05 AM CDT) Cholesterol 120 0 - 199 mg/dL [facility] Triglycerides 90 0 - 149 mg/dL [facility] HDL cholesterol 37 (L) 40 - 9,999 mg/dL [facility] LDL cholesterol 74 0 - 99 mg/dL [facility] Lipid panel See below [facility] interpretation Comment: [facility] Total Cholesterol (mg/dL) [facility] <200 Desirable 200-239 Borderline-high >=240 High Triglycerides [...] Organization Address City/State/ZIP Code P severiano Number [address] [address] PATHOLOGY AND GENOMIC MEDICINE [address] [place] [address] [facility] * Lactic acid level, SEPSIS - Now and repeat 2x every 3 hours (04/11/2020 10:40 PM CDT) Only the most recent of 2 results within the time period is included. Lactic acid 2.4 (H) 0.5 - 2.2 mmol/L [facility] Specimen Blood Performing Organization Address City/[facility]/ZIP Code P severiano Number [facility] DEPARTMENT [address] [facility] [address] [place] [address] PATHOLOGY AND GENOMIC MEDICINE [facility] [address] [facility] [address] [place] [address] [facility] * CRITICAL CARE (04/11/2020 7:17 PM CDT) [...] results do not MATTA preclude 2019-nCoV infection [facility] and should not be used as the HOSPITAL sole basis for treatment or other patient management decisions. Negative results must be combined with clinical observations, patient history, and epidemiological information. COVID-19 Not-Detected Not-Detected [facility] qualitative PCR [facility] result HOSPITAL COVID-19 See link below for PDF Lab [facility] qualitative PCR ReportComment: Case Number: [facility] [id number] HOSPITAL Specimen Performing Organization Address City/[facility]/ZIP Code P severiano Number [facility] DEPARTMENT OF [address] [place] [address] PATHOLOGY AND GENOMIC MEDICINE [facility] [address] [place] [address] [facility] * Blood culture, aerobic & anaerobic (04/11/2020 6:46 PM CDT) Only the most recent of 2 results within the time period is included. Blood culture No growth after 5 days of [facility] isolate incubation. [facility] Comment: HOSPITAL Specimen Information Specimen Source: Blood Specimen Site: Arm, left Specimen Blood - Arm, left Performing Organization Address City/State/ZIP Code P severiano Number [facility] DEPARTMENT OF [address] [place] [address] PATHOLOGY AND GENOMIC MEDICINE [facility] [address] [place] [address] HOSPITAL * B natriuretic peptide (04/11/2020 6:42 PM CDT) BNP 56 0 - 100 pg/mL [facility] Specimen Blood Performing Organization Address City/State/ZIP [facility] P severiano Number [facility] DEPARTMENT [address] [facility] [address] [place] [address] PATHOLOGY AND GENOMIC MEDICINE [facility] [address] [facility] [address] [place] [address] [facility] after 09/07/2019 Insurance Type Payer Benefit Subscriber ID Effective Phone Address Plan / Dates Group HMO [employer] [id number] 2019-P DUAL resent OPTIONS [facility] MEDICARE [facility] [id number] 2020-P CONNECTED resent (MEDICARE- MEDICAID PLAN) Advance Directives For more information, please contact: [phone] 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
--- OUTSIDE RECORDS SUMMARY | 2020-09-07 16:56 | XMS REPORT | Continuity of Care Document ---
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 (Same As: Keflex) Inactive 01/21/2019 [facility] Doxycycline Notes: (Same as: V ibramycin) No milk/antacids/iron. Inactive 01/21/2019 [facility] cephalexin 500 mg oral tablet 500 mg = 1 tab, PO, QID, X 7 day, # 28 tab, 0 Refill(s), [id number] 01/21/2019 [facility] doxycycline hyclate 100 MG Oral Capsule 100 mg = 1 cap, PO, BID, X 7 day, # 14 cap, 0 Refill(s), Pharmacy: [id number] Active 01/21/2019 [facility] Soma 350 mg, Route: PO, Drug f orm: TAB, QID, Dosing Weight 140.455, kg, Start date: 01/21/19 9:00:00 CDT, Duration: 30 day, Stop date: 02/19/19 21:00:00 CDT Inactive 01/21/2019 [facility] Robaxin Notes: (Same as:Robaxi n) Inactive 01/21/2019 [facility] Vancomycin 2001 mg: infuse ov er 2.5 hours Inactive 01/21/2019 [facility] BD Normal Saline Flush Notes: (Same as: BD Posiflush) Inactive 01/21/2019 [facility] Robaxin Notes: (Same as:Robaxi n) Inactive 01/21/2019 [facility] heparin Notes: porcine heparin No Longer Active 01/21/2019 [facility] Soma 350 mg, Route: PO, Drug f orm: TAB, QID, Dosing Weight 140.455, kg, Start date: 01/20/19 21:00:00 CDT, Duration: 30 day, Stop date: 02/19/19 17:00:00 CDT Inactive 01/21/2019 [facility] Acetaminophen 325 MG / Hydrocodone Yevgeniy trate 10 MG Oral Tablet [[place] 10/325] Notes: Do not exceed 4gm/day of acetamin ophen. (Same as: [place] 325/10) No Longer Active 01/21/2019 [facility] Morphine Notes: (Same as:MORPh ine Sulfate) No Longer Active 01/21/2019 [facility] Acetaminophen 325 MG / Hydrocodone Yevgeniy trate 10 MG Oral Tablet [[place] 10/325] Notes: Do not exceed 4gm/day of acetamin ophen. (Same as: [place] 325/10) Inactive 01/21/2019 [facility] Carisoprodol 350 MG Oral Tablet [Soma] 350 mg = 1 tab, PO, QID, # 21 tab, 0 Refill(s) Active 01/20/2019 [facility] Acetaminophen 325 MG / Hydrocodone Yevgeniy trate 10 MG Oral Tablet [[place] 10/325] 1-2 tab, PO, Q4-6H, PRN Pain, # 30 tab, 0 Refill(s) Active 01/20/2019 [facility] pneumococcal capsular polysaccharide typ e 1 vaccine / pneumococcal capsular polysaccharide type 10A vaccine / pneumococcal capsular polysaccharide type 11A vaccine / pneumococcal capsular polysaccharide type 12F vaccine / pneumococcal capsular polysacchar Notes: (Same as: Pneumovax 23) Refrigerate No Longer Active 01/20/2019 [facility] cefepime Notes: (Same As: Jt little) MEDICATION WASTE Product Size: 1000 mg Product Wasted: _0__ mg No Longer Active 01/20/2019 [facility] Morphine 2 mg, 1 mL, Route: IV P, Drug form: SOLN, ONCE, Dosing Weight 139.091, kg, Priority: STAT, Start date: 01/20/19 16:58:00 CDT, Stop date: 01/20/19 16:58:00 CDT Inactive 01/20/2019 [facility] Acetaminophen Notes: Do not ex ceed 4 gm/day. (Same as: Tylenol) No Longer Active 01/20/2019 [facility] Vancomycin 2001 mg: infuse ov er 2.5 hours Inactive 01/20/2019 [facility] Vancomycin 2001 mg: infuse ov er 2.5 hours For adult patients only: Round to nearest 250 mg per Medical Staff approval MEDICATION WASTE Product Size: 1000 mg Product Wasted: 0mg Inactive 01/20/2019 [facility] Ancef + sterile water 20 mL No lucila: (Same As: Ancef, Kefzol) MEDICATION WASTE Product Size: 1000 mg Product Wasted: 0 mg Inactive 01/20/2019 [facility] Zofran Notes: (Same as: Zofran ) MEDICATION WASTE Product Size: 4 mg Product Wasted: _0__ mg Inactive 01/20/2019 [facility] Morphine Notes: (Same as:MORPh ine Sulfate) Inactive 01/20/2019 [facility] Sodium Chloride 0.9% (Bolus) IV 500 mL, 500 ml/hr, Infuse Over: 1 hr, Route: IV, 500, Drug form: INJ, ONCE, Priority: STAT, Dosing Weight 139.091 kg, Start date: 01/20/19 11:49:00 CDT, Stop date: 01/20/19 11:49:00 CDT Inactive 01/20/2019 [facility] Saline Flush 0.9% Notes: (Same as: BD Posiflush) No Longer Active 01/20/2019 [facility] Clindamycin Notes: (Same As: C leocin) Inactive 01/20/2019 [facility] Acetaminophen 325 MG / Hydrocodone Yevgeniy trate 5 MG Oral Tablet [[place] 5/325] Notes: (Same as: [place] 325/5) Do not ex ceed 4gm/day of acetaminophen. Inactive 01/20/2019 [facility] Allergies, Adverse Reactions, Alerts No Known [...] should be multiplied by the estimated BMI. [facility] CHEM PANEL Sodium Lvl 142 135 - 145 01/21/2019 [facility] CHEM PANEL BUN 16 7 - 22 01/21/2019 [facility] CHEM PANEL Creatinine Lvl 0.76 0.50 - 1.40 01/21/2019 [facility] CHEM PANEL Glucose Lvl 92 70 - 99 01/21/2019 [facility] CHEM PANEL CO2 26 24 - 32 01/21/2019 [facility] CHEM PANEL Potassium Lvl 4.2 3.5 - 5.1 01/21/2019 [facility] CHEM PANEL Chloride Lvl 113 95 - 109 01/21/2019 [facility] CHEM PANEL ALT 20 0 - 65 01/21/2019 [facility] CHEM PANEL Calcium Lvl 7.6 8.5 - 10.5 01/21/2019 [facility] CHEM PANEL Total Protein 6.6 6.4 - 8.4 01/21/2019 [facility] CHEM PANEL Albumin Lvl 2.6 3.5 - 5.0 01/21/2019 [facility] CHEM PANEL AST 17 0 - 37 01/21/2019 [facility] CHEM PANEL Alk Phos 78 39 - 136 01/21/2019 [facility] CHEM PANEL Bili Total 0.2 0.2 - 1.3 01/21/2019 [facility] CHEM PANEL A/G Ratio 0.6 0.7 - 1.6 01/21/2019 [facility] CHEM PANEL B/C Ratio 21 6 - 25 01/21/2019 [facility] CHEM PANEL Globulin 4.0 2.7 - 4.2 01/21/2019 [facility] CHEM PANEL AGAP 7.2 10.0 - 20.0 01/21/2019 [facility] HEMATOLOGY MPV 8.2 7.4 - 10.4 01/21/2019 [facility] HEMATOLOGY Platelet 210 133 - 450 01/21/2019 [facility] HEMATOLOGY RDW 14.3 11.5 - 14.5 01/21/2019 [facility] HEMATOLOGY WBC 6.5 3.7 - 10.4 01/21/2019 [facility] HEMATOLOGY RBC 3.31 4.70 - 6.10 01/21/2019 [facility] HEMATOLOGY Hgb 9.6 14.0 - 18.0 01/21/2019 [facility] HEMATOLOGY Hct 28.2 42.0 - 54.0 01/21/2019 [facility] HEMATOLOGY MCH 29.0 27.0 - 31.0 01/21/2019 [facility] HEMATOLOGY MCV 85.2 80.0 - 94.0 01/21/2019 [facility] HEMATOLOGY MCHC 34.0 32.0 - 36.0 01/21/2019 [facility] HEMATOLOGY Monocytes 11.1 2.0 - 12.0 01/21/2019 [facility] HEMATOLOGY Basophils 0.9 0.0 - 1.0 01/21/2019 [facility] HEMATOLOGY Eosinophils 8.0 0.0 - 4.0 01/21/2019 [facility] HEMATOLOGY Basophils # 0.1 0.0 - 0.2 01/21/2019 [facility] HEMATOLOGY Eosinophils # 0.5 0.0 - 0.5 01/21/2019 [facility] HEMATOLOGY Neutrophils # 3.7 1.5 - 8.1 01/21/2019 [facility] HEMATOLOGY Monocytes # 0.7 0.0 - 0.8 01/21/2019 [facility] HEMATOLOGY Lymphocytes # 1.5 1.0 - 5.5 01/21/2019 [facility] HEMATOLOGY Segs 57.0 45.0 - 75.0 01/21/2019 [facility] HEMATOLOGY Lymphocytes 23.0 20.0 - 40.0 01/21/2019 [facility] BACTERIAL - SEROLOGY MRSA by PCR Negative (01/20/19 11:24 PM) 01/21/2019 [facility] CHEM PANEL Lactic Acid Lvl 1.2 0.5 - 2.2 01/20/2019 [facility] DRUG SCREEN U Benzodiaz Scr Nega tive *NA* (01/20/19 1:53 PM) Negative 01/20/2019 [facility] DRUG SCREEN UDS Note See Note (01/20/19 1:53 PM) 01/20/2019 [facility] DRUG SCREEN U Phencyclidine Scr Nega tive *NA* (01/20/19 1:53 PM) Negative 01/20/2019 [facility] DRUG SCREEN U Opiate Scr Posi tive *ABN* (01/20/19 1:53 PM) Negative 01/20/2019 [facility] DRUG SCREEN U Cannab Scr Nega tive *NA* (01/20/19 1:53 PM) Negative 01/20/2019 [facility] DRUG SCREEN U Cocaine Scr Nega tive *NA* (01/20/19 1:53 PM) Negative 01/20/2019 [facility] DRUG SCREEN U Brenda Scr Nega tive *NA* (01/20/19 1:53 PM) Negative 01/20/2019 [facility] DRUG SCREEN U Amph Scr Nega tive *NA* (01/20/19 1:53 PM) Negative 01/20/2019 [facility] CARDIAC ENZYMES BNP 31 <=100 pg/mL 01/20/2019 [facility] CARDIAC ENZYMES Troponin-I <0.02 0.00 - 0.40 01/20/2019 [facility] CHEM PANEL Lactic Acid Lvl 2.1 0.5 - 2.2 01/20/2019 [facility] CHEM PANEL eGFR 89 01/20/2019 Result [...] should be multiplied by the estimated BMI. [facility] CHEM PANEL Alk Phos 98 39 - 136 01/20/2019 [facility] CHEM PANEL AST 24 0 - 37 01/20/2019 [facility] CHEM PANEL ALT 27 0 - 65 01/20/2019 [facility] CHEM PANEL Bili Total 0.2 0.2 - 1.3 01/20/2019 [facility] CHEM PANEL Chloride Lvl 107 95 - 109 01/20/2019 [facility] CHEM PANEL CO2 26 24 - 32 01/20/2019 [facility] CHEM PANEL Total Protein 8.0 6.4 - 8.4 01/20/2019 [facility] CHEM PANEL Calcium Lvl 8.3 8.5 - 10.5 01/20/2019 [facility] CHEM PANEL Albumin Lvl 3.1 3.5 - 5.0 01/20/2019 [facility] CHEM PANEL Creatinine Lvl 1.00 0.50 - 1.40 01/20/2019 [facility] CHEM PANEL BUN 20 7 - 22 01/20/2019 [facility] CHEM PANEL Potassium Lvl 4.0 3.5 - 5.1 01/20/2019 [facility] CHEM PANEL Sodium Lvl 140 135 - 145 01/20/2019 [facility] CHEM PANEL Glucose Lvl 86 70 - 99 01/20/2019 [facility] CHEM PANEL B/C Ratio 20 6 - 25 01/20/2019 [facility] CHEM PANEL A/G Ratio 0.6 0.7 - 1.6 01/20/2019 [facility] CHEM PANEL Globulin 4.9 2.7 - 4.2 01/20/2019 [facility] CHEM PANEL AGAP 11.0 10.0 - 20.0 01/20/2019 [facility] CHEM PANEL Procalcitonin Lvl <0.05 ng/mL 0.00 - 0.10 01/20/2019 [facility] HEMATOLOGY Sed Rate 96 0 - 15 01/20/2019 [facility] HEMATOLOGY Platelet 260 133 - 450 01/20/2019 [facility] HEMATOLOGY MPV 8.0 7.4 - 10.4 01/20/2019 [facility] HEMATOLOGY MCV 85.4 80.0 - 94.0 01/20/2019 [facility] HEMATOLOGY MCH 28.5 27.0 - 31.0 01/20/2019 [facility] HEMATOLOGY RDW 14.5 11.5 - 14.5 01/20/2019 [facility] HEMATOLOGY MCHC 33.3 32.0 - 36.0 01/20/2019 [facility] HEMATOLOGY RBC 3.73 4.70 - 6.10 01/20/2019 [facility] HEMATOLOGY Hct 31.9 42.0 - 54.0 01/20/2019 [facility] HEMATOLOGY Hgb 10.6 14.0 - 18.0 01/20/2019 [facility] HEMATOLOGY WBC 7.7 3.7 - 10.4 01/20/2019 [facility] HEMATOLOGY Eosinophils # 0.5 0.0 - 0.5 01/20/2019 [facility] HEMATOLOGY Basophils # 0.1 0.0 - 0.2 01/20/2019 [facility] HEMATOLOGY Monocytes 7.5 2.0 - 12.0 01/20/2019 [facility] HEMATOLOGY Eosinophils 6.7 0.0 - 4.0 01/20/2019 [facility] HEMATOLOGY Basophils 0.8 0.0 - 1.0 01/20/2019 [facility] HEMATOLOGY Neutrophils # 5.3 1.5 - 8.1 01/20/2019 [facility] HEMATOLOGY Lymphocytes # 1.3 1.0 - 5.5 01/20/2019 [facility] HEMATOLOGY Monocytes # 0.6 0.0 - 0.8 01/20/2019 [facility] HEMATOLOGY Segs 68.3 45.0 - 75.0 01/20/2019 [facility] HEMATOLOGY Lymphocytes 16.7 20.0 - 40.0 01/20/2019 [facility] IMMUNOLOGY C-REACTIVE PROTEIN 85.7 <=2.9 mg/L 01/20/2019 [facility] Pathology Reports No Data Provided for [...] No acute abnormality of the chest. SL: [id number] 01/20/2019 [facility] Tibia fibula series DX Patient Name: LAW BUTLER : 1970; Age: 48 years y/o Male MR: [id number] Study: 4 view examination of the right tibia/fibula dated 01/20/2019. Clinical Indication: Right calf pain and swelling - Pain, swelling and redness right lower leg; history of osteomyelitis of spine; Comparison: None There is near [id number] to the lateral joint compartment of the [...] knee and right ankle soft tissues. SL: [id number] 01/20/2019 [facility] Ext Lower Venous Doppler [facility] Patient Name: LAW BUTLER : 1970; Age: 48 years y/o Male MR: [id number] * RIGHT LOWER EXTREMITY VENOUS DOPPLER HISTORY: [...] deep venous thrombosis or venous obstruction. SL: [id number] 01/20/2019 [facility] Consultation Notes No Data Provided for This Section Discharge Summaries No Data Provided for This Section History and Physicals No Data Provided for This Section Vital Signs Vital Sign Value Date Comments Source Temperature Oral (F) 97.8 F 01/21/2019 [facility] Heart Rate 84 01/21/2019 [facility] Respitory Rate 18 01/21/2019 [facility] Systolic (mm Hg) 135 01/21/2019 [facility] Diastolic (mm Hg) 78 01/21/2019 [facility] Respitory Rate 18 01/21/2019 [facility] Systolic (mm Hg) 136 01/21/2019 [facility] Diastolic (mm Hg) 82 01/21/2019 [facility] Temperature Oral (F) 98.0 F 01/21/2019 [facility] Heart Rate 78 01/21/2019 [facility] Temperature Oral (F) 97.8 F 01/21/2019 [facility] Heart Rate 74 01/21/2019 [facility] Respitory Rate 18 01/21/2019 [facility] Systolic (mm Hg) 129 01/21/2019 [facility] Diastolic (mm Hg) 78 01/21/2019 [facility] BMI Calculated 39.76 01/20/2019 [facility] Height 187.96 cm 01/20/2019 [facility] Weight 140.455 01/20/2019 [facility] Weight 139.091 01/20/2019 [facility] BMI Calculated 38.33 01/20/2019 [facility] Height 190.5 cm 01/20/2019 [facility] Encounters Location Location Details Encounter Type Encounter Number Reason For Visit Attending Provider ADM Date DC Date Status Source [facility] Observation [id number] [place] 01/20/2019 01/21/2019 [facility] Procedures Procedure Code Date Perfomer Comments Source Open removal foreign body from joint [id number] [facility] ORIF - Open reduction of fracture of ank le with internal fixation [id number] [facility] Assessment and Plan Assessment and Plan [...] abscess treated last year at the local [facility]. He presents to the hospital with [...] primary care provider as an outpatient. 01/21/2019 [facility] Plan of Care No Data Provided for This Section Social History Social History Date Source Social History TypeResponse Smoking Status Never smoker; Previous treatment: None; Concerns about tobacco use in household: No; Exposure to Tobacco Smoke None; Cigarette Smoking Last 365 Days No; Reg Smoking Cessation Counseling No entered on: 01/20/19 01/20/2019 [facility] Family History No Data Provided for This Section Advance Directives No Data Provided for This Section Functional Status No Data Provided for This Section
--- OUTSIDE RECORDS SUMMARY | 2020-09-07 16:57 | XMS REPORT | Continuity of Care Document ---
Author Author [facility] Organization [facility] Address 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 Name Role Phone Giovanny YOST, Latisha PCP Judy MORENO Attphys Unavailable Odita, N [place]a Attphys Unavailable Odita, N [place]a Attphys Unavailable Lester Mueller DO Attphys Toño Watkins Attphys Chelsey YOST, Tanika Attphys Antony YOST, Adriana Ware Attphys [phone] Ladonna YOST, Daly Attphys Ze Quezada MD Attphys Dede YOST, Ceci Kaplan Attphys BriannaVandanaa Attphys Apolinar Juarez Attphys Rafi Shepherd Attphys Naina Li Attphys Judy Dai Attphys Lina Russ Attphys [phone] Juvencio Dickson Jr Attphys Deepa Barkley Attphys Flavia Costa Admphys Unavailable Toño Watkins Admphys DALY DOUGHERTY Admphys Unavailable Judy Dai Admphys Payers Payer Name Policy Type Policy Number Effective Date Expiration Date Debbie barnes AMERIGROUPAMERIGROUP DUAL OPTIONS STARPLUS [id number]/[id number] 020-PresentHMO [id number] 2019 00:00:00 Lázaro Pedraza UHC MEDICAREUHC CONNECTED (MEDICARE-MEDICAID PLAN)xxxx [id number] 2019-PresentHMO [id number] 2020 00:00:00 Lázaro hurst Problems Condition Name Condition Details Condition Category Status Onset Date Resolution Date Last Treatment Date Treating Clinician Comments Source SHORT OF BREATH, CHEST PAIN SH ORT OF BREATH, CHEST PAIN Active 05/05/2020 [facility] Diagnosis Active 2020-05-05 00:00:0 0 2020-05-05 19:42:00 [facility] CELLULITIS OF RIGHT LOWER EXTREMITY, CHUN CELLULITIS OF RIGHT LOWER EXTREMITY, CHUN Active 05/05/2020 [facility] Diagnosis Active 2020-05-05 00:00:00 2020-05-21 14:36:00 [facility] Suspected COVID-19 virus infection Suspected COVID-19 virus infe ction Disease Active 2020-04-11 00:00:00 [place] CHEST DISCOMFORT CHES T DISCOMFORT Active 12/23/2019 [facility] Diagnosis Active 2019-12-23 00:00:00 2019-12-30 13:10:00 [facility] SOB SOB Active 07/24/2019 [facility] Diagnosis Active 2019-07-24 00:00:00 2020-07-30 11:22:00 [facility] HE[facility] BURN , HEAR T BURN , Active 07/05/2019 [facility] Diagnosis Active 2019-07-05 00:00:00 2019-07-08 12:32:00 [facility] CELLULITIS CELL ULITIS Active 05/07/2019 [facility] Diagnosis Active 2019-05-07 00:00:00 2019-05-16 11:45:00 Aki Jett Bilateral lower extremity edema Bilateral lower extremity edema Dis ease Active 2019-02-27 00:00:00 Lázaro Pedraza LEG SWELLING LEG SWELLING Active 01/20/2019 [facility] Diagnosis Active 2019-01-20 00:00:00 2019-01-24 16:16:00 Aki Jett Acute renal failure Acute renal failure Disease Active 2019-01-14 00:00 :00 Lázaro Pedraza 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 Disease Active 2018-05-11 00:00:00 Lázaro Pedraza ABD PAIN ABD PAIN Active 12/24/2016 [facility] Diagnosis Active 2016-12-24 00:00:00 2017-01-01 05:06:00 [facility] CHEST PAIN CHES T PAIN Active 08/28/2015 [facility] Diagnosis Active 2015-08-28 00:00:00 2015-08-28 20:19:00 [facility] ABSCESS ABSC ESS Active 07/02/2014 [facility] Diagnosis Active 2014-07-02 00:00:00 2014-07-02 14:28:00 [facility] TOOTH ACHE TOOT H ACHE Active 05/07/2014 [facility] Diagnosis Active 2014-05-07 00:00:00 2014-07-03 09:51:00 [facility] RASH RASH Active 01/04/2014 [facility] Diagnosis Active 2014-01-04 12:00:00 2014-07-03 09:49:00 [facility] Methicillin resistant Staphylococcus aureus (organism) Methicillin resistant Staphylococcus aureus (organism) Active 06/04/2013 Problem 05/08/2020 MRSA boil,Problem added by Discern Expert. [facility] Problem Active 2013-06-04 00:00:00 2020-05-08 21:28:42 [facility] Anxiety (finding) Anxi ety (finding) Resolved Problem 05/08/2020 [facility] Problem Resolved 2020-05-08 21:28:42 [facility] Chronic pain (finding) Clinical Dental Technician adilene pain (finding) Resolved Problem 05/08/2020 [facility] Problem Resolved 2020-05-08 21:28:42 [facility] Hypertensive disorder, systemic arterial (disorder) Hypertensive disorder, systemic arterial (disorder) Resolved Problem 05/08/2020 [facility] Problem Resolved 2020-05-08 21:28:42 [facility] Psychiatry service (qualifier value) Psychiatry service (qualifier value) Resolved Problem 05/08/2020 [facility] Problem Resolved 2020-05-08 21:28:42 [facility] CELLULITIS NOS CELL ULITIS NOS Active [facility] Diagnosis Active 2014-07-18 12:04:00 [facility] CELLULITIS OF RIGHT LOWER LIMB CELLULITIS OF RIGHT LOWER LIMB Active [facility] Diagnosis Active 2019 14:36:00 [facility] CHEST PAIN, UNSPECIFIED CHES T PAIN, UNSPECIFIED Active [facility] Diagnosis Active 2020-05-21 14:36:00 [facility] Other chest pain Othe r chest pain 12/23/2019 12/25/2019 [facility] Problem 2019-12-23 18:00:00 2019-12-25 23:30: 38 2019-12-25 23:30:38 [facility] Acute upper respiratory infection, unspecified Acute upper respiratory infection, unspecified 07/24/2019 07/26/2019 [facility] Problem 2019-07-24 17:00:00 2019-07-26 21:29:36 2019-07-26 21:29 :36 [facility] Edema, unspecified Owen a, unspecified 05/07/2019 05/09/2019 [facility] Problem 2019-05-07 17:00:00 2019-05-09 22:10:20 2019-05-09 22:10:20 [facility] Cellulitis of right lower limb Cellulitis of right lower limb 05/07/2019 05/09/2019 [facility] Problem 2019-05-0 6 17:00:00 2019-05-09 22:10:20 2019-05-09 22:10:20 [facility] rivera Discharge Diagnosis: Heroin abuse Discharge Diagnosis: Heroin abuse 12/24/2016 12/27/2016 [facility] Problem 2016-12-24 06:00:00 2016-12-27 04:18:03 2016-12-27 04:18:03 [facility]: Chest pain Discharge Diagnosis: Chest pain 12/24/2016 12/27/2016 [facility] Problem 2016-12-24 06:00:00 2016-12-27 04:18:03 2016-12-27 04:18:03 [facility] Dis[facility] Diagnosis: Chest pain Discharge Diagnosis: Chest pain 08/28/2015 08/31/2015 [facility] Problem 201 03-11-27 05:00:00 2015-08-31 04:35:14 2015-08-31 04:35:14 [facility] Discharge Diagnosis: Dental caries Discharge Diagnosis: Dental caries 05/07/2014 05/09/2014 [facility] Problem 2014-05-07 05:00:00 2014-05-09 21:51:16 2014-05-09 21:51:16 [facility] Discharge Diagnosis: Dental abscess Discharge Diagnosis: Dental abscess 05/07/2014 05/09/2014 [facility] Problem 2014-05-07 05:00:00 2014-05-09 21:51:16 2014-05-09 21:51:16 [facility] Allergies, Adverse Reactions, Alerts Allergy Name Allergy Type Status Severity Reaction(s) Onset Date Inacti ve Date Treating Clinician Comments Source No Known Allergies DA Active U 2019-10-19 00:00:00 [facility] No Known Allergies DA Active U 2018-07-12 00:00:00 [facility] No Known Allergies DA Active U 2018-01-02 00:00:00 [facility] No Known Medication Allergies No Known Medication Allergies Active [facility] Family History Family Member Diagnosis Comments Start Date Stop Date Source Natural father Heart disease Lázaro Pedraza Natural father Hypertension Lázaro Pedraza Natural father Stroke [facility] thodist Natural mother No Known Problems Efren [...] day, # 81 cap, 0 Refill(s), Pharmacy: [facility] 392, 187.96, cm, 05/06/20 1:51:00 CDT, Height, 145.227, kg, 05/06/20 1:51:00 CDT, Weight Aki Jett Robaxin 2020-05-06 17:05:00 No Notes: (Same as:Robaxin) Aki Jett Carisoprodol 2020-05-06 16:55:00 No 350 mg, Route: PO, Drug form: TAB, BID, Dosing Weight 145.227, kg, PRN Spasm, Start date: 05/06/20 11:55:00 CDT, Duration: 5 day, Stop date: 05/11/20 11:54:00 CDT [facility] Atenolol 50 MG Oral Tablet [...] 04:40:00 No Notes: (Sa me as: Melatonin) [facility] Acetaminophen 2020-05-06 04:40:00 No Notes: Do not exceed 4 gm/day. (Same as: Tylenol) Aki Martinezann Benadryl 2020-05-06 04:38:00 No Notes: (Marco Antonio e as: Benadryl) [facility] Acetaminophen 325 MG / Hydrocodone Yevgeniy trate 7.5 MG Oral Tablet [[place] 7.5/325] 2020-05-06 04:38:00 No Notes: Same as [place] 325-7.5mg Do not exceed 4gm/day of acetaminophen. Kailee mcginnis [place] Morphine 2020-05-06 04:38:00 No Not es: (Same as:MORPhine Sulfate) [facility] Aspirin 2020-05-06 04:23:00 No 325 mg, Route: PO, Drug form: TAB, ONCE, Dosing Weight 136.364, kg, Priority: STAT, Start date: 05/05/20 23:23:00 CDT, Stop date: 05/05/20 23:23:00 CDT Ga mir[facility] Morphine 2020-05-06 04:08:00 No Not es: (Same as:MORPhine Sulfate) [facility] Zofran 2020-05-06 04:08:00 No Notes: (Same as: [place]) MEDICATION WASTE Product Size: 4 mg Product Wasted: ___ mg [facility] Clindamycin 2020-05-06 03:47:00 No 600 mg, 50 mL, Route: IVPB, Drug form: INJ, ONCE, Dosing Weight 136.364, kg, Priority: STAT, Start date: 05/05/20 22:47:00 CDT, Stop date: 05/05/20 22:47:00 CDT, ABX Indication: Skin/Soft Tissue Infection, 0 [facility] Morphine 2020-05-06 02:37:00 No 4 mg, Route: IVP, ONCE, Dosing Weight 136.364, kg, Priority: STAT, Start date: 05/05/20 21:37:00 CDT, Stop date: 05/05/20 21:37:00 CDT [facility] Zofran 2020-05-06 02:37:00 No 4 mg, Route: IVP, Drug form: INJ, ONCE, Dosing Weight 136.364, kg, Priority: STAT, Start date: 05/05/20 21:37:00 CDT, Stop date: 05/05/20 21:37:00 CDT [facility] [place] Saline Flush 0.9% 2020-05-05 23:56:00 No Notes: [...] kg, Priority: STAT, Start date: 12/23/19 21:31:00 RECEIPT AND REPORT CLERK, Stop date: 12/23/19 21:31:00 RECEIPT AND REPORT CLERK Kailee Jett tramadol hydrochloride 50 MG Oral [...] Hydrocodone Bitartrate 10 MG Or al Tablet [[place] 10/325] 2019-07-08 18:07:00 Yes 1 tab, PO, [...] Size: 40 mg Product Wasted: ___ mg [facility] losartan (COZAAR) 50 MG tablet 2019-02-22 00:00:00 Yes 100mg QD Take 100 mg by mouth daily. Lázaro Pedraza meloxicam (MOBIC) 15 mg tablet 2019-02-22 00:00:00 2019-09-09 00 :00:00 No TK 1 T PO BID Lázaro Velasquez ist Cephalexin 2019-01-21 19:00:00 No Notes: Take on empty stomach. (Same As: Keflex) [facility] Doxycycline 2019-01-21 19:00:00 No Notes: (Same as: Vibramycin) No milk/antacids/iron. [facility] cephalexin 500 mg oral tablet 2019-01-21 18:46:00 Yes 500 mg = 1 tab, PO, QID, X 7 day, # 28 tab, 0 Refill(s), Pharmacy: [facility] [id number] [facility] doxycycline hyclate 100 MG Oral Capsule 2019-01-21 18:46:00 Yes 100 mg = 1 cap, PO, BID, X 7 day, # 14 cap, 0 Refill(s), Pharmacy: [facility] [id number] [facility] Soma 2019-01-21 14:00:00 No 350 mg, Route: PO, Drug form: TAB, QID, Dosing Weight 140.455, kg, Start date: 01/21/19 9:00:00 CDT, Duration: 30 day, Stop date: 02/19/19 21:00:00 CDT Kailee Jett Robaxin 2019-01-21 07:30:00 No Notes: (Same as:Robaxin) [facility] Vancomycin 2019-01-21 06:00:00 No 2001 mg: infuse over 2.[address] [facility] BD Normal Saline Flush 2019-01-21 05:34:00 No Notes: (Same as: BD Posiflush) [facility] Robaxin 2019-01-21 02:00:00 No Notes: (Same as:Robaxin) [facility] heparin 2019-01-21 02:00:00 No Notes: porci ne heparin [facility] Soma 2019-01-21 02:00:00 No 350 mg, Route: PO, Drug form: TAB, QID, Dosing Weight 140.455, kg, Start date: 01/20/19 21:00:00 CDT, Duration: 30 day, Stop date: 02/19/19 17:00:00 CDT Kailee Jett Acetaminophen 325 MG / Hydrocodone Bitartrate 10 MG Or al Tablet [[place] 10/325] 2019-01-21 01:53:00 No Note s: Do not exceed 4gm/day of acetaminophen. (Same as: [place] 325/10) [facility] Morphine 2019-01-21 01:53:00 No Not es: (Same as:MORPhine Sulfate) [facility] Acetaminophen 325 MG / Hydrocodone Bitartrate 10 MG Or al Tablet [[place] 10/325] 2019-01-21 01:26:00 No Note s: Do not exceed 4gm/day of acetaminophen. (Same as: [place] 325/10) [facility] Carisoprodol 350 MG Oral Tablet [[facility]] 2019-01-20 22:48:00 Yes 350 mg = 1 tab, PO, QID, # 21 tab, 0 Refill(s) [facility] Acetaminophen 325 MG / Hydrocodone Bitartrate 10 MG Or al Tablet [[place] 10/325] 2019-01-20 22:48:00 Yes 1-2 tab, PO, Q4-6H, PRN Pain, # 30 tab, 0 Refill(s) [facility] pneumococcal capsular polysaccharide typ e 1 vaccine / pneumococcal capsular polysaccharide type 10A vaccine / pneumococcal capsular polysaccharide type 11A vaccine / pneumococcal capsular polysaccharide type 12F vaccine / pneumococcal capsular polysacchar 2019-01-20 22:45:43 No Notes: (Same as: Pneumovax 23) Refrigerate [facility] russ cefepime 2019-01-20 22:00:00 No Notes: (Same As: Maxipime) MEDICATION WASTE Product Size: 1000 mg Product Wasted: _0__ mg [facility] Morphine 2019-01-20 21:58:00 No 2 mg, 1 mL, Route: IVP, Drug form: SOLN, ONCE, Dosing Weight 139.091, kg, Priority: STAT, Start date: 01/20/19 16:58:00 CDT, Stop date: 01/20/19 16:58:[address] [facility] Acetaminophen 2019-01-20 20:54:00 No Notes: Do not exceed 4 gm/day. (Same as: Tylenol) [facility] Vancomycin 2019-01-20 20:52:00 No 2001 mg: infuse over 2.[address] [facility] Vancomycin 2019-01-20 20:18:00 No 2001 mg: infuse over 2.5 hours For adult patients only: Round to nearest 250 mg per Medical Staff approval MEDICATION WASTE Product Size: 1000 mg Product Wasted: 0mg [facility] Ancef + sterile water 20 mL 2019-01-20 20:18:00 No Notes: (Same As: AncNael castellanos) MEDICATION WASTE Product Size: 1000 mg Product Wasted: [address] [facility] Zofran 2019-01-20 18:25:00 No Notes: (Same as: Zofran) MEDICATION WASTE Product Size: 4 mg Product Wasted: _0__ mg [facility] Morphine 2019-01-20 18:25:00 No Not es: (Same as:MORPhine Sulfate) [facility] Sodium Chloride 0.9% (Bolus) IV 2019-01-20 16:49:00 No 500 mL, 500 ml/hr, Infuse Over: 1 hr, Route: IV, 500, Drug form: INJ, ONCE, Priority: STAT, Dosing Weight 139.091 kg, Start date: 01/20/19 11:49:00 CDT, Stop date: 01/20/19 11:49:[address] [facility] Saline Flush 0.9% 2019-01-20 16:49:00 No Notes: (Same as: BD Posiflush) [facility] Clindamycin 2019-01-20 16:49:00 No Notes: ( Same As: Cleocin) [facility] Acetaminophen 325 MG / Hydrocodone Bitartrate 5 MG Oral Tabl et [[place] 5/325] 2019-01-20 16:49:00 No Notes: (Same as: [place] 325/5) Do not exceed 4gm/day of acetaminophen. [facility] Saline Flush 0.9% 2016-12-24 06:41:00 No 10 mL, Route: IVP, Drug Form: INJ, Dosing Weight 121.364, kg, PRN, PRN Line Flush, Start date: 12/24/16 0:41:00 RECEIPT AND REPORT CLERK, Duration: 30 day, Stop date: 01/23/17 1:40:[address] [facility] Acetaminophen 300 MG / Codeine Phosphate 30 MG Oral Tablet [Tylenol with Codeine #3] 2015-08-29 01:54:00 No 1 tab, Route: PO, Drug Form: TAB, Dosing Weight 136.364, kg, ONCE, STAT, Start date: 08/28/15 20:54:00, Stop date: 08/28/15 20:54:00 [facility] Ativan 2015-08-29 01:54:00 No 1 mg, Route: IVP, Drug form: INJ, ONCE, Dosing Weight 136.364, kg, Priority: STAT, Start date: 08/28/15 20:54:00, Stop date: 08/28/15 20:54:00 [facility] Saline Flush 0.9% 2015-08-28 23:43:00 No Notes: (Same as: BD Posiflush) [facility] Acetaminophen 325 MG / Hydrocodone Bitartrate 5 MG Oral Tabl et [[place] 5/325] 2014-07-02 19:40:00 Yes 1-2 tab, PO, Q4-6H, Pain, # 15 tab, 0 Refill(s) [facility] Cephalexin 500 MG Oral Capsule [Keflex] 2014-07-02 [...] Hydrocodone Bitartrate 5 MG Oral Tabl et [[place] 5/325] 2014-05-08 01:03:00 Yes 1-2 tab, PO, [...] temperature 2020-07-04 09:20:00 36.61 Paulette [facility] Respiratory rate 2020-07-04 09:20:00 19 /min Taye Pedraza Oxygen saturation in Arterial blood by Pulse oximetry 07-04 09:20:00 99 /min Lázaro Pedraza Body height 2020-07-04 07:17:00 188 cm Lázaro Gnosticism Body weight 2020-07-04 07:17:00 147.419 kg Lázaro Gnosticism BMI 2020-07-04 07:17:00 41.73 kg/m2 Lázaro Gnostic[facility] Temperature Oral (F) 2020-05-06 16:54:00 98.2 F [facility] Heart Rate 2020-05-06 16:54:00 [facility] Respitory Rate 2020-05-06 16:54:00 [facility] Systolic (mm Hg) 2020-05-06 16:54:00 Lex [facility] Diastolic (mm Hg) 2020-05-06 16:54:00 [facility] Temperature Oral (F) 2020-05-06 12:49:00 98.3 F [facility] Systolic (mm Hg) 2020-05-06 12:49:00 Lex [facility] [place] Diastolic (mm Hg) 2020-05-06 12:49:00 [facility] [place] Heart Rate 2020-05-06 12:49:00 [facility] Systolic (mm Hg) 2020-05-06 09:00:00 [facility] [place] Diastolic (mm Hg) 2020-05-06 09:00:00 [facility] [place] Temperature Oral (F) 2020-05-06 09:00:00 98.1 F [facility] Heart Rate 2020-05-06 09:00:00 [facility] Height 2020-05-06 06:51:00 187.96 cm [facility] Weight 2020-05-06 06:51:00 [facility] BMI Calculated 2020-05-06 06:51:00 [facility] Respitory Rate 2020-05-06 06:00:00 [facility] Respitory Rate 2020-05-06 04:00:00 [facility] BMI Calculated 2020-05-05 23:56:00 [facility] Height 2020-05-05 23:45:00 187.96 cm [facility] BMI Calculated 2020-05-05 23:45:00 [facility] Weight 2020-05-05 23:45:00 [facility] Respitory Rate 2019-12-24 04:26:00 [facility] Systolic (mm Hg) 2019-12-24 04:26:00 [facility] [place] Diastolic (mm Hg) 2019-12-24 04:26:00 [facility] Temperature Oral (F) 2019-12-24 04:26:00 98.0 F [facility] Respitory Rate 2019-12-24 02:25:00 [facility] Systolic (mm Hg) 2019-12-24 02:25:00 Lex [facility] Diastolic (mm Hg) 2019-12-24 02:25:00 [facility] BMI Calculated 2019-12-24 01:34:00 [facility] Systolic (mm Hg) 2019-12-24 00:14:00 Lex [facility] Diastolic (mm Hg) 2019-12-24 00:14:00 [facility] [place] Heart Rate 2019-12-24 00:14:00 [facility] Respitory Rate 2019-12-24 00:14:00 [facility] Temperature Oral (F) 2019-12-24 00:14:00 98.4 F [facility] Height 2019-12-24 00:14:00 187.96 cm [facility] BMI Calculated 2019-12-24 00:14:00 [facility] Weight 2019-12-24 00:14:00 [facility] Systolic (mm Hg) 2019-07-24 19:15:00 [facility] [place] Diastolic (mm Hg) 2019-07-24 19:15:00 [facility] Temperature Oral (F) 2019-07-24 19:15:00 98.4 F [facility] Systolic (mm Hg) 2019-07-24 18:06:00 Lex [facility] Diastolic (mm Hg) 2019-07-24 18:06:00 [facility] Temperature Oral (F) 2019-07-24 18:06:00 98.4 F [facility] Respitory Rate 2019-07-24 18:06:00 [facility] Systolic (mm Hg) 2019-07-24 16:49:00 Lex [facility] Diastolic (mm Hg) 2019-07-24 16:49:00 [facility] Heart Rate 2019-07-24 16:49:00 [facility] Respitory Rate 2019-07-24 16:49:00 [facility] Temperature Oral (F) 2019-07-24 16:49:00 98.9 F [facility] Height 2019-07-24 16:49:00 187.96 cm [facility] BMI Calculated 2019-07-24 16:49:00 [facility] Weight 2019-07-24 16:49:00 [facility] Height 2019-07-08 18:03:00 187.96 cm [facility] Weight 2019-07-08 18:03:00 [facility] BMI Calculated 2019-07-08 18:03:00 [facility] Respitory Rate 2019-05-08 03:42:00 [facility] Heart Rate 2019-05-08 03:42:00 [facility] Systolic (mm Hg) 2019-05-08 03:42:00 Lex [facility] Diastolic (mm Hg) 2019-05-08 03:42:00 [facility] Systolic (mm Hg) 2019-05-08 01:24:00 [facility] Diastolic (mm Hg) 2019-05-08 01:24:00 [facility] Respitory Rate 2019-05-08 01:24:00 [facility] Heart Rate 2019-05-08 01:24:00 [facility] Temperature Oral (F) 2019-05-08 01:24:00 98.2 F [facility] Weight 2019-05-07 22:10:00 [facility] BMI Calculated 2019-05-07 22:10:00 [facility] Height 2019-05-07 22:10:00 187.96 cm [facility] Temperature Oral (F) 2019-05-07 22:10:00 97.9 F [facility] Respitory Rate 2019-05-07 22:10:00 [facility] Systolic (mm Hg) 2019-05-07 22:10:00 Lex [facility] Diastolic (mm Hg) 2019-05-07 22:10:00 [facility] Heart Rate 2019-05-07 22:10:00 [facility] Temperature Oral (F) 2019-01-21 20:00:00 97.8 F [facility] Heart Rate 2019-01-21 20:00:00 [facility] Respitory Rate 2019-01-21 20:00:00 [facility] Systolic (mm Hg) 2019-01-21 20:00:00 [facility] Diastolic (mm Hg) 2019-01-21 20:00:00 [facility] Respitory Rate 2019-01-21 16:00:00 [facility] Systolic (mm Hg) 2019-01-21 16:00:00 [facility] Diastolic (mm Hg) 2019-01-21 16:00:00 [facility] Temperature Oral (F) 2019-01-21 16:00:00 98.0 F [facility] Heart Rate 2019-01-21 16:00:00 [facility] Temperature Oral (F) 2019-01-21 12:00:00 97.8 F [facility] Heart Rate 2019-01-21 12:00:00 [facility] Respitory Rate 2019-01-21 12:00:00 [facility] Systolic (mm Hg) 2019-01-21 12:00:00 [facility] Diastolic (mm Hg) 2019-01-21 12:00:00 [facility] BMI Calculated 2019-01-20 22:40:00 [facility] Height 2019-01-20 22:40:00 187.96 cm [facility] Weight 2019-01-20 22:40:00 [facility] Weight 2019-01-20 16:40:00 [facility] BMI Calculated 2019-01-20 16:40:00 [facility] Height 2019-01-20 16:40:00 190.5 cm [facility] Respitory Rate 2016-12-24 10:30:00 [facility] Systolic (mm Hg) 2016-12-24 10:30:00 [facility] Diastolic (mm Hg) 2016-12-24 10:30:00 [facility] Systolic (mm Hg) 2016-12-24 06:53:00 [facility] [place] Diastolic (mm Hg) 2016-12-24 06:53:00 [facility] Respitory Rate 2016-12-24 06:53:00 [facility] BMI Calculated 2016-12-24 06:35:00 [facility] Weight 2016-12-24 06:35:00 [facility] Height 2016-12-24 06:35:00 190.5 cm [facility] Temperature Oral (F) 2016-12-24 06:35:00 98.3 F [facility] Heart Rate 2016-12-24 06:35:00 [facility] Systolic (mm Hg) 2016-12-24 06:35:00 [facility] Diastolic (mm Hg) 2016-12-24 06:35:00 [facility] Respitory Rate 2016-12-24 06:35:00 [facility] Respitory Rate 2015-08-29 03:24:00 [facility] Systolic (mm Hg) 2015-08-29 03:24:00 Lex rial [place] Diastolic (mm Hg) 2015-08-29 03:24:00 Mem [facility] [place] Systolic (mm Hg) 2015-08-29 02:48:00 Lex rial [place] Diastolic (mm Hg) 2015-08-29 02:48:00 Mem [facility] [place] Respitory Rate 2015-08-29 02:48:00 Memori al Johnie Systolic (mm Hg) 2015-08-29 01:40:00 Lex rial [place] Diastolic (mm Hg) 2015-08-29 01:40:00 Mem orial [place] Respitory Rate 2015-08-29 01:40:00 [facility] [place] Heart Rate 2015-08-28 22:49:00 [facility] [place] BMI Calculated 2015-08-28 22:49:00 [facility] Weight 2015-08-28 22:49:00 [facility] [place] Height 2015-08-28 22:49:00 190.5 cm [facility] [place] Temperature Oral (F) 2015-08-28 22:49:00 97.9 F [facility] Respitory Rate 2014-07-02 19:54:00 Memori al [place] Systolic (mm Hg) 2014-07-02 19:54:00 Lex [facility] [place] Diastolic (mm Hg) 2014-07-02 19:54:00 Mem orial [place] Temperature Oral (F) 2014-07-02 19:54:00 98.8 F [facility] [place] Heart Rate 2014-07-02 19:54:00 [facility] Weight 2014-07-02 18:43:00 [facility] [place] BMI Calculated 2014-07-02 18:43:00 Memori al [facility] Height 2014-07-02 18:43:00 187.96 cm [facility] [place] Respitory Rate 2014-07-02 18:43:00 Memori al [place] Heart Rate 2014-07-02 18:43:00 [facility] [place] Temperature Oral (F) 2014-07-02 18:43:00 98.2 F [facility] [place] Diastolic (mm Hg) 2014-07-02 18:43:00 [facility] [place] Systolic (mm Hg) 2014-07-02 18:43:00 Lex [facility] [place] Respitory Rate 2014-05-08 02:20:00 [facility] [place] Systolic (mm Hg) 2014-05-08 02:20:00 Lex [facility] [place] Diastolic (mm Hg) 2014-05-08 02:20:00 Mem o[facility] [place] Temperature Oral (F) 2014-05-08 02:20:00 98.1 F [facility] [place] Heart Rate 2014-05-08 02:20:00 [facility] [place] Temperature Oral (F) 2014-05-07 23:59:00 98.6 F [facility] Respitory Rate 2014-05-07 23:59:00 [facility] [place] Diastolic (mm Hg) 2014-05-07 23:59:00 Mem o[facility] [place] Heart Rate 2014-05-07 23:59:00 [facility] Systolic (mm Hg) 2014-05-07 23:59:00 Lex rial [place] Procedures Procedure Date / Time Performed Performing Clinician [facility] e XR CHEST 1 VW PORTABLE 2020-07-04 08:22:29 Andriy Mueller [place] CRIT[facility] [place]ARE, E/M 30-74 MINUTES 2020-07-04 07:58:49 Andriy Mueller ECG ED PRELIMINARY INTERPRETATION 2020-07-04 07:58:49 Giles Mueller HC COMPLETE BLD COUNT W/AUTO DIFF 2020-07-04 07:46:00 Giles Mueller COMPREHENSIVE METABOLIC PANEL 2020-07-04 07:46:00 Mike Mueller TROPONIN 2020-07-04 07:46:00 Andriy Mueller ethodist ESTIMATED GFR 2020-07-04 07:46:00 Andriy Mueller ethodist ECG 12-LEAD 2020-07-04 07:28:39 Eliza Yang Lázaro Gnosticism HC COMPLETE BLD COUNT W/AUTO DIFF 2020-04-14 06:40:00 Chino Barkley Gn[facility] COMPREHENSIVE METABOLIC PANEL 2020-04-14 06:40:00 Gretchen Barkley Gn[facility] T4, FREE 2020-04-14 06:40:00 Graciela Aguayoobolamemoe Ceci Sesay Gn[facility] THYROID STIMULATING HORMONE 2020-04-14 06:40:00 Adejose Omobol anle Ceci Sesay [facility] ESTIMATED GFR 2020-04-14 06:40:00 AdeyekunGracielaobolanle Ceci Sesay [facility] VANCOMYCIN LEVEL, TROUGH 2020-04-13 09:12:00 Gretchen Barkley Gnostic[facility] HC COMPLETE BLD COUNT W/AUTO DIFF 2020-04-13 03:38:00 Chino Barkley COMPREHENSIVE METABOLIC PANEL 2020-04-13 03:38:00 Gretchen Barkley Gnostic[facility] ESTIMATED GFR 2020-04-13 03:38:[address] on Gnosticism [address] CHEST WO CONTRAST 2020-04-12 13:06:06 Soy Driscoll [facility] NM LUNG PERFUSION IMAGING 2020-04-12 13:05:05 Daly Dougherty LEGIONELLA URINARY ANTIGEN 2020-04-12 09:15:00 Gretchen Barkley STREPTOCOCCUS PNEUMONIAE URINARY ANTIGEN 2020-04-12 09:15:00 Gretchen Barkley URINE CULTURE 2020-04-12 09:15:00 Gretchen Barkley on Gnosticism URINALYSIS SCREEN AND MICROSCOPY, WITH REFLEX TO [...] 12-LEAD 2020-04-11 20:57:02 Tanika Barbosa Me thodist [place] CRITICAL CARE, E/M 30-74 MINUTES 2020-04-11 19:17:37 Tanika Barbosa ECG ED PRELIMINARY INTERPRETATION 2020-04-11 19:17:37 Deepa Barbosa COVID-19 QUALITATIVE PCR 2020-04-11 18:58:00 Tanika Barbosa LACTIC ACID LEVEL, SEPSIS - NOW AND REPEAT 2X EVERY 3 HOURS 2020-04-11 18:55:00 hCelsey Tanikajudy Pedraza BLOOD CULTURE, AEROBIC & ANAEROBIC 2020-04-11 18:46:00 Chelsey Tanikajudy Pedraza BLOOD CULTURE, AEROBIC & ANAEROBIC 2020-04-11 18:42:00 Chelsey Tanikajudy Pedraza HC COMPLETE BLD COUNT W/AUTO DIFF 2020-04-11 18:42:00 Deepa Barbosa COMPREHENSIVE METABOLIC PANEL 2020-04-11 18:42:00 Agueda Barbosa TROPONIN 2020-04-11 18:42:00 Chelsey Tanikajudy Sesay Ga [facility]od[facility] B NATRIURETIC PEPTIDE 2020-04-11 18:42:00 Tanika Barbosa ESTIMATED GFR 2020-04-11 18:42:00 Sandra Barbosanicjudy Sesay Ga [facility]ist XR CHEST 1 VW PORTABLE 2020-04-11 18:31:05 Tanika Barbosa stoflavia Pedraza Open removal foreign body from joint [facility] ORIF - Open reduction of fracture of ankle with internal fixatio n [facility] Ankle joint operations [facility] Appendectomy [facility] Shoulder joint operations [facility] Plan of Care Planned Activity Planned Date Details Comments Source Future Scheduled Test 2020 00:00:00 COLONOSCOPY SCREEN ING [code = COLONOSCOPY SCREENING] Lázaro Pedraza Future Scheduled Test 2020 00:00:00 SHINGLES VACCINES (#1) [code = SHINGLES VACCINES (#1)] Lázaro Pedraza Future Scheduled Test 2020-06-02 00:00:00 INFLUENZA VACCINE [code = INFLUENZA VACCINE] Lázaro Pedraza Encounters Start Date/Time End Date/Time Encounter Type Admission Type Attendi [facility] Care Department Encounter ID Source 2020-07-05 20:30:00 2020-07-07 18:30:00 Inpatient 1 O Chante duenas Ch[place]emeka [facility] [id number] [facility] 2020-07-05 20:30:00 2020-07-05 20:30:00 Inpatient 1 O Chante duenas Ch[place]em[place]a [facility] [id number] [facility] 2020-07-04 00:00:00 2020-07-04 00:00:00 Emergency MIKE MUELLER [facility] [id number] [facility] 2020-05-05 16:52:08 2020-05-06 15:48:00 Outpatient [facility]it [facility] [id number] 2020-05-06 14:16:00 2020-05-06 14:16:00 Outpatient E [facility] [id number] [place] 2020-04-11 00:00:00 2020-04-14 00:00:00 Inpatient NJ AGUAYO [facility] [id number] [facility] 2019-12-23 18:13:00 2019-12-23 22:28:00 Outpatient BriannaGuilherme Vandana [facility] [id number] 2019-12-23 18:13:00 2019-12-23 18:13:00 Emergency E [facility] NW [address] [facility] 2019-07-24 11:45:00 2019-07-24 14:58:00 Outpatient Enmanuel Juarez [facility] [id number] 2019-07-24 11:45:00 2019-07-24 11:45:00 Emergency E [facility] 9265 [facility] 2019-07-08 12:20:00 2019-07-08 15:45:00 Outpatient Néstor Shepherd [facility] [id number] 2019-07-08 12:20:00 2019-07-08 12:20:00 Outpatient [facility] [id number] [facility] 2019-05-07 17:05:29 2019-05-07 22:46:00 Outpatient Andrea Hanson [facility] [id number] 2019-05-07 17:05:00 2019-05-07 17:05:00 Emergency E SW [facility] [facility] 2019-01-20 11:35:00 2019-01-21 18:15:00 Outpatient El Dai [id number] 2016-12-24 00:30:00 2016-12-24 04:30:00 Outpatient Indira Hudson [id number] 2015-08-28 17:34:00 2015-08-28 22:45:00 Outpatient [place]riy Reyez [place] [id number] 2014-07-02 13:42:00 2014-07-02 14:49:00 Outpatient BriannaEzraa Vandana [place] [id number] 2014-05-07 18:45:00 2014-05-07 21:26:00 Outpatient rAleen Barkley V IE IE [id number] Results Test Description Test Time Test Comments Results Result Comments Source CHEST SINGLE (PORTABLE) 2020-09-07 14:13:00 [facility] : 1970 Sex: M [facility] [address] [place] [address] Patient Name: MAGUI BUTLER MR #: [id number] : 1970 Age/Sex: 50/M Req #: [id number] Adm Physician: Ordered by: SCOOTER MORENO MD Report #: [id number] Location: ER Room/Bed: Procedure: [id number] DX/CHEST SINGLE (PORTABLE) Exam Date: 09/07/20 Exam Time: 1315 REPORT STATUS: Signed EXAMINATION: CHEST SINGLE (PORTABLE) INDICATION: Chest pain COMPARISON: Chest radiograph 05/09/2020 FINDINGS: LINES/TUBES:None LUNGS:The lungs are well-inflated. No focal consolidation or pulmonary edema. PLEURA:No pleural effusion or pneumothorax. MEDIASTINUM:The cardiomediastinal silhouette appears normal in size and shape. BONES/SOFT TISSUES:No acute osseous injury. Unchanged metallic fragments overlying the right chest. ABDOMEN:No free air under the diaphragm. IMPRESSION: No focal pneumonia or pulmonary edema. Signed by: Charity Mckenzie MD on 09/07/2020 2:14 PM Dictated By: CHARITY MCKENZIE MD [id number] Transcribed By: JD on 09/07/20 1414 COPY TO: SCOOTER MORENO MD Urine Culture 2020-07-07 09:24:02 Test Item ORGANISM [...] D C Urine Added by GL_SJM_UA_CUL_INDBasic Metabolic Jbicy9379-97-42 07:18:28* Test Item Value Reference Range Interpretation [...] Lipemia) 0 mg/dL 8-11 L Basic Metabolic Dvfdr4042-61-24 07:18:28* Test Item Value Reference Range Interpretation [...] is not provided, and the patient is -[place], multiply by 1.212. If sex is not [...] Lipemia) 0 mg/dL 8-11 L Basic Metabolic Tqbgm9157-04-22 07:18:28* Test Item Value Reference Range Interpretation [...] is not provided, and the patient is -[place], multiply by 1.212. If sex is not [...] is not provided, and the patient is -[place], multiply by 1.212. If sex is not [...] mg/dL 8-11 L Complete Blood Count with Yhgirozdxkmv7641-82-83 06:53:39* Test Item Value Reference Range Interpretation [...] = NRBC Abs) 0.00 x10 N Automated Angdjxupgkds3293-58-74 06:53:39* Test Item Value Reference Range Interpretation Comments Neutro Auto (test code = Neutro Auto) 57.4 % 36.0-70.0 Lymph Auto (test code = Lymph Auto) 27.9 % 12.0-44.0 Villalba Auto (test code = Villalba Auto) 9.6 % 0.0-11.0 Eos, Auto (test code = Eos, Auto) 4.2 % 0.0-7.0 Basophil Auto (test code = Basophil Auto) 0.6 % 0.0-2.0 Neutro Absolute (test code = Neutro Absolute) 3.9 x10 1.6-7.4 Lymph Absolute (test code = Lymph Absolute) 1.88 x10 .50-4.60 Villalba Absolute (test code = Villalba Absolute) .65 x10 .00-1.20 Eos Absolute (test code = Eos Absolute) 0.28 x10 0.00-0.74 Baso Absolute (test code = Baso Absolute) 0.04 x10 0.00-0.21 IG Ivqtz2859-20-08 06:53:39* Test Item Value Reference Range Interpretation Comments IG (test code = IG) 0.3 % 0.0-5.0 IG Abs (test code = IG Abs) 0 x10 N Creatinine Wvsdj3495-77-51 04:20:12* Test Item Value Reference Range Interpretation Comments U Creatinine (test code = U Creatinine) 153.2 mg/dL N Reference ranges have not been established for this assay. Sodium Vkahl5427-49-78 04:20:12* Test Item Value Reference Range Interpretation Comments U Sodium (test code = U Sodium) 62 mmol/L N Reference ranges have not been established for this assay. US Kidney Mzyohmdlc4910-27-84 04:05:30Patient: MAGUI BUTLER Date/Time07/06/2020 03:43 CDTReason for ExamNausea and vomitingReportAFTER HOURS SERVICE ON: 07/06/2020 4:03 AMRenal UltrasoundLocation Code N24Covxuqw: Nausea and vomitingTechnique: Real-time johnson scale and [...] Mohammad TSigned (Electronic Signature): 07/06/2020 4:05 amUrinalysis Xddbwccipmk8425-52-04 02:35:46* Test Item Value Reference Range Interpretation [...] Cast) 1-5 A Urinalysis with Culture, if nmftzqgfa6123-28-19 02:18:42* Test Item Value Reference Range Interpretation [...] Indicated Not Indicate d A Basic Metabolic Kxbmb7350-53-47 01:10:56* Test Item Value Reference Range Interpretation [...] Lipemia) 0 mg/dL 8-11 L Basic Metabolic Udkwg2385-97-24 01:10:56* Test Item Value Reference Range Interpretation [...] is not provided, and the patient is -[place], multiply by 1.212. If sex is not [...] Lipemia) 0 mg/dL 8-11 L Basic Metabolic Sgtop6386-35-02 01:10:56* Test Item Value Reference Range Interpretation [...] is not provided, and the patient is -[place], multiply by 1.212. If sex is not [...] is not provided, and the patient is -[place], multiply by 1.212. If sex is not [...] 8-[address] Abdomen and Pelvis w/o Tzayruci7063-90-54 00:11:06Patient: MAGUI BUTLER Date/Time07/05/2020 23:30 CDTReason for Examcreat too high for contrast;InjuryReportLOCATION: [id number]: 49-year-old male who presents with a trauma [...] 07/06/2020 0:11 a mCT Spine Lumbar w/o Siitenhs5408-69-86 00:11:06Patient: MAGUI BUTLER Date/Time07/05/2020 23:30 CDTReason for ExamTraumaReportLOCATION: Z03HGICQRB: 49-year-old male who presents with a trauma [...] t LSigned (Electronic Signature): 07/06/2020 0:11 amCT Spine Thoracic w/o Dhfikwzi6082-16-48 00:11:06Patient: MAGUI BUTLER Date/Time07/05/2020 23:30 CDTReason for ExamTraumaReportLOCATION: E06LXKQOCD: 49-year-old male who presents with a trauma [...] CDTReason for Examcreat too high for contrast;InjuryReportLOCATION: M37EHTASWF: 49-year-old male who presents with a trauma [...] Signature): 07/06/2020 0:11 a mCT Maxillofacial w/o Kcdzxxrq2242-75-93 00:04:15Patient: MAGUI BUTLER Date/Time07/05/2020 23:30 CDTReason for ExamInjuryReportLOCATION: R29ZFGKIRM: 49-year-old male who presents with a trauma [...] 07/06/2020 0 :04 amCT Spine Cervical w/o Phzymmcm3495-88-81 00:04:15Patient: MAGUI BUTLER Date/Time07/05/2020 23:30 CDTReason for ExamTraumaReportLOCATION: Z76DLWXQLY: 49-year-old male who presents with a trauma [...] Signature): 07/06/2020 0 :04 amCT Brain/Head w/o Jslfzvog8433-32-48 00:04:15Patient: MAGUI BUTLER Date/Time07/05/2020 23:30 CDTReason for ExamTraumaReportLOCATION: F24PCFIALP: 49-year-old male who presents with a trauma [...] 07/06/2020 0 :04 amComplete Blood Count with Blyjeszpnwsc3933-59-12 22:52:05* Test Item Value Reference Range Interpretation [...] = NRBC Abs) 0.00 x10 N Automated Vuufjrkiqbin7071-17-25 22:52:05* Test Item Value Reference Range Interpretation Comments Neutro Auto (test code = Neutro Auto) 63.1 % 36.0-70.0 Lymph Auto (test code = Lymph Auto) 21.7 % 12.0-44.0 Villalba Auto (test code = Villalba Auto) 11.4 % 0.0-11.0 H Eos, Auto (test code = Eos, Auto) 2.6 % 0.0-7.0 Basophil Auto (test code = Basophil Auto) 0.8 % 0.0-2.0 Neutro Absolute (test code = Neutro Absolute) 6.4 x10 1.6-7.4 Lymph Absolute (test code = Lymph Absolute) 2.21 x10 .50-4.60 Villalba Absolute (test code = Villalba Absolute) 1.16 x10 .00-1.20 Eos Absolute (test code = Eos Absolute) 0.26 x10 0.00-0.74 Baso Absolute (test code = Baso Absolute) 0.08 x10 0.00-0.21 IG Stsyt2586-14-79 22:52:05* Test Item Value Reference Range Interpretation Comments IG (test code = IG) 0.4 % 0.0-5.0 IG Abs (test code = IG Abs) 0 x10 N Comprehensive Metabolic Itrtl2022-57-10 22:45:36* Test Item Value Reference Range Interpretation [...] = Lipemia) 0 g/dL 1-2 Comprehensive Metabolic Cimdh0205-17-83 22:45:36* Test Item Value Reference Range Interpretation [...] is not provided, and the patient is -[place], multiply by 1.212. If sex is not [...] code = Lipemia) 0 g/dL 1-2 Alcohol Nmlno7878-27-14 22:45:36* Test Item Value Reference Range Interpretation Comments Ethanol Level (test code = Ethanol Level) 4.1 mg/dL N The pharmacological response to blood alcohol levels may vary from individual to individual. The fatal concentration has been reported to be >400 mg/dl. Comprehensive Metabolic Hgdzc8950-89-01 22:45:36* Test Item Value Reference Range Interpretation [...] is not provided, and the patient is -[place], multiply by 1.212. If sex is not [...] is not provided, and the patient is -[place], multiply by 1.212. If sex is not [...] g/dL 1-2 XR Shoulder Complete 2+ Views Bugmv3843-57-44 21:15:39Patient: MAGUI BUTLER Date/Time07/05/2020 21:07 CDTReason for ExamTraumaReportLOCATION: D16MQVWGGN: 49-year-old male presents with a trauma history.COMMENT:Frontal [...] LSigned (Electronic Signature): 01/2020 9:15 pmXR Humerus Ageet1110-11-04 21:14:40Patient: MAGUI BUTLER Date/Time07/05/2020 21:07 CDTReason for ExamFallReportLOCATION: Q29DUZLOIG: 49-year-old male who suffered a fall.COMMENT:Frontal radiographs of the patient's right humerus were obtained with the arm in internal and external rotation.The humerus is intact and normally mineralized. The soft tissue anatomy is within normal limits.IMPRESSION:Unremarkable radiographic examination of the right humerus. Final Dictated by: MD Haley Robert LDictated DT/TM: 07/05/2020 9 :14 pmSigned by: Tera, MD, Andriy LSigned (Electronic Signature): 07/05/2020 9:14 pmECG 12 rutr1951-93-98 08:32:30* Test Item Value Reference Range Interpretation Comments Ventricular rate (test code = 253) 67 Atrial rate (test code = 255) 67 [place] interval (test code = 266) 184 QRSD [...] Normal sinus rhythm-E lectronically Signed By Aris Mckinely MD ([id number]) on 07/04/2020 8:32:27 AM Sesay MethodistXR Chest 1 Vw Suutiiws6660-97-68 08:24:52Hm Interface, Radiology Results Incoming - 07/04/2020 8:27 AM CDTEXAMINATION: XR CHEST 1 VW PORTABLECLINICAL HISTORY: SOBCOMPARISON: Most Recent Prior at HIMPRESSION:Lines: NoneLungs and pleura: No consolidations. No pleural effusion or pneumothorax.Heart and mediastinum: Stable appearance of cardiomediastinal si lhouette. Bones: No suspicious osseous lesions. Foreign bodies present over the right chest and axilla, unchanged.HMSJ-5YH7573R21Wkddqeu Kieran 2020-07-04 08:17:39* Test Item Value Reference Range Interpretation Comments Troponin (test code = 77118-8) <0.006 0-0.04 In patients suspected of having [...] OR decreased by less than 0.020 ng/mL [place] [facility]Com[facility] cjvpw3510-02-05 08:14:51* Test Item Value Reference Range Interpretation Comments Sodium (test code = 2951-2) 137 135- 148 mEq/L Potassium (test code = 2823-3) 3.5 3.5- 5.0 mEq/L Chloride (test code = 2075-0) 98 98- 112 mEq/L CO2 (test code = 2027-9) 21 24- 31 mEq/L L Anion gap (test code = 48321-8) 18@ANIO 7- 15 mEq/L H BUN (test code = 3094-0) 23 mg/dL 6-20 H Creatinine (test code = 2160-0) 1.11 mg/dL 0.7-1.2 Glucose (test code = 2345-7) 102 mg/dL 65-99 H Calcium (test code = 72108-5) 8.4 mg/dL 8.3-10.2 Protein (test code = 2885-2) 7.6 g/dL 6.3-8.3 -[place] 4.6- 7.0 g/dL1 week 4.4-7.6 g/dL7 months-1year 5.1-7.3 g/dL1-2 years 5.6-7.5 g/dL>3 years 6.0-8.0 g/xM09-214 6.3-8.3 g/dL Albumin (test code = 1751-7) 3.6 g/dL 3.5-5 A/G ratio (test code = 1759-0) 0.9 0.7-3.8 Alkaline phosphatase (test code = 6768-6) 121 U/L 40-129 AST (test code = 1920-8) 29 U/L 10-50 ALT (test code = 1742-6) 31 U/L 5-50 Total bilirubin (test code = 1975-2) <0.2 0-1.2 Lab Interpretation (test code = 87971-8) Abnormal Sesay MethodistEstimated ATC2300-64-66 08:14:51* Test Item Value Reference Range Interpretation Comments Estimated GFR (test code = 5488) 77 mL/min/1.73 m2 Catergory Units InterpretationG1 >=90 Normal or highG2 60-89 Mildly anfflzqgbF3h 45-59 Mildly to moderately sdkiqdvbhQ1m 30-44 Moderately to severely decreasedG4 15-29 Severely decreasedG5 <15 Kidney failureThe eGFR was calculated using the Chronic Kidney Disease Epidemiology Collaboration (CKD-EPI) equation. Interpretation is based on recommendations of the National Kidney Foundation-Kidney Disease Outcomes Quality Initiative (NKF-KDOQI) published in 2014. [facility] CenteristCRITICAL AWHM1938-28-53 07:58:49Andriy Mueller DO 07/07/2020 7:24 AMCritical CarePerformed by: Andriy Mueller DOAuthorized by: Andriy Mueller DO Critical care [...] development of treatment plan with patient or surrogateSt[facility] Preliminary Interpretation - Not an Kajzs5059-66-97 07:58:49Andriy Mueller DO 07/07/2020 7:24 AMECG ED Preliminary Interpretation - Not an OrderPerformed by: Andriy Mueller DOAuthorized by: Andriy Mueller DO ECG reviewed by ED Physician in the absence of a wall scraper: yes Previous ECG: Previous ECG: UnavailableRate: ECG rate: 68 ECG rate assessment: normal Rhythm: Rhythm: sinus rhythm Ectopy: Ectopy: none QRS: QRS axis: Normal QRS intervals: NormalConduction: Conduction: normal ST segments: ST segments: NormalT waves: T waves: normal [facility] with platelet and differential 2020-07-04 07:49:14* Test Item Value Reference Range Interpretation Comments WBC (test code = 32209-9) 9.58 4.50- 11.00 k/uL RBC (test code = 27139-8) 4.32 m/uL 4.4-6 L HGB (test code = 718-7) 12.1 g/dL 14-18 L HCT (test code = 4544-3) 36.7 % 41-51 L MCV (test code = 787-2) 85.0 fL 82-100 MCH (test code = 785-6) 28.0 pg 27-34 MCHC (test code = 786-4) 33.0 g/dL 31-37 RDW - SD (test code = 26175-7) 43.2 fL 37-55 MPV (test code = 63279-7) 10.6 fL 8.8-13.2 Platelet count (test code = 00075-8) 247 150- 400 k/uL Nucleated RBC (test code = 31491-0) 0.00 /100 WBC Neutrophils (test code = 15658-2) 63.7 % 39-69 Lymphocytes (test code = 18661-4) 24.7 % 25-45 L Monocytes (test code = 00568-1) 7.8 % 0-10 Eosinophils (test code = 99451-2) 2.9 % 0-5 Basophils (test code = 98243-9) 0.6 % 0-1 Immature granulocytes (test code = 41786-5) 0.3 % 0-1 "Immature granulocytes" (promyelocytes, myelocytes, metamyelocytes) Lab Interpretation (test code = 22664-9) Abnormal [facility] SINGLE (PORTABLE)2020-05-09 17:36:00 [place] [address] Patient Name: MAGUI BUTLER MR #: [id number] : 1970 Age/Sex: 49/M Req #: [id number] Adm Physician: Ordered by: SCOOTER MORENO MD Report #: [id number] Location: ER Room/Bed: Procedure: [id number] DX/CHEST SINGLE ( PORTABLE) Exam Date: 05/09/20 Exam Time: 170 REPORT STATUS: Signed EXAMINATION: CH EST SINGLE [...] MORENO MD CT BRAIN WO 2020-05-09 17:31:00 [place] [address] Patient Name: MAGUI BUTLER MR #: [id number] : 1970 Age/Sex: 49/M Req #: [id number] Adm Physician: Ordered by: SCOOTER MORENO MD Report #: [id number] Location: ER Room/Bed: Procedure: [id number] CT/CT BRAIN ALLYSON palma Date: 05/09/20 Exam [...] 05/09/201733 COPY TO: SCOOTER MORENO MD CARDIAC TPKULZS7860-13-86 10:51:00<0.02[facility]annCHEM IHJYB3933-59-68 10:51:0095[facility] HermannCHEM NLBIL5043-04-36 10:51:0023Mem[facility] HermannCHEM DYRVX4101-20-98 10:51:001.15[facility] HermannCHEM DMWOK8199-57-46 10:51:00781 [facility]annCHEM GTFHY6755-32-01 10:51:004.4[facility] HermannCHEM PANEL 2020-05-06 10:51:52754Dtqriokf HermannCHEM EWYKZ5549-46-42 10:51:0028[facility] HermannCHEM XMAJP1913-07-29 10:51:008.1[facility] HermannCHEM PIOGE7009-81-85 10:51:009.4[facility] HermannCHEM TYWOC0591-43-27 10:51:0074[facility] Johnie TGWXEWFPMR1128-84-56 10:51:005.1[facility] SfiwkmgDWTQLNFGWN7281-16-17 10:51:00 4.26Mem[facility] SuwcmcaWYPXVNQXCC4625-15-74 10:51:0011.9[facility] HermannHEMATOLOGY 2020-05-06 10:51:0036.4[facility] NeadnyvXLHGEJDNZS8448-92-15 10:51:0085.3[facility] EwmpcslKJQPNTZXJB2277-24-76 10:51:00* Test Item Value Reference Range Interpretation Comments MCH (test code = MCH) 28.0 pg 27.0-31.0 Memorial YfioptoOKCHADKVGG9376-23-65 10:51:0032.8[facility] HermannHEMATOLOGY 2020-05-06 10:51:0014.1[facility] YbbsbbiGRIHDSYIVY4456-00-63 10:51:40110Phwcioyq GmipcqrHAXDSBXQYX0546-02-73 10:51:008.6[facility] TerucrjYBOXZDKAPH9938-64-96 10:51:0036.7[facility] OymtmbvDXKBXMMAXI8938-34-08 10:51:0040.4[facility] Johnie DBIRDDMWFF3310-43-50 10:51:0015.2[facility] OnxbrmaZZRUHXUXFS0203-94-16 10:51:00 6.8[facility] EqqgbpmVJHUTSQHXI4344-47-85 10:51:000.9[facility]annHEMATOLOGY 2020-05-06 10:51:001.9[facility] RwsnckgRVLHPYPQPX9975-60-62 10:51:002.1[facility] WfuwzvuIPLAHYAQKW7813-50-96 10:51:000.8[facility] ImchawyNVFDPIIPMX3569-81-25 10:51:000.4[facility] HermannBACTERIAL - MASEHMZF9524-60-73 06:31:00Negative (05/06/20 1:31 AM)[facility]annCARDIAC FLBBKBH9129-49-10 06:01:00<0.02[facility]annCHEM EIXGM3306-00-80 05:00:001.7[facility]annCHEM VBEYW4638-17-87 02:26:001.2[facility]annCARDIAC XHYHNSF9750-89-70 00:28:60384Kjgpgxtd [place] CARDIAC PNKETHR8016-19-84 00:28:0062[facility]annCHEM PZAAM4695-86-86 00:28:0089[facility]annCHEM ZFDSR6433-24-88 00:28:0023[facility]annCHEM ARQVQ5656-93-82 00:28:001.48[facility]annCHEM XYOOI1364-38-44 00:28:29296 [facility]annCHEM MTJVF2717-38-68 00:28:004.5[facility]annCHEM PANEL 2020-05-06 00:28:59372Dlbdcdpq HermannCHEM FLDBR4602-27-22 00:28:0032[facility] HermannCHEM BNOHF2833-89-62 00:28:008.8[facility] HermannCHEM GMGVD2799-48-00 00:28:007.9[facility] HermannCHEM UFBFB0711-37-10 00:28:003.7[facility] HermannCHEM GTXTU4228-86-52 00:28:0035[facility] HermannCHEM ANDZU1427-85-34 00:28:0032 [facility]annCHEM KXFNM1858-94-53 00:28:35752Cmdlozxa HermannCHEM PANEL 2020-05-06 00:28:000.3[facility] HermannCHEM CFDJD0251-15-61 00:28:007.5[facility] HermannCHEM PUXPD1306-55-53 00:28:00* Test Item Value Reference Range Interpretation Comments B/C Ratio (test code = B/C Ratio) 16 1 6-25 [facility]annCHEM WAPQV1819-33-27 00:28:004.2[facility] HermannCHEM PANEL 2020-05-06 00:28:00* Test Item Value Reference Range Interpretation Comments A/G Ratio (test code = A/G Ratio) 0.9 1 0.7-1.6 [facility]annCHEM YEREO3136-88-95 00:28:0055[facility] HermannCHEM PANEL 2020-05-06 00:28:000.08[facility] GlajcvdABTMNIFYDT5075-82-25 00:28:006.1[facility] XwlwrhcNGFLLVEJWS7328-61-52 00:28:004.44[facility] JzksbazYALLNSYBGD2727-50-25 00:28:0012.4[facility] FghtomhUMVVIGVRKF1588-20-21 00:28:0038.2[facility] OIBQEQDVYH3126-73-98 00:28:0086.1[facility] PxzzuqzDAXDTJAPIS9532-22-89 00:28:00* Test Item Value Reference Range Interpretation Comments MCH (test code = MCH) 28.0 pg 27.0-31.0 [facility] JspbxnsPXELZHTSGR3801-08-98 00:28:0032.5[facility] HermannHEMATOLOGY 2020-05-06 00:28:0014.5[facility] NvecjtzVUQQQWCVWQ4045-17-79 00:28:33840Mlzswkmg MkzebkbAUSAXWPNME6234-37-73 00:28:008.1[facility] FwfewbcRSKHMUUUAI4387-28-49 00:28:00Normal (05/05/20 7:28 PM)[facility] ZtlsfdeNTHYUNILKN8500-75-17 00:28:00 Normal (05/05/20 7:28 PM)[facility] QvyxbbkXJXWFXALQY7968-55-55 00:28:0045.3[facility] DrybdnnTJEVFCTKND0231-69-81 00:28:0035.2[facility] LibbiddHGFMPOGQTX7306-27-68 00:28:0013.0[facility] BbtprupHHLFYHKCRN3352-14-87 00:28:005.7[facility] UQONGZPPXB8535-44-43 00:28:000.8[facility] RisorrsKEROCZMMCL7075-88-47 00:28:002.8 [facility] TgoeuujSVHSTGHRTZ6207-27-74 00:28:002.2[facility] HermannHEMATOLOGY 2020-05-06 00:28:000.8[facility] YadmkfiTHDOXDAWMD2191-65-45 00:28:000.3[facility] HermannBlood culture, aerobic & nzlsdigmw4647-55-08 00:03:03* Test Item Value Reference Range Interpretation Comments Blood culture isolate (test code = 600-7) No growth after 5 days of incubation. Specimen InformationSpecimen Source: BloodSpecimen Site: Arm, left [facility] MethodistStrep screen iuubqnq8703-99-49 11:47:01* Test Item Value Reference Range Interpretation Comments Strep screen culture isolate (test code = 2246) No bet a hemolytic Streptococci isolated Specimen Information Specimen Source: ThroatSpecimen Site: Not otherwise specified [facility] MethodistGroup A strep, rapid qbwhavx7194-74-46 11:47:01* Test Item Value Reference Range Interpretation Comments Group A strep, rapid antigen result (test code = 48557 79) Negative for Group A Streptococcus antigen. Specimen Informat ionSpecimen Source: ThroatSpecimen Site: Not otherwise specified [place] MethodistT4, gzyu6131-95-87 07:42:53* Test Item Value Reference Range Interpretation Comments T4, free (test code = 3024-7) 1.3 ng/dL 0.8-1.8 [facility] Methodunm [facility] hospitalThyroid stimulating kujlpke7550-31-46 07:42:53* Test Item Value Reference Range Interpretation Comments TSH (test code = 3016-3) 3.50 0.55- 4.78 uIU/mL [facility]landsVancomycin level, pfgdbd6893-93-54 09:54:01* Test Item Value Reference Range Interpretation Comments Vancomycin, trough (test code = 62533-0) 20.2 ug/mL 10-20 HH Therapeutic Ranges: Peak 30.0 - 40.0 ug/mL Trough 10.0 - 20.0 ug/mLFinal results called to and read back by Clayton White RN 04/13/2020 09:51 edp Lab Interpretation (test code = 17062-1) Abnormal Lázaro PedrazaLegionella urinary itxicgu2520-22-01 17:08:11* Test Item Value Reference Range Interpretation Comments Legionella urinary antigen (test code = 1658) Negative for Legionella serogroup 1 antigen. Specimen Information Specimen Source: UrineSpecimen Site: Random void [facility] RonistStreptococcus pneumoniae urinary vmprjcg2454-21-80 17:08:11* Test Item Value Reference Range Interpretation Comments Strep pneumo urinary Ag (test code = 2245) Negative fo r Streptococcus pneumoniae antigen. Specimen Information Specimen Source: UrineSpecimen Site: Random void [facility] GnosticismNM Lung Perfusion Kciidcn1927-04-81 16:40:31Hm Interface, Radiology Results Incoming - 04/12/2020 4:43 PM CDTPROCEDURE: NM LUNG PERFUSION IMAGINGINDICATION: PE suspected intermediate prob positive D-d kolton.COMPARISON: CT chest dated April 12, 2020. VQ scan dated February 07, 2007.TECH NIQUE: Ventilation images were not obtained. The patient was injected with 5 mC i of mfearsaykl-81s-GQZ intravenously, followed by imaging of the lungs in 8 pro jections.FINDINGS: Mild left perihilar perfusion defect, nonsegmental. IMPRESSI ON:Very Low probability for pulmonary embolism. [facility]-[id number] and appro tarun by residential life director/fellow: Rolando Head M.D.I, Bro Grimes, personal ly reviewed the images and resident's/fellow's findings and agree with the final report.[facility]landsCT Chest Wo Cmhgvrav1365-87-96 13:29:43Hm Interface, Radiology Results - 04/12/2020 1:32 PM CDTEXAMINATION: CT CHEST WO [...] changes are noted involving the spine.Other: None.SUMMARY:1.Negative study.[facility]-[id number] MethodistRespiratory pathogen svazp8314-66-66 12:40:04* Test Item Value Reference Range Interpretation [...] Detected Bordetella pertussis PCR (test code = 4785645) Not Detected Bordetella parapertussis PCR (test code = 9139022) Not Detected Chlamydia pneumoniae PCR (test code = 3753) Not Detected Mycoplasma pneumoniae PCR (test code = 7110) Not Detected Influenza A no sub type PCR (test code = 7127) Not Reported Lázaro MethodistUrinalysis screen and microscopy, with reflex to culture 2020-04-12 09:48:58* Test Item Value Reference Range Interpretation Comments Specimen site (test code = 5704310) Clean catch Color, UA (test code = 5778-6) Yellow YELLOW Appearance, UA (test code = 5767-9) Clear Clear Specific gravity, UA (test code = 5811-5) 1.009 1.005-1.030 pH, UA (test code = 5803-2) 6.0 5.0-8.0 Protein, UA (test code = 20975-3) Negative Negative Glucose, UA (test code = 48574-9) Negative Negative Ketones, UA (test code = 2514-8) Negative Negative Bilirubin, UA (test code = 5770-3) Negative Negative Blood, UA (test code = 5794-3) Negative Negative Nitrite, UA (test code = 5802-4) Negative NEGATIVE Urobilinogen, UA (test code = 16803-9) <2.0 <2.0 E.U./dL Leukocyte esterase, UA (test code = 5799-2) Negative Negative Epithelial cells, UA (test code = 5787-7) <1 0- 15 /HPF WBC, UA (test code = 5821-4) 1 0- 5 /Hpf RBC, UA (test code = 92739-4) 3 0- 5 /HPF Bacteria, UA (test code = 28756-3) Few None seen A Yeast, UA (test code = 03946-8) None seen None Seen Yeast with pseudohyphae, UA (test code = 92232-0) None seen Lab Interpretation (test code = 10149-5) Abnormal [facility] MethodistUrine ffixglh8812-60-11 09:36:40* Test Item Value Reference Range Interpretation Comments Urine culture (test code = 1069195) SEE COMMENT Bacteriuria screen negative. [facility] MethodistInfluenza fcmvvzl5122-14-73 05:53:21* Test Item Value Reference Range Interpretation Comments Influenza antigen (test code = 13550-9) Negative for Influenza A/B antigen. Specimen InformationSpecimen Source: NaresSpecimen Site: Left [facility] MethodistArterial blood yzi7994-40-96 05:41:54* Test Item Value Reference Range Interpretation Comments pH, arterial (test code = 2744-1) 7.38 7.35- 7.45 Units pCO2, arterial (test code = 2019-06) 39 35- 45 mmHg pO2, arterial (test code = 2703-7) 93 83- 108 mmHg Bicarbonate, arterial (test code = 1959-4) 22.6 21.0- 28.0 mEq/L Base excess, arterial (test code = 5-7) -1.7 -0.2 - 0.3 mEq-L L O2 saturation, arterial (test code = 2708-6) 97 % 95-98 FiO2 (test code = 3150-0) 21.0 Total CO2 (test code = 2027-) 21 mEq/L O2 content (test code = 1828) 15.1 15.0- 23.0 VOL % Lab Interpretation (test code = 51367-3) Abnormal [place] MethodistType and shphjq6197-04-56 05:28:00* Test Item Value Reference Range Interpretation Comments ABO grouping (test code = 883-9) O Rh type (test code = 78557-0) POS Antibody screen (gel) (test code = 890-4) NEG [facility] MethodistLipid xknyq8107-42-21 05:17:03* Test Item Value Reference Range Interpretation Comments Cholesterol (test code = 3-3) 120 mg/dL 0-199 Triglycerides (test code = 2571-8) 90 mg/dL 0-149 HDL cholesterol (test code = 2084-9) 37 mg/dL 40-9999 L LDL cholesterol (test code = 2088-1) 74 mg/dL 0-99 Lipid panel interpretation (test code = 58537-9) See below Total Cholesterol (mg/dL) <200 Desirable [...] (>=200 mg/dL) Lab Interpretation (test code = 13362-9) Abnormal [facility] MethodistFerritin ezpxk1203-39-88 05:17:03* Test Item Value Reference Range Interpretation Comments Ferritin level (test code = 2276-4) 132 ng/mL 18-464 [facility] MethodistCreatine kinase, total (CPK)2020-04-12 05:17:01* Test Item Value Reference Range Interpretation Comments Creatine kinase (test code = 2157-6) 90 U/L 35-200 [facility] VxepzrwpuGYS8963-77-44 05:16:58* Test Item Value Reference Range Interpretation Comments LDH (test code = 45326-7) 195 U/L 300-600 L Lab Interpretation (test code = 80246-1) Abnormal [facility] MethodistC-reactive lammrjw3889-62-12 05:16:58* Test Item Value Reference Range Interpretation Comments CRP (test code = 1988-5) 3.40 mg/dL 0-1 H Lab Interpretation (test code = 52333-8) Abnormal [facility] JhetarvuwF-eicvq1396-82-11 04:59:42* Test Item Value Reference Range Interpretation Comments D-dimer (test code = 96182-8) 2.37 0.00- 0.40 ug/mL FEU H When [...] and malignancies. Lab Interpretation (test code = 47718-8) Abnormal [facility] UrifvlgyqTghwmturnr0441-60-33 04:57:03* Test Item Value Reference Range Interpretation Comments Fibrinogen (test code = 47719-3) 406.0 mg/dL 200-450 The reference range has changed starting 04/02/2010 @12:00pm [place] MethodistCOVID-19 qualitative TPS0992-01-24 04:39:21* Test Item Value Reference Range Interpretation Comments Interpretation (test code = 7529975) Negative results do not preclude 2019-nCoV infection and should not be used as the sole basis for treatment or other patient management decisions. Negative results must be combined with clinical observations, patient history, and epidemiological information. COVID-19 qualitative PCR result (test code = 37925-3) Not-Detect ed Not-Detected COVID-19 qualitative PCR (test code = 7070) See link below for P DF Lab Report [facility] MethodistLactic acid level, SEPSIS - Now and repeat 2x every 3 hours 2020-04-11 23:12:04* Test Item Value Reference Range Interpretation Comments Lactic acid (test code = 39724-3) 2.4 mmol/L 0.5-2.2 H Lab Interpretation (test code = 31633-8) Abnormal [facility] MethodistB natriuretic qxftwoa0166-64-05 19:38:44* Test Item Value Reference Range Interpretation Comments BNP (test code = 52569-6) 56 pg/mL 0-100 [facility] MethodistCRITICAL DNEK6675-74-35 19:17:37Tanika Barbosa MD 04/11/2020 9:02 PMCritical CarePerformed [...] of patient's condition and review of old chartsBrightwood MethodistCARDIAC PXENAXA4704-86-07 02:08:43228Cusqdqrb [place] CARDIAC HLVSCCT7021-01-46 02:08:00<0.02[facility] HermannCARDIAC FTMNTQK2345-50-23 02:08:0053[facility] HermannCHEM IRZYY1893-68-98 02:08:0087[facility] HermannCHEM DYQLN1458-07-26 02:08:0022[facility] HermannCHEM QAAPT3824-35-96 02:08:001.13 [facility]annCHEM QNSOZ0112-43-28 02:08:30852Iusojrxp HermannCHEM PANEL 2019-12-24 02:08:004.3[facility] HermannCHEM OKTNA6633-64-26 02:08:94363Nxqampng HermannCHEM QPMOM2612-38-76 02:08:0025[facility] HermannCHEM ZOIWI5754-52-13 02:08:009.1[facility] HermannCHEM LKOLQ5954-13-26 02:08:009.2[facility] HermannCHEM PDPWB4254-49-86 02:08:004.2[facility] HermannCHEM LUDDK9186-96-73 02:08:0044 [facility] HermannCHEM QOKKM6259-37-63 02:08:0026[facility] HermannCHEM PANEL 2019-12-24 02:08:67546Wvjutpct HermannCHEM PVSPC0644-50-97 02:08:000.3[facility] HermannCHEM HKQMA0308-82-35 02:08:009.3[facility] HermannCHEM PHSJC7796-52-88 02:08:00* Test Item Value Reference Range Interpretation Comments B/C Ratio (test code = B/C Ratio) 19 1 6-25 [facility] HermannCHEM VIQOA8119-37-21 02:08:005.0[facility] HermannCHEM PANEL 2019-12-24 02:08:00* Test Item Value Reference Range Interpretation Comments A/G Ratio (test code = A/G Ratio) 0.8 1 0.7-1.6 [facility] HermannCHEM NMNKT5449-47-15 02:08:0076[facility] HermannHEMATOLOGY 2019-12-24 02:08:009.4[facility] ZdqcrytNWQQNLFHMU6844-92-28 02:08:004.64[facility] SbscxngSVASKMJCER6936-19-36 02:08:0013.2[facility] WjurhkvIEEMBCTWGZ2125-21-25 02:08:0039.9[facility] DpzhlnvOJEOWBQXFE6609-55-28 02:08:0086.0[facility] NJGUGTPOIC3633-21-52 02:08:00* Test Item Value Reference Range Interpretation Comments MCH (test code = MCH) 28.4 pg 27.0-31.0 [facility] DhvnfnrWQHYRLURQI9958-39-46 02:08:0033.0[facility] HermannHEMATOLOGY 2019-12-24 02:08:0015.1[facility] AjluphhLZAZHPYUXM2973-21-31 02:08:58736Ohrfzwjo DrpfdvcXWAGGLXKSC9261-33-57 02:08:009.3[facility] GbczfieJOSHEHZQMP6087-58-54 02:08:0070.1[facility] EzovutcLJTLIZFAIS9074-99-43 02:08:0019.3[facility] Johnie AACKGSYPXY0501-33-90 02:08:007.8[facility] HfnfbgoCUVOJELTGA0637-97-23 02:08:001.6 [facility] WdsoebmVNWLGTYGLF6118-36-49 02:08:001.2[facility] HermannHEMATOLOGY 2019-12-24 02:08:006.6[facility] UrmyvsyYWVBIQOKNG8113-65-98 02:08:001.8[facility] XyttkpkTLJCLWZXBX5349-61-66 02:08:000.7[facility] QanshxlXIBWWBFGKR0145-94-22 02:08:000.2[facility] SkatepdUYAUVINWQG4291-82-56 02:08:000.1[facility] TLADVFTF-E7835-29-18 02:11:00* Test Item Value Reference Range Interpretation Comments TROPONIN-I (test code = TROPI) <0.020 ng/mL 0.000-0.034 N BASIC METABOLIC HBTWG2637-54-65 02:02:00* Test Item Value Reference Range Interpretation [...] CA) 8.7 mg/dL 8.5-10.5 N CBC W/AUTO FMLQ7226-11-90 01:42:00* Test Item Value Reference Range Interpretation [...] 3/uL 0.0-0.1 N - XR CHEST 1 V2222-24-83 01:32:00Patient Name: MAGUI BUTLER Unit No: [id number] EXAMS: CPT: [id number] XR CHEST 1 V 72345 CHEST 1 VIEW CLINICAL HISTORY: Shortness of [...] (0135) BATCH NO: N/A Name: MAGUI BUTLER [facility] Phys: Ochoa Ellington MD [address] [facility] : 1970 Age: 49 Sex: [place] [address] Loc: N.ERS Exam Date: 10/19/2019 Status: PRE ER PH: FAX: PAGE 1 Signed Report CARDIAC IGGYSGB4820-14-18 18:04:00 446[facility] HermannCHEM FVBCA5022-67-87 18:04:36594Eyefyxrj HermannCHEM PANEL 2019-07-24 18:04:0022[facility] HermannCHEM GNWYZ6555-64-35 18:04:001.36[facility] HermannCHEM MNFNP2420-36-34 18:04:23719Visgozon HermannCHEM FTKZW3551-99-58 18:04:004.0[facility] HermannCHEM XHAVM6800-16-69 18:04:24085Qddettpd HermannCHEM FLCWK3296-40-30 18:04:0025[facility] HermannCHEM QCKOA9827-57-36 18:04:009.3 [facility] HermannCHEM NWZMX2032-61-81 18:04:009.3[facility] HermannCHEM PANEL 2019-07-24 18:04:004.2[facility] HermannCHEM CVLPR1183-92-02 18:04:0032[facility] HermannCHEM XWCAN3118-39-54 18:04:0028[facility] HermannCHEM LNHTV1692-91-23 18:04:16470Nrapqohq HermannCHEM CQECL4717-04-68 18:04:000.4[facility] HermannCHEM SPSOR4382-77-20 18:04:0061[facility] HermannCHEM JZFZZ3462-08-35 18:04:0011.0 [facility] HermannCHEM AEXJI6465-33-98 18:04:00* Test Item Value Reference Range Interpretation Comments B/C Ratio (test code = B/C Ratio) 16 1 6-25 [facility] HermannCHEM VFMVZ1685-51-80 18:04:005.1[facility] HermannCHEM PANEL 2019-07-24 18:04:00* Test Item Value Reference Range Interpretation Comments A/G Ratio (test code = A/G Ratio) 0.8 1 0.7-1.6 [facility] HiquvwsIJRMEJERZN4884-69-62 18:04:0010.2[facility] HermannHEMATOLOGY 2019-07-24 18:04:004.87[facility] EifaquqAIWBCPICUT6910-38-59 18:04:0014.1[facility] NbleaddKAEJXJQSYO1973-86-55 18:04:0042.6[facility] GvhxiruHMMGEXRCQL6075-17-32 18:04:0087.5[facility] NsvwwdqETINDVIPHL6339-49-75 18:04:00* Test Item Value Reference Range Interpretation Comments MCH (test code = MCH) 29.0 pg 27.0-31.0 [facility] NyesuisFEIXITDBKR2789-96-57 18:04:0033.1[facility] HermannHEMATOLOGY 2019-07-24 18:04:0014.5[facility] JrpptwfTYDTVEHEAA0363-53-12 18:04:52753Jbbdlnxk GbaajgjTQXEGLGGPJ9158-35-86 18:04:007.7[facility] MceuzkuFVLVESDUQT4726-01-54 18:04:0068.3[facility] BfasxqqSSLDYNZNUL3210-80-38 18:04:0022.0[facility]ie RYGBLUHGQX7882-97-81 18:04:008.3[facility] HlkglzmBHOMSFMUAO0209-79-33 18:04:000.7 [facility] OjtqmomZZJNRQDRKM7376-30-66 18:04:000.7[facility] HermannHEMATOLOGY 2019-07-24 18:04:007.0[facility] SfnvkydQOCFIXNSMJ6130-93-61 18:04:002.2[facility] MfpebeaZEBRRYFWTW6397-77-22 18:04:000.8[facility] WfxamupQTCJKBZLPQ1285-51-72 18:04:000.1[facility] EjzpgynKVRUREXARC3723-37-70 18:04:000.1[facility] HermannBASIC METABOLIC QQMYW3029-90-63 14:52:00* Test Item Value Reference Range Interpretation [...] mg/dL 8.5-10.1 N IS FINISHED FOR BLOOD. V.LAB.WY 06/26/19 1420CBC W/AUTO YQTO2511-71-30 14:42:00 * Test Item Value Reference Range [...] code = MDIFF) NO DONE FOR BLOOD V.LAB.WY 06/26/19 1421CBC W/AUTO DDCW5520-98-74 14:38:00* Test Item Value Reference Range Interpretation [...] = BA#) K/mm3 0.0-0.2 DONE FOR BLOOD V.LAB.WY 06/26/19 1421- XR TIBIA/FIBULA 2 V QS2499-00-29 14:30:00 FAX: Elissa Siddiqui MD [phone] [place]: St: REG FAX: Guille Haley MD [phone] Name: LAW BUTLER [facility] : 1970 Age/S: 48/M [address] [facility] Unit #: [id number] Loc: [place] [address] Phys: Guille Haley MD Acct: [id number] Dis Date: Status: REG ER PHONE #: [phone] Exam Date: 06/26/2019 1408 FAX #: [phone] Reason: concern for fx EXAMS: CPT CODE: [id number] XR TIBIA/FIBULA 2 V RT [address] CLINICAL HISTORY: Pain status post fall TECHNIQUE: [...] Sundeep Miller RT(R) T rnscrd Date/Time/By: 06/26/2019 (8460) : By: [email or web address] Orig Print D/T: S: 06/26/2019 (1828) PAGE 1 Sign ed Report CARDIAC TAQXFPQ4699-29-94 00:09:0097 [facility]annCHEM RSPHC0901-24-86 00:09:32171Bfcskhqd HermannCHEM PANEL 2019-05-08 00:09:0099[facility] HermannCHEM YTUHN6586-89-14 00:09:006[facility] HermannCHEM OQCEE3215-53-27 00:09:000.80[facility] HermannCHEM GRUOC6439-41-36 00:09:000.4[facility] HermannCHEM OOJPD4820-29-91 00:09:87925Harozziu HermannCHEM QXIYL6496-80-63 00:09:0048[facility] HermannCHEM WUBKP7164-17-12 00:09:0043 [facility] HermannCHEM HBRJS3836-37-18 00:09:007.6[facility] HermannCHEM PANEL 2019-05-08 00:09:003.2[facility] HermannCHEM ZZOBG7090-32-12 00:09:008.5[facility] HermannCHEM USMOV4542-96-58 00:09:003.5[facility] HermannCHEM SOWAP3111-51-48 00:09:67984Hvzskism HermannCHEM JJKEJ7632-46-14 00:09:35704Baxgzmfu HermannCHEM XYGHI4402-75-92 00:09:0026[facility] HermannCHEM UUQRH4843-54-24 00:09:00* Test Item Value Reference Range Interpretation Comments A/G Ratio (test code = A/G Ratio) 0.7 1 0.7-1.6 [facility] HermannCHEM KIPLB1520-78-41 00:09:00* Test Item Value Reference Range Interpretation Comments B/C Ratio (test code = B/C Ratio) 8 1 6-25 [facility] HermannCHEM OHTIT0519-92-04 00:09:004.4[facility] HermannCHEM PANEL 2019-05-08 00:09:009.5[facility] LmrqybvSBYTAHWGYY4050-64-96 00:09:007.9[facility] RmsselxZQRSNNMMTP7078-74-21 00:09:12475Lihvqvdn WpaohcqEPKZXWDVUN8525-92-73 00:09:00* Test Item Value Reference Range Interpretation Comments MCH (test code = MCH) 28.7 pg 27.0-31.0 [facility] BnwiwfvUUOXBHZXNL8220-13-82 00:09:0033.2[facility] HermannHEMATOLOGY 2019-05-08 00:09:0014.3[facility] UhqypthETVMMRNFDB1396-12-10 00:09:0011.8[facility] IagxkmgEMLGWSOEEW1816-54-01 00:09:005.4[facility] TqflgpcXLWJBCFIIV1713-32-93 00:09:004.13[facility] OmpkgpxRCNKCFBBUN6883-53-08 00:09:0086.4[facility] TTDJBIBVYC4733-90-06 00:09:0035.7[facility] XweyxugHOSZORYBJH6588-07-45 00:09:00* Test Item Value Reference Range Interpretation Comments PT (test code = PT) 13.4 s 12.0-14.7 [facility] RrqmaydVBFSFOSOAX9994-75-14 00:09:00* Test Item Value Reference Range Interpretation Comments INR (test code = INR) 1.04 1 0.85-1.17 [facility] AcqgmklZLIKKAEAOW2025-56-07 00:09:00* Test Item Value Reference Range Interpretation Comments PTT (test code = PTT) 30.6 s 22.9-35.8 [facility] CphqqrpWQAYLCBRYX0673-96-37 00:09:000.6[facility] HermannHEMATOLOGY 2019-05-08 00:09:000.0[facility] PcpsxruJNHZPCRNIV9176-22-45 00:09:000.3[facility] GuikjggNIREQHOYOM3756-35-76 00:09:004.9[facility] HnkdkprQACCIHVKBS1200-34-58 00:09:003.3[facility] KznsrmpRCGBRTHCNC0578-54-83 00:09:001.2[facility] Johnie RRZFNJSECU7215-63-03 00:09:000.5[facility] PanvxkyCRUUVXPPEQ4601-87-30 00:09:00 61.2[facility] WmopbyyAUBVFMEBEF7762-71-15 00:09:0012.0[facility] HermannHEMATOLOGY 2019-05-08 00:09:0021.4[facility] HermannCHEM PRLAZ9235-15-63 09:24:22845Tjngsfvu HermannCHEM TWIZB6643-71-11 09:24:52492Atemwlan HermannCHEM QJHNP0286-72-19 09:24:0016[facility] HermannCHEM ZRBCV7505-61-28 09:24:000.76[facility] HermannCHEM XPEHP9892-55-43 09:24:0092[facility] HermannCHEM CKLQW5034-62-84 09:24:0026 [facility] HermannCHEM JHESD9522-34-80 09:24:004.2[facility] HermannCHEM PANEL 2019-01-21 09:24:31237Wuksfzzr HermannCHEM CARPW4440-35-81 09:24:0020[facility] HermannCHEM LTWXO6902-93-93 09:24:007.6[facility] HermannCHEM NNYQN3348-59-91 09:24:006.6[facility] HermannCHEM DRMFR4419-28-62 09:24:002.6[facility] HermannCHEM LPIDH0845-77-62 09:24:0017[facility] HermannCHEM CNXTO1441-58-80 09:24:0078 [facility] HermannCHEM WXCDC7495-68-21 09:24:000.2[facility] HermannCHEM PANEL 2019-01-21 09:24:00* Test Item Value Reference Range Interpretation Comments A/G Ratio (test code = A/G Ratio) 0.6 1 0.7-1.6 [facility] HermannCHEM GGIKW5425-90-32 09:24:00* Test Item Value Reference Range Interpretation Comments B/C Ratio (test code = B/C Ratio) 21 1 6-25 [facility] HermannCHEM [id number] 09:24:004.0[facility]CHE[facility] PANEL 2019-01-21 09:24:007.2[facility] JodednlGBNNKTTMAF2630-49-34 09:24:008.2[facility] TllmjdaPHYBBJTBAC2434-28-62 09:24:28680Iwuuoxeg QcjclcwJERLWEJRRE4436-34-24 09:24:0014.3[facility] LggaxbhTECAZZODKD4018-16-34 09:24:006.5[facility] MZJGRJQAKT6250-49-13 09:24:003.31[facility] MwnlddrFOFKWKQQUP7243-04-60 09:24:00 9.6[facility] VsgtrtwREMOMCBPFL5378-52-75 09:24:0028.2[facility]annHEMATOLOGY 2019-01-21 09:24:00* Test Item Value Reference Range Interpretation Comments MCH (test code = MCH) 29.0 pg 27.0-31.0 [facility] AvwiszxBFNZTMTIFJ8127-58-35 09:24:0085.2[facility]annHEMATOLOGY 2019-01-21 09:24:0034.0[facility] XrrvxhjMNNYZOFYBE7977-42-24 09:24:0011.1[facility] SkzlxxoEIHYQPJFDM1835-02-34 09:24:000.9[facility] FpmunqhPSOZLIBSUX5375-98-40 09:24:008.0[facility] CfrfmktKJSGJCXRKO8519-02-72 09:24:000.1[facility] RLWWOGINCV2254-91-00 09:24:000.5[facility] OzymlqzXKOKQYYPAB1800-44-66 09:24:003.7 [facility] MphciqdLCXOGSKYGF9229-88-60 09:24:000.7[facility]annHEMATOLOGY 2019-01-21 09:24:001.5[facility] LpgfyfhQYPVMIWRXV9929-19-17 09:24:0057.0[facility] LymcwvdSXARRWBZHX6360-89-57 09:24:0023.0[facility]annBACTERIAL - SEROLOGY 2019-01-21 04:24:00Negative (01/20/19 11:24 PM)[facility]CHEM PANEL 2019-01-20 21:56:001.2[facility]annDR[facility] IICNGT7300-54-73 18:53:00Negative *NA*(01/20/19 1:53 PM)[facility] PBBQYQ7722-07-27 18:53:00See Note (01/20/19 1:53 PM)[facility] [id number] 18:53:00Negative *NA*(01/20/19 1:53 PM)[facility] LNAFZW2408-20-74 18:53:00Positive *ABN*(01/20/19 1:53 PM)[facility] RAYISA1690-26-87 18:53:00Negative *NA*(01/20/19 1:53 PM)[facility] IQSWTC0572-88-89 18:53:00Negative *NA*(01/20/19 1:53 PM)[facility] MRWUJA8364-74-30 18:53:00Negative *NA*(01/20/19 1:53 PM)[facility] BIMLBG1037-09-58 18:53:00Negative *NA*(01/20/19 1:53 PM)[facility]annCARDIAC OUASFZX5561-76-24 17:17:0031 [facility] KPUDBOY5793-38-38 17:17:00<0.02[facility]annCHE[facility] TBUOO8100-02-63 17:17:002.1[facility]annCHE[facility] YDAAC4226-44-04 17:17:0089 [facility]CHE[facility] UHHLM5242-28-78 17:17:0098[facility]annCHEM PANEL 2019-01-20 17:17:0024[facility]annCHE[facility] LMCFQ6719-66-48 17:17:0027[facility]annCHE[facility] AZKNR6522-71-54 17:17:000.2[facility]annCHE[facility] GQYQH1241-63-13 17:17:89976Fqjiqbvl HermannCHEM VPOWQ9489-33-62 17:17:0026[facility]annCHE[facility] CCAAJ2397-75-46 17:17:008.0[facility]annCHE[facility] OOKPJ5071-08-32 17:17:008.3 [facility]CHE[facility] YBFJS8100-31-39 17:17:003.1[facility]annCHE[facility] PANEL 2019-01-20 17:17:001.00[facility]annCHE[facility] ARRTB9546-75-50 17:17:0020[facility]CHE[facility] LZYDP2028-44-79 17:17:004.0[facility]annCHE[facility] HAQFJ1783-02-25 17:17:16219Dcqvbxad HermannCHEM GFLJI5237-83-06 17:17:0086[facility]ann[facility] QQQAX5206-56-28 17:17:00* Test Item Value Reference Range Interpretation Comments B/C Ratio (test code = B/C Ratio) 20 1 6-25 [facility] ILQHW2395-92-68 17:17:00* Test Item Value Reference Range Interpretation Comments A/G Ratio (test code = A/G Ratio) 0.6 1 0.7-1.6 [facility] HermannCHEM PNIBS5401-46-13 17:17:004.9[facility] HermannCHEM PANEL 2019-01-20 17:17:0011.0[facility] YbqbwagKQFRSPOLWF4181-20-53 17:17:0096[facility] EiuxmrsNPHJCNPBHU6945-04-03 17:17:29852Oswiuehx SxwutfmYDSZIIUJKN6181-17-70 17:17:008.0[facility] NsxtmikDRKCONKBUA5533-38-81 17:17:0085.4[facility] NSTDKHNQBS9785-60-88 17:17:00* Test Item Value Reference Range Interpretation Comments MCH (test code = MCH) 28.5 pg 27.0-31.0 [facility] YgiygcwNTSVXBHBBV3888-33-15 17:17:0014.5[facility] HermannHEMATOLOGY 2019-01-20 17:17:0033.3[facility] XwqasboGCWCYOATOO7956-78-02 17:17:003.73[facility] OforiffYTIYZTICHD3365-66-76 17:17:0031.9[facility] RlbbhlwCYSIYJPFUE3170-60-46 17:17:0010.6[facility] BpglxtpGAUGUKWQPH8725-96-54 17:17:007.7[facility] QBYXIUYBJA1088-12-02 17:17:000.5[facility] VdergqaIQVXOXFFAF4265-34-53 17:17:000.1 [facility] FenywvvOKVESNWRDP3892-81-80 17:17:007.5[facility]annHEMATOLOGY 2019-01-20 17:17:006.7[facility] TdoswryNKWOLTCZBM2371-78-34 17:17:000.8[facility] RqfetduVDQHUEOCPJ2982-98-84 17:17:005.3[facility] NpdkktuMDCQRWAIUL0087-51-32 17:17:001.3[facility] NukxmvmAJIZIRLAIO4778-75-89 17:17:000.6[facility] ZQFEIHKLUH7096-90-20 17:17:0068.3[facility] EsmlclyXGVJLYCRRL6896-48-57 17:17:00 16.7[facility] FwfsexgQWAQTJYNDQ7363-83-81 17:17:0085.7[facility] HermannCARDIAC TUFDDLU2494-10-19 09:27:003.8[facility] HermannCARDIAC GQTFQXQ7510-91-34 09:27:00 964[facility] HermannCARDIAC UJAUULX3591-11-79 09:27:00<0.02[facility] CARDIAC IASICCW1473-43-18 09:27:000.4[facility] HermannCARDIAC GJNLZHS9249-02-86 06:48:00<0.02[facility]annCARDIAC CMOYJBG1144-44-57 06:48:33678Rtdkrpll HermannCARDIAC GSOUIMP7227-14-22 06:48:003.8[facility] HermannCARDIAC ENZYMES 2016-12-24 06:48:000.4[facility] HermannCHEM MRKRC1076-10-86 06:48:0077[facility]annCHEM LBXLP8641-21-47 06:48:0034[facility]ann[facility] QZRRY9345-47-56 06:48:0033[facility]ann[facility] MBYFU5696-04-90 06:48:007.5[facility]annCHEM EAOZE8668-38-39 06:48:003.4[facility]annCHEM QXIAI8114-94-69 06:48:004.1 [facility]annCHE[facility] SKALT4887-02-52 06:48:000.8[facility]annCHEM PANEL 2016-12-24 06:48:0011[facility]annCHEM LVFSP3797-74-27 06:48:000.6[facility]annCHEM YWXSB7177-56-81 06:48:0012.1[facility]annCHEM XOVFC6109-12-42 06:48:37999Pxvxsjav HermannCHEM WNSZQ6225-18-42 06:48:008.0[facility]ann[facility] ADQMF4180-94-53 06:48:0029[facility]ann[facility] EVVHU3957-80-94 06:48:43230 [facility] VLLPD8982-50-48 06:48:77803Dphjmoul HermannCHEM PANEL 2016-12-24 06:48:004.1[facility]annCHEM JFPGM2225-11-81 06:48:0012[facility]ann[facility]M POYJB5943-91-95 06:48:001.14[facility]annCHEM KQJVI1680-47-24 06:48:0080[facility] PmxwoynNJIOLBYIAQ6238-03-72 06:48:007.5[facility] TNTCFMPHYL3201-37-67 06:48:68758Tpevgeub SbofsvxHTSXUWZFAC3819-74-55 06:48:00 14.1[facility] GryewhoWOHQRWVTSJ7526-04-27 06:48:0033.2[facility] HermannHEMATOLOGY 2016-12-24 06:48:00* Test Item Value Reference Range Interpretation Comments MCH (test code = MCH) 28.3 pg 27.0-31.0 [facility] PoitufeCXQBRBLJBZ3973-06-40 06:48:0011.2[facility] HermannHEMATOLOGY 2016-12-24 06:48:003.97[facility] YrguvxlMFINDAICJO6368-35-48 06:48:0033.9[facility] PobxwesKKVPQKXABP1946-04-39 06:48:0085.3[facility] IbeestwSZBODKSXZB5240-12-59 06:48:0016.6[facility] BykcvpwAMHPKEABPY2140-89-50 06:48:000.9[facility] XGHTIWJDLT6608-29-04 06:48:001.1[facility] QqicdwqUGIEICOAYK6224-17-44 06:48:00 11.4[facility] XvuccxuJQKUMAXCOP1804-76-95 06:48:007.7[facility] HermannHEMATOLOGY 2016-12-24 06:48:000.2[facility] JnxxpucHZBDKJEMFS0198-56-99 06:48:0013.1[facility] PvneqbdKEFDESXGYX5259-97-94 06:48:000.1[facility] HsawosjAUTRDXUWBG3665-41-39 06:48:001.9[facility] ShcygvgWQVLAWHCUH9209-96-54 06:48:001.3[facility] EDIPANMCBK5641-79-71 06:48:0078.9[facility] HermannCARDIAC VKGTDWX7400-44-50 23:59:001.2[facility] HermannCARDIAC DKDEGOX8038-22-19 23:59:00<0.02[facility]annCARDIAC YQEIHFP5062-72-37 23:59:59090Oqjtkqdd HermannCARDIAC ENZYMES 2015-08-28 23:59:000.5[facility] HermannCHEM LHEGH6292-02-95 23:59:000.7[facility]annCHEM BYWCX0899-64-59 23:59:0029[facility]annCHEM WJKBK5555-75-35 23:59:0041[facility]annCHEM XZTDM9837-04-76 23:59:0019[facility]annCHEM VETKV6314-09-26 23:59:004.8[facility]annCHEM KZLQB4357-64-39 23:59:008.3 [facility]annCHE[facility] ONVWG1850-28-81 23:59:0015[facility]annCHEM PANEL 2015-08-28 23:59:0090[facility]annCHEM DYUHY2193-14-57 23:59:34900Pbbfgecr HermannCHEM ALOEF8657-88-99 23:59:000.2[facility]annCHEM EYFYD3222-23-62 23:59:97195Nyfkwzug HermannCHEM KZMVQ0270-07-62 23:59:000.8[facility] HermannCHEM TCPIC9168-43-25 23:59:0010.5[facility]annCHEM HJBKE2449-47-44 23:59:003.5 [facility] RWMFG4880-23-88 23:59:004.5[facility] HermannCHEM PANEL 2015-08-28 23:59:48423Ghebzctl [facility]annCHEM IAKIQ0694-95-23 23:59:008.6[facility]annCHEM BWVYK1208-93-41 23:59:0029[facility]annCHEM RMKKA4221-58-40 23:59:85696Iobkkwhp GmxkexxFRLWQPNIRH6703-67-71 23:59:0089.0[facility] QVCHOTEAAV9138-02-84 23:59:0013.5[facility] HkhvqafORJFXRHEUK1374-83-26 23:59:00* Test Item Value Reference Range Interpretation Comments MCH (test code = MCH) 29.4 pg 27.0-31.0 [facility] ChshbgtWAEJQGZUJQ3210-84-31 23:59:0033.1[facility] HermannHEMATOLOGY 2015-08-28 23:59:008.9[facility] EehjwobJWAEQISOEF1818-29-74 23:59:0040.7[facility] EeasuisJXTMBRYENQ6980-87-32 23:59:0013.2[facility] IcdykbuGHTOQFBJNH9037-12-87 23:59:45003Rjcttlwy QbqkumxPFOPTQGWRR2777-71-87 23:59:004.57[facility] RBECHPUWUJ8677-29-85 23:59:0010.2[facility] RnifcclPRTESJFHRI8493-82-79 23:59:00 0.96[facility] WivwddaVGKPAJURUL0650-37-08 23:59:00* Test Item Value Reference Range Interpretation Comments PTT (test code = PTT) 26.0 s 22.9-35.8 [facility] VupmdicLKBIOFTSNF3576-20-32 23:59:00* Test Item Value Reference Range Interpretation Comments PT (test code = PT) 13.1 s 12.0-14.7 [facility] QityheyCLYAHVAYJI8331-02-17 23:59:0034.9[facility] HermannHEMATOLOGY 2015-08-28 23:59:0050.5[facility] KsvtntbVOMUHCLMSU3471-51-83 23:59:000.6[facility] FwnhuszNAQGPOZXDX4620-88-44 23:59:000.1[facility] YbtiaqkFVLRQDBZTD2244-00-20 23:59:000.8[facility] EerdwfeEESBWDNPTR3854-11-48 23:59:008.1[facility] IOONYQHQFR2918-66-31 23:59:005.5[facility] JxfjumoNVPCPBPGWT0416-68-31 23:59:003.6 [facility] YikahwgFVTVPPDXSC6425-85-59 23:59:001.0[facility] HermannHEMATOLOGY 2015-08-28 23:59:005.2[facility]
[2020-09-07] MEDS ORDERED: ACETAMINOPHEN 325 MG TAB PO PRN (17:15)
[2020-09-07] MEDS ORDERED: METOPROLOL TARTRATE INJ 1 MG/ML VIAL IV PRN (17:15)
--- NOTE | 2020-09-07 17:18 | NUR ---
TALKED TO SERVICE COORDINATOR [facility]ILITY TO CALL ECHO BACK IN FOR STAT ECHO.
[2020-09-07 17:32] LABS: CHOL/HDL RATIO 3.8 (3.9-4.7)
--- NOTE | 2020-09-07 17:36 | NUR ---
SPOKE WITH DR MORENO AND IS AWARE ECHO PENDING TO BE DONE AND IS ON HIS WAY IN AND PICC LINE TO BE PLACED AND HAVE CT DONE AND RESULTS TO BE CALLED TO DR BURK. NOTIFIED FUNMILAYO IN REPORT
[2020-09-07] MEDS ORDERED: FUROSEMIDE INJ 10 MG/ML 2 ML VIAL IV ONE (18:00)
[2020-09-07 18:10] LABS: THYROID STIMULATING HORMONE 0.796 uIU/mL (0.350-4.940)
--- NOTE | 2020-09-07 18:14 | NUR ---
Recvd patient from ER. AAOx3, Not in any distress, call light in reach, they doing Echo this time
[2020-09-07] MEDS: MORPHINE SULFATE INJ 4 MG/ML INJ 1ML IV PRN ×2 (18:50→23:52)
[2020-09-07 19:40] VITALS: BP 117/83
[2020-09-07 20:00] VITALS: BP 117/83
[2020-09-07 20:32] VITALS: BP 114/76
[2020-09-07 20:44] VITALS: BP 114/76
--- NOTE | 2020-09-07 21:07 | Diagnostic Imaging Report ---
EXAMINATION: CHEST XRAY LINE PLACEMENT INDICATION: confirm line placement COMPARISON: Same day chest radiograph. FINDINGS: TUBES and LINES: Right PICC which terminates at the distal SVC. LUNGS: Normal lung volumes. Lungs are clear. No consolidations. PLEURA: No pleural effusion or pneumothorax. HEART AND MEDIASTINUM: The cardiomediastinal silhouette is unremarkable. BONES AND SOFT TISSUES: No acute osseous lesion. Soft tissues are unremarkable. UPPER ABDOMEN: No free air under the diaphragm. IMPRESSION: Right PICC which terminates at the distal SVC. Otherwise no acute thoracic radiographic abnormality. Signed by: Jaiden Franco MD on 09/07/2020 9:03 PM
[2020-09-07] MEDS ORDERED: IOPAMIDOL 370 MG/ML 200 ML INFUS..BTL INJ ONE (21:30)
[2020-09-07] MEDS ORDERED: SODIUM CHLORIDE 0.9% 50ML 50 ML ONE (21:30)
--- NOTE | 2020-09-07 22:17 | Diagnostic Imaging Report ---
EXAM: CT Chest WITH contrast (PE Protocol) INDICATION: ^PE PROTOCOL COMPARISON: Chest x-ray dated 09/07/2020 TECHNIQUE: Chest was scanned utilizing a multidetector helical scanner from the lung apex through the level of the diaphragm after administration of IV contrast. Thin section reconstructions were obtained with special concentration on the pulmonary arteries. Coronal and sagittal reformations were obtained. Dose modulation, iterative reconstruction, and/or weight based adjustment of the mA/kV was utilized to reduce the radiation dose to as low as reasonably achievable. Pulmonary embolism protocol was performed. IV CONTRAST: 100 mL of Isovue-370 COMPLICATIONS: None RADIATION DOSE: Total DLP: 592.31 mGy*cm Estimated effective dose: (DLP x 0.014 x size factor) mSv CTDIvol has been reviewed. It is below the limits set by the Radiation Protocol Committee (RPC). FINDINGS: LINES/ TUBES: None. LUNGS AND AIRWAYS: No filling defect is identified within the pulmonary arteries to the segmental level. The lungs are unremarkable. Airways are normal. PLEURA: The pleural spaces are clear. HEART AND MEDIASTINUM: The thyroid gland is normal. No mediastinal, hilar or axillary lymphadenopathy. The heart is normal in size.. There is no pericardial effusion. . Main pulmonary artery measures 2.9 cm in diameter. UPPER ABDOMEN: Unremarkable BONES: The visualized bony thorax is within normal limits. SOFT TISSUES: Unremarkable. IMPRESSION: No pulmonary emboli. Signed by: Dr. Shukri Mason MD on 09/07/2020 10:14 PM
--- NOTE | 2020-09-07 23:44 | NUR ---
Notified Lauryn ALSTON/Dr. Rebollar to give CXR PICC Line placement results. Order given ok to use PICC line.
[2020-09-07 23:56] VITALS: BP 126/85
[2020-09-08] VITALS (7 sets, daily range): BP systolic 95–118; BP diastolic 53–72
[2020-09-08 02:20] LABS: CREATINE KINASE MB 3.2 ng/mL (0-5.0)
[2020-09-08] MEDS: MORPHINE SULFATE INJ 4 MG/ML INJ 1ML IV PRN (03:47)
[2020-09-08 06:14] LABS: BASOPHILS # (AUTO) 0.1 (0.0-0.1); BASOPHILS % 0.9 % (0.0-1.0); EOSINOPHILS # (AUTO) 0.5 (0.0-0.4); EOSINOPHILS % 7.4 % (0.0-6.0); HEMATOCRIT 31.2 % (38.2-49.6); HEMOGLOBIN 10.2 g/dL (14.0-18.0); LYMPHOCYTES # (AUTO) 2.8 (1.0-3.2); LYMPHOCYTES % 42.1 % (18.0-39.1); MEAN CORPUSCULAR HEMOGLOBIN 29.2 pg (28-32); MEAN CORPUSCULAR HGB CONC 32.7 g/dL (31-35); MEAN CORPUSCULAR VOLUME 89.4 fL (81-99); MONOCYTES # (AUTO) 0.6 (0.2-0.8); NEUTROPHILS # (AUTO) 2.7 (2.1-6.9); NEUTROPHILS % 40.5 % (38.7-80.0); PLATELET COUNT 219 x10e3/uL (140-360); RED BLOOD COUNT 3.49 x10e6/uL (4.3-5.7); RED CELL DISTRIBUTION WIDTH 13.8 % (11.7-14.4)
[2020-09-08 06:35] LABS: ALANINE AMINOTRANSFERASE 29 IU/L (0-55); ALBUMIN 3.3 g/dL (3.5-5.0); ALBUMIN/GLOBULIN RATIO 0.9 (0.8-2.0); ALKALINE PHOSPHATASE 92 IU/L (40-150); ANION GAP 10.2 mmol/L (8-16); BLOOD UREA NITROGEN 18 mg/dL (7-26); BUN/CREATININE RATIO 16 (6-25); CALCIUM 8.4 mg/dL (8.4-10.2); CARBON DIOXIDE 26 mmol/L (22-29); CHLORIDE 104 mmol/L (98-107); CHOL/HDL RATIO 4.2 (3.9-4.7); CHOLESTEROL 140 MD/DL (0-199); EST GLOMERULAR FILTRATION RATE > 60 ML/MIN (60-); GLUCOSE 99 mg/dL (74-118); HDL CHOLESTEROL 33 MG/DL (40-60); LDL CHOLESTEROL 81 MG/DL (60-130); POTASSIUM 4.2 mmol/L (3.5-5.1); SODIUM 136 mmol/L (136-145); TRIGLYCERIDES 131 MG/DL (0-149)
[2020-09-08 07:00] LABS: CREATINE KINASE MB 2.3 ng/mL (0-5.0)
[2020-09-08] MEDS: FAMOTIDINE 20 MG TAB PO SCH ×2 (08:48→18:13)
[2020-09-08] MEDS: ASPIRIN 81 MG ENTERIC COATED PO SCH (08:49)
[2020-09-08] MEDS: FUROSEMIDE INJ 10 MG/ML 2 ML VIAL IV SCH ×2 (09:11→18:13)
[2020-09-08] MEDS: POTASSIUM CHLORIDE 10MEQ EA PO SCH ×2 (09:11→18:13)
[2020-09-08] MEDS ORDERED: GABAPENTIN300 MG PO (09:28)
[2020-09-08] MEDS ORDERED: SUBOXONE 8 MG-1 EAC2 SL (09:28)
[2020-09-08] MEDS ORDERED: CYMBALTA60 MG PO (09:28)
[2020-09-08] MEDS ORDERED: SEROQUEL100 MG PO (09:28)
[2020-09-08] MEDS: HYDROCODONE/APAP 10MG-325MG TAB PO PRN (10:19)
--- NOTE | 2020-09-08 10:26 | Consultation ---
DATE OF CONSULTATION: 09/08/2020 REASON FOR CONSULTATION: Chest pain. CHIEF COMPLAINT: Shortness of breath, Chest pain HISTORY OF PRESENT ILLNESS: This is a 50-year-old male with history of depression, PTSD, bipolar, hypertension, and degenerative joint disease. The patient presents to [facility] ER with complaints of chest pain/ shortness of breath and Cardiology was consulted to evaluate the patient. CT noted, negative for PE. Patient is very poorly historian, very sedentary The patient reports that for the past several days, he has been having chest pain, pressure, retrosternal, reproducible with deep breathing and palpation. However, does report for the past several weeks, has noted that he has become more progressively short of breath with orthopnea, lower extremity edema, preliminary echocardiogram showing depressed EF. Cardiac enzymes negative thus far. EKG showing no changes suggestive of acute event. Long discussion with the patient regarding differential diagnosis. PAST MEDICAL HISTORY: Depression, PTSD, bipolar, hypertension, and degenerative joint disease. PAST SURGICAL HISTORY: Back surgery in 2019, left ankle, right shoulder. FAMILY HISTORY: Mother alive at age 79, reported healthy, father , history of CAD. Sister, history of stroke. SOCIAL HISTORY: He is single. Denies any tobacco use or alcohol use. HOME MEDICATIONS: Atenolol 50 mg daily, Soma 350 mg t.i.d., Cymbalta 60 mg daily, gabapentin 30 mg t.i.d., meloxicam 15 mg p.r.n., Seroquel 200 mg at bedtime, and deeper morphine p.r.n. ALLERGIES: NO KNOWN ALLERGIES. REVIEW OF SYSTEMS: GENERAL: Positive for weight gain. Denies any fevers, chills, or night sweats. SKIN: Denies any rashes or sores. HEENT: Denies any nausea, vomiting, vision changes, blurred vision, double vision, epistaxis, sore throat, or swollen neck. CARDIAC: Positive for chest pain. Positive for dyspnea on exertion. Positive lower extremity edema. Positive orthopnea. RESPIRATORY: Positive for shortness of breath. Denies any hemoptysis. GI: Reports good appetite. No nausea, vomiting, diarrhea, constipation, melena, tarry or bloody stools. URINARY: Positive for frequency and urgency. Denies any dysuria, hematuria, or nocturia. VASCULAR: Positive for lower extremity edema. Denies any claudication. MUSCULOSKELETAL: Positive for generalized back pain, joint pains, and knee pains. HEMATOLOGY: Denies any bleeding or bruising. ENDOCRINE: Denies heat or cold intolerance, polyuria, polydipsia, or polyphagia. NEUROLOGY: No localized weakness, very abnormal gait, uses a cane, very sedentary PSYCH: Long history PHYSICAL EXAMINATION: VITAL SIGNS: Weight 350 pounds, height 74 inches. Temperature 97.6, pulse 60, respiratory rate 20, blood pressure 118/64, and pulse ox 95%. GENERAL: Appears stated age, reliable informant, in no acute distress. SKIN: No rashes or bruises, tattoos throughout. HEENT: Normocephalic. Pupils are equal and reactive. Extraocular movements intact. Trachea midline. No JVD. No carotid bruit. HEART: Regular rate and rhythm. PMI about 5th intercostal space. LUNGS: Bilateral breath sounds. Clear to auscultation. ABDOMEN: Soft, nontender, and nondistended. No organomegaly noted. MUSCULOSKELETAL: Good strength throughout. Positive lower extremity edema. VASCULAR: +2 radial pulses bilateral, +1 DP/PT pulses bilaterally. NEUROLOGIC: Cranial nerves II through XII seem intact, legs deformity, abnormal gait secondary to back problems. LABORATORY DATA: Sodium 136, potassium 4.2, BUN 18 and creatinine 1.1. Troponin 0.004, next 0.004. BNP 315. LDL 95, HDL 43. TSH 0.7. White count 7, hemoglobin 12.7, hematocrit 40, platelets 269. D-dimer 1.44. COVID PCR pending. CT of the chest showing no PE. EKG showing sinus amado at 58. ASSESSMENT AND PLAN: 1. Chest pain. 2. Shortness of breath with elevated BNP. 3. Hypertension. 4. Chronic pain. 5. Psychosis 6. Left Popliteal DVT PLAN: 1. Start Xarleto 15 mg BID 2. The patient presents to [facility] ER with complaints of shortness of breath and chest pain. CT negative for PE. Chest pain symptoms largely atypical. However, preliminary echo showing depressed EF. Blood pressure report to follow. Long discussion with the patient regarding findings. Recommend ischemic evaluation. We will set up for stress test on Thursday. We will discuss at length with the patient. He wants to think about it and is contemplating leaving the hospital. However, we will continue anti-platelet, statin, beta-paty therapy. We will diurese the patient. 3. Continue telemonitoring. 4. Plan for stress test on Thursday. 5. We will continue to follow and adjust cardiac therapy as course. Thank you very much for this consult. Dictated by Anthony Candelario NP Seen and examined Agree wit note Dee Noyola MD DC/SIMONA /[id number] MTDD
--- NOTE | 2020-09-08 11:03 | NUR ---
As per Venous Doppler done by tech, they said it shows some clots. Notified Dr Judy Noyola, new order recvd for Xarelto 15mg PO BID, Patient up in bed, not in any distress. keep monitoring.
[2020-09-08] MEDS: GABAPENTIN 300 MG CAP PO SCH ×3 (13:40→20:37)
[2020-09-08] MEDS: RIVAROXABAN 15 MG TABLET PO SCH (14:10)
--- NOTE | 2020-09-08 18:10 | NUR ---
patient resting in bed, No distress noted, tolerated dinner, call light in reach
[2020-09-08] MEDS: QUETIAPINE FUMARATE 100 MG TAB PO SCH (20:22)
[2020-09-08] MEDS: DULOXETINE HCL 30 MG DELAYED RELEASE PO SCH (20:37)
[2020-09-08] MEDS ORDERED: INFLUENZA VIRUS VAC SPLIT INJ 0.5 ML SYR IM SCH (20:58)
--- NOTE | 2020-09-08 22:28 | NUR ---
pt resting comfortably in bed no signs of distress no complaints at this time
[2020-09-09] VITALS (8 sets, daily range): BP systolic 97–139; BP diastolic 56–83
--- NOTE | 2020-09-09 00:30 | NUR ---
pt resting comfortably in bed no signs of distress no complaints at this time
[2020-09-09] MEDS: FUROSEMIDE INJ 10 MG/ML 2 ML VIAL IV SCH (05:16)
[2020-09-09] MEDS: HYDROCODONE/APAP 10MG-325MG TAB PO PRN ×3 (05:17→18:30)
[2020-09-09 06:40] LABS: BASOPHILS # (AUTO) 0.1 (0.0-0.1); BASOPHILS % 0.9 % (0.0-1.0); EOSINOPHILS # (AUTO) 0.5 (0.0-0.4); HEMATOCRIT 31.9 % (38.2-49.6); HEMOGLOBIN 10.1 g/dL (14.0-18.0); LYMPHOCYTES # (AUTO) 1.6 (1.0-3.2); LYMPHOCYTES % 27.6 % (18.0-39.1); MEAN CORPUSCULAR HEMOGLOBIN 28.3 pg (28-32); MEAN CORPUSCULAR HGB CONC 31.7 g/dL (31-35); MEAN CORPUSCULAR VOLUME 89.4 fL (81-99); MONOCYTES # (AUTO) 0.5 (0.2-0.8); MONOCYTES % 8.8 % (4.4-11.3); NEUTROPHILS # (AUTO) 3.2 (2.1-6.9); NEUTROPHILS % 54.5 % (38.7-80.0); PLATELET COUNT 225 x10e3/uL (140-360); RED BLOOD COUNT 3.57 x10e6/uL (4.3-5.7); RED CELL DISTRIBUTION WIDTH 13.6 % (11.7-14.4)
[2020-09-09 07:00] LABS: ANION GAP 12.4 mmol/L (8-16); BLOOD UREA NITROGEN 20 mg/dL (7-26); BUN/CREATININE RATIO 18 (6-25); CALCIUM 8.2 mg/dL (8.4-10.2); CARBON DIOXIDE 26 mmol/L (22-29); CHLORIDE 104 mmol/L (98-107); CREATININE, SERUM 1.09 mg/dL (0.72-1.25); EST GLOMERULAR FILTRATION RATE > 60 ML/MIN (60-); GLUCOSE 91 mg/dL (74-118); POTASSIUM 4.4 mmol/L (3.5-5.1); SODIUM 138 mmol/L (136-145)
--- NOTE | 2020-09-09 07:10 | NUR ---
PATIENT IS AWAKE, ALERT, AND IN STABLE CONDITION WITH NO S/S OF RESPIRATORY DISTRESS. PATIENT DENIES PAIN AT THIS TIME. TELEMETRY APPLIED. PATIENT HAS PERSONAL CANE AVAILABLE TO HIM NEAR BEDSIDE NEEDED. CALL LIGHT IS WITHIN REACH, PATIENT INSTRUCTED TO CALL FOR ASSISTANCE NEEDED.
[2020-09-09] MEDS: FAMOTIDINE 20 MG TAB PO SCH ×2 (08:02→16:04)
[2020-09-09] MEDS: POTASSIUM CHLORIDE 10MEQ EA PO SCH ×2 (08:02→16:04)
[2020-09-09] MEDS: RIVAROXABAN 15 MG TABLET PO SCH ×2 (08:02→16:04)
[2020-09-09] MEDS: ASPIRIN 81 MG ENTERIC COATED PO SCH (08:02)
[2020-09-09] MEDS: GABAPENTIN 300 MG CAP PO SCH ×4 (08:02→19:29)
--- NOTE | 2020-09-09 19:00 | NUR ---
PATIENT IS IN STABLE CONDITION WITH NO S/S OF RESPIRATORY DISTRESS. RECENTLY RECEIVED PAIN MEDICATION AT 1830. TELEMETRY APPLIED. URINAL AVAILABLE FOR PATIENT NEAR BEDSIDE. CALL LIGHT IS WITHIN REACH, PATIENT INSTRUCTED TO CALL FOR ASSISTANCE NEEDED. BEDSIDE SHIFT REPORT GIVEN TO ONCOMING NURSE.
[2020-09-09] MEDS: QUETIAPINE FUMARATE 100 MG TAB PO SCH (19:29)
[2020-09-09] MEDS: DULOXETINE HCL 30 MG DELAYED RELEASE PO SCH (19:29)
[2020-09-09] MEDS ORDERED: CARISOPRODOL 350 MG TAB PO PRN (19:30)
[2020-09-10 00:01] VITALS: BP 122/68
[2020-09-10] MEDS: HYDROCODONE/APAP 10MG-325MG TAB PO PRN ×2 (01:00→12:25)
[2020-09-10 04:00] VITALS: BP 132/88
[2020-09-10 06:00] LABS: BASOPHILS # (AUTO) 0.1 (0.0-0.1); BASOPHILS % 0.9 % (0.0-1.0); EOSINOPHILS # (AUTO) 0.3 (0.0-0.4); EOSINOPHILS % 3.9 % (0.0-6.0); HEMOGLOBIN 11.4 g/dL (14.0-18.0); LYMPHOCYTES # (AUTO) 1.9 (1.0-3.2); LYMPHOCYTES % 27.5 % (18.0-39.1); MEAN CORPUSCULAR HEMOGLOBIN 27.6 pg (28-32); MEAN CORPUSCULAR HGB CONC 31.7 g/dL (31-35); MEAN CORPUSCULAR VOLUME 87.2 fL (81-99); MONOCYTES # (AUTO) 0.5 (0.2-0.8); MONOCYTES % 7.6 % (4.4-11.3); NEUTROPHILS # (AUTO) 4.1 (2.1-6.9); NEUTROPHILS % 59.7 % (38.7-80.0); PLATELET COUNT 257 x10e3/uL (140-360); RED BLOOD COUNT 4.13 x10e6/uL (4.3-5.7); RED CELL DISTRIBUTION WIDTH 13.5 % (11.7-14.4)
[2020-09-10 06:32] LABS: ANION GAP 12.2 mmol/L (8-16); BLOOD UREA NITROGEN 14 mg/dL (7-26); BUN/CREATININE RATIO 15 (6-25); CALCIUM 8.7 mg/dL (8.4-10.2); CARBON DIOXIDE 26 mmol/L (22-29); CHLORIDE 108 mmol/L (98-107); CREATININE, SERUM 0.96 mg/dL (0.72-1.25); EST GLOMERULAR FILTRATION RATE > 60 ML/MIN (60-); GLUCOSE 88 mg/dL (74-118); POTASSIUM 4.2 mmol/L (3.5-5.1); SODIUM 142 mmol/L (136-145)
[2020-09-10 07:56] VITALS: BP 143/56
[2020-09-10 08:48] VITALS: BP 143/56
[2020-09-10] MEDS ORDERED: FUROSEMIDE 40 MG TAB PO SCH (09:00)
[2020-09-10] MEDS ORDERED: FUROSEMIDE40 MG PO (09:31)
[2020-09-10] MEDS ORDERED: POTASSIUM CHLO20 ME1 PO (09:31)
[2020-09-10] MEDS ORDERED: XARELTO20 MG PO (09:31)
[2020-09-10] MEDS ORDERED: REGADENOSON 0.4 MG/5 ML SYR IV ONE (09:37)
--- NOTE | 2020-09-10 11:56 | NUR ---
Patient back from Stress Test, Alert with no distress, talked to Dr Noyola he said patient can go home and f/up in 2 weeks
[2020-09-10 12:32] VITALS: BP 150/87
[2020-09-10] MEDS: GABAPENTIN 300 MG CAP PO SCH (12:52)
[2020-09-10] MEDS: FAMOTIDINE 20 MG TAB PO SCH (12:52)
[2020-09-10] MEDS: POTASSIUM CHLORIDE 10MEQ EA PO SCH (12:52)
[2020-09-10] MEDS: RIVAROXABAN 15 MG TABLET PO SCH (12:52)
[2020-09-10] MEDS: ASPIRIN 81 MG ENTERIC COATED PO SCH (12:52)
[2020-09-10] MEDS ORDERED: ONDANSETRON HCL 4 MG ORAL DISINTEGRATING TAB PO PRN (13:00)
--- NOTE | 2020-09-10 13:38 | NUR ---
Patient discharged home, Removed PICC line as per order from Emily INSTRUMENT TECHNICIAN. Discharge instruction regarding Fluid restriction 1.2Ltr/day and new prescription given, Patient verbalized understanding. Tele box returned, Not in any distress, family here to pick him
--- NOTE | 2020-09-11 10:44 | Myoview Stress Test ---
DATE OF STUDY: 09/08/2020 13:35:00 TITLE OF THE STRESS TEST: Lexiscan nuclear tomographic cardiac stress test. TECHNICAL DETAILS: This was resting stress protocol. For the resting images, a total of 13 mCi Myoview injected followed edia-gj-ohik after injection with single photon computer tomography imaging and processing. For the stress part, the patient given Lexiscan 0.4 mg intravenously followed by 33 mCi of Myoview half an hour after that picture acquisition using gated single photon emission computed tomography and proper SPECT imaging and scanning. The patient tolerated this scan. There were no complications. RESULTS: A: Hemodynamics: 1. Heart rate remained stable from 65 to 87 per minute. 2. Blood pressure dropped from 140/80 to 120/77. 3. No EKG changes. B: Nuclear imagin. Myocardial perfusion: a. Resting Images: The resting images showed decreased uptake inferior, apical, and anterior segments. b. Stress Images: The stress images revealed also decreased uptake inferiorly, more pronounced in the apex and less pronounced in the anterior segments. 2. Segmental wall motion: There was mild hypokinesis in the apical segments. 3. Heart Volumes: End-diastolic volume of 163, systolic volume 54 with ejection fraction of 67%. IMPRESSION: Abnormal nuclear cardiac stress test with multiple defects combination of scar and ischemia with preserved left ventricular systolic function. Of note, the patient is morbidly obese, which would affect the quality of the picture. Of note, there is dictation number for the x-ray, it is [id number]. MD QUYNH Hawley/SIMONA /[id number] STEVE
== END 2020-09-10 13:17 | disposition home or self-care (01) ==
LOC: ER 11:55 → ERHOLD 16:44 → MED/SURG3 18:09
PROVIDERS: ADMIT Internal Medicine; ATTEND Internal Medicine
DX: I11.0 Hypertensive heart disease with heart failure (principal); I50.20 Unspecified systolic (congestive) heart failure; F41.9 Anxiety disorder, unspecified; E66.01 Morbid (severe) obesity due to excess calories; Z95.5 Presence of coronary angioplasty implant and graft; Z87.891 Personal history of nicotine dependence; Z83.3 Family history of diabetes mellitus; Z82.3 Family history of stroke; Z80.9 Family history of malignant neoplasm, unspecified; Z68.41 Body mass index [BMI] 40.0-44.9, adult; I82.432 Acute embolism and thrombosis of left popliteal vein; G89.29 Other chronic pain; F43.10 Post-traumatic stress disorder, unspecified; F29 Unspecified psychosis not due to a substance or known physiological condition
CPT/HCPCS: 36415 ×4; 36569; 71045 ×2; 71260; 78452; 80048 ×2; 80053 ×2; 80061 ×2; 82550 ×2; 82553 ×2; 83735; 83880; 84443; 84484 ×2; 85025 ×4; 85379; 85610; 85730; 93005; 93017; 93306; 93970; 99284; A9502; G0378 ×4; J1650; J1940 ×3; J2270 ×3; J2405; J2785; J7040; Q9967; U0002

== ENCOUNTER 2020-09-15 15:40 | Inpatient (IN) | payer MEDICARE, OTHER ==
[~2020-09-15] VITALS: Ht 188 cm; Wt 151.3 kg
[~2020-09-15 15:40] MED LIST changes: +ATENOLOL50 MG; +BUPRENORP-NALO1 EACH; +CARISOPRODOL350 MG; +CYMBALTA60 MG PO; +FUROSEMIDE40 MG PO; +GABAPENTIN300 MG PO; +MELOXICAM15 MG; +POTASSIUM CHLO20 ME1 PO; +QUETIAPINE FUM200 MG; +SEROQUEL100 MG PO; +SUBOXONE 8 MG-1 EAC2 SL; +XARELTO20 MG PO
--- NOTE | 2020-09-15 15:47 | NUR ---
PATIENT CALLED TO TRIAGE, HE IS IN BATHROOM
--- OUTSIDE RECORDS SUMMARY | 2020-09-15 16:03 | XMS REPORT | Continuity of Care Document ---
Author Author Fabricly LAW Velazquez ITegris Address Unknown Phone Unavailable Care Team Providers Care Director Of Child Welfare Services Name Role Phone [employer] Unavailable Un available Problems Problem Status Onset Date Classification Date Reported Comments Source LEG SWELLING Active 01/20/2019 [facility] Medications Medication Details Route Status Patient Instructions Ordering Provider Order Date Source Cephalexin Notes: Take on empt y stomach. (Same As: Keflex) Inactive 01/21/2019 [facility] Doxycycline Notes: (Same as: V ibramycin) No milk/antacids/iron. Inactive 01/21/2019 [facility] cephalexin 500 mg oral tablet 500 mg = 1 tab, PO, QID, X 7 day, # 28 tab, 0 Refill(s), [id number] Active 01/21/2019 [facility] doxycycline hyclate 100 MG Oral Capsule 100 mg = 1 cap, PO, BID, X 7 day, # 14 cap, 0 Refill(s), Pharmacy: [facility] [id number] Active 01/21/2019 [facility] Soma 350 mg, Route: PO, Drug f orm: TAB, QID, Dosing Weight 140.455, kg, Start date: 01/21/19 9:00:00 CDT, Duration: 30 day, Stop date: 02/19/19 21:00:00 CDT Inactive 01/21/2019 [facility] Robaxin Notes: (Same as:Robaxi n) Inactive 01/21/2019 [facility] Vancomycin 2001 mg: infuse ov er 2.5 hours Inactive 01/21/2019 [facility] BD Normal Saline Flush Notes: (Same as: BD Posiflush) Inactive 01/21/2019 [facility] Robaxin Notes: (Same as:Robaxi n) Inactive 01/21/2019 [facility] heparin Notes: porcine heparin No Longer Active 01/21/2019 [facility] Soma 350 mg, Route: PO, Drug f orm: TAB, QID, Dosing Weight 140.455, kg, Start date: 01/20/19 21:00:00 CDT, Duration: 30 day, Stop date: 02/19/19 17:00:00 CDT Inactive 01/21/2019 [facility] Acetaminophen 325 MG / Hydrocodone Yevgeniy trate 10 MG Oral Tablet [[place] 10/325] Notes: Do not exceed 4gm/day of acetamin ophen. (Same as: [place] 325/10) No Longer Active 01/21/2019 [facility] Morphine Notes: (Same as:MORPh ine Sulfate) No Longer Active 01/21/2019 [facility] Acetaminophen 325 MG / Hydrocodone Yevgeniy trate 10 MG Oral Tablet [[place] 10/325] Notes: Do not exceed 4gm/day of acetamin ophen. (Same as: [place] 325/10) Inactive 01/21/2019 [facility] Carisoprodol 350 MG Oral Tablet [Soma] 350 mg = 1 tab, PO, QID, # 21 tab, 0 Refill(s) Active 01/20/2019 [facility] Acetaminophen 325 MG / Hydrocodone Yevgeniy trate 10 MG Oral Tablet [[place] 10/325] 1-2 tab, PO, Q4-6H, PRN Pain, # 30 tab, 0 Refill(s) Active 01/20/2019 [facility] pneumococcal capsular polysaccharide typ e 1 vaccine / pneumococcal capsular polysaccharide type 10A vaccine / pneumococcal capsular polysaccharide type 11A vaccine / pneumococcal capsular polysaccharide type 12F vaccine / pneumococcal capsular polysacchar Notes: (Same as: Pneumovax 23) Refrigerate No Longer Active 01/20/2019 [facility] cefepime Notes: (Same As: Jt little) MEDICATION WASTE Product Size: 1000 mg Product Wasted: _0__ mg No Longer Active 01/20/2019 [facility] Morphine 2 mg, 1 mL, Route: IV P, Drug form: SOLN, ONCE, Dosing Weight 139.091, kg, Priority: STAT, Start date: 01/20/19 16:58:00 CDT, Stop date: 01/20/19 16:58:00 CDT Inactive 01/20/2019 [facility] Acetaminophen Notes: Do not ex ceed 4 gm/day. (Same as: Tylenol) No Longer Active 01/20/2019 [facility] Vancomycin 2001 mg: infuse ov er 2.5 hours Inactive 01/20/2019 [facility] Vancomycin 2001 mg: infuse ov er 2.5 hours For adult patients only: Round to nearest 250 mg per Medical Staff approval MEDICATION WASTE Product Size: 1000 mg Product Wasted: 0mg Inactive 01/20/2019 [facility] Ancef + sterile water 20 mL No lucila: (Same As: Ancef, Kefzol) MEDICATION WASTE Product Size: 1000 mg Product Wasted: 0 mg Inactive 01/20/2019 [facility] Zofran Notes: (Same as: Zofran ) MEDICATION WASTE Product Size: 4 mg Product Wasted: _0__ mg Inactive 01/20/2019 [facility] Morphine Notes: (Same as:MORPh ine Sulfate) Inactive 01/20/2019 [facility] Sodium Chloride 0.9% (Bolus) IV 500 mL, 500 ml/hr, Infuse Over: 1 hr, Route: IV, 500, Drug form: INJ, ONCE, Priority: STAT, Dosing Weight 139.091 kg, Start date: 01/20/19 11:49:00 CDT, Stop date: 01/20/19 11:49:00 CDT Inactive 01/20/2019 [facility] Saline Flush 0.9% Notes: (Same as: BD Posiflush) No Longer Active 01/20/2019 [facility] Clindamycin Notes: (Same As: C leocin) Inactive 01/20/2019 [facility] Acetaminophen 325 MG / Hydrocodone Yevgeniy trate 5 MG Oral Tablet [[place] 5/325] Notes: (Same as: [place] 325/5) Do not ex ceed 4gm/day of acetaminophen. Inactive 01/20/2019 [facility] Allergies, Adverse Reactions, Alerts No Known Medication [...] should be multiplied by the estimated BMI. [facility] CHEM PANEL Sodium Lvl 142 135 - 145 01/21/2019 [facility] CHEM PANEL BUN 16 7 - 22 01/21/2019 [facility] CHEM PANEL Creatinine Lvl 0.76 0.50 - 1.40 01/21/2019 [facility] CHEM PANEL Glucose Lvl 92 70 - 99 01/21/2019 [facility] CHEM PANEL CO2 26 24 - 32 01/21/2019 [facility] CHEM PANEL Potassium Lvl 4.2 3.5 - 5.1 01/21/2019 [facility] CHEM PANEL Chloride Lvl 113 95 - 109 01/21/2019 [facility] CHEM PANEL ALT 20 0 - 65 01/21/2019 [facility] CHEM PANEL Calcium Lvl 7.6 8.5 - 10.5 01/21/2019 [facility] CHEM PANEL Total Protein 6.6 6.4 - 8.4 01/21/2019 [facility] CHEM PANEL Albumin Lvl 2.6 3.5 - 5.0 01/21/2019 [facility] CHEM PANEL AST 17 0 - 37 01/21/2019 [facility] CHEM PANEL Alk Phos 78 39 - 136 01/21/2019 [facility] CHEM PANEL Bili Total 0.2 0.2 - 1.3 01/21/2019 [facility] CHEM PANEL A/G Ratio 0.6 0.7 - 1.6 01/21/2019 [facility] CHEM PANEL B/C Ratio 21 6 - 25 01/21/2019 [facility] CHEM PANEL Globulin 4.0 2.7 - 4.2 01/21/2019 [facility] CHEM PANEL AGAP 7.2 10.0 - 20.0 01/21/2019 [facility] HEMATOLOGY MPV 8.2 7.4 - 10.4 01/21/2019 [facility] HEMATOLOGY Platelet 210 133 - 450 01/21/2019 [facility] HEMATOLOGY RDW 14.3 11.5 - 14.5 01/21/2019 [facility] HEMATOLOGY WBC 6.5 3.7 - 10.4 01/21/2019 [facility] HEMATOLOGY RBC 3.31 4.70 - 6.10 01/21/2019 [facility] HEMATOLOGY Hgb 9.6 14.0 - 18.0 01/21/2019 [facility] HEMATOLOGY Hct 28.2 42.0 - 54.0 01/21/2019 [facility] HEMATOLOGY MCH 29.0 27.0 - 31.0 01/21/2019 [facility] HEMATOLOGY MCV 85.2 80.0 - 94.0 01/21/2019 [facility] HEMATOLOGY MCHC 34.0 32.0 - 36.0 01/21/2019 [facility] HEMATOLOGY Monocytes 11.1 2.0 - 12.0 01/21/2019 [facility] HEMATOLOGY Basophils 0.9 0.0 - 1.0 01/21/2019 [facility] HEMATOLOGY Eosinophils 8.0 0.0 - 4.0 01/21/2019 [facility] HEMATOLOGY Basophils # 0.1 0.0 - 0.2 01/21/2019 [facility] HEMATOLOGY Eosinophils # 0.5 0.0 - 0.5 01/21/2019 [facility] HEMATOLOGY Neutrophils # 3.7 1.5 - 8.1 01/21/2019 [facility] HEMATOLOGY Monocytes # 0.7 0.0 - 0.8 01/21/2019 [facility] HEMATOLOGY Lymphocytes # 1.5 1.0 - 5.5 01/21/2019 [facility] HEMATOLOGY Segs 57.0 45.0 - 75.0 01/21/2019 [facility] HEMATOLOGY Lymphocytes 23.0 20.0 - 40.0 01/21/2019 [facility] BACTERIAL - SEROLOGY MRSA by PCR Negative (01/20/19 11:24 PM) 01/21/2019 [facility] CHEM PANEL Lactic Acid Lvl 1.2 0.5 - 2.2 01/20/2019 [facility] DRUG SCREEN U Benzodiaz Scr Nega tive *NA* (01/20/19 1:53 PM) Negative 01/20/2019 [facility] DRUG SCREEN UDS Note See Note (01/20/19 1:53 PM) 01/20/2019 [facility] DRUG SCREEN U Phencyclidine Scr Nega tive *NA* (01/20/19 1:53 PM) Negative 01/20/2019 [facility] DRUG SCREEN U Opiate Scr Posi tive *ABN* (01/20/19 1:53 PM) Negative 01/20/2019 [facility] DRUG SCREEN U Cannab Scr Nega tive *NA* (01/20/19 1:53 PM) Negative 01/20/2019 [facility] DRUG SCREEN U Cocaine Scr Nega tive *NA* (01/20/19 1:53 PM) Negative 01/20/2019 [facility] DRUG SCREEN U Brenda Scr Nega tive *NA* (01/20/19 1:53 PM) Negative 01/20/2019 [facility] DRUG SCREEN U Amph Scr Nega tive *NA* (01/20/19 1:53 PM) Negative 01/20/2019 [facility] CARDIAC ENZYMES BNP 31 <=100 pg/mL 01/20/2019 [facility] CARDIAC ENZYMES Troponin-I <0.02 0.00 - 0.40 01/20/2019 [facility] CHEM PANEL Lactic Acid Lvl 2.1 0.5 - 2.2 01/20/2019 [facility] CHEM PANEL eGFR 89 01/20/2019 Result Comment: [...] should be multiplied by the estimated BMI. [facility] CHEM PANEL Alk Phos 98 39 - 136 01/20/2019 [facility] CHEM PANEL AST 24 0 - 37 01/20/2019 [facility] CHEM PANEL ALT 27 0 - 65 01/20/2019 [facility] CHEM PANEL Bili Total 0.2 0.2 - 1.3 01/20/2019 [facility] CHEM PANEL Chloride Lvl 107 95 - 109 01/20/2019 [facility] CHEM PANEL CO2 26 24 - 32 01/20/2019 [facility] CHEM PANEL Total Protein 8.0 6.4 - 8.4 01/20/2019 [facility] CHEM PANEL Calcium Lvl 8.3 8.5 - 10.5 01/20/2019 [facility] CHEM PANEL Albumin Lvl 3.1 3.5 - 5.0 01/20/2019 [facility] CHEM PANEL Creatinine Lvl 1.00 0.50 - 1.40 01/20/2019 [facility] CHEM PANEL BUN 20 7 - 22 01/20/2019 [facility] CHEM PANEL Potassium Lvl 4.0 3.5 - 5.1 01/20/2019 [facility] CHEM PANEL Sodium Lvl 140 135 - 145 01/20/2019 [facility] CHEM PANEL Glucose Lvl 86 70 - 99 01/20/2019 [facility] CHEM PANEL B/C Ratio 20 6 - 25 01/20/2019 [facility] CHEM PANEL A/G Ratio 0.6 0.7 - 1.6 01/20/2019 [facility] CHEM PANEL Globulin 4.9 2.7 - 4.2 01/20/2019 [facility] CHEM PANEL AGAP 11.0 10.0 - 20.0 01/20/2019 [facility] CHEM PANEL Procalcitonin Lvl <0.05 ng/mL 0.00 - 0.10 01/20/2019 [facility] HEMATOLOGY Sed Rate 96 0 - 15 01/20/2019 [facility] HEMATOLOGY Platelet 260 133 - 450 01/20/2019 [facility] HEMATOLOGY MPV 8.0 7.4 - 10.4 01/20/2019 [facility] HEMATOLOGY MCV 85.4 80.0 - 94.0 01/20/2019 [facility] HEMATOLOGY MCH 28.5 27.0 - 31.0 01/20/2019 [facility] HEMATOLOGY RDW 14.5 11.5 - 14.5 01/20/2019 [facility] HEMATOLOGY MCHC 33.3 32.0 - 36.0 01/20/2019 [facility] HEMATOLOGY RBC 3.73 4.70 - 6.10 01/20/2019 [facility] HEMATOLOGY Hct 31.9 42.0 - 54.0 01/20/2019 [facility] HEMATOLOGY Hgb 10.6 14.0 - 18.0 01/20/2019 [facility] HEMATOLOGY WBC 7.7 3.7 - 10.4 01/20/2019 [facility] HEMATOLOGY Eosinophils # 0.5 0.0 - 0.5 01/20/2019 [facility] HEMATOLOGY Basophils # 0.1 0.0 - 0.2 01/20/2019 [facility] HEMATOLOGY Monocytes 7.5 2.0 - 12.0 01/20/2019 [facility] HEMATOLOGY Eosinophils 6.7 0.0 - 4.0 01/20/2019 [facility] HEMATOLOGY Basophils 0.8 0.0 - 1.0 01/20/2019 [facility] HEMATOLOGY Neutrophils # 5.3 1.5 - 8.1 01/20/2019 [facility] HEMATOLOGY Lymphocytes # 1.3 1.0 - 5.5 01/20/2019 [facility] HEMATOLOGY Monocytes # 0.6 0.0 - 0.8 01/20/2019 [facility] HEMATOLOGY Segs 68.3 45.0 - 75.0 01/20/2019 [facility] HEMATOLOGY Lymphocytes 16.7 20.0 - 40.0 01/20/2019 [facility] IMMUNOLOGY C-REACTIVE PROTEIN 85.7 <=2.9 mg/L 01/20/2019 [facility] Pathology Reports No Data Provided for This [...] No acute abnormality of the chest. SL: [id number] 01/20/2019 [facility] Tibia fibula series DX Patient Name: LAW BUTLER : 1970; Age: 48 years y/o Male MR: [id number] Study: 4 view examination of the right tibia/fibula dated 01/20/2019. Clinical Indication: Right calf pain and swelling - Pain, swelling and redness right lower leg; history of osteomyelitis of spine; Comparison: None There is near [id number] to the lateral joint compartment of the [...] knee and right ankle soft tissues. SL: [id number] 01/20/2019 [facility] Ext Lower Venous Doppler [facility] Patient Name: LAW BUTLER : 1970; Age: 48 years y/o Male MR: [id number] * RIGHT LOWER EXTREMITY VENOUS DOPPLER HISTORY: [...] deep venous thrombosis or venous obstruction. SL: [id number] 01/20/2019 [facility] Consultation Notes No Data Provided for This Section Discharge Summaries No Data Provided for This Section History and Physicals No Data Provided for This Section Vital Signs Vital Sign Value Date Comments Source Temperature Oral (F) 97.8 F 01/21/2019 [facility] Heart Rate 84 01/21/2019 [facility] Respitory Rate 18 01/21/2019 [facility] Systolic (mm Hg) 135 01/21/2019 [facility] Diastolic (mm Hg) 78 01/21/2019 [facility] Respitory Rate 18 01/21/2019 [facility] Systolic (mm Hg) 136 01/21/2019 [facility] Diastolic (mm Hg) 82 01/21/2019 [facility] Temperature Oral (F) 98.0 F 01/21/2019 [facility] Heart Rate 78 01/21/2019 [facility] Temperature Oral (F) 97.8 F 01/21/2019 [facility] Heart Rate 74 01/21/2019 [facility] Respitory Rate 18 01/21/2019 [facility] Systolic (mm Hg) 129 01/21/2019 [facility] Diastolic (mm Hg) 78 01/21/2019 [facility] BMI Calculated 39.76 01/20/2019 [facility] Height 187.96 cm 01/20/2019 [facility] Weight 140.455 01/20/2019 [facility] Weight 139.091 01/20/2019 [facility] BMI Calculated 38.33 01/20/2019 [facility] Height 190.5 cm 01/20/2019 [facility] Encounters Location Location Details Encounter Type Encounter Number Reason For Visit Attending Provider ADM Date DC Date Status Source [facility] Observation [id number] [place] 01/20/2019 01/21/2019 [facility] Procedures Procedure Code Date Perfomer Comments Source Open removal foreign body from joint [id number] [facility] ORIF - Open reduction of fracture of ank le with internal fixation [id number] [facility] Assessment and Plan Assessment and Plan Date Source Extracted from:Title: Clinical Document Author: Jaclyn Olsno MD Date: 01/21/19 INPATIENT INFECTIOUS DISEASE CONSULTATION REFERRING PHYSICIAN: Dr. El Dai CHIEF COMPLAINT: This is a 48-year-old man with abscesses of the bilateral lower extremities HISTORY OF PRESENT ILLNESS: This is a 48-year-old man well-known to our service with past medical history significant for an epidural abscess treated last year at the local [facility]. He presents to the hospital with [...] primary care provider as an outpatient. 01/21/2019 [facility] Plan of Care No Data Provided for This Section Social History Social History Date Source Social History TypeResponse Smoking Status Never smoker; Previous treatment: None; Concerns about tobacco use in household: No; Exposure to Tobacco Smoke None; Cigarette Smoking Last 365 Days No; Reg Smoking Cessation Counseling No entered on: 01/20/19 01/20/2019 [facility] Family History No Data Provided for This Section Advance Directives No Data Provided for This Section Functional Status No Data Provided for This Section
--- OUTSIDE RECORDS SUMMARY | 2020-09-15 16:03 | XMS REPORT | Clinical Summary ---
Author Author Lázaro Yarsani Organization [employer] Address Unknown Phone Unavailable Care Team Providers Care Classroom Coordinator Name Role Phone Latisha Baltazar MD PCP Allergies No Known Active Allergies Medications End Date Status Medication Sig Dispensed Refills Start Date Active HYDROcodone-acetaminophen Take 1 tablet 0 (NORCO) 10-325 mg per by mouth tablet every 6 (six) hours as needed for moderate pain. Active losartan (COZAAR) 50 MG Take 100 mg 0 tablet by mouth 9 daily. 05/14/2020 NIFEdipine XL (PROCARDIA Take 1 tablet [...] (Prim jaleel Dx); Severe sepsis (HCC) 04/11/2020 [facility] Internal [place] dicine - Encounter 04/14/2020 after 09/15/2019 Surgical History Surgery Date Site/Laterality Comments BACK SURGERY LAMINECTOMY, LUMBAR 05/12/2018 Spine Procedure: LUMBAR LAMINECTOMY L4-L5, L5-S1, Lumbar/Posterio DRAINAGE OF EPIDURAL ABSCES S; Surgeon: Alan Quintanilla MD; Location: [facility] OR; Service: Neurosurgery; Laterality: Posterior; ANKLE SURGERY [...] PRELIMINARY Routine 07/04/2020 INTERPRETATION 7:58 AM CDT FL CRITICAL CARE, E/M Routine 07/04/2020 30-74 MINUTES [...] PRELIMINARY Routine 04/11/2020 INTERPRETATION 7:17 PM CDT FL CRITICAL CARE, E/M Routine 04/11/2020 30-74 MINUTES [...] PORTABLE STAT 04/11/2020 6:31 PM CDT after 09/15/2019 Results * XR Chest 1 Vw Portable (07/04/2020 8:22 AM CDT) Only the most recent of 2 results within the time period is included. Specimen Narrative Performed At EXAMINATION: XR CHEST 1 VW PORTABLE HM [facility] CLINICAL HISTORY: SOB COMPARISON: Most Recent Prior at [facility] IMPRESSION: Lines: None Lungs and pleura: No consolidations. No pleural effusion or pneumothorax. Heart and mediastinum: Stable appearanc e of cardiomediastinal silhouette. Bones: No suspicious osseous lesions. F oreign bodies present over the right chest and axilla, unchanged. [id number] Procedure Note Hm Interface, Radiology Results Incoming - 07/04/2020 8:27 AM CDT EXAMINATION: XR CHEST 1 VW PORTABLE CLINICAL HISTORY: SOB COMPARISON: Most Recent Prior at [facility] IMPRESSION: Lines: None Lungs and pleura: No consolidations. No pleural effusion or pneumothorax. Heart and mediastinum: Stable appearance of cardiomediastinal silhouette. Bones: No suspicious osseous lesions. Foreign bodies present over the right chest and axilla, unchanged. [id number] Performing Organization Address City/State/ZIP Code P severiano Number [facility] [address] [place] [address] * ECG ED Preliminary Interpretation - Not an Order (07/04/2020 7:58 AM CDT) Only the most recent of 2 results within the time period is included. Narrative Performed At Andriy Mueller DO 07/07/2020 7:24 AM ECG ED Preliminary Interpretation - Not an Order Performed by: Andriy Mueller DO Authorized by: Andriy Mueller DO ECG reviewed by ED Physician in the abs ence of a cremator: yes Previous ECG: Previous ECG: Unavailable Rate: [...] results within the time period is included. Estimated GFR 77 mL/min/1.73 m2 MENASHA Comment: AMISH [facility] Interpretation G1 >=90 Normal or high [...] Organization Address City/State/ZIP Code P severiano Number [facility] DEPARTMENT OF [address] [place] [address] PATHOLOGY AND GENOMIC MEDICINE MENASHA AMISH [address] * Troponin (07/04/2020 7:46 AM CDT) Only the most recent of 3 results within the time period is included. Troponin <0.006 0.000 - 0.040 ng/mL MENASHA Comment: AMISH In patients suspected of HOSPITAL having a [...] Organization Address City/State/ZIP Code P severiano Number [facility] DEPARTMENT OF [address] [place] [address] PATHOLOGY AND GENOMIC MEDICINE [address] * CBC with platelet and differential (07/04/2020 7:46 AM CDT) Only the most recent of 5 results within the time period is included. WBC 9.58 4.50 - 11.00 k/uL [facility] RBC 4.32 (L) 4.40 - 6.00 m/uL [facility] HGB 12.1 (L) 14.0 - 18.0 g/dL [facility] HCT 36.7 (L) 41.0 - 51.0 % [facility] MCV 85.0 82.0 - 100.0 fL [facility] MCH 28.0 27.0 - 34.0 pg [facility] MCHC 33.0 31.0 - 37.0 g/dL [facility] RDW - SD 43.2 37.0 - 55.0 fL [facility] MPV 10.6 8.8 - 13.2 fL [facility] Platelet count 247 150 - 400 k/uL [facility] Nucleated RBC 0.00 /100 WBC [facility] Neutrophils 63.7 39.0 - 69.0 % [facility] Lymphocytes 24.7 (L) 25.0 - 45.0 % [facility] Monocytes 7.8 0.0 - 10.0 % [facility] Eosinophils 2.9 0.0 - 5.0 % [facility] Basophils 0.6 0.0 - 1.0 % [facility] Immature 0.3Comment: "Immature 0.0 - 1.0 % MENASHA granulocytes granulocytes" (promyelocytes, METHOD IST myelocytes, metamyelocytes) [facility] Specimen Blood Performing Organization Address [facility] P severiano Number [facility] DEPARTMENT OF [address] [place] [address] PATHOLOGY AND GENOMIC MEDICINE [address] * Comprehensive metabolic panel (07/04/2020 7:46 AM CDT) Only the most recent of 5 results within the time period is included. Sodium 137 135 - 148 mEq/L [facility] Potassium 3.5 3.5 - 5.0 mEq/L [facility] Chloride 98 98 - 112 mEq/L [facility] CO2 21 (L) 24 - 31 mEq/L [facility] Anion gap 18@ANIO (H) 7 - 15 mEq/L [facility] BUN 23 (H) 6 - 20 mg/dL [facility] Creatinine 1.11 0.70 - 1.20 mg/dL [facility] Glucose 102 (H) 65 - 99 mg/dL [facility] Calcium 8.4 8.3 - 10.2 mg/dL [facility] Protein 7.6 6.3 - 8.3 g/dL MENASHA Comment: [facility] 4.6-7.0 g/dL 1 week 4.4-7.6 g/dL 7 months-1year 5.1-7.3 g/dL 1-2 years 5.6-7.5 g/dL >3 years 6.0-8.0 g/dL 18-150 6.3-8.3 g/dL Albumin 3.6 3.5 - 5.0 g/dL [facility] A/G ratio 0.9 0.7 - 3.8 [facility] Alkaline 121 40 - 129 U/L MENASHA phosphatase [facility] AST 29 10 - 50 U/L [facility] ALT 31 5 - 50 U/L [facility] Total bilirubin <0.2 0.0 - 1.2 mg/dL [facility] Specimen Blood Performing Organization Address City/[facility] P severiano Number [facility] DEPARTMENT OF [address] [place] [address] PATHOLOGY AND GENOMIC MEDICINE [address] * ECG 12 lead (07/04/2020 7:28 AM CDT) Only the most recent of 2 results within the time period is included. Ventricular 67 [facility] rate Atrial rate 67 [facility] FL interval 184 [facility] QRSD interval 80 [facility] QT interval 412 [facility] QTC interval 435 [facility] P axis 1 17 [facility] QRS axis 1 25 [facility] T wave axis 22 [facility] EKG impression Normal sinus [facility] MUSE rhythm- Specimen Narrative Performed At This result has an attachment that is n ot available. Performing Organization Address City/State/[place] [address] * Thyroid stimulating hormone (04/14/2020 6:40 AM CDT) Pathologist [facility] TSH 3.50 0.55 - 4.78 uIU/mL [facility] Specimen Blood Performing Organization Address City/State/ZIP [facility] [place] [address] PATHOLOGY AND [facility] MEDICINE [address] * T4, free (04/14/2020 6:40 AM CDT) Pathologist [facility] T4, free 1.3 0.8 - 1.8 ng/dL [facility] Specimen Blood Performing Organization Address City/State/ZIP [facility] P severiano Number [facility] [place] [address] PATHOLOGY AND GENOMIC MEDICINE [address] * Vancomycin level, trough (04/13/2020 9:12 AM CDT) Pathologist [facility] Vancomycin, 20.2 (HH) 10.0 - 20.0 ug/mL MENASHA trough Comment: AMISH Therapeutic Ranges: [place] Peak 30.0 - 40.0 HOSPITAL ug/mL Trough 10.0 - 20.0 ug/mL Final results called to and read back by Clayton White RN 04/13/2020 09:51 edp Specimen Blood Performing Organization Address City/State/ZIP Code P severiano Number [facility] [address] [place] [address] PATHOLOGY AND GENOMIC MEDICINE MENASHA AMISH [address] [facility] [address] [place], [place] [address] [facility] * CT Chest Wo Contrast (04/12/2020 1:06 PM CDT) Specimen Narrative Performed At EXAMINATION: CT CHEST WO CONTRAST [facility] CLINICAL HISTORY: 49 years Male Shortne ss of breath TECHNIQUE: Multiple axial images of t he chest were obtained without intravenous contrast. Sagittal [...] the spine. Other: None. SUMMARY: 1.Negative study. [facility]-[id number] Procedure Note Hm Interface, Radiology Results Incoming [...] the spine. Other: None. SUMMARY: 1.Negative study. [facility]-[id number] Performing Organization Address City/State/ZIP Code P severiano Number [facility] [address] [place] [address] * NM Lung Perfusion Imaging (04/12/2020 1:05 PM CDT) Specimen Narrative Performed At PROCEDURE: NM LUNG PERFUSION IMAGING [facility] INDICATION: PE suspected intermediate prob positive D-dimer. COMPARISON: CT chest dated April 12. VQ scan dated February 07, 2007. TECHNIQUE: Ventilation images were no t obtained. The patient was injected with 5 mCi of [id number] intravenous ly, followed by imaging of the lungs in 8 projections. FINDINGS: Mild left perihilar perfusion defect, nonsegmental. IMPRESSION: Very Low probability for pulmonary embo lism. [facility]-[id number] Dictated and approved by radiology resi dent/fellow: [...] patient was injected with 5 mCi of [id number] intravenously, followed by imaging of the lungs in 8 projections. FINDINGS: Mild left perihilar perfusion defect, nonsegmental. IMPRESSION: Very Low probability for pulmonary embolism. [facility]-[id number] Dictated and approved by interventional radiology technologist/fellow: Rolando Head M.D. I, Bro Grimes, personally reviewed the images and resident's/fellow's findings and agree with the final report. Performing Organization Address City/State/ZIP Code P severiano Number [facility] [address] [place] [address] * Urinalysis screen and microscopy, with reflex to culture (04/12/2020 9:15 AM CDT) Specimen site Clean catch [facility] Color, UA Yellow YELLOW [facility] Appearance, UA Clear Clear [facility] Specific 1.009 1.005 - 1.030 MENASHA gravity, UA [facility] pH, UA 6.0 5.0 - 8.0 [facility] Protein, UA Negative Negative [facility] Glucose, UA Negative Negative [facility] Ketones, UA Negative Negative [facility] Bilirubin, UA Negative Negative [facility] Blood, UA Negative Negative [facility] Nitrite, UA Negative NEGATIVE [facility] Urobilinogen, <2.0 <2.0 E.U./dL MENASHA UA [facility] Leukocyte Negative Negative MENASHA esterase, UA [facility] Epithelial <1 0 - 15 /HPF MENASHA cells, UA [facility] WBC, UA 1 0 - 5 /Hpf [facility] RBC, UA 3 0 - 5 /HPF [facility] Bacteria, UA Few (A) None seen [facility] Yeast, UA None seen None Seen [facility] Yeast with None seen MENASHA pseudohyphae, [facility] Specimen Urine Performing Organization Address City/State/ZIP Code P severiano Number [facility] DEPARTMENT [address] [place] [address] PATHOLOGY AND GENOMIC MEDICINE [address] [place], [place] [address] [facility] * Streptococcus pneumoniae urinary antigen (04/12/2020 9:15 AM CDT) Strep pneumo Negative for Streptococcus MENASHA urinary Ag pneumoniae antigen. AMISH Comment: HOSPITAL Specimen Information Specimen Source: Urine Specimen Site: Random void Specimen Urine - Random void Performing Organization Address City/State/ZIP Code P severiano Number [facility] [place] [address] PATHOLOGY AND GENOMIC MEDICINE MENASHA AMISH[address] * Legionella urinary antigen (04/12/2020 9:15 AM CDT) Legionella Negative for Legionella MENASHA urinary antigen serogroup 1 antigen. AMISH Comment: HOSPITAL Specimen Information Specimen Source: Urine Specimen Site: Random void Specimen Urine - Random void Performing Organization Address City/State/ZIP Code P severiano Number [facility] DEPARTMENT OF [address] [place] [address] PATHOLOGY AND GENOMIC MEDICINE [facility] [address] [place], [place] [id number] [place] [address] * Urine culture (04/12/2020 9:15 AM CDT) Pathologist [facility] Urine culture SEE COMMENTComment: MENASHA Bacteriuria screen negative. [facility] Specimen Performing Organization Address [facility] [place] [address] PATHOLOGY AND GENOMIC MEDICINE [address] * Arterial blood gas (04/12/2020 5:23 AM CDT) Pathologist [facility] pH, arterial 7.38 7.35 - 7.45 Units [facility] pCO2, arterial 39 35 - 45 mmHg [facility] pO2, arterial 93 83 - 108 mmHg [facility] Bicarbonate, 22.6 21.0 - 28.0 mEq/L MENASHA arterial [facility] Base excess, -1.7 (L) -0.2 - 0.3 mEq/L [facility] O2 saturation, 97 95 - 98 % MENASHA arterial [facility] FiO2 21.0 [facility] Total CO2 21 mEq/L [facility] O2 content 15.1 15.0 - 23.0 VOL % [facility] Specimen Blood Performing Organization Address City/[facility] [place] [address] PATHOLOGY AND GENOMIC MEDICINE [address] * Respiratory pathogen panel (04/12/2020 4:10 AM CDT) Adenovirus PCR Not Detected MENASHA Comment: AMISH Specimen Information HOSPITAL Specimen Source: Nares Specimen Site: Left Coronavirus Not Detected MENASHA HKU1 PCR [facility] Coronavirus Not Detected MENASHA NL63 PCR [facility] Coronavirus Not Detected MENASHA 229E PCR [facility] Coronavirus Not Detected MENASHA OC43 PCR [facility] Human Not Detected MENASHA metapneumovirus [facility] Not Detected MENASHA rhinovirus/ente AMISH rovirus PCR [facility] Influenza A PCR Not Detected [facility] Influenza A/H1 Not Reported [facility]SHA PCR [facility] Influenza A/H3 Not Reported [facility] PCR [facility] Influenza Not Reported MENASHA A/H1-2009 PCR [facility] Influenza B PCR Not Detected [facility] Parainfluenza Not Detected MENASHA virus 1 PCR AMISH [facility] Parainfluenza Not Detected MENASHA virus 2 PCR [facility] Parainfluenza Not Detected MENASHA virus 3 PCR AMISH [facility] Parainfluenza Not Detected MENASHA virus 4 PCR AMISH [facility] Respiratory Not Detected MENASHA syncytial virus [facility]ISH PCR HOSPITAL Bordetella Not Detected MENASHA pertussis PCR AMISH [facility] Bordetella Not Detected MENASHA parapertussis [facility]ISH PCR HOSPITAL Chlamydia Not Detected MENASHA pneumoniae PCR AMISH [facility] Mycoplasma Not Detected MENASHA pneumoniae PCR AMISH [facility] Influenza A no Not Reported MENASHA sub type PCR [facility] Specimen Nares - Left Performing Organization Address City/State/ZIP Code P severiano Number [facility] [place] [address] PATHOLOGY AND GENOMIC MEDICINE [address] * Influenza antigen (04/12/2020 4:10 AM CDT) [facility] Influenza Negative for Influenza A/B MENASHA antigen antigen. AMISH Comment: [facility] Specimen Source: Nares Specimen Site: Left Specimen Nares - Left Performing Organization Address City/State/[facility] [place] [address] PATHOLOGY AND GENOMIC MEDICINE [address] * Group A strep, rapid antigen (04/12/2020 4:08 AM CDT) [facility] Group A strep, Negative for Group A MENASHA rapid antigen Streptococcus antigen. AMISH result Comment: [facility] Specimen Source: Throat Specimen Site: Not otherwise specified Specimen Throat - Not otherwise specified Performing Organization Address City/State/ZIP [facility] [place] [address] PATHOLOGY AND GENOMIC MEDICINE [address] * Strep screen culture (04/12/2020 4:08 AM CDT) [facility] Strep screen No beta hemolytic Streptococci [place] N culture isolate isolated AMISH Comment: HOSPITAL Specimen Information Specimen Source: Throat Specimen Site: Not otherwise specified Specimen Throat - Not otherwise specified Performing Organization Address City/[facility]/ZIP Code P severiano Number [facility] DEPARTMENT OF [address] [place] [address] PATHOLOGY AND [facility] MEDICINE [address] * Fibrinogen (04/12/2020 4:05 AM CDT) Fibrinogen 406.0Comment: The reference 200.0 - 450.0 mg/d L MENASHA range has changed starting AMISH 04/02/2010 @12:00pm [facility] Specimen Blood Performing Organization Address City/[facility] P severiano Number [address] * D-dimer (04/12/2020 4:05 AM CDT) Pathologist [facility] D-dimer 2.37 (H) 0.00 - 0.40 ug/mL MENASHA Comment: FEU AMISH When combined with low [place] clinical probability, D-dimer HOSPITAL results of less [...] and malignancies. Specimen Blood Performing Organization Address City/[facility] [place] [address] PATHOLOGY AND [facility] MEDICINE [place] [id number] [facility] * Type and screen (04/12/2020 4:05 AM CDT) ABO grouping O [facility] Rh type POS [facility] Antibody screen NEG MENASHA (gel) [facility] Specimen Blood Performing Organization Address City/[facility]/ZIP Code [place] [address] [facility] * C-reactive protein (04/12/2020 4:05 AM CDT) CRP 3.40 (H) 0.00 - 1.00 mg/dL [facility] Specimen Blood Performing Organization Address City/State/ZIP Code [place] [address] PATHOLOGY AND GENOMIC MEDICINE [address] * LDH (04/12/2020 4:05 AM CDT) LDH 195 (L) 300 - 600 U/L [facility] Specimen Blood Performing Organization Address City/State/ZIP Code P severiano Number [facility] [place] [address] PATHOLOGY AND GENOMIC MEDICINE [address] * Ferritin level (04/12/2020 4:05 AM CDT) Ferritin level 132 18 - 464 ng/mL [facility] Specimen Blood Performing Organization Address City/State/ZIP Code P severiano Number [facility] [place] [address] PATHOLOGY AND GENOMIC MEDICINE [address] * Creatine kinase, total (CPK) (04/12/2020 4:05 AM CDT) Creatine kinase 90 35 - 200 U/L [facility] Specimen Blood Performing Organization Address City/State/Z[place] [address] PATHOLOGY AND GENOMIC MEDICINE [address] * Lipid panel (04/12/2020 4:05 AM CDT) Cholesterol 120 0 - 199 mg/dL [facility] Triglycerides 90 0 - 149 mg/dL [facility] HDL cholesterol 37 (L) 40 - 9,999 mg/dL [facility] LDL cholesterol 74 0 - 99 mg/dL [facility] Lipid panel See below MATTA interpretation Comment: AMISH Total Cholesterol (mg/dL) [facility] <200 Desirable 200-239 Borderline-high >=240 High Triglycerides [...] (>=200 mg/dL) Specimen Blood Performing Organization Address [facility] [place] [address] PATHOLOGY AND GENOMIC MEDICINE [address] * Lactic acid level, SEPSIS - Now and repeat 2x every 3 hours (04/11/2020 10:40 PM CDT) Only the most recent of 2 results within the time period is included. Lactic acid 2.4 (H) 0.5 - 2.2 mmol/L [facility] Specimen Blood Performing Organization Address [facility] [place] [address] PATHOLOGY AND GENOMIC MEDICINE [address] * CRITICAL CARE (04/11/2020 7:17 PM CDT) [...] COVID-19 qualitative PCR (04/11/2020 6:58 PM CDT) Pathologist [facility] Interpretation Negative results do not MATTA preclude 2019-nCoV infection AMISH and should not be used as the HOSPITAL sole basis for treatment or other patient management decisions. Negative results must be combined with clinical observations, patient history, and epidemiological information. COVID-19 Not-Detected Not-Detected MENASHA qualitative PCR AMISH result HOSPITAL COVID-19 See link below for PDF Lab MENASHA qualitative PCR ReportComment: Case Number: AMISH [id number] HOSPITAL Specimen Performing Organization Address [facility] [place] [address] PATHOLOGY AND GENOMIC MEDICINE [address] * Blood culture, aerobic & anaerobic (04/11/2020 6:46 PM CDT) Only the most recent of 2 results within the time period is included. [facility] Blood culture No growth after 5 days of MENASHA isolate incubation. AMISH Comment: HOSPITAL Specimen Information Specimen Source: Blood Specimen Site: Arm, left Specimen Blood - Arm, left Performing Organization Address [facility] [place] [address] PATHOLOGY AND GENOMIC MEDICINE [address] * B natriuretic peptide (04/11/2020 6:42 PM CDT) Pathologist [facility] BNP 56 0 - 100 pg/mL [facility] Specimen Blood Performing Organization Address City/State/ZIP Code P severiano Number [facility] [address] [facility] [address] [place] [address] PATHOLOGY AND GENOMIC MEDICINE MENASHA AMISH [id number] [facility] [address] [place], [place] [address] [facility] after 09/15/2019 Insurance Type Payer Benefit Subscriber ID Effective Phone Address Plan / Dates Group HMO [employer] [id number] 2019-P DUAL resent OPTIONS STARPLUS MMP HMO [facility] MEDICARE [facility] [id number] 2020-P CONNECTED resent (MEDICARE- MEDICAID PLAN) Advance Directives For more information, please contact: [phone] 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
--- OUTSIDE RECORDS SUMMARY | 2020-09-15 16:04 | XMS REPORT | Continuity of Care Document ---
Author Author [facility] Organization [facility] Address [address] [place] [address] Phone Unavailable Care Team Providers Care Auto [employer] Clerk Name Role Phone NO, PCP PCP Unavailable FATOUMATA HERNANDEZ Attphys Unavailable Odita, N Chukuemeka Attphys Unavailable Odita, N [place]a Attphys Unavailable Lester Leggett DO Attphys Judy MORENO Attphys Unavailable Toño Watkins Attphys Chelsey YOST, Tanika Attphys Antony YOST, Adriana Ware Attphys [phone] Ladonna YOST, Daly Attphys Damien YOST, Ze Tucker Attphys Dede YOST, Ceci Kaplan Attphys BriannaVandana Attphys JuarezApolinar Attphys Rafi Shepherd Attphys Naina Li Attphys Judy Dai Mubarak Attphys Lina Russ Attphys Juvencio Dickson Jr Attphys Deepa Barkley Attphys FATOUMATA HERNANDEZ Admphys Unavailable Julissa, Flavia Sharif Admphys Unavailable Toño Watkins Admphys DALY DOUGHERTY Admphys Unavailable Judy Dai Mubarak Admphys Payers Payer Name Policy Type Policy Number Effective Date Expiration Date Debbie Britt [id number] 2019 00:00:00 [facility] [id number] 2019 00:00 :00 [facility] [employer]ROUPAMER[employer] DUAL OPTIONS STARPLUS [id number] 020-PresentHMO [id number] 2019 00:00:00 [facility]ázaro [facility]raza [facility] (MEDICARE-MEDICAID PLAN)xxxx [id number] 2019-PresentHMO [id number] 2020 00:00:00 Lázaro hurst Problems Condition Name Condition Details Condition Category Status Onset Date Resolution Date Last Treatment Date Treating Clinician Comments Source SHORT OF BREATH, CHEST PAIN SH ORT OF BREATH, CHEST PAIN Active 05/05/2020 [facility] Diagnosis Active 2020-05-05 00:00:0 0 2020-05-05 19:42:00 [facility] CELLULITIS OF RIGHT LOWER EXTREMITY, CHUN CELLULITIS OF RIGHT LOWER EXTREMITY, CHUN Active 05/05/2020 [facility] Diagnosis Active 2020-05-05 00:00:00 2020-05-21 14:36:00 [facility] Suspected COVID-19 virus infection Suspected COVID-19 virus infe ction Disease Active 2020-04-11 00:00:00 [place] [facility] CHEST DISCOMFORT CHES T DISCOMFORT Active 12/23/2019 [facility] Diagnosis Active 2019-12-23 00:00:00 2019-12-30 13:10:00 [facility] SOB SOB Active 07/24/2019 [facility] Diagnosis Active 2019-07-24 00:00:00 2020-07-30 11:22:00 [facility] HEART BURN , HEAR T BURN , Active 07/05/2019 [facility] Diagnosis Active 2019-07-05 00:00:00 2019-07-08 12:32:00 [facility] CELLULITIS CELL ULITIS Active 05/07/2019 [facility] Diagnosis Active 2019-05-07 00:00:00 2019-05-16 11:45:00 [facility] Bilateral lower extremity edema Bilateral lower extremity edema Dis ease Active 2019-02-27 00:00:00 Lázaro Pedraza LEG SWELLING LEG SWELLING Active 01/20/2019 [facility] Diagnosis Active 2019-01-20 00:00:00 2019-01-24 16:16:00 [facility] Acute renal failure Acute renal failure Disease Active 2019-01-14 00:00 :00 Lázaro Pedraza 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 Disease Active 2018-05-11 00:00:00 Lázaro Pedraza ABD PAIN ABD PAIN Active 12/24/2016 [facility] Diagnosis Active 2016-12-24 00:00:00 2017-01-01 05:06:00 [facility] Cellulitis Problem Active 2016-03-07 00:00:00 [facility] Hypokalemia Problem Active 2016-03-07 00:00:00 [facility] CHEST PAIN CHES T PAIN Active 08/28/2015 [facility] Diagnosis Active 2015-08-28 00:00:00 2015-08-28 20:19:00 [facility] ABSCESS ABSC ESS Active 07/02/2014 [facility] Diagnosis Active 2014-07-02 00:00:00 2014-07-02 14:28:00 [facility] TOOTH ACHE TOOT H ACHE Active 05/07/2014 [facility] Diagnosis Active 2014-05-07 00:00:00 2014-07-03 09:51:00 [facility] RASH RASH Active 01/04/2014 [facility] Diagnosis Active 2014-01-04 12:00:00 2014-07-03 09:49:00 [facility] Methicillin resistant Staphylococcus aureus (organism) Methicillin resistant Staphylococcus aureus (organism) Active 06/04/2013 Problem 05/08/2020 MRSA boil,Problem added by Discern Expert. [facility] Problem Active 2013-06-04 00:00:00 2020-05-08 21:28:42 [facility] Headache Problem Active [facility] Drug abuse Problem Active [facility] Chest pain Problem Active [facility] Anxiety (finding) Anxi ety (finding) Resolved Problem 05/08/2020 [facility] Problem Resolved 2020-05-08 21:28:42 [facility] Chronic pain (finding) Esol Teacher Assistant adilene pain (finding) Resolved Problem 05/08/2020 [facility] Problem Resolved 2020-05-08 21:28:42 [facility] Hypertensive disorder, systemic arterial (disorder) Hypertensive disorder, systemic arterial (disorder) Resolved Problem 05/08/2020 [facility] Problem Resolved 2020-05-08 21:28:42 [facility] Psychiatry service (qualifier value) Psychiatry service (qualifier value) Resolved Problem 05/08/2020 [facility] Problem Resolved 2020-05-08 21:28:42 [facility] CELLULITIS NOS CELL ULITIS NOS Active [facility] Diagnosis Active 2014-07-18 12:04:00 [facility] CELLULITIS OF RIGHT LOWER LIMB CELLULITIS OF RIGHT LOWER LIMB Active [facility] Diagnosis Active 2019 14:36:00 [facility] CHEST PAIN, UNSPECIFIED CHES T PAIN, UNSPECIFIED Active [facility] Diagnosis Active 2020-05-21 14:36:00 [facility] Other chest pain Othe r chest pain 12/23/2019 12/25/2019 [facility] Problem 2019-12-23 18:00:00 2019-12-25 23:30: 38 2019-12-25 23:30:38 [facility] Acute upper respiratory infection, unspecified Acute upper respiratory infection, unspecified 07/24/2019 07/26/2019 [facility] Problem 2019-07-24 17:00:00 2019-07-26 21:29:36 2019-07-26 21:29 :36 [facility] Edema, unspecified Owen a, unspecified 05/07/2019 05/09/2019 [facility] Problem 2019-05-07 17:00:00 2019-05-09 22:10:20 2019-05-09 22:10:20 [facility] Cellulitis of right lower limb Cellulitis of right lower limb 05/07/2019 05/09/2019 [facility] Problem 6 17:00:00 2019-05-09 22:10:20 2019-05-09 22:10:20 [facility] Discharge Diagnosis: Heroin abuse Discharge Diagnosis: Heroin abuse 12/24/2016 12/27/2016 [facility] Problem 2016-12-24 06:00:00 2016-12-27 04:18:03 2016-12-27 04:18:03 emorimarlena Johnie Discharge Diagnosis: Chest pain Discharge Diagnosis: Chest pain 12/24/2016 12/27/2016 [facility] Problem 2016-12-24 06:00:00 2016-12-27 04:18:03 2016-12-27 04:18:03 [facility] Discharge Diagnosis: Dental caries Discharge Diagnosis: Dental caries 05/07/2014 05/09/2014 [facility] Problem 2014-05-07 05:00:00 2014-05-09 21:51:16 2014-05-09 21:51:16 [facility] Discharge Diagnosis: Dental abscess Discharge Diagnosis: Dental abscess 05/07/2014 05/09/2014 [facility] Problem 2014-05-07 05:00:00 2014-05-09 21:51:16 2014-05-09 21:51:16 [facility] Allergies, Adverse Reactions, Alerts Allergy Name Allergy Type Status Severity Reaction(s) Onset Date Inacti ve Date Treating Clinician Comments Source No Known Allergies DA Active U 2019-10-19 00:00:00 [facility] No Known Allergies DA Active U 2018-07-12 00:00:00 [facility] No Known Allergies DA Active U 2018-01-02 00:00:00 [facility] No Known Medication Allergies No Known Medication Allergies Active [facility] Family History Family Member Diagnosis Comments Start Date Stop Date Source 33 FATHER Family history of acute myocardial infarction [facility] Natural father Heart disease Lázaro Pedraza Natural father Hypertension [place] [facility] Natural father [facility] mother No Known Problems Efren Pedraza Social History Social Habit Start Date Stop Date Quantity Comments Source History of tobacco use Cigarette Smoker Lázaro Pedraza Sex Assigned At Efren Pedraza Tobacco use and exposure 2020-04-11 00:00:00 2020-04-11 00:00:00 Neve r used Lázaro Pedraza Alcohol intake 2020-04-11 00:00:00 2020-04-11 00:00:00 Current non-drinker of alcohol (finding) Lázaro Pedraza Social History 2014-01-05 00:15:48 2014-01-05 00:15:48 [facility] Smoking Status Start Date Stop Date Source Current some day smoker 2020-04-11 00:00:00 [place] alberto Pedraza Social [facility] Medications Ordered Medication Name Filled Medication Name Start Date Stop Da te Current Medication? Ordering Clinician Indication Dosage Frequency Signature (SIG) Comments Components Source Furosemide Furosemide 2020-09-10 09:31:00 Yes 40 Reyna ly [facility] Potassium Chloride Potassium Chloride 2020-09-10 09:31:00 Yes 20 Daily [facility] Rivaroxaban (Xarelto) 20 Mg TABLET Rivaroxaban (Xarelto) 20 Mg TABLET 2020-09-10 09:31:00 Yes 20 Daily [facility] clindamycin 150 mg oral capsule 2020-05-06 19:40:00 Yes 450 mg = 3 cap, PO, TID, X 9 day, # 81 cap, 0 Refill(s), Pharmacy: [facility] 392, 187.96, cm, 05/06/20 1:51:00 CDT, Height, 145.227, kg, 05/06/20 1:51:00 CDT, Weight Aki Jett Robaxin 2020-05-06 17:05:00 No Notes: (Same as:Robaxin) Aki Jett Carisoprodol 2020-05-06 16:55:00 No 350 mg, Route: PO, Drug form: TAB, BID, Dosing Weight 145.227, kg, PRN Spasm, Start date: 05/06/20 11:55:00 CDT, Duration: 5 day, Stop date: 05/11/20 11:54:00 CDT Aki Jett Atenolol 50 MG Oral Tablet 2020-05-06 14:00:00 No Notes: (Same As:Tenormin) Aki Jett Clindamycin 2020-05-06 12:00:00 No 600 mg, 50 mL, Route: IVPB, Drug form: INJ, ABXQ8H, Dosing Weight 136.364, kg, Start date: 05/06/20 7:00:00 CDT, Duration: 5 day, Stop date: 05/10/20 23:00:00 CDT, ABX Indication: Skin/Soft Tissue Infection, 0 Aki Martinezann NS 1,000 mL 2020-05-06 04:47:00 No 1,000 mL, Rate: 75 ml/hr, Infuse over: 13.3 hr, Route: IV, Dosing Weight 136.364 kg, Total Volume: 1,000, Start date: 05/05/20 23:47:00 CDT, Duration: 30 day, Stop date: 06/04/20 23:46:00 CDT, 2.69, m2, 0 [facility] [place] Dextrose 50% Syringe (D50W) 2020-05-06 04:40:00 No 12.5 gm, 25 mL, Route: IVP, Drug Form: INJ, Dosing Weight 136.364, kg, PRN, PRN Blood Glucose Results, Start date: 05/05/20 23:40:00 CDT, Duration: 30 day, Stop date: 06/04/20 23:39:00 CDT, 0 Aki Martinezan n Glucagon 2020-05-06 04:40:00 No 1 mg, Route: IM, Drug form: PDR/INJ, PRN, Dosing Weight 136.364, kg, PRN Blood Glucose Results, Start date: 05/05/20 23:40:00 CDT, Duration: 30 day, Stop date: 06/04/20 23:39:00 CDT, 0 [facility] Docusate 2020-05-06 04:40:00 No Notes: (Same as: Colace) (Do Not Crush) [facility] Ondansetron 2020-05-06 04:40:00 No Notes: (Same as: Zofran) MEDICATION WASTE Product Size: 4 mg Product Wasted: ___ mg [facility] Melatonin 2020-05-06 04:40:00 No Notes: (Sa me as: Melatonin) [facility] Acetaminophen 2020-05-06 04:40:00 No Notes: Do not exceed 4 gm/day. (Same as: Tylenol) [facility] Benadryl 2020-05-06 04:38:00 No Notes: (Marco Antonio e as: Benadryl) [facility] Acetaminophen 325 MG / Hydrocodone Yevgeniy trate 7.5 MG Oral Tablet [Delmont 7.5/325] 2020-05-06 04:38:00 No Notes: Same as Del[place] 325-7.5mg Do not exceed 4gm/day of acetaminophen. [facility] Morphine 2020-05-06 04:38:00 No Not es: (Same as:MORPhine Sulfate) [facility] Aspirin 2020-05-06 04:23:00 No 325 mg, Route: PO, Drug form: TAB, ONCE, Dosing Weight 136.364, kg, Priority: STAT, Start date: 05/05/20 23:23:00 CDT, Stop date: 05/05/20 23:23:00 CDT Ca morial [place] Morphine 2020-05-06 04:08:00 No Not es: (Same as:MORPhine Sulfate) [facility] Zofran 2020-05-06 04:08:00 No Notes: (Same as: Zofran) MEDICATION WASTE Product Size: 4 mg Product Wasted: ___ mg [facility] Clindamycin 2020-05-06 03:47:00 No 600 mg, 50 mL, Route: IVPB, Drug form: INJ, ONCE, Dosing Weight 136.364, kg, Priority: STAT, Start date: 05/05/20 22:47:00 CDT, Stop date: 05/05/20 22:47:00 CDT, ABX Indication: Skin/Soft Tissue Infection, 0 [facility] Morphine 2020-05-06 02:37:00 No 4 mg, Route: IVP, ONCE, Dosing Weight 136.364, kg, Priority: STAT, Start date: 05/05/20 21:37:00 CDT, Stop date: 05/05/20 21:37:00 CDT Aki rivera Zofran 2020-05-06 02:37:00 No 4 mg, Route: IVP, Drug form: INJ, ONCE, Dosing Weight 136.364, kg, Priority: STAT, Start date: 05/05/20 21:37:00 CDT, Stop date: 05/05/20 21:37:00 CDT Ca mira Jett Saline Flush 0.9% 2020-05-05 23:56:00 No Notes: [...] kg, Priority: STAT, Start date: 12/23/19 21:31:00 MENTAL HYGIENIST, Stop date: 12/23/19 21:31:00 MENTAL HYGIENIST Kailee Jett tramadol hydrochloride 50 MG Oral Tablet 2019-12-24 03:20:00 No Notes: Not to exceed 400mg/day. (Same As: Ultram) Aki Jett Saline Flush 0.9% 2019-12-24 01:34:00 No Notes: (Same as: BD Posiflush) Aki Jett Ketorolac 2019-12-24 01:34:00 No 4 days MEDICATION WASTE Product Size: 30 mg Product Wasted: ___ mg Aki Jett 200 ACTUAT Albuterol 0.09 MG/ACTUAT Dry Powder [...] Hydrocodone Bitartrate 10 MG Or al Tablet [Delmont 10/325] 2019-07-08 18:07:00 Yes 1 tab, PO, [...] 7 day, # 28 cap, 0 Refill(s) [facility] acetaminophen-codeine #3 2019-05-08 01:32:00 No Notes: Do not exceed 4gm/day of acetaminophen. (Same as: Tylenol with Codeine # 3) Aki Jett Keflex 2019-05-08 01:05:00 No Notes: Take on empty stomach. (Same As: Keflex) Aki Jett Lasix 2019-05-08 01:05:00 No Notes: (Same as: Lasix) MEDICATION WASTE Product Size: 40 mg Product Wasted: ___ mg [facility] losartan (COZAAR) 50 MG tablet 2019-02-22 00:00:00 Yes 100mg QD Take 100 mg by mouth daily. [place] [facility] Cephalexin 2019-01-21 19:00:00 No Notes: Take on empty stomach. (Same As: Keflex) [facility] Doxycycline 2019-01-21 19:00:00 No Notes: (Same as: Vibramycin) No milk/antacids/iron. Aki Jett cephalexin 500 mg oral tablet 2019-01-21 18:46:00 Yes 500 mg = 1 tab, PO, QID, X 7 day, # 28 tab, 0 Refill(s), Pharmacy: [facility] [id number] doxycycline hyclate 100 MG Oral Capsule 2019-01-21 18:46:00 Yes 100 mg = 1 cap, PO, BID, X 7 day, # 14 cap, 0 Refill(s), Pharmacy: [facility] [id number] [facility] Soma 2019-01-21 14:00:00 No 350 mg, Route: PO, Drug form: TAB, QID, Dosing Weight 140.455, kg, Start date: 01/21/19 9:00:00 CDT, Duration: 30 day, Stop date: 02/19/19 21:00:00 CDT Kailee Jett Robaxin 2019-01-21 07:30:00 No Notes: (Same as:Robaxin) [facility] Vancomycin 2019-01-21 06:00:00 No 2001 mg: infuse over 2.5 hours [facility] BD Normal Saline Flush 2019-01-21 05:34:00 No Notes: (Same as: BD Posiflush) [facility] Robaxin 2019-01-21 02:00:00 No Notes: (Same as:Robaxin) [facility] heparin 2019-01-21 02:00:00 No Notes: porci ne heparin [facility] Soma 2019-01-21 02:00:00 No 350 mg, Route: PO, Drug form: TAB, QID, Dosing Weight 140.455, kg, Start date: 01/20/19 21:00:00 CDT, Duration: 30 day, Stop date: 02/19/19 17:00:00 CDT [facility] [place] Acetaminophen 325 MG / Hydrocodone Bitartrate 10 MG Or al Tablet [Delmont 10/325] 2019-01-21 01:53:00 No Note s: Do not exceed 4gm/day of acetaminophen. (Same as: Delmont 325/10) [facility] Morphine 2019-01-21 01:53:00 No Not es: (Same as:MORPhine Sulfate) [facility] Acetaminophen 325 MG / Hydrocodone Bitartrate 10 MG Or al Tablet [Delmont 10/325] 2019-01-21 01:26:00 No Note s: Do not exceed 4gm/day of acetaminophen. (Same as: Delmont 325/10) [facility] Carisoprodol 350 MG Oral Tablet [[facility]] 2019-01-20 22:48:00 Yes 350 mg = 1 tab, PO, QID, # 21 tab, 0 Refill(s) [facility] Acetaminophen 325 MG / Hydrocodone Bitartrate 10 MG Or al Tablet [Delmont 10/325] 2019-01-20 22:48:00 Yes 1-2 tab, PO, Q4-6H, PRN Pain, # 30 tab, 0 Refill(s) [facility] pneumococcal capsular polysaccharide typ e 1 vaccine [...] Size: 1000 mg Product Wasted: _0__ mg [facility] Morphine 2019-01-20 21:58:00 No 2 mg, 1 mL, Route: IVP, Drug form: SOLN, ONCE, Dosing Weight 139.091, kg, Priority: STAT, Start date: 01/20/19 16:58:00 CDT, Stop date: 01/20/19 16:58:00 CDT [facility] Acetaminophen 2019-01-20 20:54:00 No Notes: Do not exceed 4 gm/day. (Same as: Tylenol) [facility] Vancomycin 2019-01-20 20:52:00 No 2001 mg: infuse over 2.5 hours [facility] Vancomycin 2019-01-20 20:18:00 No 2001 mg: infuse over 2.5 hours For adult patients only: Round to nearest 250 mg per Medical Staff approval MEDICATION WASTE Product Size: 1000 mg Product Wasted: 0mg [facility] Ancef + sterile water 20 mL 2019-01-20 20:18:00 No Notes: (Same As: Nael Ball) MEDICATION WASTE Product Size: 1000 mg Product Wasted: 0 mg [facility] Zofran 2019-01-20 18:25:00 No Notes: (Same as: Zofran) MEDICATION WASTE Product Size: 4 mg Product Wasted: _0__ mg [facility] Morphine 2019-01-20 18:25:00 No Not es: (Same as:MORPhine Sulfate) [facility] Sodium Chloride 0.9% (Bolus) IV 2019-01-20 16:49:00 No 500 mL, 500 ml/hr, Infuse Over: 1 hr, Route: IV, 500, Drug form: INJ, ONCE, Priority: STAT, Dosing Weight 139.091 kg, Start date: 01/20/19 11:49:00 CDT, Stop date: 01/20/19 11:49:00 CDT [facility] Saline Flush 0.9% 2019-01-20 16:49:00 No Notes: (Same as: BD Posiflush) Aki Jett Clindamycin 2019-01-20 16:49:00 No Notes: ( Same As: Cleocin) Aki Jett Acetaminophen 325 MG / Hydrocodone Bitartrate 5 MG Oral Tabl et [Delmont 5/325] 2019-01-20 16:49:00 No Notes: (Same as: Delmont 325/5) Do not exceed 4gm/day of acetaminophen. Aki Romero Saline Flush 0.9% 2016-12-24 06:41:00 No 10 mL, Route: IVP, Drug Form: INJ, Dosing Weight 121.364, kg, PRN, PRN Line Flush, Start date: 12/24/16 0:41:00 MENTAL HYGIENIST, Duration: 30 day, Stop date: 01/23/17 1:40:00 CDT [facility] Acetaminophen 300 MG / Codeine Phosphate 30 MG Oral Tablet [Tylenol with Codeine #3] 2015-08-29 01:54:00 No 1 tab, Route: PO, Drug Form: TAB, Dosing Weight 136.364, kg, ONCE, STAT, Start date: 08/28/15 20:54:00, Stop date: 08/28/15 20:54:00 [facility] Ativan 2015-08-29 01:54:00 No 1 mg, Route: IVP, Drug form: INJ, ONCE, Dosing Weight 136.364, kg, Priority: STAT, Start date: 08/28/15 20:54:00, Stop date: 08/28/15 20:54:00 [facility] Saline Flush 0.9% 2015-08-28 23:43:00 No Notes: (Same as: BD Posiflush) [facility] Acetaminophen 325 MG / Hydrocodone Bitartrate 5 MG Oral Tabl et [Delmont 5/325] 2014-07-02 19:40:00 Yes 1-2 tab, PO, Q4-6H, Pain, # 15 tab, 0 Refill(s) [facility] Cephalexin 500 MG Oral Capsule [Keflex] 2014-07-02 19:40:00 Yes 500 mg = 1 cap, PO, QID, # 40 cap, 0 Refill(s) [facility] Sulfamethoxazole 800 MG / Trimethoprim 160 MG Oral Tablet [B actrim] 2014-07-02 19:40:00 Yes 1 tab, PO, BID, # 20 tab, 0 Refill(s) Aki Jett Ibuprofen 2014-07-02 18:57:00 No 800 mg, Route: PO, Drug form: TAB, ONCE, Dosing Weight 150, kg, Priority: STAT, Start date: 07/02/14 13:57:00, Stop date: 07/02/14 13:57:00 Aki Benjamin n Acetaminophen 325 MG / Hydrocodone Bitartrate 5 MG Oral Tabl et [Delmont 5/325] 2014-05-08 01:03:00 Yes 1-2 tab, PO, Q4-6H, Pain, # 30 tab, 0 Refill(s) Aki Johnie Sulfamethoxazole 800 MG / Trimethoprim 160 MG Oral Tablet [B actrim] 2014-05-08 01:03:00 Yes 1 tab, PO, BID, # 20 tab, 0 Refill(s) [facility] Bupivacaine Hydrochloride 5 MG/ML / Epinephrine 0.005 MG/ML Injectable Solution 2014-05-08 01:02:00 Yes Note s: (bupivacaine-epi 0.5%-1:200,000 30 ml VL) Not for use in continuous infusion. (Same As: Marcaine w/Epi) [facility] Acetaminophen 325 MG / Hydrocodone Bitartrate 5 MG Oral Tabl et 2014-05-08 01:02:00 No 1 tab, Rou te: PO, Dosing Weight 140, kg, ONCE, STAT, Start date: 05/07/14 20:02:00, Stop date: 05/07/14 20:02:00 [facility] Buprenorphine Hcl/Naloxone Hcl (Suboxone 8 Mg-2 Mg Sl Film) 1 Each FILM Buprenorphine Hcl/Naloxone Hcl (Suboxone 8 Mg-2 Mg Sl Film) 1 Each FILM Yes Three Times A Day I [facility] Carisoprodol (Soma) 350 Mg TABLET Carisoprodol (Soma) 350 Mg TABLET Yes 350 Four Times Daily [facility] Duloxetine Hcl (Cymbalta) 60 Mg CAPSULE. Duloxetine Hcl (Cymbalta) 60 Mg CAPSULE.DR Tirado Bedtime [facility] Gabapentin Gabapentin Yes 300 Four Times Daily [facility] Meloxicam Meloxicam Yes Three Times A Day [facility] Atenolol Atenolol 2020-09-10 00:00:00 No Twice A Day [facility] Quetiapine Fumarate (Seroquel) 100 Mg TABLET Quetiapin e Fumarate (Seroquel) 100 Mg TABLET 2020-09-08 00:00:00 No 200 Bedtime [facility] Amitriptyline Hcl Amitriptyline Hcl 2020-09-07 00:00:00 No 100 Mg [facility] Aripiprazole (Abilify) 10 Mg TABLET Aripiprazole (Abilify) 10 Mg TABLET 2020-09-07 00:00:00 No 10 Daily [facility] Buprenorphine Hcl/Naloxone Hcl (Buprenorp-Nalox 8-2 Mg Sl Film) 1 Each FILM Buprenorphine Hcl/Naloxone Hcl (Buprenorp-Nalox 8-2 Mg Sl Film) 1 Each FILM 2020-09-07 00:00:00 No [facility] Carisoprodol Carisoprodol 2020-09-07 00:00:00 No [facility] Quetiapine Fumarate Quetiapine Fumarate 2020-09-07 00:00:00 No [facility] Sulfamethoxazole/Trimethoprim (Bactrim Ds Tablet) 1 Ea ch TABLET Sulfamethoxazole/Trimethoprim (Bactrim Ds Tablet) 1 Each TABLET 2020-09-07 00:00:00 No 1 Twice A Day [facility] Vital Signs Vital Name Observation Time Observation Value Comments Source Body Temperature 2020-09-10 12:32:00 98.0 [degF] [facility] Heart Rate 2020-09-10 12:32:00 61 /min [facility] Respiratory rate 2020-09-10 12:32:00 17 /min [facility] BP Systolic 2020-09-10 12:32:00 150 mm[Hg] [facility] BP Diastolic 2020-09-10 12:32:00 87 mm[Hg] [facility] Oxygen saturation by Pulse oximetry 2020-09-10 12:32:00 98 /min [facility] Weight 2020-09-07 20:44:00 350 [lb_av] [facility] BMI (Body Mass Index) 2020-09-07 20:44:00 44.9 kg/m2 [facility] Systolic blood pressure 2020-07-04 09:20:00 120 mm[Hg] [place] [facility] Diastolic blood pressure 2020-07-04 09:20:00 68 mm[Hg] [place] [facility] Heart rate 2020-07-04 09:20:00 65 /min [place] [facility] Body temperature 2020-07-04 09:20:00 36.61 P[place]lette [place] [facility] Respiratory rate 2020-07-04 09:20:00 19 /min [place] [facility] Oxygen saturation in Arterial blood by Pulse oximetry 07-04 09:20:00 99 /min [place] [facility] Body height 2020-07-04 07:17:00 188 cm [place] [facility] Body weight 2020-07-04 07:17:00 147.419 kg [place] [facility] BMI 2020-07-04 07:17:00 41.73 kg/m2 [place] [facility] Temperature Oral (F) 2020-05-06 16:54:00 98.2 F [facility] Heart Rate 2020-05-06 16:54:00 [facility] Respitory Rate 2020-05-06 16:54:00 [facility] Systolic (mm Hg) 2020-05-06 16:54:00 [facility] Diastolic (mm Hg) 2020-05-06 16:54:00 [facility] Temperature Oral (F) 2020-05-06 12:49:00 98.3 F [facility] Systolic (mm Hg) 2020-05-06 12:49:00 [facility] Diastolic (mm Hg) 2020-05-06 12:49:00 [facility] Heart Rate 2020-05-06 12:49:00 [facility] Systolic (mm Hg) 2020-05-06 09:00:00 [facility] Diastolic (mm Hg) 2020-05-06 09:00:00 [facility] Temperature Oral (F) 2020-05-06 09:00:00 98.1 F [facility] Heart Rate 2020-05-06 09:00:00 [facility] Height 2020-05-06 06:51:00 187.96 cm [facility] Weight 2020-05-06 06:51:00 [facility] BMI Calculated 2020-05-06 06:51:00 [facility] Respitory Rate 2020-05-06 06:00:00 [facility] Respitory Rate 2020-05-06 04:00:00 [facility] BMI Calculated 2020-05-05 23:56:00 [facility] Height 2020-05-05 23:45:00 187.96 cm [facility] BMI Calculated 2020-05-05 23:45:00 [facility] Weight 2020-05-05 23:45:00 [facility] Respitory Rate 2019-12-24 04:26:00 [facility] Systolic (mm Hg) 2019-12-24 04:26:00 [facility] Diastolic (mm Hg) 2019-12-24 04:26:00 [facility] Temperature Oral (F) 2019-12-24 04:26:00 98.0 F [facility] Respitory Rate 2019-12-24 02:25:00 [facility] Systolic (mm Hg) 2019-12-24 02:25:00 [facility] Diastolic (mm Hg) 2019-12-24 02:25:00 [facility] BMI Calculated 2019-12-24 01:34:00 [facility] Systolic (mm Hg) 2019-12-24 00:14:00 [facility] Diastolic (mm Hg) 2019-12-24 00:14:00 [facility] Heart Rate 2019-12-24 00:14:00 [facility] Respitory Rate 2019-12-24 00:14:00 [facility] Temperature Oral (F) 2019-12-24 00:14:00 98.4 F [facility] Height 2019-12-24 00:14:00 187.96 cm [facility] BMI Calculated 2019-12-24 00:14:00 [facility] Weight 2019-12-24 00:14:00 [facility] Systolic (mm Hg) 2019-07-24 19:15:00 [facility] Diastolic (mm Hg) 2019-07-24 19:15:00 [facility] Temperature Oral (F) 2019-07-24 19:15:00 98.4 F [facility] Systolic (mm Hg) 2019-07-24 18:06:00 [facility] Diastolic (mm Hg) 2019-07-24 18:06:00 [facility] Temperature Oral (F) 2019-07-24 18:06:00 98.4 F [facility] Respitory Rate 2019-07-24 18:06:00 [facility] Systolic (mm Hg) 2019-07-24 16:49:00 [facility] Diastolic (mm Hg) 2019-07-24 16:49:00 [facility] Heart Rate 2019-07-24 16:49:00 [facility] Respitory Rate 2019-07-24 16:49:00 [facility] Temperature Oral (F) 2019-07-24 16:49:00 98.9 F [facility] Height 2019-07-24 16:49:00 187.96 cm [facility] BMI Calculated 2019-07-24 16:49:00 [facility] Weight 2019-07-24 16:49:00 [facility] Height 2019-07-08 18:03:00 187.96 cm [facility] Weight 2019-07-08 18:03:00 [facility] BMI Calculated 2019-07-08 18:03:00 [facility] Respitory Rate 2019-05-08 03:42:00 [facility] Heart Rate 2019-05-08 03:42:00 [facility] Systolic (mm Hg) 2019-05-08 03:42:00 [facility] Diastolic (mm Hg) 2019-05-08 03:42:00 [facility] Systolic (mm Hg) 2019-05-08 01:24:00 [facility] Diastolic (mm Hg) 2019-05-08 01:24:00 [facility] Respitory Rate 2019-05-08 01:24:00 [facility] Heart Rate 2019-05-08 01:24:00 [facility] Temperature Oral (F) 2019-05-08 01:24:00 98.2 F [facility] Weight 2019-05-07 22:10:00 [facility] BMI Calculated 2019-05-07 22:10:00 [facility] Height 2019-05-07 22:10:00 187.96 cm [facility] Temperature Oral (F) 2019-05-07 22:10:00 97.9 F [facility] Respitory Rate 2019-05-07 22:10:00 [facility] Systolic (mm Hg) 2019-05-07 22:10:00 [facility] Diastolic (mm Hg) 2019-05-07 22:10:00 [facility] Heart Rate 2019-05-07 22:10:00 [facility] Temperature Oral (F) 2019-01-21 20:00:00 97.8 F [facility] Heart Rate 2019-01-21 20:00:00 [facility] Respitory Rate 2019-01-21 20:00:00 [facility] Systolic (mm Hg) 2019-01-21 20:00:00 [facility] Diastolic (mm Hg) 2019-01-21 20:00:00 [facility] Respitory Rate 2019-01-21 16:00:00 [facility] Systolic (mm Hg) 2019-01-21 16:00:00 [facility] Diastolic (mm Hg) 2019-01-21 16:00:00 [facility] Temperature Oral (F) 2019-01-21 16:00:00 98.0 F [facility] Heart Rate 2019-01-21 16:00:00 [facility] Temperature Oral (F) 2019-01-21 12:00:00 97.8 F [facility] Heart Rate 2019-01-21 12:00:00 [facility] Respitory Rate 2019-01-21 12:00:00 [facility] Systolic (mm Hg) 2019-01-21 12:00:00 [facility] Diastolic (mm Hg) 2019-01-21 12:00:00 [facility] BMI Calculated 2019-01-20 22:40:00 [facility] Height 2019-01-20 22:40:00 187.96 cm [facility] Weight 2019-01-20 22:40:00 [facility] Weight 2019-01-20 16:40:00 [facility] BMI Calculated 2019-01-20 16:40:00 [facility] Height 2019-01-20 16:40:00 190.5 cm [facility] Respitory Rate 2016-12-24 10:30:00 [facility] Systolic (mm Hg) 2016-12-24 10:30:00 [facility] Diastolic (mm Hg) 2016-12-24 10:30:00 [facility] Systolic (mm Hg) 2016-12-24 06:53:00 [facility] Diastolic (mm Hg) 2016-12-24 06:53:00 [facility] Respitory Rate 2016-12-24 06:53:00 [facility] BMI Calculated 2016-12-24 06:35:00 [facility] Weight 2016-12-24 06:35:00 [facility] Height 2016-12-24 06:35:00 190.5 cm [facility] Temperature Oral (F) 2016-12-24 06:35:00 98.3 F [facility] Heart Rate 2016-12-24 06:35:00 [facility] Systolic (mm Hg) 2016-12-24 06:35:00 [facility] Diastolic (mm Hg) 2016-12-24 06:35:00 [facility] Respitory Rate 2016-12-24 06:35:00 [facility] Respitory Rate 2015-08-29 03:24:00 [facility] Systolic (mm Hg) 2015-08-29 03:24:00 [facility] Diastolic (mm Hg) 2015-08-29 03:24:00 [facility] Systolic (mm Hg) 2015-08-29 02:48:00 [facility] Diastolic (mm Hg) 2015-08-29 02:48:00 [facility] Respitory Rate 2015-08-29 02:48:00 [facility] Systolic (mm Hg) 2015-08-29 01:40:00 [facility] Diastolic (mm Hg) 2015-08-29 01:40:00 [facility] Respitory Rate 2015-08-29 01:40:00 [facility] Heart Rate 2015-08-28 22:49:00 [facility] BMI Calculated 2015-08-28 22:49:00 [facility] Weight 2015-08-28 22:49:00 [facility] Height 2015-08-28 22:49:00 190.5 cm [facility] Temperature Oral (F) 2015-08-28 22:49:00 97.9 F [facility] Respitory Rate 2014-07-02 19:54:00 [facility] Systolic (mm Hg) 2014-07-02 19:54:00 [facility] Diastolic (mm Hg) 2014-07-02 19:54:00 [facility] Temperature Oral (F) 2014-07-02 19:54:00 98.8 F [facility] Heart Rate 2014-07-02 19:54:00 [facility] Weight 2014-07-02 18:43:00 [facility] BMI Calculated 2014-07-02 18:43:00 [facility] Height 2014-07-02 18:43:00 187.96 cm [facility] Respitory Rate 2014-07-02 18:43:00 [facility] Heart Rate 2014-07-02 18:43:00 [facility] Temperature Oral (F) 2014-07-02 18:43:00 98.2 F [facility] Diastolic (mm Hg) 2014-07-02 18:43:00 [facility] Systolic (mm Hg) 2014-07-02 18:43:00 [facility] Respitory Rate 2014-05-08 02:20:00 [facility] Systolic (mm Hg) 2014-05-08 02:20:00 [facility] Diastolic (mm Hg) 2014-05-08 02:20:00 [facility] Temperature Oral (F) 2014-05-08 02:20:00 98.1 F [facility] Heart Rate 2014-05-08 02:20:00 [facility] Temperature Oral (F) 2014-05-07 23:59:00 98.6 F [facility] Respitory Rate 2014-05-07 23:59:00 [facility] Diastolic (mm Hg) 2014-05-07 23:59:00 [facility] Heart Rate 2014-05-07 23:59:00 [facility] Systolic (mm Hg) 2014-05-07 23:59:00 [facility] Procedures Procedure Date / Time Performed Performing Clinician [facility] e Computed tomography of chest with contrast 2020-09-07 00:00:00 [facility] XR CHEST 1 VW PORTABLE 2020-07-04 08:22:29 Andriy Leggett MI CRITICAL CARE, E/M 30-74 MINUTES 2020-07-04 07:58:49 Andriy Leggett ECG ED PRELIMINARY INTERPRETATION 2020-07-04 07:58:49 Giles Leggett HC COMPLETE BLD COUNT W/AUTO DIFF 2020-07-04 07:46:00 Giles Leggett COMPREHENSIVE METABOLIC PANEL 2020-07-04 07:46:00 Mike Leggett TROPONIN 2020-07-04 07:46:00 Andriy Leggett ethodist ESTIMATED GFR 2020-07-04 07:46:00 Andriy Leggett ethodi ECG 12-LEAD 2020-07-04 07:28:39 Eliza Yang Computed tomography of brain without radiopaque contrast 2020-05 00:00:00 [facility] HC COMPLETE BLD COUNT W/AUTO DIFF 2020-04-14 06:40:00 Chino Barkley COMPREHENSIVE METABOLIC PANEL 2020-04-14 06:40:00 Gretchen Barkley T4, FREE 2020-04-14 06:40:00 Eusebio Aguayo THYROID STIMULATING HORMONE 2020-04-14 06:40:00 Agustín Aguayool irasemale Ceci Pedraza ESTIMATED GFR 2020-04-14 06:40:00 Eusebio Aguayo VANCOMYCIN LEVEL, TROUGH 2020-04-13 09:12:00 Gretchen Barkley HC COMPLETE BLD COUNT W/AUTO DIFF 2020-04-13 03:38:00 Chino Barkley COMPREHENSIVE METABOLIC PANEL 2020-04-13 03:38:00 Gretchen Barkley ESTIMATED GFR 2020-04-13 03:38:[address] CHEST WO CONTRAST 2020-04-12 13:06:06 Soy Driscoll Confuc[facility] NM LUNG PERFUSION IMAGING 2020-04-12 13:05:05 [facility] LEGIONELLA URINARY ANTIGEN 2020-04-12 09:15:00 BarkleyGretchen solJudi Sesay Confucianist STREPTOCOCCUS PNEUMONIAE URINARY ANTIGEN 2020-04-12 09:15:00 BarkleyGretchen solJudi Sesay Confucianist URINE CULTURE 2020-04-12 09:15:00 Gretchen Barkley BessieCatrachitoJudi Tayet on [facility] URINALYSIS SCREEN AND MICROSCOPY, WITH REFLEX TO CULTURE 202 09:15:00 Gretchen Barkley BessieCatrachitoJudi Sesay Confucianist ARTERIAL BLOOD GAS 2020-04-12 05:23:00 Daly Dougherty ethodist INFLUENZA ANTIGEN 2020-04-12 04:10:00 ValDaly martin thodist RESPIRATORY PATHOGEN PANEL 2020-04-12 04:10:00 Daly Dougherty GROUP A STREP, RAPID ANTIGEN 2020-04-12 04:08:00 ValDaly martin STREP SCREEN CULTURE 2020-04-12 04:08:00 Daly Dougherty HC COMPLETE BLD COUNT W/AUTO DIFF 2020-04-12 04:05:00 Ra bon Dougherty COMPREHENSIVE METABOLIC PANEL 2020-04-12 04:05:00 ValLorrie martin C-REACTIVE PROTEIN 2020-04-12 04:05:00 Daly Dougherty ethodist D-DIMER 2020-04-12 04:05:00 Daly Dougherty odjalil CREATINE KINASE, TOTAL (CPK) 2020-04-12 04:05:00 ValDaly martin FERRITIN LEVEL 2020-04-12 04:05:00 Daly Dougherty Meth odist FIBRINOGEN 2020-04-12 04:05:00 ValDaly martin Meth odist LDH 2020-04-12 04:05:00 Daly Dougherty Meth odist LIPID PANEL 2020-04-12 04:05:00 ValDaly martin Meth odist TYPE AND SCREEN 2020-04-12 04:05:00 Valsan, Dalyjudy Sesay Meth odist ESTIMATED GFR 2020-04-12 04:05:00 Lorrie Doughertya Lázaro Meth odjalil TROPONIN 2020-04-12 04:05:00 Lorrie Doughertya Lázaro Agrawal odjalil LACTIC ACID LEVEL, SEPSIS - NOW AND REPEAT 2X EVERY 3 HOURS 2020-04-11 22:40:00 Tanika Barbosa ECG 12-LEAD 2020-04-11 20:57:02 Tanika Barbosa Me thodist MI CRITICAL CARE, E/M 30-74 MINUTES 2020-04-11 19:17:37 Tanika Barbosa ECG ED PRELIMINARY INTERPRETATION 2020-04-11 19:17:37 Deepa Barbosa COVID-19 QUALITATIVE PCR 2020-04-11 18:58:00 Tanika Barbosa LACTIC ACID LEVEL, SEPSIS - NOW AND REPEAT 2X EVERY 3 HOURS 2020-04-11 18:55:00 Tanika Barbosa BLOOD CULTURE, AEROBIC & ANAEROBIC 2020-04-11 18:46:00 Tanika Barbosa BLOOD CULTURE, AEROBIC & ANAEROBIC 2020-04-11 18:42:00 Tanika Barbosa HC COMPLETE BLD COUNT W/AUTO DIFF 2020-04-11 18:42:00 Deepa Barbosa COMPREHENSIVE METABOLIC PANEL 2020-04-11 18:42:00 Agueda Barbosa TROPONIN 2020-04-11 18:42:00 Tanika Barbosa Ca thodist B NATRIURETIC PEPTIDE 2020-04-11 18:42:00 Tanika Barbosa ESTIMATED GFR 2020-04-11 18:42:00 Tanika Barbosa Ca thodist XR CHEST 1 VW PORTABLE 2020-04-11 18:31:05 Tanika Barbosa Open removal foreign body from joint [facility] ORIF - Open reduction of fracture of ankle with internal fixatio n [facility] Ankle joint operations [facility] Appendectomy [facility] Shoulder joint operations [facility] Plan of Care Planned Activity Planned Date Details Comments Source Future Scheduled Test 2020 00:00:00 COLONOSCOPY SCREEN ING [code = COLONOSCOPY SCREENING] [facility] Future Scheduled Test 2020 00:00:00 SHINGLES VACCINES (#1) [code = SHINGLES VACCINES (#1)] [facility] Future Scheduled Test 2020-06-02 00:00:00 INFLUENZA VACCINE [code = INFLUENZA VACCINE] [facility] Instructions Chest Pain - Noncardiac [facility] Encounters Start Date/Time End Date/Time Encounter Type Admission Type [facility] Care Department Encounter ID Source 2020-07-05 20:30:00 2020-07-07 18:30:00 Inpatient [facility] TEL [id number] [facility] 2020-07-05 20:30:00 2020-07-05 20:30:00 Inpatient 1 [facility] TEL [id number] [facility] 2020-07-04 00:00:00 2020-07-04 00:00:00 Emergency MIKE LEGGETT [facility] [id number] [facility] 2020-05-09 16:53:00 2020-05-09 16:53:00 Registered Emergency Room SCOOTER MORENO [facility] [id number] I [facility] 2020-05-05 16:52:08 2020-05-06 15:48:00 Outpatient Mohit Watkins [facility] [id number] 2020-05-06 14:16:00 2020-05-06 14:16:00 Outpatient E [facility] [id number] [facility] 2020-04-11 00:00:00 2020-04-14 00:00:00 Inpatient EUSEBIO AGUAYO [facility] [id number] [facility] 2019-12-23 18:13:00 2019-12-23 22:28:00 Outpatient Guilherme Reed [facility] [id number] 2019-12-23 18:13:00 2019-12-23 18:13:00 Emergency E [facility] [id number] [facility] 2019-07-24 11:45:00 2019-07-24 14:58:00 [facility] [id number] 2019-07-24 11:45:00 2019-07-24 11:45:00 Emergency E [facility] [id number] [facility] 2019-07-08 12:20:00 2019-07-08 15:45:00 Outpatient Néstor Shepherd [facility] [id number] 2019-07-08 12:20:00 2019-07-08 12:20:00 Outpatient [id number] 2019-05-07 17:05:29 2019-05-07 22:46:00 Outpatient Andrea Hanson [facility] [id number] 2019-05-07 17:05:00 2019-05-07 17:05:00 Emergency E [id number] 2019-01-20 11:35:00 2019-01-21 18:15:00 Outpatient El Dai [id number] 2016-12-24 00:30:00 2016-12-24 04:30:00 Outpatient Indira Hudson [id number] 2015-08-28 17:34:00 2015-08-28 22:45:00 Outpatient Andriy Reyez [facility] [id number] 2014-07-02 13:42:00 2014-07-02 14:49:00 Outpatient Guilherme Reed [facility] [id number] 2014-05-07 18:45:00 2014-05-07 21:26:00 Outpatient Arleen Barkley V [facility] [id number] Results Test Description Test Time Test Comments Results Result Comments Source Stress Test - Treadmill ONLY 2020-09-11 09:09:00 [facility] : 1970 Sex: M [place] [address] Patient Name : MAGUI LAFLEUR MR #: [id number] : 1970 Age/Sex: 50/M Adm Physician : FATOUMATA HERNANDEZ MD Admit Date : 09/07/20 Location : MED/SURG3 Room/Bed : [facility] REPORT: Myoview Stress Test DATE OF STUDY: 09/08/2020 13:35:00 TITLE OF THE STRESS TEST: Lexiscan nuclear tomographic cardiac stress test. TECHNICAL DETAILS: This was resting stress protocol. For the resting images, a total of 13 mCi Myoview injected followed [id number] after injection with single photon computer tomography imaging and processing. For the stress part, the patient given Lexiscan 0.4 mg intravenously followed by 33 mCi of Myoview half an hour after that picture acquisition using gated single photon emission computed tomography and proper SPECT imaging and scanning. The patient tolerated this scan. There were no complications. RESULTS: A: Hemodynamics: 1. Heart rate remained stable from 65 to 87 per minute. 2. Blood pressure dropped from 140/80 to 120/77. 3. No EKG changes. B: Nuclear imagin. Myocardial perfusion: a. Resting Images: The resting images showed decreased uptake inferior, apical, and anterior segments. b. Stress Images: The stress images revealed also decreased uptake inferiorly, more pronounced in the apex and less pronounced in the anterior segments. 2. Segmental wall motion: There was mild hypokinesis in the apical segments. 3. Heart Volumes: End- diastolic volume of 163, systolic volume 54 with ejection fraction of 67%. IMPRESSION: Abnormal nuclear cardiac stress test with multiple defects combination of scar and ischemia with preserved left ventricular systolic function. Of note, the patient is morbidly obese, which would affect the quality of the picture. Of note, there is dictation number for the x-ray, it is [id number]. MD QUYNH Hawley/SIMONA /[id number] Signature Date Dictated By: FIORELLA FLORES MD Transcribed By: SIMONA on 09/11/20 <Electronically signed by FIORELLA FLORES MD><<Signature on File>>09/11/20 [id number] COPY TO: Blood leukocytes automated count (number/volume) 2020-09-10 05:20:00 Test Item White Blood Count (test code = 6690-2) 6.84 10*3/uL 4.8-10.8 [facility] (number/volume)2020-09-10 05:20:00* Test Item Value Reference Range Interpretation Comments Red Blood Count (test code = 789-8) 4.13 10*6/mL 4.3-5.7 [facility] (moles/volume)2020-09-10 05:20:00* Test Item Value Reference Range Interpretation Comments Hemoglobin (test code = 35658-7) 11.4 g/dL 14.0-18.0 [facility] hematocrit (volume fraction)2020-09-10 05:20:00* Test Item Value Reference Range Interpretation Comments Hematocrit (test code = 4544-3) 36.0 % 38.2-49.6 [facility] erythrocyte mean corpuscular [id number] 05:20:00* Test Item Value Reference Range Interpretation Comments Mean Corpuscular Volume (test code = 787-2) 87.2 81-99 [facility] mean corpuscular hemoglobin (mass per erythrocyte)2020-09-10 05:20:00* Test Item Value Reference Range Interpretation Comments Mean Corpuscular Hemoglobin (test code = 785-6) 27.6 pg 28-32 [facility] mean corpuscular hemoglobin concentration measurement (mass/volume)2020-09-10 05:20:00* Test Item Value Reference Range Interpretation Comments Mean Corpuscular Hemoglobin Concent (test code = 786-4) 31.7 g/dL 31-35 [facility] CenterRDW SpeLy-Sip6403-30-09 05:20:00* Test Item Value Reference Range Interpretation Comments Red Cell Distribution Width (test code = 92128-6) 13.5 % 11.7 -14.4 [facility] platelet count (count/volume)2020-09-10 05:20:00* Test Item Value Reference Range Interpretation Comments Platelet Count (test code = 777-3) 257 10*3/uL 140-360 [facility] Center[facility] segmented neutrophil count as percentage of total sjefylcqfs7116-03-97 05:20:00* Test Item Value Reference Range Interpretation Comments Neutrophils (%) (Auto) (test code = 84183-2) 59.7 % 38.7-80.0 [facility] Center[facility] lymphocyte count as percentage ot total ricalunspf0106-98-69 05:20:00* Test Item Value Reference Range Interpretation Comments Lymphocytes (%) (Auto) (test code = 736-9) 27.5 % 18.0-39.1 [facility] Center[facility] monocyte count as percentage of total cmxuppwufd1656-33-15 05:20:00* Test Item Value Reference Range Interpretation Comments Monocytes (%) (Auto) (test code = 5905-5) 7.6 % 4.4-11.3 [facility] Center[facility] blood eosinophil count as percentage of total wqmriixrue7295-04-13 05:20:00* Test Item Value Reference Range Interpretation Comments Eosinophils (%) (Auto) (test code = 713-8) 3.9 % 0.0-6.0 [facility] Center[facility] basophil count as percentage of total kqeughelmx8576-78-10 05:20:00* Test Item Value Reference Range Interpretation Comments Basophils (%) (Auto) (test code = 706-2) 0.9 % 0.0-1.0 [facility] CenterFluoroscopic procedure less than one hour egjhktet9542-62-57 05:20:00* Test Item Value Reference Range Interpretation Comments IM GRANULOCYTES % (test code = IM GRANULOCYTES %) 0.4 % 0.0- 1.0 [facility] Center[facility] neutrophil count 2020-09-10 05:20:00* Test Item Value Reference Range Interpretation Comments Neutrophils # (Auto) (test code = 751-8) 4.1 2.1-6.9 [facility] lymphocytes count (number/volume) 2020-09-10 05:20:00* Test Item Value Reference Range Interpretation Comments Lymphocytes # (Auto) (test code = 04241-4) 1.9 1.0-3.2 [facility] Center[facility] monocytes automated count (number/volume)2020-09-10 05:20:00* Test Item Value Reference Range Interpretation Comments Monocytes # (Auto) (test code = 742-7) 0.5 0.2-0.8 [facility] Center[facility] blood eosinophil count 2020-09-10 05:20:00* Test Item Value Reference Range Interpretation Comments Eosinophils # (Auto) (test code = 711-2) 0.3 0.0-0.4 [facility] Center[facility] blood basophil count (count/volume)2020-09-10 05:20:00* Test Item Value Reference Range Interpretation Comments Basophils # (Auto) (test code = 704-7) 0.1 0.0-0.1 [facility] CenterFluoroscopic procedure less than one hour [id number] 05:20:00* Test Item Value Reference Range Interpretation Comments Absolute Immature Granulocyte (auto (lucila t code = Absolute Immature Granulocyte (auto) 0.03 10*3/uL 0-0.1 [facility] sodium measurement (moles/volume)2020-09-10 05:20:00* Test Item Value Reference Range Interpretation Comments Sodium Level (test code = 2951-2) 142 mmol/L 136-145 [facility] plasma potassium measurement (moles/volume)2020-09-10 05:20:00* Test Item Value Reference Range Interpretation Comments Potassium Level (test code = 2823-3) 4.2 mmol/L 3.5-5.1 [facility] plasma chloride measurement (moles/volume)2020-09-10 05:20:00* Test Item Value Reference Range Interpretation Comments Chloride Level (test code = 2075-0) 108 mmol/L 98-107 [facility] plasma carbon dioxide, total measurement (moles/volume)2020-09-10 05:20:00* Test Item Value Reference Range Interpretation Comments Carbon Dioxide Level (test code = 2028-9) 26 mmol/L 22-29 [facility] or plasma anion [id number] 05:20:00* Test Item Value Reference Range Interpretation Comments Anion Gap (test code = 19510-1) 12.2 mmol/L 8-16 [facility] plasma urea nitrogen measurement (mass/volume)2020-09-10 05:20:00* Test Item Value Reference Range Interpretation Comments Blood Urea Nitrogen (test code = 3094-0) 14 mg/dL 7-26 [facility] plasma creatinine measurement (mass/volume)2020-09-10 05:20:00* Test Item Value Reference Range Interpretation Comments Creatinine (test code = 2160-0) 0.96 mg/dL 0.72-1.25 [facility] or plasma urea nitrogen/creatinine mass [id number] 05:20:00* Test Item Value Reference Range Interpretation Comments BUN/Creatinine Ratio (test code = 3097-3) 15 6-25 [facility] CenterEstimated glomerular filtration rate (GFR) puomlehjwjqmz8297-00-79 05:20:00* Test Item Value Reference Range Interpretation Comments Estimat Glomerular Filtration Rate (test code = 274073447) > 60 mL/ min >60 Ranges were taken from the National Kidney Disease Education Program and the [facility] literature.Reference ranges:60 or greater: Zsxfkr84-57 ( for 3 consecutive months): Chronic kidney disease 15 or less: Kidney failureWoodland Heights Medical CenterGlucose yzfafsysatu9728-87-80 05:20:00* Test Item Value Reference Range Interpretation Comments Glucose Level (test code = OHW4826) 88 mg/dL 74-118 [facility]ere[facility] or plasma calcium measurement (mass/volume)2020-09-10 05:20:00* Test Item Value Reference Range Interpretation Comments Calcium Level (test code = 28115-0) 8.7 mg/dL 8.4-10.2 [facility]ererum or plasma total bilirubin measurement (mass/volume)2020-09-08 05:50:00* Test Item Value Reference Range Interpretation Comments Total Bilirubin (test code = 1975-2) 0.2 mg/dL 0.2-1.2 [facility] CenterFluoroscopic procedure less than one hour lognamhg4920-08-52 05:50:00* Test Item Value Reference Range Interpretation Comments Aspartate Amino Transf (AST/SGOT) (test code = Aspartate Amino Transf (AST/SGOT)) 32 [IU]/L 5-34 [facility]ererum or plasma alanine aminotransferase measurement (enzymatic activity/volume)2020-09-08 05:50:00* Test Item Value Reference Range Interpretation Comments Alanine Aminotransferase (ALT/SGPT) (test code = 1742-6) 29 [IU]/L 0-55 [facility]ererum or plasma protein measurement (mass/volume)2020-09-08 05:50:00* Test Item Value Reference Range Interpretation Comments Total Protein (test code = 2885-2) 7.1 g/dL 6.5-8.1 [facility]ererum or plasma albumin measurement (mass/volume)2020-09-08 05:50:00* Test Item Value Reference Range Interpretation Comments Albumin (test code = 1751-7) 3.3 g/dL 3.5-5.0 [facility] CenterPlasma globulin measurement (mass/volume) 2020-09-08 05:50:00* Test Item Value Reference Range Interpretation Comments Globulin (test code = 44714-3) 3.8 g/dL 2.3-3.5 [facility]ererum or plasma albumin/globulin mass tmjza4961-11-51 05:50:00* Test Item Value Reference Range Interpretation Comments Albumin/Globulin Ratio (test code = 1759-0) 0.9 0.8-2.0 [facility]ererum or plasma alkaline phosphatase measurement (enzymatic activity/volume)2020-09-08 05:50:00* Test Item Value Reference Range Interpretation Comments Alkaline Phosphatase (test code = 6768-6) 92 [IU]/L 40-150 [facility]ererum or plasma triglyceride measurement (mass/volume)2020-09-08 05:50:00* Test Item Value Reference Range Interpretation Comments Triglycerides Level (test code = 2571-8) 131 mg/dL 0-149 [facility]ererum or plasma cholesterol measurement (mass/volume)2020-09-08 05:50:00* Test Item Value Reference Range Interpretation Comments Cholesterol Level (test code = 2093-3) 140 mg/dL 0-199 Less than 200 mg/dL Low Xyqd936 - 239 mg/dL Borderline Elqm371 m g/dl and greater High Risk [facility]ererum or plasma cholesterol in LDL measurement (mass/volume) 2020-09-08 05:50:00* Test Item Value Reference Range Interpretation Comments LDL Cholesterol (test code = 2089-1) 81 mg/dL 60-130 [facility] Centererum or plasma cholesterol in HDL measurement (mass/volume)2020-09-08 05:50:00* Test Item Value Reference Range Interpretation Comments HDL Cholesterol (test code = 2085-9) 33 mg/dL 40-60 [facility]ererum or plasma total cholesterol/cholesterol in HDL mass uqjyb2277-93-27 05:50:00* Test Item Value Reference Range Interpretation Comments Cholesterol/HDL Ratio (test code = 9830-1) 4.2 3.9-4.7 [facility]ererum or plasma creatine kinase measurement (enzymatic activity/volume)2020-09-08 05:50:00* Test Item Value Reference Range Interpretation Comments Creatine Kinase (test code = 2157-6) 210 [IU]/L 30-200 [facility]ererum or plasma creatine kinase MB measurement (mass/volume)2020-09-08 05:50:00* Test Item Value Reference Range Interpretation Comments Creatine Kinase MB (test code = 05873-7) 2.30 ng/mL 0-5.0 [facility] CenterTroponin I measurement by highly sensitive enzyme ipwplwhglfx9064-60-06 05:50:00* Test Item Value Reference Range Interpretation Comments Troponin I (test code = 35453-4) 0.004 ng/mL 0-0.300 [facility] CenterCT CHEST N4952-44-25 22:04:00 [facility] : 1970 Sex: [place] [address] Patient Name: MAGUI LAFLEUR Giles #: [id number] : 1970 Age/Sex: 50/M Req #: [id number] Adm Physician: FATOUMATA HERNANDEZ MD Order ed by: SCOOTER MORENO MD Report #: [id number] Loca tion: MED/SURG3 Room/Bed: [facility] Procedure: [id number] CT/CT CHEST W Exam Date: 09/07/20 Exam Time: 2128 REPORT STATUS: Signed EXAM: CT Chest WITH contrast (PE Protocol) INDICATIO N: PE PROTOCOL COMPARISON: Chest x-ray dated 09/07/2020 TECHNIQ UE: Chest was scanned utilizing a multidetector helical scanner from the lung apex through the level of the diaphragm after administration of IV contrast. T hin section reconstructions were obtained with special concentration on the pulmonary arteries. Coronal and sagittal reformations were obtained. Dose modu lation, iterative reconstruction, and/or weight based adjustment of the mA/kV was utilized to reduce the radiation dose to as low as reasonably achievable. Pulmonary embolism protocol was performed. IV CONTRAST: 100 mL of Isovue- 370 COMPLICATIONS: None RADIATION DOSE: Total DLP: 592.31 mGy* cm Estimated effective dose: (DLP x 0.014 x size factor) mSv CTDIv ol has been reviewed. It is below the limits set by the Radiation Protocol Com mittee (RPC). FINDINGS: LINES/ TUBES: None. LUNGS AND AIRWAYS: No filling defect is identified within the pulmonary arteries to the segmental l evel. The lungs are unremarkable. Airways are normal. PLEURA: The pleur al spaces are clear. HEART AND MEDIASTINUM: The thyroid gland is normal. N o mediastinal, hilar or axillary lymphadenopathy. The heart is normal in size .. There is no pericardial effusion. . Main pulmonary artery measures 2.9 cm in diameter. UPPER ABDOMEN: Unremarkable BONES: The visualized bon y thorax is within normal limits. SOFT TISSUES: Unremarkable. IMPRESSI ON: No pulmonary emboli. Signed by: Dr. Jimmie Mason MD on 09/07/2020 1 0:14 PM Dictated By: JIMMIE MASON MD 13 Transcribed By: JD on 09/07/202213 COPY T O: SCOOTER MORENO MD CHEST XRAY LINE VMGWZIBOV0419-97-92 20:48:00 [facility] : 1970 Sex: M [place] [address] Patient Name: MAGUI LAFLEUR R #: [id number] : 1970 Age/Sex: 50/M Req #: [id number] [facility] Physician: FATOUMATA HERNANDEZ MD Order ed by: FATOUMATA HERNANDEZ MD Report #: [id number] Loca tion: MED/SURG3 Room/Bed: [facility] Procedure: [id number] DX/CHEST XRAY LINE PLACEMENT Exam Date: 11/07/19 Exam Time: 1999 REPORT STATUS: Signed EXAMINATION: CHEST XRAY LINE PLACEMENT INDICATION: confirm line placement COMPARISON: Same day chest ra diograph. FINDINGS: TUBES and LINES: Right PICC which termin ates at the distal SVC. LUNGS: Normal lung volumes. Lungs are clear. No consolidations. PLEURA: No pleural effusion or pneumothorax. HEART AN D MEDIASTINUM: The cardiomediastinal silhouette is unremarkable. BONES AND SOFT TISSUES: No acute osseous lesion. Soft tissues are unremarkable. UPPER ABDOMEN: No free air under the diaphragm. IMPRESSION: Righ t PICC which terminates at the distal SVC. Otherwise no acute thoracic radiogr aphic abnormality. Signed by: Jaiden Cary MD on 09/07/2020 9:03 PM Dictated By: JAIDEN CARY MD 02 COPY TO: FATOUMATA PACE MD Fluoroscopic procedure less than one hour syfmomyy6479-59-04 17:00:00* Test Item Value Reference Range Interpretation Comments Coronavirus (PCR) (test code = Coronavirus (PCR)) NOT DETECTED NOTD ETECTED SARS-CoV-2 PCRHologic Aptima SARS-CoV-2 assay is a nucleic amplification test in tended for the qualitative detection of RNA from SARS-CoV-2 from nasopharyngeal (OCCUPATIONAL THERAPY DEPARTMENT CHAIR) specimens. It is used under Emergency Use Authorization (EUA) by FDA.A posi tive result is indicative of the presence of SARS-CoV-2 RNA. Clinical correlatio n with patient history and other diagnostic information is necessary to determin e patient infection status.A negative (Not Detected) result does not preclude SA RS-CoV-2 infection. Clinical Correlation with patient history and other diagnost ic information should be used in patient management decisions.Invalid: Unable to generate a valid result on this specimen. Please submit a new specimen for repr at testing oc clinically indicated.Tesing performed by:[facility] Laboratory Services[address] [place] [address] [id number], Jimbo dowd MD, PhDHemphill County Hospital SINGLE (PORTABLE) 2020-09-07 14:13:00 [facility] : 1970 Sex: M [facility] [address] [place] [address] Patient Name: MAGUI LAFLEUR R #: [id number] : 1970 Age/Sex: 50/M Req #: [id number] Adm Physician: Order ed by: SCOOTER MORENO MD Report #: [id number] Loca tion: ER Room/Bed: Procedure: [id number] DX/CHEST SINGLE (PORTABLE) Exam Date: 04/21 Exam Time: 1315 REPORT STATUS: Signed EXAMINATION: CHEST SINGLE (PORTABLE) INDICATION: Chest pain COMPARISON: Chest radiograph 05/09/2020 FINDINGS: LINES/TUBES:None LUNGS:The lungs are well-inflated. No foc al consolidation or pulmonary edema. PLEURA:No pleural effusion or pneumoth orax. MEDIASTINUM:The cardiomediastinal silhouette appears normal in size a nd shape. BONES/SOFT TISSUES:No acute osseous injury. Unchanged metallic fr agments overlying the right chest. ABDOMEN:No free air under the diaphrag m. IMPRESSION: No focal pneumonia or pulmonary edema. Signed by: Charity Mckenzie MD on 09/07/2020 2:14 PM Dictated By: CHARITY MCKENZIE MD Electron ically Signed By: CHARITY MCKENZIE MD on 09/07/20 1414 Transcribed By: JD on 04/21 COPY TO: SCOOTER MORENO MD Prothrombin time (PT) in platelet poor plasma by coagulation mlgmm2003-79-89 12:04:00* Test Item Value Reference Range Interpretation Comments Prothrombin Time (test code = 5902-2) 13.0 s 11.9-14.5 [facility] CenterINR in Platelet poor plasma by Coagulation cszue6584-54-11 12:04:00* Test Item Value Reference Range Interpretation Comments Prothromb Time International Ratio (test code = 6301-6) 0.94 Oral Anticoagulant Therapy INR Values:1. Low Intensity Therapy 1.5 - 2.02 . Moderate Intensity Therapy 2.0 - 3.03. High Intensity Therapy(1) 2.5 - 3. 54. High Intensity Therapy(2) 3.0 - 4.05. Panic Value INR > 5.0 [facility] CenterActivated partial thromboplastin time (aPTT) in platelet poor plasma by coagulation djiqq3046-65-99 12:04:00* Test Item Value Reference Range Interpretation Comments Activated Partial Thromboplast Time (test code = 27181-9) 28.1 s 23.8-35.5 [facility] CenterFibrin D-dimer DDU measurement in platelet poor plasma (mass/volume)2020-09-07 12:04:00* Test Item Value Reference Range Interpretation Comments D-Dimer Quantitative (PE/DVT) (test code = 59132-7) 1.44 ug/mL{FEU} 0.00-0.45 [facility] Centererum or plasma magnesium measurement (mass/volume)2020-09-07 12:04:00* Test Item Value Reference Range Interpretation Comments Magnesium Level (test code = 63004-0) 2.3 mg/dL 1.3-2.1 [facility] CenterBNP Ovc-jSmm8894-72-06 12:04:00* Test Item Value Reference Range Interpretation Comments B-Type Natriuretic Peptide (test code = 18033-3) 315.0 pg/mL 0-100 [facility] Centererum or plasma thyrotropin measurement by detection limit <= 0.005 miu/l (units/volume)2020-09-07 12:04:00* Test Item Value Reference Range Interpretation Comments Thyroid Stimulating Hormone (TSH) (test code = 03134-2) 0.796 0.350-4.940 [facility] CenterUrine Tehgzms5874-39-60 09:24:02* Test Item Value Reference Range Interpretation Comments ORGANISM (test code = ORGANISM) Enterococcus group [...] D C Urine Added by GL_SJM_UA_CUL_INDBasic Metabolic Nrfwy0504-94-48 07:18:28* Test Item Value Reference Range Interpretation [...] Lipemia) 0 mg/dL 8-11 L Basic Metabolic Bsetf9108-67-72 07:18:28* Test Item Value Reference Range Interpretation [...] is not provided, and the patient is -Kos[place], multiply by 1.212. If sex is not [...] Lipemia) 0 mg/dL 8-11 L Basic Metabolic Myvma5083-24-80 07:18:28* Test Item Value Reference Range Interpretation [...] is not provided, and the patient is -[place], multiply by 1.212. If sex is not [...] is not provided, and the patient is -[place], multiply by 1.212. If sex is not [...] mg/dL 8-11 L Complete Blood Count with Zfdawksemrwy1234-47-37 06:53:39* Test Item Value Reference Range Interpretation [...] = NRBC Abs) 0.00 x10 N Automated Ltfszesjvhud1457-39-73 06:53:39* Test Item Value Reference Range Interpretation Comments Neutro Auto (test code = Neutro Auto) 57.4 % 36.0-70.0 Lymph Auto (test code = Lymph Auto) 27.9 % 12.0-44.0 Cloud Auto (test code = Cloud Auto) 9.6 % 0.0-11.0 Eos, Auto (test code = Eos, Auto) 4.2 % 0.0-7.0 Basophil Auto (test code = Basophil Auto) 0.6 % 0.0-2.0 Neutro Absolute (test code = Neutro Absolute) 3.9 x10 1.6-7.4 Lymph Absolute (test code = Lymph Absolute) 1.88 x10 .50-4.60 Cloud Absolute (test code = Cloud Absolute) .65 x10 .00-1.20 Eos Absolute (test code = Eos Absolute) 0.28 x10 0.00-0.74 Baso Absolute (test code = Baso Absolute) 0.04 x10 0.00-0.21 IG Irdrs3736-60-59 06:53:39* Test Item Value Reference Range Interpretation Comments IG (test code = IG) 0.3 % 0.0-5.0 IG Abs (test code = IG Abs) 0 x10 N Creatinine Xcews6716-05-90 04:20:12* Test Item Value Reference Range Interpretation Comments U Creatinine (test code = U Creatinine) 153.2 mg/dL N Reference ranges have not been established for this assay. Sodium Lmetw4468-56-32 04:20:12* Test Item Value Reference Range Interpretation Comments U Sodium (test code = U Sodium) 62 mmol/L N Reference ranges have not been established for this assay. US Kidney Nfitfyism0596-76-81 04:05:30Patient: MAGUI LAFLEUR Date/Time07/06/2020 03:43 CDTReason for ExamNausea and vomitingReportAFTER HOURS SERVICE ON: 07/06/2020 4:03 AMRenal UltrasoundLocation Code O98Kgibypy: Nausea and vomitingTechnique: Real-time johnson scale and color flow evaluation was performed using a dedicated transducer.Findings:The right kidney measures 9.2 x 5.3 x 6.9 cm. The left kidney measures 11.4 x 4.8 x 5.7 cm. Renal cortical echogenicities are within normal limits for patient's age. There is no hydronephrosis. Adequate flow noted in both kidneys.Bladder is unremarkable.Impression:Unremarkable renal ultrasound. Final Dictated by: MD Shanelle, Irene TDictated DT/TM: 07/06/2020 4:03 amSigned by: MD Timmons Mohammad TSigned (Electronic Signature): 07/06/2020 4:05 amUrinalysis Zftifkrqeob4212-77-07 02:35:46* Test Item Value Reference Range Interpretation [...] Cast) 1-5 A Urinalysis with Culture, if bhbytjiry4825-02-55 02:18:42* Test Item Value Reference Range Interpretation [...] Indicated Not Indicate d A Basic Metabolic Icmlg8006-46-45 01:10:56* Test Item Value Reference Range Interpretation [...] Lipemia) 0 mg/dL 8-11 L Basic Metabolic Lbeqz3612-83-76 01:10:56* Test Item Value Reference Range Interpretation [...] is not provided, and the patient is -K[place], multiply by 1.212. If sex is not [...] Lipemia) 0 mg/dL 8-11 L Basic Metabolic Anrln1699-19-87 01:10:56* Test Item Value Reference Range Interpretation [...] is not provided, and the patient is -[place], multiply by 1.212. If sex is not [...] is not provided, and the patient is -[place], multiply by 1.212. If sex is not [...] 8-[address] Abdomen and Pelvis w/o Kipojixc6599-01-48 00:11:06Patient: MAGUI LAFLEUR Date/Time07/05/2020 23:30 CDTReason for Examcreat too high for contrast;InjuryReportLOCATION: [id number]: 49-year-old male who presents with a trauma [...] 07/06/2020 0:11 a mCT Spine Lumbar w/o Aconoflm4121-35-42 00:11:06Patient: MAGUI LAFLEUR Date/Time07/05/2020 23:30 CDTReason for ExamTraumaReportLOCATION: [id number]: 49-year-old male who presents with a trauma [...] Rober t LSigned (Electronic Signature): 07/06/2020 0:11 [facility] Spine Thoracic w/o Zhtmpebq6168-89-50 00:11:06Patient: MAGUI LAFLEUR Date/Time07/05/2020 23:30 CDTReason for ExamTraumaReportLOCATION: [id number]: 49-year-old male who presents with a trauma [...] amCT Chest w/o Contrast 2020-07-06 00:11:06Patient: MAGUI LAFLEUR Date/Time07/05/2020 23:30 CDTReason for Examcreat too high for contrast;InjuryReportLOCATION: I30FIFUCIX: 49-year-old male who presents with a trauma [...] Signature): 07/06/2020 0:11 a mCT Maxillofacial w/o Ipczzqkk2978-14-43 00:04:15Patient: MAGUI LAFLEUR Date/Time07/05/2020 23:30 CDTReason for ExamInjuryReportLOCATION: W80GRAGZNP: 49-year-old male who presents with a trauma [...] 07/06/2020 0 :04 amCT Spine Cervical w/o Wiubnhjf2252-46-74 00:04:15Patient: MAGUI LAFLEUR Date/Time07/05/2020 23:30 CDTReason for ExamTraumaReportLOCATION: [id number]: 49-year-old male who presents with a trauma [...] Signature): 07/06/2020 0 :04 amCT Brain/Head w/o Lpljgain2212-48-01 00:04:15Patient: MAGUI LAFLEUR Date/Time07/05/2020 23:30 CDTReason for ExamTraumaReportLOCATION: [id number]: 49-year-old male who presents with a trauma [...] and/or utilizati on of iterative reconstruction technique.DLP: 5.9 mGy-cmCONTRAST: NoneFINDING S:HEAD CT:There is no evidence [...] 07/06/2020 0 :04 amComplete Blood Count with Krsdcojircwl5686-02-90 22:52:05* Test Item Value Reference Range Interpretation [...] = NRBC Abs) 0.00 x10 N Automated Glwbxdnmgcbr9808-16-76 22:52:05* Test Item Value Reference Range Interpretation Comments Neutro Auto (test code = Neutro Auto) 63.1 % 36.0-70.0 Lymph Auto (test code = Lymph Auto) 21.7 % 12.0-44.0 Cloud Auto (test code = Cloud Auto) 11.4 % 0.0-11.0 H Eos, Auto (test code = Eos, Auto) 2.6 % 0.0-7.0 Basophil Auto (test code = Basophil Auto) 0.8 % 0.0-2.0 Neutro Absolute (test code = Neutro Absolute) 6.4 x10 1.6-7.4 Lymph Absolute (test code = Lymph Absolute) 2.21 x10 .50-4.60 Cloud Absolute (test code = Cloud Absolute) 1.16 x10 .00-1.20 Eos Absolute (test code = Eos Absolute) 0.26 x10 0.00-0.74 Baso Absolute (test code = Baso Absolute) 0.08 x10 0.00-0.21 IG Oqnnh2189-07-58 22:52:05* Test Item Value Reference Range Interpretation Comments IG (test code = IG) 0.4 % 0.0-5.0 IG Abs (test code = IG Abs) 0 x10 N Comprehensive Metabolic Yzpkf0142-41-26 22:45:36* Test Item Value Reference Range Interpretation [...] = Lipemia) 0 g/dL 1-2 Comprehensive Metabolic Soggp3760-29-91 22:45:36* Test Item Value Reference Range Interpretation [...] is not provided, and the patient is -Kos[place], multiply by 1.212. If sex is not [...] code = Lipemia) 0 g/dL 1-2 Alcohol Vzrjn0190-56-15 22:45:36* Test Item Value Reference Range Interpretation Comments Ethanol Level (test code = Ethanol Level) 4.1 mg/dL N The pharmacological response to blood alcohol levels may vary from individual to individual. The fatal concentration has been reported to be >400 mg/dl. Comprehensive Metabolic Vsvlw7404-12-48 22:45:36* Test Item Value Reference Range Interpretation [...] is not provided, and the patient is -Kos[place], multiply by 1.212. If sex is not [...] is not provided, and the patient is -[place], multiply by 1.212. If sex is not [...] g/dL 1-2 XR Shoulder Complete 2+ Views Zxkjv7130-77-65 21:15:39Patient: MAGUI LAFLEUR Date/Time07/05/2020 21:07 CDTReason for ExamTraumaReportLOCATION: [id number]: 49-year-old male presents with a trauma history.COMMENT:Frontal [...] LSigned (Electronic Signature): 01/2020 9:15 pmXR Humerus Zwytm6729-27-16 21:14:40Patient: MAGUI LAFLEUR Date/Time07/05/2020 21:07 CDTReason for ExamFallReportLOCATION: T21UKIRNVB: 49-year-old male who suffered a fall.COMMENT:Frontal radiographs [...] LSigned (Electronic Signature): 07/05/2020 9:14 pmECG 12 bfxh3336-80-55 08:32:30* Test Item Value Reference Range Interpretation Comments Ventricular rate (test code = 253) 67 Atrial rate (test code = 255) 67 MI interval (test code = 266) 184 QRSD [...] Mckinley MD ([id number]) on 07/04/2020 8:32:27 AM [facility]XR Chest 1 Vw Bxmwbtgc8669-78-12 08:24:52Hm Interface, Radiology Results Incoming - 07/04/2020 8:27 AM CDTEXAMINATION: XR CHEST 1 PORTABLECLINICAL HISTORY: SOBCOMPARISON: Most Recent Prior at HIMPRESSION:Lines: NoneLungs and pleura: No consolidations. No pleural effusion or pneumothorax.Heart and mediastinum: Stable appearance of cardiomediastinal si lhouette. Bones: No suspicious osseous lesions. Foreign bodies present over the right chest and axilla, unchanged.[facility]-[id number] Cariasflavia 2020-07-04 08:17:39* Test Item Value Reference Range Interpretation Comments Troponin (test code = 83976-0) <0.006 0-0.04 In patients suspected of having [...] OR decreased by less than 0.020 ng/mL [facility] metabolic fumbh2270-91-23 08:14:51* Test Item Value Reference Range Interpretation Comments Sodium (test code = 2951-2) 137 135- 148 mEq/L Potassium (test code = 2823-3) 3.5 3.5- 5.0 mEq/L Chloride (test code = 2075-0) 98 98- 112 mEq/L CO2 (test code = 2027-9) 21 24- 31 mEq/L L Anion gap (test code = 84581-8) 18@ANIO 7- 15 mEq/L H BUN (test code = 3094-0) 23 mg/dL 6-20 H Creatinine (test code = 2160-0) 1.11 mg/dL 0.7-1.2 Glucose (test code = 2345-7) 102 mg/dL 65-99 H Calcium (test code = 34847-1) 8.4 mg/dL 8.3-10.2 Protein (test code = 2885-2) 7.6 g/dL 6.3-8.3 -[place] 4.6- 7.0 g/dL1 week 4.4-7.6 g/dL7 months-1year 5.1-7.3 g/dL1-2 years 5.6-7.5 g/dL>3 years 6.0-8.0 g/hH93-251 6.3-8.3 g/dL Albumin (test code = 1751-7) 3.6 g/dL 3.5-5 A/G ratio (test code = 1759-0) 0.9 0.7-3.8 Alkaline phosphatase (test code = 6768-6) 121 U/L 40-129 AST (test code = 1920-8) 29 U/L 10-50 ALT (test code = 1742-6) 31 U/L 5-50 Total bilirubin (test code = 1975-2) <0.2 0-1.2 Lab Interpretation (test code = 10809-7) Abnormal [facility] MethodistEstimated WOQ9181-76-70 08:14:51* Test Item Value Reference Range Interpretation Comments Estimated GFR (test code = 5488) 77 mL/min/1.73 m2 Catergory Units InterpretationG1 >=90 Normal or highG2 60-89 Mildly kqvtlfgyhW0r 45-59 Mildly to moderately rkagrufigN9v 30-44 Moderately to severely decreasedG4 15-29 Severely decreasedG5 <15 Kidney failureThe eGFR was calculated using the Chronic Kidney Disease Epidemiology Collaboration (CKD-EPI) equation. Interpretation is based on recommendations of the National Kidney Foundation-Kidney Disease Outcomes Quality Initiative (NKF-KDOQI) published in 2014. [place]AD[facility]ITALTICAL KHBX6899-24-74 07:58:49Andriy Leggett DO 07/07/2020 7:24 AMCritical CarePerformed by: Andriy Leggett DOAuthorized by: Andriy Leggett DO Critical care provider statement: Critical care [...] development of treatment plan with [facility] Preliminary Interpretation - Not an Yabwe7483-52-59 07:58:49Andriy Leggett DO 07/07/2020 7:24 [facility] [place] [facility] Preliminary Interpretation - Not an OrderPerformed by: Andriy Leggett DOAuthorized by: Andriy Leggett DO ECG reviewed by ED Physician in the absence of a home care chaplain: yes Previous ECG: Previous ECG: UnavailableRate: ECG rate: 68 ECG rate assessment: normal Rhythm: Rhythm: sinus rhythm Ectopy: Ectopy: none QRS: QRS axis: Normal QRS intervals: NormalConduction: Conduction: normal ST segments: ST segments: NormalT waves: T waves: normal [facility] with platelet and differential 2020-07-04 07:49:14* Test Item Value Reference Range Interpretation Comments WBC (test code = 98763-8) 9.58 4.50- 11.00 k/uL RBC (test code = 51441-7) 4.32 m/uL 4.4-6 L HGB (test code = 718-7) 12.1 g/dL 14-18 L HCT (test code = 4544-3) 36.7 % 41-51 L MCV (test code = 787-2) 85.0 fL 82-100 MCH (test code = 785-6) 28.0 pg 27-34 MCHC (test code = 786-4) 33.0 g/dL 31-37 RDW - SD (test code = 77311-6) 43.2 fL 37-55 MPV (test code = 21767-6) 10.6 fL 8.8-13.2 Platelet count (test code = 47665-8) 247 150- 400 k/uL Nucleated RBC (test code = 19185-7) 0.00 /100 WBC Neutrophils (test code = 36846-4) 63.7 % 39-69 Lymphocytes (test code = 29110-7) 24.7 % 25-45 L Monocytes (test code = 73690-4) 7.8 % 0-10 Eosinophils (test code = 31990-7) 2.9 % 0-5 Basophils (test code = 96355-7) 0.6 % 0-1 Immature granulocytes (test code = 01827-5) 0.3 % 0-1 "Immature granulocytes" (promyelocytes, myelocytes, metamyelocytes) Lab Interpretation (test code = 60951-6) Abnormal [place] MethodistFluoroscopic procedure less than one hour umnccuft1013-03-91 17:58:00* Test Item Value Reference Range Interpretation Comments Lactic Acid Level (test code = Lactic Acid Level) 1.3 mmol/L 0.5- 2.0 [facility] or plasma lipase measurement (enzymatic activity/volume)2020-05-09 17:58:00* Test Item Value Reference Range Interpretation Comments Lipase (test code = 3040-3) 162 U/L 8-78 [facility]Blood parckoy8605-94-74 17:58:00* Test Item Value Reference Range Interpretation Comments Blood Culture (test code = 08391325) NO GROWTH AFTER 5 DAYS, FINAL REPORT [facility] CenterCHEST SINGLE (PORTABLE)2020-05-09 17:36:00 [facility] [address] [place] [address] Patient Name: MAGUI LAFLEUR MR #: [id number] : 1970 Age/Sex: 49/M Req #: [id number] Adm Physician: Ordered by: SCOOTER MORENO MD Report #: [id number] Location: ER Room/Bed: Procedure: [id number] DX/CHEST SINGLE ( PORTABLE) Exam Date: 05/09/20 [...] acute thoracic abnormality. Signed by: Dr. Jimmie Mason MD on 05/09/2020 5:37 PM Dictated By: JIMMIE MASON MD 36 Transcribed By : JD on 05/09/201736 COPY TO: SCOOTER MORENO MD CT BRAIN WO 2020-05-09 17:31:00 [place] [address] Patient Name: MAGUI LAFLEUR MR #: [id number] : 1970 Age/Sex: 49/M Req #: [id number] Adm Physician: Ordered by: SCOOTER MORENO MD Report #: [id number] Location: ER Room/Bed: Procedure: [id number] CT/CT BRAIN ALLYSON palma Date: 05/09/20 Exam [...] M.D. on 05/09/2020 5:34 PM Dictated By: GEORGE RITTER MD 33 T ranscribed By: JD on 05/09/201733 COPY TO: SCOOTER MORENO MD Urine color dqjjgazgdpjmy1546-01-11 17:11:00* Test Item Value Reference Range Interpretation Comments Urine Color (test code = 5778-6) YELLOW YELLOW [facility] CenterUrine yqgiwyo3033-36-65 17:11:00* Test Item Value Reference Range Interpretation Comments Urine Clarity (test code = 49645-6) CLEAR CLEAR [facility] Centerpecific gravity of Urine by Test strip 2020-05-09 17:11:00* Test Item Value Reference Range Interpretation Comments Urine Specific [place] (test code = 5811-5) 1.015 1.010-1.02 5 [facility] CenterU[facility] pH measurement by automated test nspqb7020-35-08 17:11:00* Test Item Value Reference Range Interpretation Comments Urine pH (test code = 86036-8) 6.5 5-7 [facility] CenterUrine leukocyte esterase detection by opzfcznd1709-89-04 17:11:00* Test Item Value Reference Range Interpretation Comments Urine Leukocyte Esterase (test code = 5799-2) NEGATIVE NEGATIVE [facility] CenterU[facility] nitrite yknixalvf5284-07-23 17:11:00* Test Item Value Reference Range Interpretation Comments Urine Nitrite (test code = 91191-4) NEGATIVE NEGATIVE [facility] CenterUrine protein measurement by test strip (mass/volume)2020-05-09 17:11:00* Test Item Value Reference Range Interpretation Comments Urine Protein (test code = 5804-0) NEGATIVE NEGATIVE [facility] CenterUrine glucose gaodsdorr3053-52-13 17:11:00* Test Item Value Reference Range Interpretation Comments Urine Glucose (UA) (test code = 2349-9) NEGATIVE NEGATIVE [facility] CenterUrine ketones detection by automated test clavm9973-88-28 17:11:00* Test Item Value Reference Range Interpretation Comments Urine Ketones (test code = 46785-2) NEGATIVE NEGATIVE [facility] CenterUrine urobilinogen measurement by test strip (mass/volume)2020-05-09 17:11:00* Test Item Value Reference Range Interpretation Comments Urine Urobilinogen (test code = 94961-9) 0.2 mg/dL 0.2-1 [facility] CenterU[facility] total bilirubin measurement (mass/volume)2020-05-09 17:11:00* Test Item Value Reference Range Interpretation Comments Urine Bilirubin (test code = 1978-6) NEGATIVE NEGATIVE [facility] CenterUrine erythrocytes sxeviidme9298-46-59 17:11:00* Test Item Value Reference Range Interpretation Comments Urine Blood (test code = 35515-8) NEGATIVE NEGATIVE [facility] CenterAutomated urine sediment leukocyte count by microscopy (number/high power field)2020-05-09 17:11:00* Test Item Value Reference Range Interpretation Comments Urine WBC (test code = 5821-4) 6-10 /[HPF] 0-5 [facility] CenterErythrocytes detection in urine sediment by light jqmzbbxzux0716-55-33 17:11:00* Test Item Value Reference Range Interpretation Comments Urine RBC (test code = 93709-3) NONE /[HPF] 0-5 [facility] CenterBacteria detection in urine sediment by light uhqllcrhwg8526-77-70 17:11:00* Test Item Value Reference Range Interpretation Comments Urine Bacteria (test code = 78250-4) NONE /[HPF] NONE [facility] CenterEpithelial cells detection in urine sediment by light odjmadfafk9660-69-36 17:11:00* Test Item Value Reference Range Interpretation Comments Urine Epithelial Cells (test code = 01242-1) FEW /[LPF] NONE [facility] CenterCARDIAC ECRUWPZ5653-24-84 10:51:00<0.02 [facility]CHE[facility] NMBQN4619-36-09 10:51:0095[facility]annCHEM PANEL 2020-05-06 10:51:0023[facility]annCHEM IMPOJ9753-12-92 10:51:001.15[facility]annCHEM VGZFO1358-15-76 10:51:58512Jrgljioj HermannCHEM AWJKA8923-63-31 10:51:004.4[facility]annCHEM FJFQE9066-99-78 10:51:51778Bzauqrdu HermannCHEM GTAJQ3900-09-82 10:51:0028[facility]annCHEM WQOWB7806-76-33 10:51:008.1 [facility]CHE[facility] GVQTE1172-76-83 10:51:009.4[facility]annCHEM PANEL 2020-05-06 10:51:0074[facility] SjjkbwxXPLFAIENSR8066-53-46 10:51:005.1[facility] GmvbnmtFFDEDRRDNA9719-07-66 10:51:004.26[facility] OgacbbuNAWETMIBHO1129-41-43 10:51:0011.9[facility] QftkxrwRTSHEQFSAP8105-23-31 10:51:0036.4[facility] MSTRVJLJLX7044-66-84 10:51:0085.3[facility] HzcujhoWJWYDSABDV4119-98-83 10:51:00* Test Item Value Reference Range Interpretation Comments MCH (test code = MCH) 28.0 pg 27.0-31.0 [facility] ZgzmradKWZPLXAEDV9086-72-42 10:51:0032.8[facility] HermannHEMATOLOGY 2020-05-06 10:51:0014.1[facility] ClbunhtOTUGYJSVAA8795-61-76 10:51:40695Ijshrqkf GmphuckOMHPCQCUKQ9645-77-23 10:51:008.6[facility] VxlasevGGCANQKIZW7365-51-69 10:51:0036.7[facility] MntzazuLPERNTYOFU6290-10-56 10:51:0040.4[facility] DQANDFADPE0046-57-64 10:51:0015.2[facility] SpceedwNODKFMYNFV2554-13-23 10:51:00 6.8[facility] NshzzjhWRLVNHDWUV6893-34-66 10:51:000.9[facility] HermannHEMATOLOGY 2020-05-06 10:51:001.9[facility] PpxiyfpMKFSUFCEQX3532-37-31 10:51:002.1[facility] XehpmrcTSTDSSNTXN4130-49-79 10:51:000.8[facility] UujqkhsOCAYMRVRYM3119-00-90 10:51:000.4[facility] HermannBACTERIAL - IFNPAHEC8483-80-50 06:31:00Negative (05/06/20 1:31 AM)[facility]annCARDIAC TDKWKFR4677-35-88 06:01:00<0.02[facility]annCHEM OFVGP0609-77-39 05:00:001.7[facility]annCHEM YNFKK1425-76-87 02:26:001.2[facility]annCARDIAC OWRXNBE6412-78-39 00:28:78717Dobeukwq [place] CARDIAC ASUFGPV3008-90-14 00:28:0062[facility]annCHEM KIDUF1588-97-83 00:28:0089[facility]annCHEM JAGII3903-55-91 00:28:0023[facility]annCHEM CEXNM5851-76-91 00:28:001.48[facility]annCHEM CEGXD9767-35-42 00:28:53738 [facility]annCHEM PHQFI6874-90-86 00:28:004.5[facility] HermannCHEM PANEL 2020-05-06 00:28:04634Uhnoxank HermannCHEM VYBGP9321-78-49 00:28:0032[facility]annCHEM TWVSD4381-41-95 00:28:008.8[facility]annCHEM FHDHZ9314-46-46 00:28:007.9[facility]annCHEM NBDAE9601-20-54 00:28:003.7[facility]annCHEM XAGAP3371-82-01 00:28:0035[facility]annCHEM XBEVY2625-31-85 00:28:0032 [facility]annCHE[facility] EWYCJ3225-01-01 00:28:85154Wfvstgbd HermannCHEM PANEL 2020-05-06 00:28:000.3[facility]annCHEM EDVRP1718-34-49 00:28:007.5[facility]annCHEM CKHLT1878-24-06 00:28:00* Test Item Value Reference Range Interpretation Comments B/C Ratio (test code = B/C Ratio) 16 1 6-25 [facility]CHE[facility] WPXUE9196-28-51 00:28:004.2[facility] HermannCHEM PANEL 2020-05-06 00:28:00* Test Item Value Reference Range Interpretation Comments A/G Ratio (test code = A/G Ratio) 0.9 1 0.7-1.6 [facility]annCHE[facility] TDBRA7403-91-66 00:28:0055[facility] HermannCHEM PANEL 2020-05-06 00:28:000.08[facility] VmrbuhwWWYTZTIEMI5561-91-09 00:28:006.1[facility] AiotrwgCJVFJQQFPN5637-66-46 00:28:004.44[facility] VxvqzdlDFNEEUGYHJ7182-49-79 00:28:0012.4[facility] QfzmxszGRKXOUGGEW8033-81-66 00:28:0038.2[facility] Johnie VPDPEACAAW0480-43-34 00:28:0086.1[facility] PdfcadsFLGNVMTZLL0566-58-19 00:28:00* Test Item Value Reference Range Interpretation Comments MCH (test code = MCH) 28.0 pg 27.0-31.0 [facility] IuioaxdCLHRAPBZJD2654-16-82 00:28:0032.5[facility] HermannHEMATOLOGY 2020-05-06 00:28:0014.5[facility] WrabawaOBZIBWXSHG2134-48-78 00:28:49945Mlmzhnzz OucllwgCZYAJUHXUR9099-29-26 00:28:008.1[facility] NoykcaqTABMQZRPRN8952-37-04 00:28:00Normal (05/05/20 7:28 PM)[facility] BypgonsRIULNRTXKP7468-01-43 00:28:00 Normal (05/05/20 7:28 PM)[facility] XzsljwrPDWFEKJKNN7994-93-37 00:28:0045.3[facility] QpoxotnUYBQOSQZDQ2386-18-17 00:28:0035.2[facility] UyvogjnPOLSTJULKT8481-11-56 00:28:0013.0[facility] IwfgjpzMIYNYJNJCO8875-63-38 00:28:005.7[facility] Johnie NWCQXVQTUE8833-57-76 00:28:000.8[facility] JmpckpeQABNTACXQZ4920-86-41 00:28:002.8 [facility] UbdwkpjBIZOQOECRH9274-47-62 00:28:002.2[facility] HermannHEMATOLOGY 2020-05-06 00:28:000.8[facility] WwkhxekKVGPHIVIRQ4321-02-62 00:28:000.3[facility] HermannBlood culture, aerobic & mrdgxdgsx2966-62-94 00:03:03* Test Item Value Reference Range Interpretation Comments Blood culture isolate (test code = 600-7) No growth after 5 days of incubation. Specimen InformationSpecimen Source: BloodSpecimen Site: Arm, left [place] MethodistStrep screen sodieql6544-55-45 11:47:01* Test Item Value Reference Range Interpretation Comments Strep screen culture isolate (test code = 2246) No bet a hemolytic Streptococci isolated Specimen Information Specimen Source: ThroatSpecimen Site: Not otherwise specified Lázaro PedrazaGroup A strep, rapid aavwgmf0807-68-02 11:47:01* Test Item Value Reference Range Interpretation Comments Group A strep, rapid antigen result (test code = 53892 79) Negative for Group A Streptococcus antigen. Specimen Informat ionSpecimen Source: ThroatSpecimen Site: Not otherwise specified Lázaro PedrazaT4, pcnx7959-53-87 07:42:53* Test Item Value Reference Range Interpretation Comments T4, free (test code = 3024-7) 1.3 ng/dL 0.8-1.8 [place] ConfucianistThyroid stimulating ychfhrk4962-20-11 07:42:53* Test Item Value Reference Range Interpretation Comments TSH (test code = 3016-3) 3.50 0.55- 4.78 uIU/mL [place] ConfucianistVancomycin level, pzuspx1248-69-01 09:54:01* Test Item Value Reference Range Interpretation Comments Vancomycin, trough (test code = 00627-2) 20.2 ug/mL 10-20 [facility] Therapeutic Ranges: Peak 30.0 - 40.0 ug/mL Trough 10.0 - 20.0 ug/mLFinal results called to and read back by Clayton White RN 04/13/2020 09:51 edp Lab Interpretation (test code = 23030-8) Abnormal Lázaro PedrazaLegionella urinary hrxqfwn8339-46-62 17:08:11* Test Item Value Reference Range Interpretation Comments Legionella urinary antigen (test code = 1658) Negative for Legionella serogroup 1 antigen. Specimen Information Specimen Source: UrineSpecimen Site: Random void Ses[place] Auretreptococcus pneumoniae urinary pkwhsud8966-96-42 17:08:11* Test Item Value Reference Range Interpretation Comments Strep pneumo urinary Ag (test code = 2245) Negative fo r Streptococcus pneumoniae antigen. Specimen Information Specimen Source: UrineSpecimen Site: Random void [place] ConfucianistNM Lung Perfusion Rxppdva0551-80-42 16:40:31Hm Interface, Radiology Results - 04/12/2020 4:43 PM CDTPROCEDURE: NM LUNG PERFUSION IMAGINGINDICATION: PE suspected intermediate prob positive D-d kolton.COMPARISON: CT chest dated April 12, 2020. VQ scan dated February 07, 2007.TECH NIQUE: Ventilation images were not obtained. The patient was injected with 5 mC i of gcswxexagb-04e-KNU intravenously, followed by imaging of the lungs in 8 pro jections.FINDINGS: Mild left perihilar perfusion defect, nonsegmental. IMPRESSI ON:Very Low probability for pulmonary embolism. [facility]-[id number] and appro tarun by residential support specialist/fellow: Kemal Sandra, Fatoumata Grimes, personal ly reviewed the images and resident's/fellow's findings and agree with the final report.[facility] MethodistCT Chest Wo Xktfmxrt6159-74-01 13:29:43Hm Interface, Radiology Results - 04/12/2020 1:32 [...] changes are noted involving the spine.Other: None.SUMMARY:1.Negative study.[facility]-[id number] MethodistRespiratory pathogen icyng7663-72-11 12:40:04* Test Item Value Reference Range Interpretation [...] Detected Bordetella pertussis PCR (test code = 9465186) Not Detected Bordetella parapertussis PCR (test code = 0393376) Not Detected Chlamydia pneumoniae PCR (test code = 3753) Not Detected Mycoplasma pneumoniae PCR (test code = 7110) Not Detected Influenza A no sub type PCR (test code = 7127) Not Reported [place] MethodistUrinalysis screen and microscopy, with reflex to culture 2020-04-12 09:48:58* Test Item Value Reference Range Interpretation Comments Specimen site (test code = 0094219) Clean catch Color, UA (test code = 5778-6) Yellow YELLOW Appearance, UA (test code = 5767-9) Clear Clear Specific gravity, UA (test code = 5811-5) 1.009 1.005-1.030 pH, UA (test code = 5803-2) 6.0 5.0-8.0 Protein, UA (test code = 63688-5) Negative Negative Glucose, UA (test code = 10395-1) Negative Negative Ketones, UA (test code = 2514-8) Negative Negative Bilirubin, UA (test code = 5770-3) Negative Negative Blood, UA (test code = 5794-3) Negative Negative Nitrite, UA (test code = 5802-4) Negative NEGATIVE Urobilinogen, UA (test code = 39015-8) <2.0 <2.0 E.U./dL Leukocyte esterase, UA (test code = 5799-2) Negative Negative Epithelial cells, UA (test code = 5787-7) <1 0- 15 /HPF WBC, UA (test code = 5821-4) 1 0- 5 /Hpf RBC, UA (test code = 74300-7) 3 0- 5 /HPF Bacteria, UA (test code = 86998-1) Few None seen A Yeast, UA (test code = 76350-4) None seen None Seen Yeast with pseudohyphae, UA (test code = 51929-6) None seen Lab Interpretation (test code = 21404-4) Abnormal [place] MethodistUrine fxjbhsz5737-35-11 09:36:40* Test Item Value Reference Range Interpretation Comments Urine culture (test code = 3314224) SEE COMMENT Bacteriuria screen negative. [place] MethodistInfluenza hldgdjq3167-73-44 05:53:21* Test Item Value Reference Range Interpretation Comments Influenza antigen (test code = 40084-6) Negative for Influenza A/B antigen. Specimen InformationSpecimen Source: NaresSpecimen Site: Left [place] MethodistArterial blood lvz2530-93-53 05:41:54* Test Item Value Reference Range Interpretation Comments pH, arterial (test code = 2744-1) 7.38 7.35- 7.45 Units pCO2, arterial (test code = 2019-8) 39 35- 45 mmHg pO2, arterial (test code = 2703-7) 93 83- 108 mmHg Bicarbonate, arterial (test code = 1960-4) 22.6 21.0- 28.0 mEq/L Base excess, arterial (test code = 1925-7) -1.7 -0.2 - 0.3 mEq-L L O2 saturation, arterial (test code = 2708-6) 97 % 95-98 FiO2 (test code = 3150-0) 21.0 Total CO2 (test code = 8-9) 21 mEq/L O2 content (test code = 1828) 15.1 15.0- 23.0 VOL % Lab Interpretation (test code = 38358-6) Abnormal [place] MethodistType and xiwvlc1234-80-55 05:28:00* Test Item Value Reference Range Interpretation Comments ABO grouping (test code = 883-9) O Rh type (test code = 45739-2) POS Antibody screen (gel) (test code = 890-4) NEG [place] MethodistLipid qfbzp4119-40-61 05:17:03* Test Item Value Reference Range Interpretation Comments Cholesterol (test code = 2093-3) 120 mg/dL 0-199 Triglycerides (test code = 2571-8) 90 mg/dL 0-149 HDL cholesterol (test code = 2085-9) 37 mg/dL 40-9999 L LDL cholesterol (test code = 2089-1) 74 mg/dL 0-99 Lipid panel interpretation (test code = 55140-6) See below Total Cholesterol (mg/dL) <200 Desirable [...] (>=200 mg/dL) Lab Interpretation (test code = 32247-3) Abnormal [place] MethodistFerritin kpwxi3509-53-00 05:17:03* Test Item Value Reference Range Interpretation Comments Ferritin level (test code = 2276-4) 132 ng/mL 18-464 [place] MethodistCreatine kinase, total (CPK)2020-04-12 05:17:01* Test Item Value Reference Range Interpretation Comments Creatine kinase (test code = 2157-6) 90 U/L 35-200 [place] OhhpdghvvOWX0309-35-43 05:16:58* Test Item Value Reference Range Interpretation Comments LDH (test code = 06488-2) 195 U/L 300-600 L Lab Interpretation (test code = 90090-0) Abnormal [place] MethodistC-reactive cnvekyd9214-59-34 05:16:58* Test Item Value Reference Range Interpretation Comments CRP (test code = 1988-5) 3.40 mg/dL 0-1 H Lab Interpretation (test code = 81624-3) Abnormal [facility] BgbfxvliqN-efvyy1068-40-11 04:59:42* Test Item Value Reference Range Interpretation Comments D-dimer (test code = 27778-3) 2.37 0.00- 0.40 ug/mL FEU H When [...] and malignancies. Lab Interpretation (test code = 30634-8) Abnormal [place] HkicexucnBvysgcxyjc0251-31-67 04:57:03* Test Item Value Reference Range Interpretation Comments Fibrinogen (test code = 70490-9) 406.0 mg/dL 200-450 The reference range has changed starting 04/02/2010 @12:00pm [place] MethodistCOVID-19 qualitative ZXQ6034-61-65 04:39:21* Test Item Value Reference Range Interpretation Comments Interpretation (test code = 7630241) Negative results do not preclude 2019-nCoV infection and should not be used as the sole basis for treatment or other patient management decisions. Negative results must be combined with clinical observations, patient history, and epidemiological information. COVID-19 qualitative PCR result (test code = 20016-6) Not-Detect ed Not-Detected COVID-19 qualitative PCR (test code = 7070) See link below for P DF Lab Report [place] MethodistLactic acid level, SEPSIS - Now and repeat 2x every 3 hours 2020-04-11 23:12:04* Test Item Value Reference Range Interpretation Comments Lactic acid (test code = 39783-6) 2.4 mmol/L 0.5-2.2 H Lab Interpretation (test code = 83758-0) Abnormal [place] MethodistB natriuretic xyvnrcz4139-03-41 19:38:44* Test Item Value Reference Range Interpretation Comments BNP (test code = 84472-9) 56 pg/mL 0-100 [place] MethodistCRITICAL IELQ4824-94-10 19:17:37Tanika Barbosa MD 04/11/2020 9:02 PMCritical CarePerformed [...] of patient's condition and review of old chartsSalisbury MethodistCARDIAC LNQGFHI3095-18-69 02:08:98525Bnwqnwjw Johnie CARDIAC ICLDOFR5998-32-86 02:08:00<0.02[facility]annCARDIAC BXYYFUV9105-82-99 02:08:0053[facility] HermannCHEM VQOYQ4590-91-32 02:08:0087[facility] HermannCHEM ULBBV7558-49-58 02:08:0022[facility] HermannCHEM DKJHQ9295-43-11 02:08:001.13 [facility]annCHEM AZFSY1279-42-00 02:08:94115Xuacmxwl HermannCHEM PANEL 2019-12-24 02:08:004.3[facility] HermannCHEM CHPOF1487-25-61 02:08:77444Pgiayqgp HermannCHEM DNAQY5122-92-34 02:08:0025[facility] HermannCHEM RIIEC0999-54-06 02:08:009.1[facility] HermannCHEM EGNOC9576-46-59 02:08:009.2[facility] HermannCHEM KCAWI8491-02-91 02:08:004.2[facility] HermannCHEM KKTPV5864-62-57 02:08:0044 [facility]annCHEM ETNFK8593-45-46 02:08:0026[facility] HermannCHEM PANEL 2019-12-24 02:08:17612Iyvbmszt HermannCHEM AHWSO3656-96-43 02:08:000.3[facility] HermannCHEM KEZUL3142-29-33 02:08:009.3[facility] HermannCHEM RCPAC0881-39-19 02:08:00* Test Item Value Reference Range Interpretation Comments B/C Ratio (test code = B/C Ratio) 19 1 6-25 [facility]annCHEM FZIUG2552-50-91 02:08:005.0[facility] HermannCHEM PANEL 2019-12-24 02:08:00* Test Item Value Reference Range Interpretation Comments A/G Ratio (test code = A/G Ratio) 0.8 1 0.7-1.6 [facility]annCHEM TVXFD0077-54-99 02:08:0076[facility] HermannHEMATOLOGY 2019-12-24 02:08:009.4[facility] GovbywaPMJVRRPMCW0784-90-99 02:08:004.64[facility] HhaamwjFNYSNJYAXF0690-32-11 02:08:0013.2[facility] VuqemgyVAOMZVUTBC5465-99-70 02:08:0039.9[facility] ErhmhzsXAUIYPWWTX9740-16-68 02:08:0086.0[facility] [place] FJWZTFBLLM4877-35-92 02:08:00* Test Item Value Reference Range Interpretation Comments MCH (test code = MCH) 28.4 pg 27.0-31.0 [facility] WmxwowsFOJEWYUHZR9663-17-07 02:08:0033.0[facility] HermannHEMATOLOGY 2019-12-24 02:08:0015.1[facility] VtsswbjNXDEHWEJVJ5002-48-89 02:08:32178Rcgcohxe BeoyelaTYUHVEYUTX3577-73-13 02:08:009.3[facility] IcndhmlDPWXYOMDDJ7304-42-99 02:08:0070.1[facility] EtqhjoaVYHAFXNMOC5973-02-38 02:08:0019.3[facility] [place] SQAVBXWAAZ7153-10-36 02:08:007.8[facility] BxvdpydXXOONJZHHO6805-97-98 02:08:001.6 [facility] HxbjyjcGCQNGEWXHY6356-24-30 02:08:001.2[facility] HermannHEMATOLOGY 2019-12-24 02:08:006.6[facility] OpivfopEUXPPUQHSL5944-49-05 02:08:001.8[facility] VczajkuXYGIFSVZIA2973-48-59 02:08:000.7[facility] TppovrjDMELZUZEEO4831-57-48 02:08:000.2[facility] ZqhxxmmAJYCHDIOOY8478-23-58 02:08:000.1[facility] [place] JLPTCXFQ-O6791-04-18 02:11:00* Test Item Value Reference Range Interpretation Comments TROPONIN-I (test code = TROPI) <0.020 ng/mL 0.000-0.034 N BASIC METABOLIC PQCUW5605-26-92 02:02:00* Test Item Value Reference Range Interpretation [...] CA) 8.7 mg/dL 8.5-10.5 N CBC W/AUTO RSYK6384-22-69 01:42:00* Test Item Value Reference Range Interpretation [...] 3/uL 0.0-0.1 N - XR CHEST 1 R3625-44-22 01:32:00Patient Name: MAGUI LAFLEUR Unit No: [id number] EXAMS: CPT: [id number] XR CHEST 1 V 13593 CHEST 1 VIEW CLINICAL HISTORY: Shortness of breath COMPARISON: None. A single frontal view of the chest is submitted. FINDINGS: The cardiac silhouette is normal in size. Vascularity appears normal. The lungs are clear. No pleural effusion or pneumothorax is seen. No osseous abnormalities are seen. IMPRESSION: Negative chest radiograph. at 0132 Reported and signed by: Andriy rPice MD CC: Ochoa Zamudio MD Technologist: SAMANTHA WANG Fluoro Time: DAP (Gy m2): Air Kerma (mGy): Trscr Dt/Tm: 10/19/2019 (131) by:[email or web address] Orig Print D/T: S: 10/19/2019 (134) BATCH NO: N/A Name: MAGUI LAFLEUR [facility] Phys: Ochoa Ellington MD [address] [place] : 1970 Age: 49 Sex: [place] [address] Loc: N.ERS Exam Date: 10/19/2019 Status: PRE ER PH: FAX: PAGE 1 Signed Report CARDIAC ENZYMES 2019-07-24 18:04:99176Kulvghot HermannCHEM [id number] 18:04:00748Xmrvuitg HermannCHEM [id number] 18:04:0022[facility]ann[facility] [id number] 18:04:001.36[facility] HermannCHEM [id number] 18:04:23675Goireydh HermannCHEM [id number] 18:04:004.0[facility] HermannCHEM [id number] 18:04:16269 [facility]annCHEM [id number] 18:04:0025[facility] HermannCHEM PANEL 2019-07-24 18:04:009.3[facility]annCHEM [id number] 18:04:009.3[facility] HermannCHEM [id number] 18:04:004.2[facility] HermannCHEM [id number] 18:04:0032[facility] HermannCHEM [id number] 18:04:0028[facility]annCHEM [id number] 18:04:76859Zzvkyalg HermannCHEM [id number] 18:04:000.4 [facility]annCHEM [id number] 18:04:0061[facility] HermannCHEM PANEL 2019-07-24 18:04:0011.0[facility]annCHEM [id number] 18:04:00* Test Item Value Reference Range Interpretation Comments B/C Ratio (test code = B/C Ratio) 16 1 6-25 [facility]annCHEM [id number] 18:04:005.1[facility] HermannCHEM PANEL 2019-07-24 18:04:00* Test Item Value Reference Range Interpretation Comments A/G Ratio (test code = A/G Ratio) 0.8 1 0.7-1.6 [facility] [id number] 18:04:0010.2[facility] HermannHEMATOLOGY 2019-07-24 18:04:004.87[facility] KicnxysYCZCHWXSEC0255-21-80 18:04:0014.1[facility] QyphzdjAVGWFINDWT1585-74-70 18:04:0042.6[facility] IhgtwjpKYRXDWJTXJ3869-99-78 18:04:0087.5[facility] SxyxkomHZNNSIMLYX9586-96-61 18:04:00* Test Item Value Reference Range Interpretation Comments MCH (test code = MCH) 29.0 pg 27.0-31.0 [facility] TfoqchdEUKKDSXBRP6630-97-46 18:04:0033.1[facility]annHEMATOLOGY 2019-07-24 18:04:0014.5[facility] QgxeztyLSUOWACXWA5923-38-20 18:04:46439Nxufgxtn WdfatuqHDSPTONVIT8251-64-31 18:04:007.7[facility] CiytokiWPJHVJYINK2386-33-13 18:04:0068.3[facility] OjwfvfgJEYBSRJRLE5691-32-09 18:04:0022.0[facility] VXIQLXWBYP6998-53-44 18:04:008.3[facility] OkzzqwuBFNHGFDLJD3193-17-00 18:04:000.7 [facility] CzqnzfdRMARLRRXXJ0391-33-40 18:04:000.7Menerila HermannHEMATOLOGY 2019-07-24 18:04:007.0[facility] GqozeacXNRMAZHGCZ9600-51-04 18:04:002.2[facility] VfennrePKSBIOWJQC1693-74-45 18:04:000.8[facility] RxwvavnGPXPIEFEYW2279-72-24 18:04:000.1[facility] DkrlhnwCOQDXHYSNQ9995-99-48 18:04:000.1[facility] SpringsBASIC METABOLIC NRNZH0376-74-64 14:52:00* Test Item Value Reference Range Interpretation [...] mg/dL 8.5-10.1 N IS FINISHED FOR BLOOD. V.LAB.SC 06/26/19 1420CBC W/AUTO JWKR6963-50-75 14:42:00 * Test Item Value Reference Range [...] code = MDIFF) NO DONE FOR BLOOD V.LAB.IL 06/26/19 1421CBC W/AUTO [id number] 14:38:00* Test Item Value Reference Range Interpretation [...] = BA#) K/mm3 0.0-0.2 DONE FOR BLOOD V.LAB.IL 06/26/19 1421- XR TIBIA/FIBULA 2 V [id number] 14:30:00 FAX: Elissa Siddiqui MD [phone] [place]: [address]: REG FAX: Guille Haley MD [phone] Name: [facility] : 1970 Age/S: 48/M [address] [facility] Unit #: [id number] Loc: [place] [address] Phys: Guille Haley MD Acct: [id number] Dis Date: Status: REG ER PHONE #: [phone] Exam Date: 06/26/2019 1408 FAX #: [phone] Reason: concern for fx EXAMS: CPT CODE: [id number] XR TIBIA/FIBUL[place] 2 [place] [address] CLINICAL HISTORY: Pain status post fall TECHNIQUE: AP and lateral views of the right tibia/fibula COMPARISON: 7 FINDINGS: No acute fracture or dislocation. Bony t rabecular pattern is unremarkable. No cortical destruction or periosteal r eaction. Right knee degenerative arthrosis, most severe laterally. Small k nee joint effusion. Pretibial phleboliths. Lower leg soft tissue edema. IMPRESSION: No acute fracture or disloca tion of the right tibia/fibula. at 1430 Reported and signed by: Lorena villarreal D.O. CC: Elissa Siddiqui MD; Guille Halye MD Technologist: Sundeep Miller RT(R) T rnscrd Date/Time/By: 06/26/2019 (1430) : By: [email or web address] Orig Print D/T: S: 06/26/2019 (7101) PAGE 1 Sign ed Report CARDIAC OETRQKI3534-43-83 00:09:0097 [facility] BQNEY7587-73-26 00:09:04297Bkkjhyku HermannCHEM PANEL 2019-05-08 00:09:0099[facility]annCHE[facility] NIUQS1632-69-63 00:09:006[facility]annCHE[facility] EWGZB5109-14-55 00:09:000.80[facility]annCHEM LXMUD1932-17-84 00:09:000.4[facility]annCHEM ADEWR7228-74-88 00:09:02296Oqbnqcuc HermannCHEM HDUAO7570-68-72 00:09:0048[facility]annCHE[facility] BVDOW3296-99-85 00:09:0043 [facility]CHE[facility] YCJYR4392-90-59 00:09:007.6[facility]annCHEM PANEL 2019-05-08 00:09:003.2[facility]annCHEM EXRBJ2556-25-12 00:09:008.5[facility]annCHEM AKQSW3072-13-30 00:09:003.5[facility]annCHEM ZHCFR8831-99-08 00:09:00388Bcqbsezi HermannCHEM NWUBR8887-42-04 00:09:52915Rjuvllcb HermannCHEM EMFEO5505-85-05 00:09:0026[facility]annCHEM DYDYZ8843-01-54 00:09:00* Test Item Value Reference Range Interpretation Comments A/G Ratio (test code = A/G Ratio) 0.7 1 0.7-1.6 [facility]CHE[facility] QLERV8521-47-62 00:09:00* Test Item Value Reference Range Interpretation Comments B/C Ratio (test code = B/C Ratio) 8 1 6-25 [facility] HermannCHEM ICXUO1428-12-42 00:09:004.4[facility]annCHEM PANEL 2019-05-08 00:09:009.5[facility] YosggfcYRWFTSLENS8222-80-97 00:09:007.9[facility] ObhoxfdYNSFOGGFNT1382-95-56 00:09:71664Xwiawvsp BxmnmwcKOLJQTKOAL3941-55-33 00:09:00* Test Item Value Reference Range Interpretation Comments MCH (test code = MCH) 28.7 pg 27.0-31.0 [facility] KomsbnlTDLRYJJVLN3246-33-01 00:09:0033.2[facility]annHEMATOLOGY 2019-05-08 00:09:0014.3[facility] AszqarfFYLZCONPBN3025-14-63 00:09:0011.8[facility] AprwsmdWUOFJEMNUA2878-54-38 00:09:005.4[facility] UxznaebVOSDPALWOQ9495-26-71 00:09:004.13[facility] KnjrtgiDMWGXGXCYS5067-25-46 00:09:0086.4[facility] UZGSCHLLYN2296-51-98 00:09:0035.7[facility] EszhhgmRSWKQEXTBT3644-52-88 00:09:00* Test Item Value Reference Range Interpretation Comments PT (test code = PT) 13.4 s 12.0-14.7 [facility] SmfxoysHZTTGRLIYK1492-26-79 00:09:00* Test Item Value Reference Range Interpretation Comments INR (test code = INR) 1.04 1 0.85-1.17 [facility] DapgmhuKCYORQLQGW3886-20-33 00:09:00* Test Item Value Reference Range Interpretation Comments PTT (test code = PTT) 30.6 s 22.9-35.8 [facility] PghhxdzZIBCECUKVX4597-27-86 00:09:000.6[facility]annHEMATOLOGY 2019-05-08 00:09:000.0[facility] RlgulupECIZVTQALW1688-43-39 00:09:000.3[facility] SrommfzGHVSWLBCIY4362-89-49 00:09:004.9[facility] PwjyahsNSAIRBUSRZ6317-41-59 00:09:003.3[facility] WwgvvzqAGEUVCCAPC6751-97-40 00:09:001.2[facility] OAFREVARIB1257-99-61 00:09:000.5[facility] EydldnmSRCCVGRNTZ6329-25-94 00:09:00 61.2[facility] LssnhylZKRFKZWWGK6021-11-69 00:09:0012.0[facility]annHEMATOLOGY 2019-05-08 00:09:0021.4[facility] HermannCHEM ZNQCD8361-44-53 09:24:21085Ryjfeacv HermannCHEM YCIPO9002-85-50 09:24:97614Gpvjnajc [facility]annCHEM SIWAE3160-50-31 09:24:0016[facility]annCHE[facility] VYPME9737-41-14 09:24:000.76[facility]annCHEM SBCVR2999-23-37 09:24:0092[facility]annCHEM CAKVF8094-58-49 09:24:0026 [facility]CHE[facility] PSBPJ7546-88-50 09:24:004.2[facility] HermannCHEM PANEL 2019-01-21 09:24:52958Ghzdequs HermannCHEM FPLIL4714-05-17 09:24:0020[facility]annCHE[facility] USNII8552-08-40 09:24:007.6[facility]annCHEM JZMOD4524-63-75 09:24:006.6[facility]annCHEM TECUU7027-61-78 09:24:002.6[facility]annCHEM KHCVA2157-41-04 09:24:0017[facility]annCHEM QKCYM5561-32-95 09:24:0078 [facility]annCHE[facility] DHXWB6305-41-21 09:24:000.2[facility]annCHEM PANEL 2019-01-21 09:24:00* Test Item Value Reference Range Interpretation Comments A/G Ratio (test code = A/G Ratio) 0.6 1 0.7-1.6 [facility] HermannCHEM DQDVW9984-56-27 09:24:00* Test Item Value Reference Range Interpretation Comments B/C Ratio (test code = B/C Ratio) 21 1 6-25 [facility] HermannCHEM ZHZCV6711-40-93 09:24:004.0[facility] HermannCHEM PANEL 2019-01-21 09:24:007.2[facility] CxkmrcqQPHLTLMZAP6901-24-03 09:24:008.2[facility] JulphjfUCEEOAZLRG5465-48-58 09:24:78393Uevafoax WvxadghIWJJCFGZII8292-94-82 09:24:0014.3[facility] FugpecuKURKFDGVJM0741-67-13 09:24:006.5[facility] XWSDSDFBPG3104-98-59 09:24:003.31[facility] OfgsjdhBOTNSIPFYX8469-45-79 09:24:00 9.6[facility] MvpyegsFAENPQYZYL3024-78-60 09:24:0028.2[facility]annHEMATOLOGY 2019-01-21 09:24:00* Test Item Value Reference Range Interpretation Comments MCH (test code = MCH) 29.0 pg 27.0-31.0 [facility] PtbpwefQOSIPDMTUG1687-12-03 09:24:0085.2[facility] HermannHEMATOLOGY 2019-01-21 09:24:0034.0[facility] MmtttqrCTOKPKWNWS8191-30-27 09:24:0011.1[facility] VcgxwecTGXKXHWGNJ5468-71-06 09:24:000.9[facility] HomvdypGIGYDFPWYD3329-15-17 09:24:008.0[facility] MmrhqzfYYHTWQAZWU9587-28-79 09:24:000.1[facility] RHTEYPUXLV0085-99-98 09:24:000.5[facility] AqwgmnvBYWFNVSHPN1306-96-17 09:24:003.7 [facility] NtqkqaxNPTHVTLVSP5472-14-68 09:24:000.7[facility]annHEMATOLOGY 2019-01-21 09:24:001.5[facility] TmzhqiyKWXHXVSBGB4593-31-67 09:24:0057.0[facility] YqtxjpbIHMAKMYHOX0958-45-58 09:24:0023.0[facility] HermannBACTERIAL - SEROLOGY 2019-01-21 04:24:00Negative (01/20/19 11:24 PM)[facility]annCHEM PANEL 2019-01-20 21:56:001.2[facility] HermannDRUG BSIKIM9149-42-02 18:53:00Negative *NA*(01/20/19 1:53 PM)[facility]annDR[facility] GIIRTH8930-07-01 18:53:00See Note (01/20/19 1:53 PM)[facility]annDR[facility] OAYXUP8345-83-15 18:53:00Negative *NA*(01/20/19 1:53 PM)[facility]DR[facility] QMKOFA4294-26-03 18:53:00Positive *ABN*(01/20/19 1:53 PM)[facility]annDR[facility] TAZRCG4227-60-11 18:53:00Negative *NA*(01/20/19 1:53 PM)[facility]DR[facility] NWMJIO8689-30-95 18:53:00Negative *NA*(01/20/19 1:53 PM)[facility]annDR[facility] QYMHOZ6428-14-61 18:53:00Negative *NA*(01/20/19 1:53 PM)[facility]annDR[facility] YHWYFJ7493-15-03 18:53:00Negative *NA*(01/20/19 1:53 PM)[facility]annCARDIAC HARXKMF8357-17-13 17:17:0031 [facility]annCARDIAC EDIYETZ8126-65-53 17:17:00<0.02[facility] HermannCHEM FWKUK7351-71-67 17:17:002.1[facility]annCHEM GXZYW6545-39-82 17:17:0089 [facility]annCHEM TGKFD5360-17-86 17:17:0098[facility]annCHEM PANEL 2019-01-20 17:17:0024[facility]annCHEM GSPPR2840-99-06 17:17:0027[facility]annCHEM ZWBOF2494-63-68 17:17:000.2[facility] HermannCHEM JSWWR0954-27-48 17:17:53153Vuznseaz HermannCHEM YMREC1901-39-74 17:17:0026[facility]annCHEM FKLNQ5499-62-17 17:17:008.0[facility] HermannCHEM OVRJD9816-44-89 17:17:008.3 [facility]annCHEM OBQCM4041-29-87 17:17:003.1[facility] HermannCHEM PANEL 2019-01-20 17:17:001.00[facility] HermannCHEM PASYO9757-26-61 17:17:0020[facility] HermannCHEM FZITT0998-75-72 17:17:004.0[facility] HermannCHEM LOSML5870-64-83 17:17:80600Pbgqjuch HermannCHEM JMRTA8481-55-60 17:17:0086[facility] HermannCHEM QFHAK3266-81-05 17:17:00* Test Item Value Reference Range Interpretation Comments B/C Ratio (test code = B/C Ratio) 20 1 6-25 [facility]annCHEM KTATO4200-58-06 17:17:00* Test Item Value Reference Range Interpretation Comments A/G Ratio (test code = A/G Ratio) 0.6 1 0.7-1.6 [facility]annCHEM KAYKB7492-55-52 17:17:004.9[facility] HermannCHEM PANEL 2019-01-20 17:17:0011.0[facility] QcyethfLPOJHMJQQF3027-21-89 17:17:0096[facility] BzvtpmtELOFPBAUQT6641-28-12 17:17:40134Fqbnkthe EqucmyzUVOBZZIKNQ5472-79-68 17:17:008.0[facility] MhgjatzWMHNSNHWZF9556-88-00 17:17:0085.4[facility] DDHJRCSRWF8390-03-30 17:17:00* Test Item Value Reference Range Interpretation Comments MCH (test code = MCH) 28.5 pg 27.0-31.0 [facility] JzwjmdtYAEWNDQPPV2065-37-37 17:17:0014.5[facility] HermannHEMATOLOGY 2019-01-20 17:17:0033.3[facility] OaosfusPLKNXZTOBC2314-62-94 17:17:003.73[facility] RhgqndzAYOBPLUBFQ4644-48-86 17:17:0031.9[facility] EpuiiqsYNFPGLKYNP9806-44-86 17:17:0010.6[facility] UiwrzhmRUWAPXZQFS6640-94-20 17:17:007.7[facility] PETCIGXBDJ5645-65-38 17:17:000.5[facility] QhptqpeGIKFNYRTIO7864-42-24 17:17:000.1 [facility] IbxmsgxQRAQVVVNEU3317-32-94 17:17:007.5[facility] HermannHEMATOLOGY 2019-01-20 17:17:006.7[facility] VybbidbVEGVUMYYTS7091-47-98 17:17:000.8[facility] YcwmfgrKFWLJHXBOU8482-49-06 17:17:005.3[facility] JkaazraYMWPNCDSJX8013-60-85 17:17:001.3[facility] IdugqcmPAHGKSKYFC2894-07-66 17:17:000.6[facility] RSUUMQSXIW3559-71-94 17:17:0068.3[facility] JsjyjsbBKQSODCDAO4263-07-36 17:17:00 16.7[facility] IlutaroYZHTDCVJGU1021-40-72 17:17:0085.7[facility] HermannCARDIAC QFECYDZ4337-37-02 09:27:003.8[facility] HermannCARDIAC YQORPGF6275-12-47 09:27:00 964[facility]annCARDIAC IWFLHXL1444-26-82 09:27:00<0.02[facility] CARDIAC FFXXIBR2775-63-30 09:27:000.4[facility] HermannCARDIAC RUPGGQD2602-32-80 06:48:00<0.02[facility] HermannCARDIAC UDSPURA4347-87-01 06:48:41076Czffcnbe HermannCARDIAC ZABXKTZ0235-31-28 06:48:003.8[facility] HermannCARDIAC ENZYMES 2016-12-24 06:48:000.4[facility] HermannCHEM NJNTG5096-98-19 06:48:0077[facility]annCHEM MEIXM4584-80-55 06:48:0034[facility]annCHEM TADWN1979-83-58 06:48:0033[facility]annCHEM UXEVU7316-40-95 06:48:007.5[facility] HermannCHEM LVMXR0447-48-31 06:48:003.4[facility]annCHEM RYALW3460-76-04 06:48:004.1 [facility]annCHEM CKZGL6380-83-36 06:48:000.8[facility] HermannCHEM PANEL 2016-12-24 06:48:0011[facility] HermannCHEM MWIXF8254-42-10 06:48:000.6[facility] HermannCHEM IJCHO9413-36-34 06:48:0012.1[facility]annCHEM ILKBS2627-64-77 06:48:85040Rgluulil HermannCHEM QUTZY0794-57-07 06:48:008.0[facility]annCHEM GJWRL0792-55-67 06:48:0029[facility] HermannCHEM OKEND4071-04-12 06:48:25693 [facility]annCHE[facility] SGOZF4750-67-54 06:48:94697Qbxwxlxc HermannCHEM PANEL 2016-12-24 06:48:004.1[facility]annCHEM JTLPK1299-67-63 06:48:0012[facility]annCHEM RSRCV2875-13-78 06:48:001.14[facility]annCHEM HNTCF3640-93-67 06:48:0080[facility] XoaftqlNLKFLLDZEB2723-58-83 06:48:007.5[facility] SCAZHAOOTF8866-78-69 06:48:53343Sourtvyu CfsoiapCTLEHXLLWV2200-39-64 06:48:00 14.1[facility] WvvwdihLKNIJRQBGT6338-83-91 06:48:0033.2[facility]annHEMATOLOGY 2016-12-24 06:48:00* Test Item Value Reference Range Interpretation Comments MCH (test code = MCH) 28.3 pg 27.0-31.0 [facility] NqbjaycNVVRYKDANH3484-46-83 06:48:0011.2[facility] HermannHEMATOLOGY 2016-12-24 06:48:003.97[facility] BliewprOIAGLLREYD6411-25-86 06:48:0033.9[facility] EaodibbZDYCTBVNGA7863-46-35 06:48:0085.3[facility] VhkouqiXMDGSLMDRN0412-18-15 06:48:0016.6[facility] LraauycQANMDYWXAH9666-85-25 06:48:000.9[facility] ICMRRXVLSA1523-57-73 06:48:001.1[facility] RyujejiNAQYSBHAPQ0748-63-98 06:48:00 11.4[facility] MjytoxyFSHTEJECLL4719-45-38 06:48:007.7[facility]annHEMATOLOGY 2016-12-24 06:48:000.2[facility] DwcqucyXNSKKNRBPW0326-13-87 06:48:0013.1[facility] QgkstvmEYFTOSUWFD8154-91-02 06:48:000.1[facility] XvjwbogZASEFVCKBE3755-17-10 06:48:001.9[facility] QyoabtjZPFNJQJENY6960-16-50 06:48:001.3[facility] TGLFRPBWSJ5684-41-87 06:48:0078.9[facility] HermannCARDIAC LTVNSZC7465-66-79 23:59:001.2[facility] HermannCARDIAC TCYRZOP9631-20-39 23:59:00<0.02[facility] HermannCARDIAC STMWPBY1383-18-49 23:59:53906Yptwwaiu HermannCARDIAC ENZYMES 2015-08-28 23:59:000.5[facility]annCHEM CQKEZ0222-11-25 23:59:000.7[facility] HermannCHEM GRDPT3443-69-93 23:59:0029[facility]annCHEM DBMJI2794-99-91 23:59:0041[facility]annCHEM ILRPV9939-26-18 23:59:0019[facility]annCHEM MJAOB2399-91-49 23:59:004.8[facility]annCHEM JKJFI2185-43-05 23:59:008.3 [facility]annCHEM OZKCJ3372-92-50 23:59:0015[facility] HermannCHEM PANEL 2015-08-28 23:59:0090[facility] HermannCHEM FRKPK2804-78-40 23:59:85443Wtdlwaye HermannCHEM JADOQ2635-33-41 23:59:000.2[facility] HermannCHEM GGQPD2675-79-29 23:59:47815Bctudloy HermannCHEM QHQCA3022-77-84 23:59:000.8[facility] HermannCHEM QEOCC4455-78-69 23:59:0010.5[facility]annCHEM TZKHF3161-51-71 23:59:003.5 [facility]annCHEM YFRBD6629-00-97 23:59:004.5[facility]annCHEM PANEL 2015-08-28 23:59:01553Bxpojqdb HermannCHEM BVPVQ9893-23-16 23:59:008.6[facility] HermannCHEM SVCQV2724-52-95 23:59:0029[facility]annCHEM NUSHM2801-37-41 23:59:13939Esimktvh HjcejflRIXKHETTKN0974-96-20 23:59:0089.0[facility] SRIXSUJVZQ0168-51-04 23:59:0013.5[facility] QdddlvoQXIIRNVKOT3429-61-34 23:59:00* Test Item Value Reference Range Interpretation Comments MCH (test code = MCH) 29.4 pg 27.0-31.0 [facility] TfmgcwtFQPCAKMUCK8071-48-70 23:59:0033.1[facility] HermannHEMATOLOGY 2015-08-28 23:59:008.9[facility] PjioancWMGUCZRLEI7270-92-27 23:59:0040.7[facility] QbtvixzMGWGKLBKTH8959-15-68 23:59:0013.2[facility] IivxfwzISFMAJJDCZ6015-31-14 23:59:64920Gxwsswlk RboicerIWOUAOSBRL0489-07-72 23:59:004.57[facility] RGIPQWQWSK8631-19-09 23:59:0010.2[facility] EctdzldIQJPAETPEI4691-19-41 23:59:00 0.96[facility] KyivyabAWGXZQWFWJ4779-92-34 23:59:00* Test Item Value Reference Range Interpretation Comments PTT (test code = PTT) 26.0 s 22.9-35.8 [facility] KhcecwlCFERRXJSOE4439-83-37 23:59:00* Test Item Value Reference Range Interpretation Comments PT (test code = PT) 13.1 s 12.0-14.7 [facility] FiihyliLJHDNMMYHW1919-35-79 23:59:0034.9[facility] HermannHEMATOLOGY 2015-08-28 23:59:0050.5[facility] ZxzjazrASBTKACRZG6897-30-37 23:59:000.6[facility] PbfjylgVICCUSTLLE7972-81-12 23:59:000.1[facility] MzmoeblZACFKQODYS9684-46-39 23:59:000.8[facility] RvcyzexWBQYMDKDTQ7684-57-47 23:59:008.1[facility] MXGGCYEGYN0834-76-48 23:59:005.5[facility] BdhkzrsKTKZTQTEVA8549-68-89 23:59:003.6 [facility] EnuslekDGKZHUMTJP6298-11-52 23:59:001.0[facility] HermannHEMATOLOGY 2015-08-28 23:59:005.2[facility]
[2020-09-15 16:45] LABS: BASOPHILS # (AUTO) 0.1 (0.0-0.1); BASOPHILS % 0.5 % (0.0-1.0); EOSINOPHILS # (AUTO) 0.3 (0.0-0.4); EOSINOPHILS % 2.2 % (0.0-6.0); HEMATOCRIT 38.5 % (38.2-49.6); HEMOGLOBIN 12.3 g/dL (14.0-18.0); LYMPHOCYTES # (AUTO) 2.5 (1.0-3.2); MEAN CORPUSCULAR HEMOGLOBIN 27.6 pg (28-32); MEAN CORPUSCULAR HGB CONC 31.9 g/dL (31-35); MEAN CORPUSCULAR VOLUME 86.5 fL (81-99); MONOCYTES # (AUTO) 1.3 (0.2-0.8); MONOCYTES % 11.2 % (4.4-11.3); NEUTROPHILS # (AUTO) 7.1 (2.1-6.9); NEUTROPHILS % 63.7 % (38.7-80.0); PLATELET COUNT 321 x10e3/uL (140-360); RED BLOOD COUNT 4.45 x10e6/uL (4.3-5.7); RED CELL DISTRIBUTION WIDTH 13.4 % (11.7-14.4)
[2020-09-15] MEDS ORDERED: VANCOMYCIN 1GM/NS 250 ML 250 ML IV ONE (16:45)
[2020-09-15 16:58] LABS: INR 0.99; PROTHROMBIN TIME 13.6 seconds (11.9-14.5)
--- NOTE | 2020-09-15 16:59 | Diagnostic Imaging Report ---
EXAMINATION: CHEST SINGLE (PORTABLE) INDICATION: Lower extremity edema COMPARISON: CT chest on 09/07/2020. Chest x-ray on 09/07/2020. FINDINGS: TUBES and LINES: None. LUNGS: Low lung volumes and bronchovascular crowding. Lungs are clear. No consolidations. Bibasilar atelectasis. PLEURA: No pleural effusion or pneumothorax. HEART AND MEDIASTINUM: The cardiomediastinal silhouette is unremarkable. BONES AND SOFT TISSUES: No acute osseous lesion. Soft tissues are unremarkable. UPPER ABDOMEN: No free air under the diaphragm. IMPRESSION: No acute thoracic radiographic abnormality. Signed by: Jaiden Franco MD on 09/15/2020 4:56 PM
[2020-09-15] MEDS ORDERED: ONDANSETRON HCL INJ 2MG/ML 2ML 2 MG/ML VIAL IV NR (17:00)
[2020-09-15] MEDS ORDERED: MORPHINE SULFATE INJ 4 MG/ML INJ 1ML IV NR (17:00)
[2020-09-15] MEDS: PIPER-TAZ 3.375 GM 50 ML IV SCH (17:06)
[2020-09-15] MEDS: ENOXAPARIN SODIUM INJ 100 MG/ML SYR SC SCH (17:06)
[2020-09-15 17:07] LABS: ALANINE AMINOTRANSFERASE 27 IU/L (0-55); ALBUMIN 4.1 g/dL (3.5-5.0); ALBUMIN/GLOBULIN RATIO 0.9 (0.8-2.0); ALKALINE PHOSPHATASE 126 IU/L (40-150); ANION GAP 16.6 mmol/L (8-16); BLOOD UREA NITROGEN 22 mg/dL (7-26); BUN/CREATININE RATIO 19 (6-25); CARBON DIOXIDE 25 mmol/L (22-29); CHLORIDE 99 mmol/L (98-107); CREATINE KINASE 211 IU/L (30-200); CREATININE, SERUM 1.14 mg/dL (0.72-1.25); EST GLOMERULAR FILTRATION RATE > 60 ML/MIN (60-); GLUCOSE 100 mg/dL (74-118); MAGNESIUM 2.2 MG/DL (1.3-2.1); POTASSIUM 3.6 mmol/L (3.5-5.1); SODIUM 137 mmol/L (136-145)
[2020-09-15 17:08] LABS: COLOR,URINE YELLOW (YELLOW)
[2020-09-15 17:09] LABS: BILIRUBIN,URINE NEGATIVE (NEGATIVE); CLARITY,URINE CLEAR (CLEAR); KETONES,URINE NEGATIVE (NEGATIVE); LEUKOCYTE ESTERASE ,URINE NEGATIVE (NEGATIVE); NITRITE,URINE NEGATIVE (NEGATIVE); PROTEIN,URINE DIPSTICK NEGATIVE (NEGATIVE); URINE UROBILINOGEN 0.2 mg/dL (0.2 - 1)
[2020-09-15 17:10] LABS: BACTERIA,URINE RARE /HPF; EPITHELIAL CELLS,URINE FEW /LPF; RBC,URINE 0-5 /HPF (0-5); WBC,URINE (MAN) 0-5 /HPF (0-5)
--- NOTE | 2020-09-15 17:17 | NUR ---
housekeeping director contacted to call out vascular locate technician
--- NOTE | 2020-09-15 17:22 | Emergency Department Note ---
History of Present Illnes History of Present Illness Chief Complaint: Extremity Trauma/Pain History of Present Illness This is a 50 year old male PATIENT AMBULATED INTO TRIAGE. BILATERAL LOWER LEG PAIN. PATIENT STATE HE WAS IN HOSPITAL AND JUST DISCHARGED LAST WEEK WITH CLOT IN LEFT LEG. LAST NIGHT NOTICED SWELLING, REDNESS, TENDERNESS TO RIGHT LOWER LEG/HEEL AT THIS TIME. DENIES ANY CHEST PAIN OR SHORTNESS OF BREATH. P TIMO ALSO HAS SKIN SHEARING AND CIRCULAR REDNESS ON ABDOMEN FROM WHERE EKG LEAD WAS. ADMITS TO ME THAT HE HASN'T TAKEN HIS XARELTO IN SEVERAL DAYS Historian: Patient Arrival Mode: Car Additional Treatment BUILDING PRINCIPAL: NONE Casino Slot Supervisor Required: No Onset (how long ago): day(s) (4) Location: RIGHT LEG Quality: RED, SWOLLEN, PAINFUL Radiation: Reports non-radiation Severity: moderate Onset quality: gradual Timing of current episode: constant Progression: worsening Chronicity: new Context: Reports recent illness (RECENT ADMIT FOR CHF AND NEWLY DX'D LEFT POPLITEAL DVT) Relieving factors: none Exacerbating factors: none Associated symptoms: Reports denies other symptoms; Denies chest pain, Denies shortness of breath Past Medical/Family History Physician Review I have reviewed the patient's past medical and family history. Any updates have been documented here. Past Medical History Recent Fever: No Clinical Suspicion of Infectio: No New/Unexplained Change in Ment: No Past Medical History: Hypertension, Anxiety, Depression, Chronic Back Pain, Osteoarthritis Other Medical History: PTSD Past Surgical History: Back Surgery Other Surgery: CARDIAC STENTS right ankle right shoulder Social History Smoking Cessation: Current every day smoker Counseling Performed: Yes Alcohol Use: Social Any Illegal Drug Use: No TB Exposure/Symptoms: No Physically hurt or threatened: No Family History Family history of heart diseas: No Other Last Tetanus: 2004 Any Pre-Existing Lines (PICC,: No Review of Systems Review of Systems Constitutional: Reports no symptoms EENTM: Reports no symptoms Cardiovascular: Reports no symptoms Respiratory: Reports no symptoms Gastrointestinal: Reports no symptoms Genitourinary: Reports no symptoms Musculoskeletal: Reports as per HPI Integumentary: Reports no symptoms Neurological: Reports no symptoms Psychological: Reports no symptoms Endocrine: Reports no symptoms Hematological/Lymphatic: Reports no symptoms Physical Exam Related Data Allergies: Coded Allergies: No Known Allergies (Unverified , 09/15/20) Triage Vital Signs Vital Signs Date Time Temp Pulse Resp B/P (MAP) Pulse Ox O2 Delivery O2 Flow Rate FiO2 09/15/20 15:48 99.0 94 18 128/83 98 Room Air Vital signs reviewed: Yes Physical Exam CONSTITUTIONAL Constitutional: Present well-developed, Present well-nourished HENT HENT: Present normocephalic, Present atraumatic, Present oropharynx clear/moist, Present nose normal HENT L/R: Present left ext ear normal, Present right ext ear normal EYES Eyes: Reports PERRL, Reports conjunctivae normal NECK Neck: Present ROM normal PULMONARY Pulmonary: Present effort normal, Present breath sounds normal CARDIOVASCULAR Cardiovascular: Present regular rhythm, Present heart sounds normal, Present capillary refill normal, Present normal rate GASTROINTESTINAL Abdominal: Present soft, Present nontender, Present bowel sounds normal GENITOURINARY Genitourinary: Present exam deferred SKIN Skin: Present warm, Present dry MUSCULOSKELETAL Musculoskeletal: Present edema, Present other (RIGHT LOWER LEG MARKEDLY LARGER THAN LEFT, ERYTHEMA, INCR WARMTH, TENDERNESS RIGHT CALF) NEUROLOGICAL Neurological: Present alert, Present oriented x 3, Present no gross motor or sensory deficits PSYCHOLOGICAL Psychological: Present mood/affect normal, Present judgement normal Results Laboratory Result Diagram: 09/15/20 1613 Laboratory Laboratory Tests Test 09/15/20 16:13 White Blood Count 11.18 x10e3/uL (4.8-10.8) Red Blood Count 4.45 x10e6/uL (4.3-5.7) Hemoglobin 12.3 g/dL (14.0-18.0) Hematocrit 38.5 % (38.2-49.6) Mean Corpuscular Volume 86.5 fL (81-99) Mean Corpuscular Hemoglobin 27.6 pg (28-32) Mean Corpuscular Hemoglobin Concent 31.9 g/dL (31-35) Red Cell Distribution Width 13.4 % (11.7-14.4) Platelet Count 321 x10e3/uL (140-360) Neutrophils (%) (Auto) 63.7 % (38.7-80.0) Lymphocytes (%) (Auto) 22.0 % (18.0-39.1) Monocytes (%) (Auto) 11.2 % (4.4-11.3) Eosinophils (%) (Auto) 2.2 % (0.0-6.0) Basophils (%) (Auto) 0.5 % (0.0-1.0) Neutrophils # (Auto) 7.1 (2.1-6.9) Lymphocytes # (Auto) 2.5 (1.0-3.2) Monocytes # (Auto) 1.3 (0.2-0.8) Eosinophils # (Auto) 0.3 (0.0-0.4) Basophils # (Auto) 0.1 (0.0-0.1) Absolute Immature Granulocyte (auto 0.04 x10e3/uL (0-0.1) Lab results reviewed: Yes Imaging Imaging Comments DOPPLER RLE PENDING ON ADMISSION Procedures 12 Lead ECG Interpretation ECG Interpretation : ECG: ECG 1 [employer]: Interpreted by ED physician Date: Sep 15, 2020 Time: 16:35 Prior ECG tracings: reviewed Rhythm: sinus rhythm Rate: normal BPM: 81 QRS axis: normal ST segments normal: Yes T waves normal: Yes Clinical Impression: normal ECG Assessment & Plan Medical Decision Making [facility] RLE SWELLING, REDNESS, TENDERNESS OF CALF, HASN'T TAKEN XARELTO STARTED ON RECENT ADMISSION FOR LLE DVT - CBC, CHEM, PT/PTT, ECG, CARDIACS, BNP, VENOUS DOPPLER, BLD CX'S - R/O DVT VS CELLULITIS, CHF, ELECTROLYTE ABNL Reassessment Reassessment TREAT WITH ZOSYN/VANCO, LOVENOX UNTIL RESULTS OF DOPPLER - ADMIT TO DR HERNANDEZ Assessment & Plan Final Impression: (1) Cellulitis of right leg (2) DVT (deep venous thrombosis) Depart Disposition: ADMITTED Last Vital Signs Date Time Temp Pulse Resp B/P (MAP) Pulse Ox O2 Delivery O2 Flow Rate FiO2 09/15/20 15:48 99.0 94 18 128/83 98 Room Air Home Meds Active Scripts Potassium Chloride (POTASSIUM CHLORIDE) 20 Meq Tab.er.prt, 20 MEQ PO DAILY, #30 Prov:TINA KENNY PAPER REELER 09/10/20 Rivaroxaban (XARELTO) 20 Mg Tablet, 20 MG PO DAILY for 30 Days, 2 Refills Prov:TINA KENNY PAPER REELER 09/10/20 Furosemide (FUROSEMIDE) 40 Mg Tablet, 40 MG PO DAILY for 30 Days Prov:TINA KENNY PAPER REELER 09/10/20 Reported Medications Gabapentin (GABAPENTIN) 300 Mg Capsule, 300 MG PO QID, #60 CAP 09/08/20 Duloxetine Hcl (CYMBALTA) 60 Mg Capsule.dr, PO HS 09/08/20 Buprenorphine Hcl/Naloxone Hcl (SUBOXONE 8 MG-2 MG SL FILM) 1 Each Film, SL TID 09/08/20 Meloxicam (MELOXICAM) 15 Mg Tablet, TID 09/07/20 Carisoprodol (SOMA) 350 Mg Tablet, 350 MG PO QID 04/30/14 Discontinued Reported Medications Atenolol (ATENOLOL) 50 Mg Tablet, BID 09/07/20 Quetiapine Fumarate (SEROQUEL) 100 Mg Tablet, 200 MG PO HS, TAB 09/08/20 Medications in the ED Enoxaparin Sodium 100 mg Q12H SC ; Start 09/15/20 at 17:00; Stop 09/22/20 at 16:59 Vancomycin HCl 250 ml @ 200 mls/hr NOW ONCE IV ; Start 09/15/20 at 16:45; Stop 09/15/20 at 17:59 Piperacillin Sod/ Tazobactam Sod 50 ml @ 50 mls/hr Q6HR IV ; Start 09/15/20 at 18:00; Stop 09/22/20 at 17:59 Morphine Sulfate 4 mg ONCE IV ; Start 09/15/20 at 17:00; Stop 09/15/20 at 18:59 Ondansetron HCl 4 mg NOW IV ; Start 09/15/20 at 17:00; Stop 09/15/20 at 18:59 SCOOTER MORENO MD Sep 15, 2020 17:22
--- OUTSIDE RECORDS SUMMARY | 2020-09-15 18:31 | XMS REPORT | Clinical Summary ---
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 Internal Pr dicine - Encounter 04/14/2020 after 09/15/2019 Surgical History Surgery Date Site/Laterality Comments BACK SURGERY LAMINECTOMY, LUMBAR 05/12/2018 Spine Procedure: LUMBAR LAMINECTOMY L4-L5, L5-S1, Lumbar/Posterio DRAINAGE OF EPIDURAL ABSCES S; Surgeon: Aaln Quintanilla MD; Location: [facility] OR; Service: Neurosurgery; [...] PRELIMINARY Routine 07/04/2020 INTERPRETATION 7:58 AM CDT [place] CRITICAL CARE, E/M Routine 07/04/2020 30-74 MINUTES [...] PRELIMINARY Routine 04/11/2020 INTERPRETATION 7:17 PM CDT TX CRITICAL CARE, E/M Routine 04/11/2020 30-74 MINUTES [...] HISTORY: SOB COMPARISON: Most Recent Prior at [facility] IMPRESSION: Lines: None Lungs and pleura: No consolidations. No pleural effusion or pneumothorax. Heart and mediastinum: Stable appearanc e of cardiomediastinal silhouette. Bones: No suspicious osseous lesions. F oreign bodies present over the right chest and axilla, unchanged. [id number] Procedure Note Hm Interface, Radiology Results Incoming - 07/04/2020 8:27 AM CDT EXAMINATION: XR CHEST 1 VW PORTABLE CLINICAL HISTORY: SOB COMPARISON: Most Recent Prior at [facility] IMPRESSION: Lines: None Lungs and pleura: No consolidations. No pleural effusion or pneumothorax. Heart and mediastinum: Stable appearance of cardiomediastinal silhouette. Bones: No suspicious osseous lesions. Foreign bodies present over the right chest and axilla, unchanged. 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 Estimated GFR 77 mL/min/1.73 m2 [place] Comment: [facility] Interpretation G1 >=90 Normal or high [...] Organization Address City/State/ZIP Code P severiano Number [facility] DEPARTMENT OF [address] [place] [address] PATHOLOGY AND GENOMIC MEDICINE [place] [facility] [address] * Troponin (07/04/2020 7:46 AM CDT) Only the most recent of 3 results within the time period is included. Troponin <0.006 0.000 - 0.040 ng/mL [place] Comment: [facility] In patients suspected of HOSPITAL having a [...] Organization Address City/State/ZIP Code P severiano Number [facility] DEPARTMENT OF [address] [place] [address] PATHOLOGY AND GENOMIC MEDICINE [address] * CBC with platelet and differential (07/04/2020 7:46 AM CDT) Only the most recent of 5 results within the time period is included. WBC 9.58 4.50 - 11.00 k/uL [facility] RBC 4.32 (L) 4.40 - 6.00 m/uL [facility] HGB 12.1 (L) 14.0 - 18.0 g/dL [facility] HCT 36.7 (L) 41.0 - 51.0 % [facility] MCV 85.0 82.0 - 100.0 fL [facility] MCH 28.0 27.0 - 34.0 pg [facility] MCHC 33.0 31.0 - 37.0 g/dL [facility] RDW - SD 43.2 37.0 - 55.0 fL [facility] MPV 10.6 8.8 - 13.2 fL [facility] Platelet count 247 150 - 400 k/uL [facility] Nucleated RBC 0.00 /100 WBC [facility] Neutrophils 63.7 39.0 - 69.0 % [facility] Lymphocytes 24.7 (L) 25.0 - 45.0 % [facility] Monocytes 7.8 0.0 - 10.0 % [facility] Eosinophils 2.9 0.0 - 5.0 % [facility] Basophils 0.6 0.0 - 1.0 % [facility] Immature 0.3Comment: "Immature 0.0 - 1.0 % [place] granulocytes granulocytes" (promyelocytes, [facility] myelocytes, metamyelocytes) [facility] Specimen Blood Performing Organization Address [facility] P severiano Number [facility] DEPARTMENT OF [address] [place] [address] PATHOLOGY AND GENOMIC MEDICINE [address] * Comprehensive metabolic panel (07/04/2020 7:46 AM CDT) Only the most recent of 5 results within the time period is included. Sodium 137 135 - 148 mEq/L [facility] Potassium 3.5 3.5 - 5.0 mEq/L [facility] Chloride 98 98 - 112 mEq/L [facility] CO2 21 (L) 24 - 31 mEq/L [facility] Anion gap 18@ANIO (H) 7 - 15 mEq/L [facility] BUN 23 (H) 6 - 20 mg/dL [facility] Creatinine 1.11 0.70 - 1.20 mg/dL [facility] Glucose 102 (H) 65 - 99 mg/dL [facility] Calcium 8.4 8.3 - 10.2 mg/dL [facility] Protein 7.6 6.3 - 8.3 g/dL [place] Comment: [facility] 4.6-7.0 g/dL 1 week 4.4-7.6 g/dL 7 months-1year 5.1-7.3 g/dL 1-2 years 5.6-7.5 g/dL >3 years 6.0-8.0 g/dL 18-150 6.3-8.3 g/dL Albumin 3.6 3.5 - 5.0 g/dL [facility] A/G ratio 0.9 0.7 - 3.8 [facility] Alkaline 121 40 - 129 U/L [place] phosphatase [facility] AST 29 10 - 50 U/L [facility] ALT 31 5 - 50 U/L [facility] Total bilirubin <0.2 0.0 - 1.2 mg/dL [facility] Specimen Blood Performing Organization Address City/[facility] P severiano Number [facility] DEPARTMENT OF [address] [place] [address] PATHOLOGY AND GENOMIC MEDICINE [address] * ECG 12 lead (07/04/2020 7:28 AM CDT) Only the most recent of 2 results within the time period is included. Ventricular 67 [facility] MUSE rate Atrial rate 67 [facility] MUSE [place] interval 184 [facility] M[facility] QRSD interval 80 [...] Organization Address City/State/[place] [address] * Thyroid stimulating hormone (04/14/2020 6:40 AM CDT) Pathologist [facility] TSH 3.50 0.55 - 4.78 uIU/mL [facility] Specimen Blood Performing Organization Address City/State/ZIP [facility] [place] [address] PATHOLOGY AND [facility] MEDICINE [address] * T4, free (04/14/2020 6:40 AM CDT) Pathologist [facility] T4, free 1.3 0.8 - 1.8 ng/dL [facility] Specimen Blood Performing Organization Address City/State/ZIP [facility] P severiano Number [facility] [place] [address] PATHOLOGY AND GENOMIC MEDICINE [address] * Vancomycin level, trough (04/13/2020 9:12 AM CDT) Pathologist [facility] Vancomycin, 20.2 (HH) 10.0 - 20.0 ug/mL [place] trough Comment: [facility] Therapeutic Ranges: [place] Peak 30.0 - 40.0 HOSPITAL ug/mL Trough 10.0 - 20.0 ug/mL Final results called to and read back by Clayton White RN 04/13/2020 09:51 edp Specimen Blood Performing Organization Address City/State/ZIP Code P severiano Number [facility] [address] [place] [address] PATHOLOGY AND GENOMIC MEDICINE [place] [facility] [address] [facility] [address] [place], [place] [address] [facility] * CT Chest Wo Contrast (04/12/2020 1:06 [...] the spine. Other: None. SUMMARY: 1.Negative study. [facility]-[id number] Procedure Note Hm Interface, Radiology Results Incoming [...] the spine. Other: None. SUMMARY: 1.Negative study. [facility]-[id number] Performing Organization Address City/State/ZIP Code P severiano Number [facility] [address] [place] [address] * NM Lung Perfusion Imaging (04/12/2020 1:05 PM CDT) Specimen Narrative Performed At PROCEDURE: NM LUNG PERFUSION IMAGING [facility] INDICATION: PE suspected intermediate prob positive D-dimer. COMPARISON: CT chest dated April 12. VQ scan dated February 07, 2007. TECHNIQUE: Ventilation images were no t obtained. The patient was injected with 5 mCi of [id number] intravenous ly, followed by imaging of the lungs in 8 projections. FINDINGS: Mild left perihilar perfusion defect, nonsegmental. IMPRESSION: Very Low probability for pulmonary embo lism. [facility]-[id number] Dictated and approved by radiology resi dent/fellow: [...] patient was injected with 5 mCi of [id number] intravenously, followed by imaging of the lungs in 8 projections. FINDINGS: Mild left perihilar perfusion defect, nonsegmental. IMPRESSION: Very Low probability for pulmonary embolism. [facility]-[id number] Dictated and approved by vice president of instruction/fellow: Rolando Head M.D. I, Bro Grimes, personally reviewed the images and resident's/fellow's findings and agree with the final report. Performing Organization Address City/State/ZIP Code P severiano Number [facility] [address] [place] [address] * Urinalysis screen and microscopy, with reflex to culture (04/12/2020 9:15 AM CDT) Specimen site Clean catch [facility] Color, UA Yellow YELLOW [facility] Appearance, UA Clear Clear [facility] Specific 1.009 1.005 - 1.030 [place] gravity, UA [facility] pH, UA 6.0 5.0 - 8.0 [facility] Protein, UA Negative Negative [facility] Glucose, UA Negative Negative [facility] Ketones, UA Negative Negative [facility] Bilirubin, UA Negative Negative [facility] Blood, UA Negative Negative [facility] Nitrite, UA Negative NEGATIVE [facility] Urobilinogen, <2.0 <2.0 E.U./dL [place] UA [facility] Leukocyte Negative Negative [place] esterase, UA [facility] Epithelial <1 0 - 15 /HPF [place] cells, UA [facility] WBC, UA 1 0 - 5 /Hpf [facility] RBC, UA 3 0 - 5 /HPF [facility] Bacteria, UA Few (A) None seen [facility] Yeast, UA None seen None Seen [facility] Yeast with None seen [place] pseudohyphae, [facility] Specimen Urine Performing Organization Address City/State/ZIP Code P severiano Number [facility] DEPARTMENT [address] [place] [address] PATHOLOGY AND GENOMIC MEDICINE [address] [place], [place] [address] [facility] * Streptococcus pneumoniae urinary antigen (04/12/2020 9:15 AM CDT) Strep pneumo Negative for Streptococcus [place] urinary Ag pneumoniae antigen. [facility] Comment: HOSPITAL Specimen Information Specimen Source: Urine Specimen Site: Random void Specimen Urine - Random void Performing Organization Address City/State/ZIP Code P severiano Number [facility] [place] [address] PATHOLOGY AND GENOMIC MEDICINE [place] [facility] * Legionella urinary antigen (04/12/2020 9:15 AM CDT) Legionella Negative for Legionella [place] urinary antigen serogroup 1 antigen. [facility] Comment: HOSPITAL Specimen Information Specimen Source: Urine Specimen Site: Random void Specimen Urine - Random void Performing Organization Address City/State/ZIP Code P severiano Number [facility] DEPARTMENT OF [address] [place] [address] PATHOLOGY AND GENOMIC MEDICINE [facility] [address] [place], [place] [id number] [place] [address] * Urine culture (04/12/2020 9:15 AM CDT) Pathologist [facility] Urine culture SEE COMMENTComment: [place] Bacteriuria screen negative. [facility] Specimen Performing Organization Address [facility] [place] [address] PATHOLOGY AND GENOMIC MEDICINE [address] * Arterial blood gas (04/12/2020 5:23 AM CDT) Pathologist [facility] pH, arterial 7.38 7.35 - 7.45 Units [facility] pCO2, arterial 39 35 - 45 mmHg [facility] pO2, arterial 93 83 - 108 mmHg [facility] Bicarbonate, 22.6 21.0 - 28.0 mEq/L [place] arterial [facility] Base excess, -1.7 (L) -0.2 - 0.3 mEq/L [facility] O2 saturation, 97 95 - 98 % [place] arterial [facility] FiO2 21.0 [facility] Total CO2 21 mEq/L [facility] O2 content 15.1 15.0 - 23.0 VOL % [facility] Specimen Blood Performing Organization Address City/[facility] [place] [address] PATHOLOGY AND GENOMIC MEDICINE [address] * Respiratory pathogen panel (04/12/2020 4:10 AM CDT) Adenovirus PCR Not Detected [place] Comment: [facility] Specimen Information HOSPITAL Specimen Source: Nares Specimen Site: Left Coronavirus Not Detected [place] HKU1 PCR [facility] Coronavirus Not Detected [place] NL63 PCR [facility] Coronavirus Not Detected [place] 229E PCR [facility] Coronavirus Not Detected [place] OC43 PCR [facility] Human Not Detected [place] [facility] Not Detect[facility] [place] rhinovirus/ente [facility] rovirus PCR [facility] Influenza A PCR Not Detected [facility] Influenza A/H1 Not Reported [place] PCR [facility] Influenza A/H3 Not Reported [place] PCR [facility] Influenza Not Reported [place] A/H1-2009 [facility] Influenza B PCR Not Detected [facility] Parainfluenza Not Detected [place] virus 1 PCR [facility] Parainfluenza Not Detected [place] virus 2 PCR [facility] Parainfluenza Not Detected [place] virus 3 PCR [facility] Parainfluenza Not Detected [place] virus 4 PCR [facility] Respiratory Not Detected [place] syncytial virus [facility] PCR [facility]OSPITAL Bordetella Not Detected [place] pertussis PCR [facility] Bordetella Not Detected [place] parapertussis [facility] Chlamydia Not Detected [place] pneumoniae PCR [facility] Mycoplasma Not Detected [place] pneumoniae PCR [facility] Influenza A no Not Reported [place] sub type PCR [facility] Specimen Nares - Left Performing Organization Address City/State/ZIP Code P severiano Number [facility] [place] [address] PATHOLOGY AND GENOMIC MEDICINE [address] * Influenza antigen (04/12/2020 4:10 AM CDT) [facility] Influenza Negative for Influenza A/B [place] antigen antigen. [facility] Comment: [facility] Specimen Source: Nares Specimen Site: Left Specimen Nares - Left Performing Organization Address City/State/[facility] [place] [address] PATHOLOGY AND GENOMIC MEDICINE [address] * Group A strep, rapid antigen (04/12/2020 4:08 AM CDT) [facility] Group A strep, Negative for Group A [place] rapid antigen Streptococcus antigen. [facility] result Comment: [facility] Specimen Source: Throat Specimen Site: Not otherwise specified Specimen Throat - Not otherwise specified Performing Organization Address City/State/ZIP [facility] [place] [address] PATHOLOGY AND GENOMIC MEDICINE [address] * Strep screen culture (04/12/2020 4:08 AM CDT) [facility] Strep screen No beta hemolytic Streptococci [facility] N culture isolate isolated [facility] Comment: HOSPITAL Specimen Information Specimen Source: Throat Specimen Site: Not otherwise specified Specimen Throat - Not otherwise specified Performing Organization Address City/[facility]/ZIP Code P severiano Number [facility] DEPARTMENT OF [address] [place] [address] PATHOLOGY AND [facility] MEDICINE [address] * Fibrinogen (04/12/2020 4:05 AM CDT) Fibrinogen 406.0Comment: The reference 200.0 - 450.0 mg/d L [place] range has changed starting [facility] 04/02/2010 @12:00pm [facility] Specimen Blood Performing Organization Address City/[facility] P severiano Number [address] * D-dimer (04/12/2020 4:05 AM CDT) Pathologist [facility] D-dimer 2.37 (H) 0.00 - 0.40 ug/mL [place] Comment: FEU [place] When combined with low [place] clinical probability, D-dimer HOSPITAL results of less [...] and malignancies. Specimen Blood Performing Organization Address City/[facility] [place] [address] PATHOLOGY AND [facility] MEDICINE [place] [address] [facility] * Type and screen (04/12/2020 4:05 AM CDT) ABO grouping O [facility] Rh type POS [facility] Antibody screen NEG [place] (gel) [facility] Specimen Blood Performing Organization Address City/[facility]/ZIP Code [place] [address] [facility] * C-reactive protein (04/12/2020 4:05 AM CDT) CRP 3.40 (H) 0.00 - 1.00 mg/dL [facility] Specimen Blood Performing Organization Address City/State/ZIP Code [place] [address] PATHOLOGY AND GENOMIC MEDICINE [address] * LDH (04/12/2020 4:05 AM CDT) LDH 195 (L) 300 - 600 U/L [facility] Specimen Blood Performing Organization Address City/State/ZIP Code P severiano Number [facility] [place] [address] PATHOLOGY AND GENOMIC MEDICINE [address] * Ferritin level (04/12/2020 4:05 AM CDT) Ferritin level 132 18 - 464 ng/mL [facility] Specimen Blood Performing Organization Address City/State/ZIP Code P severiano Number [facility] [place] [address] PATHOLOGY AND GENOMIC MEDICINE [address] * Creatine kinase, total (CPK) (04/12/2020 4:05 AM CDT) Creatine kinase 90 35 - 200 U/L [facility] Specimen Blood Performing Organization Address City/State/ZIP [place] [address] PATHOLOGY AND GENOMIC MEDICINE [address] * Lipid panel (04/12/2020 4:05 AM CDT) Cholesterol 120 0 - 199 mg/dL [facility] Triglycerides 90 0 - 149 mg/dL [facility] HDL cholesterol 37 (L) 40 - 9,999 mg/dL [facility] LDL cholesterol 74 0 - 99 mg/dL [facility] Lipid panel See below [facility] interpretation Comment: [facility] Total Cholesterol (mg/dL) [facility] <200 Desirable 200-239 Borderline-high >=240 High [...] (>=200 mg/dL) Specimen Blood Performing Organization Address [facility] [place] [address] PATHOLOGY AND GENOMIC MEDICINE [address] * Lactic acid level, SEPSIS - Now and repeat 2x every 3 hours (04/11/2020 10:40 PM CDT) Only the most recent of 2 results within the time period is included. Lactic acid 2.4 (H) 0.5 - 2.2 mmol/L [facility] Specimen Blood Performing Organization Address [facility] [place] [address] PATHOLOGY AND GENOMIC MEDICINE [address] * CRITICAL CARE (04/11/2020 7:17 PM [...] qualitative PCR (04/11/2020 6:58 PM CDT) Pathologist [facility] [place] Interpretation Negative results do not [facility] preclude 2019-nCoV infection [facility] and should not be used as the HOSPITAL sole basis for treatment or other patient management decisions. Negative results must be combined with clinical observations, patient history, and epidemiological information. COVID-19 Not-Detected Not-Detected [place] qualitative PCR [facility] result HOSPITAL COVID-19 See link below for PDF Lab [place] qualitative PCR ReportComment: Case Number: [facility] [id number] H[facility]PITAL Specimen Performing Organization Address [facility] [place] [address] PATHOLOGY AND GENOMIC MEDICINE [address] * Blood culture, aerobic & anaerobic (04/11/2020 6:46 PM CDT) Only the most recent of 2 results within the time period is included. [facility] Blood culture No growth after 5 days of [place] isolate incubation. [facility] Comment: HOSPITAL Specimen Information Specimen Source: Blood Specimen Site: Arm, left Specimen Blood - Arm, left Performing Organization Address [facility] [place] [address] PATHOLOGY AND GENOMIC MEDICINE [address] * B natriuretic peptide (04/11/2020 6:42 PM CDT) Pathologist [facility] BNP 56 0 - 100 pg/mL [facility] Specimen Blood Performing Organization Address City/State/ZIP Code P severiano Number [facility] [address] [facility] [address] [place] [address] PATHOLOGY AND GENOMIC MEDICINE [place] [facility] [address] [facility] [address] [place], [place] [address] [facility] after 09/15/2019 Insurance Type Payer Benefit Subscriber ID Effective Phone Address Plan / Dates Group HMO [employer] [id number] 2019-P DUAL resent OPTIONS STARPLUS MMP HMO [facility] MEDICARE [facility] [id number] 2020-P CONNECTED resent (MEDICARE- MEDICAID PLAN) Advance Directives For more information, please contact: [phone] 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
--- OUTSIDE RECORDS SUMMARY | 2020-09-15 18:31 | XMS REPORT | Continuity of Care Document ---
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 (Same As: Keflex) Inactive 01/21/2019 [facility] Doxycycline Notes: (Same as: V ibramycin) No milk/antacids/iron. Inactive 01/21/2019 [facility] cephalexin 500 mg oral tablet 500 mg = 1 tab, PO, QID, X 7 day, # 28 tab, 0 Refill(s), [id number] Active 01/21/2019 [facility] doxycycline hyclate 100 MG Oral Capsule 100 mg = 1 cap, PO, BID, X 7 day, # 14 cap, 0 Refill(s), Pharmacy: [facility] [id number] Active 01/21/2019 [facility] Soma 350 mg, Route: PO, Drug f orm: TAB, QID, Dosing Weight 140.455, kg, Start date: 01/21/19 9:00:00 CDT, Duration: 30 day, Stop date: 02/19/19 21:00:00 CDT Inactive 01/21/2019 [facility] Robaxin Notes: (Same as:Robaxi n) Inactive 01/21/2019 [facility] Vancomycin 2001 mg: infuse ov er 2.5 hours Inactive 01/21/2019 [facility] BD Normal Saline Flush Notes: (Same as: BD Posiflush) Inactive 01/21/2019 [facility] Robaxin Notes: (Same as:Robaxi n) Inactive 01/21/2019 [facility] heparin Notes: porcine heparin No Longer Active 01/21/2019 [facility] Soma 350 mg, Route: PO, Drug f orm: TAB, QID, Dosing Weight 140.455, kg, Start date: 01/20/19 21:00:00 CDT, Duration: 30 day, Stop date: 02/19/19 17:00:00 CDT Inactive 01/21/2019 [facility] Acetaminophen 325 MG / Hydrocodone Yevgeniy trate 10 MG Oral Tablet [[place] 10/325] Notes: Do not exceed 4gm/day of acetamin ophen. (Same as: [place] 325/10) No Longer Active 01/21/2019 [facility] Morphine Notes: (Same as:MORPh ine Sulfate) No Longer Active 01/21/2019 [facility] Acetaminophen 325 MG / Hydrocodone Yevgeniy trate 10 MG Oral Tablet [[place] 10/325] Notes: Do not exceed 4gm/day of acetamin ophen. (Same as: [place] 325/10) Inactive 01/21/2019 [facility] Carisoprodol 350 MG Oral Tablet [Soma] 350 mg = 1 tab, PO, QID, # 21 tab, 0 Refill(s) Active 01/20/2019 [facility] Acetaminophen 325 MG / Hydrocodone Yevgeniy trate 10 MG Oral Tablet [[place] 10/325] 1-2 tab, PO, Q4-6H, PRN Pain, # 30 tab, 0 Refill(s) Active 01/20/2019 [facility] pneumococcal capsular polysaccharide typ e 1 vaccine / pneumococcal capsular polysaccharide type 10A vaccine / pneumococcal capsular polysaccharide type 11A vaccine / pneumococcal capsular polysaccharide type 12F vaccine / pneumococcal capsular polysacchar Notes: (Same as: Pneumovax 23) Refrigerate No Longer Active 01/20/2019 [facility] cefepime Notes: (Same As: Jt little) MEDICATION WASTE Product Size: 1000 mg Product Wasted: _0__ mg No Longer Active 01/20/2019 [facility] Morphine 2 mg, 1 mL, Route: IV P, Drug form: SOLN, ONCE, Dosing Weight 139.091, kg, Priority: STAT, Start date: 01/20/19 16:58:00 CDT, Stop date: 01/20/19 16:58:00 CDT Inactive 01/20/2019 [facility] Acetaminophen Notes: Do not ex ceed 4 gm/day. (Same as: Tylenol) No Longer Active 01/20/2019 [facility] Vancomycin 2001 mg: infuse ov er 2.5 hours Inactive 01/20/2019 [facility] Vancomycin 2001 mg: infuse ov er 2.5 hours For adult patients only: Round to nearest 250 mg per Medical Staff approval MEDICATION WASTE Product Size: 1000 mg Product Wasted: 0mg Inactive 01/20/2019 [facility] Ancef + sterile water 20 mL No lucila: (Same As: Ancef, Kefzol) MEDICATION WASTE Product Size: 1000 mg Product Wasted: 0 mg Inactive 01/20/2019 [facility] Zofran Notes: (Same as: Zofran ) MEDICATION WASTE Product Size: 4 mg Product Wasted: _0__ mg Inactive 01/20/2019 [facility] Morphine Notes: (Same as:MORPh ine Sulfate) Inactive 01/20/2019 [facility] Sodium Chloride 0.9% (Bolus) IV 500 mL, 500 ml/hr, Infuse Over: 1 hr, Route: IV, 500, Drug form: INJ, ONCE, Priority: STAT, Dosing Weight 139.091 kg, Start date: 01/20/19 11:49:00 CDT, Stop date: 01/20/19 11:49:00 CDT Inactive 01/20/2019 [facility] Saline Flush 0.9% Notes: (Same as: BD Posiflush) No Longer Active 01/20/2019 [facility] Clindamycin Notes: (Same As: C leocin) Inactive 01/20/2019 [facility] Acetaminophen 325 MG / Hydrocodone Yevgeniy trate 5 MG Oral Tablet [[place] 5/325] Notes: (Same as: [place] 325/5) Do not ex ceed 4gm/day of acetaminophen. Inactive 01/20/2019 [facility] Allergies, Adverse Reactions, Alerts No Known Medication [...] should be multiplied by the estimated BMI. [facility] CHEM PANEL Sodium Lvl 142 135 - 145 01/21/2019 [facility] CHEM PANEL BUN 16 7 - 22 01/21/2019 [facility] CHEM PANEL Creatinine Lvl 0.76 0.50 - 1.40 01/21/2019 [facility] CHEM PANEL Glucose Lvl 92 70 - 99 01/21/2019 [facility] CHEM PANEL CO2 26 24 - 32 01/21/2019 [facility] CHEM PANEL Potassium Lvl 4.2 3.5 - 5.1 01/21/2019 [facility] CHEM PANEL Chloride Lvl 113 95 - 109 01/21/2019 [facility] CHEM PANEL ALT 20 0 - 65 01/21/2019 [facility] CHEM PANEL Calcium Lvl 7.6 8.5 - 10.5 01/21/2019 [facility] CHEM PANEL Total Protein 6.6 6.4 - 8.4 01/21/2019 [facility] CHEM PANEL Albumin Lvl 2.6 3.5 - 5.0 01/21/2019 [facility] CHEM PANEL AST 17 0 - 37 01/21/2019 [facility] CHEM PANEL Alk Phos 78 39 - 136 01/21/2019 [facility] CHEM PANEL Bili Total 0.2 0.2 - 1.3 01/21/2019 [facility] CHEM PANEL A/G Ratio 0.6 0.7 - 1.6 01/21/2019 [facility] CHEM PANEL B/C Ratio 21 6 - 25 01/21/2019 [facility] CHEM PANEL Globulin 4.0 2.7 - 4.2 01/21/2019 [facility] CHEM PANEL AGAP 7.2 10.0 - 20.0 01/21/2019 [facility] HEMATOLOGY MPV 8.2 7.4 - 10.4 01/21/2019 [facility] HEMATOLOGY Platelet 210 133 - 450 01/21/2019 [facility] HEMATOLOGY RDW 14.3 11.5 - 14.5 01/21/2019 [facility] HEMATOLOGY WBC 6.5 3.7 - 10.4 01/21/2019 [facility] HEMATOLOGY RBC 3.31 4.70 - 6.10 01/21/2019 [facility] HEMATOLOGY Hgb 9.6 14.0 - 18.0 01/21/2019 [facility] HEMATOLOGY Hct 28.2 42.0 - 54.0 01/21/2019 [facility] HEMATOLOGY MCH 29.0 27.0 - 31.0 01/21/2019 [facility] HEMATOLOGY MCV 85.2 80.0 - 94.0 01/21/2019 [facility] HEMATOLOGY MCHC 34.0 32.0 - 36.0 01/21/2019 [facility] HEMATOLOGY Monocytes 11.1 2.0 - 12.0 01/21/2019 [facility] HEMATOLOGY Basophils 0.9 0.0 - 1.0 01/21/2019 [facility] HEMATOLOGY Eosinophils 8.0 0.0 - 4.0 01/21/2019 [facility] HEMATOLOGY Basophils # 0.1 0.0 - 0.2 01/21/2019 [facility] HEMATOLOGY Eosinophils # 0.5 0.0 - 0.5 01/21/2019 [facility] HEMATOLOGY Neutrophils # 3.7 1.5 - 8.1 01/21/2019 [facility] HEMATOLOGY Monocytes # 0.7 0.0 - 0.8 01/21/2019 [facility] HEMATOLOGY Lymphocytes # 1.5 1.0 - 5.5 01/21/2019 [facility] HEMATOLOGY Segs 57.0 45.0 - 75.0 01/21/2019 [facility] HEMATOLOGY Lymphocytes 23.0 20.0 - 40.0 01/21/2019 [facility] BACTERIAL - SEROLOGY MRSA by PCR Negative (01/20/19 11:24 PM) 01/21/2019 [facility] CHEM PANEL Lactic Acid Lvl 1.2 0.5 - 2.2 01/20/2019 [facility] DRUG SCREEN U Benzodiaz Scr Nega tive *NA* (01/20/19 1:53 PM) Negative 01/20/2019 [facility] DRUG SCREEN UDS Note See Note (01/20/19 1:53 PM) 01/20/2019 [facility] DRUG SCREEN U Phencyclidine Scr Nega tive *NA* (01/20/19 1:53 PM) Negative 01/20/2019 [facility] DRUG SCREEN U Opiate Scr Posi tive *ABN* (01/20/19 1:53 PM) Negative 01/20/2019 [facility] DRUG SCREEN U Cannab Scr Nega tive *NA* (01/20/19 1:53 PM) Negative 01/20/2019 [facility] DRUG SCREEN U Cocaine Scr Nega tive *NA* (01/20/19 1:53 PM) Negative 01/20/2019 [facility] DRUG SCREEN U Brenda Scr Nega tive *NA* (01/20/19 1:53 PM) Negative 01/20/2019 [facility] DRUG SCREEN U Amph Scr Nega tive *NA* (01/20/19 1:53 PM) Negative 01/20/2019 [facility] CARDIAC ENZYMES BNP 31 <=100 pg/mL 01/20/2019 [facility] CARDIAC ENZYMES Troponin-I <0.02 0.00 - 0.40 01/20/2019 [facility] CHEM PANEL Lactic Acid Lvl 2.1 0.5 - 2.2 01/20/2019 [facility] CHEM PANEL eGFR 89 01/20/2019 Result Comment: [...] should be multiplied by the estimated BMI. [facility] CHEM PANEL Alk Phos 98 39 - 136 01/20/2019 [facility] CHEM PANEL AST 24 0 - 37 01/20/2019 [facility] CHEM PANEL ALT 27 0 - 65 01/20/2019 [facility] CHEM PANEL Bili Total 0.2 0.2 - 1.3 01/20/2019 [facility] CHEM PANEL Chloride Lvl 107 95 - 109 01/20/2019 [facility] CHEM PANEL CO2 26 24 - 32 01/20/2019 [facility] CHEM PANEL Total Protein 8.0 6.4 - 8.4 01/20/2019 [facility] CHEM PANEL Calcium Lvl 8.3 8.5 - 10.5 01/20/2019 [facility] CHEM PANEL Albumin Lvl 3.1 3.5 - 5.0 01/20/2019 [facility] CHEM PANEL Creatinine Lvl 1.00 0.50 - 1.40 01/20/2019 [facility] CHEM PANEL BUN 20 7 - 22 01/20/2019 [facility] CHEM PANEL Potassium Lvl 4.0 3.5 - 5.1 01/20/2019 [facility] CHEM PANEL Sodium Lvl 140 135 - 145 01/20/2019 [facility] CHEM PANEL Glucose Lvl 86 70 - 99 01/20/2019 [facility] CHEM PANEL B/C Ratio 20 6 - 25 01/20/2019 [facility] CHEM PANEL A/G Ratio 0.6 0.7 - 1.6 01/20/2019 [facility] CHEM PANEL Globulin 4.9 2.7 - 4.2 01/20/2019 [facility] CHEM PANEL AGAP 11.0 10.0 - 20.0 01/20/2019 [facility] CHEM PANEL Procalcitonin Lvl <0.05 ng/mL 0.00 - 0.10 01/20/2019 [facility] HEMATOLOGY Sed Rate 96 0 - 15 01/20/2019 [facility] HEMATOLOGY Platelet 260 133 - 450 01/20/2019 [facility] HEMATOLOGY MPV 8.0 7.4 - 10.4 01/20/2019 [facility] HEMATOLOGY MCV 85.4 80.0 - 94.0 01/20/2019 [facility] HEMATOLOGY MCH 28.5 27.0 - 31.0 01/20/2019 [facility] HEMATOLOGY RDW 14.5 11.5 - 14.5 01/20/2019 [facility] HEMATOLOGY MCHC 33.3 32.0 - 36.0 01/20/2019 [facility] HEMATOLOGY RBC 3.73 4.70 - 6.10 01/20/2019 [facility] HEMATOLOGY Hct 31.9 42.0 - 54.0 01/20/2019 [facility] HEMATOLOGY Hgb 10.6 14.0 - 18.0 01/20/2019 [facility] HEMATOLOGY WBC 7.7 3.7 - 10.4 01/20/2019 [facility] HEMATOLOGY Eosinophils # 0.5 0.0 - 0.5 01/20/2019 [facility] HEMATOLOGY Basophils # 0.1 0.0 - 0.2 01/20/2019 [facility] HEMATOLOGY Monocytes 7.5 2.0 - 12.0 01/20/2019 [facility] HEMATOLOGY Eosinophils 6.7 0.0 - 4.0 01/20/2019 [facility] HEMATOLOGY Basophils 0.8 0.0 - 1.0 01/20/2019 [facility] HEMATOLOGY Neutrophils # 5.3 1.5 - 8.1 01/20/2019 [facility] HEMATOLOGY Lymphocytes # 1.3 1.0 - 5.5 01/20/2019 [facility] HEMATOLOGY Monocytes # 0.6 0.0 - 0.8 01/20/2019 [facility] HEMATOLOGY Segs 68.3 45.0 - 75.0 01/20/2019 [facility] HEMATOLOGY Lymphocytes 16.7 20.0 - 40.0 01/20/2019 [facility] IMMUNOLOGY C-REACTIVE PROTEIN 85.7 <=2.9 mg/L 01/20/2019 [facility] Pathology Reports No Data Provided for This [...] No acute abnormality of the chest. SL: [id number] 01/20/2019 [facility] Tibia fibula series DX Patient Name: LAW BUTLER : 1970; Age: 48 years y/o Male MR: [id number] Study: 4 view examination of the right tibia/fibula dated 01/20/2019. Clinical Indication: Right calf pain and swelling - Pain, swelling and redness right lower leg; history of osteomyelitis of spine; Comparison: None There is near [id number] to the lateral joint compartment of the [...] knee and right ankle soft tissues. SL: [id number] 01/20/2019 [facility] Ext Lower Venous Doppler [facility] Patient Name: LAW BUTLER : 1970; Age: 48 years y/o Male MR: [id number] * RIGHT LOWER EXTREMITY VENOUS DOPPLER HISTORY: [...] deep venous thrombosis or venous obstruction. SL: [id number] 01/20/2019 [facility] Consultation Notes No Data Provided for This Section Discharge Summaries No Data Provided for This Section History and Physicals No Data Provided for This Section Vital Signs Vital Sign Value Date Comments Source Temperature Oral (F) 97.8 F 01/21/2019 [facility] Heart Rate 84 01/21/2019 [facility] Respitory Rate 18 01/21/2019 [facility] Systolic (mm Hg) 135 01/21/2019 [facility] Diastolic (mm Hg) 78 01/21/2019 [facility] Respitory Rate 18 01/21/2019 [facility] Systolic (mm Hg) 136 01/21/2019 [facility] Diastolic (mm Hg) 82 01/21/2019 [facility] Temperature Oral (F) 98.0 F 01/21/2019 [facility] Heart Rate 78 01/21/2019 [facility] Temperature Oral (F) 97.8 F 01/21/2019 [facility] Heart Rate 74 01/21/2019 [facility] Respitory Rate 18 01/21/2019 [facility] Systolic (mm Hg) 129 01/21/2019 [facility] Diastolic (mm Hg) 78 01/21/2019 [facility] BMI Calculated 39.76 01/20/2019 [facility] Height 187.96 cm 01/20/2019 [facility] Weight 140.455 01/20/2019 [facility] Weight 139.091 01/20/2019 [facility] BMI Calculated 38.33 01/20/2019 [facility] Height 190.5 cm 01/20/2019 [facility] Encounters Location Location Details Encounter Type Encounter Number Reason For Visit Attending Provider ADM Date DC Date Status Source [facility] Observation [id number] [place] 01/20/2019 01/21/2019 [facility] Procedures Procedure Code Date Perfomer Comments Source Open removal foreign body from joint [id number] [facility] ORIF - Open reduction of fracture of ank le with internal fixation [id number] [facility] Assessment and Plan Assessment and Plan Date [...] abscess treated last year at the local [facility]. He presents to the hospital with itching [...] primary care provider as an outpatient. 01/21/2019 [facility] Plan of Care No Data Provided for This Section Social History Social History Date Source Social History TypeResponse Smoking Status Never smoker; Previous treatment: None; Concerns about tobacco use in household: No; Exposure to Tobacco Smoke None; Cigarette Smoking Last 365 Days No; Reg Smoking Cessation Counseling No entered on: 01/20/19 01/20/2019 [facility] Family History No Data Provided for This Section Advance Directives No Data Provided for This Section Functional Status No Data Provided for This Section
--- OUTSIDE RECORDS SUMMARY | 2020-09-15 18:32 | XMS REPORT | Continuity of Care Document ---
Author Author [facility] Organization [facility] Address [address] [place] [address] Phone Unavailable Care Team Providers Care Lubricating Machine Tender Name Role Phone NO, PCP PCP Unavailable Judy MORENO Attphys Unavailable FATOUMATA HERNANDEZ Attphys Unavailable Odita, N Arickevelia Attphys Unavailable Odita, N Arickcaridadka Attphys Unavailable Lester Leggett DO Attphys Toño Watkins Attphys Tanika Barbosa MD Attphys Adriana Hardy MD Attphys [phone] Ladonna YOST, Daly Attphys Ze Quezada MD Attphys Dede YOST, Ceci Kaplan Attphys [phone] Brianna Vandanabert Vanegas Attphys Apolinar Juarez Attphys Rafi Shepherd Attphys Naina Li Attphys Judy Dai Attphys Lina Russ Attphys Juvencio Dickson Jr Attphys Deepa Barkley Attphys FATOUMATA HERNANDEZ Admphys Unavailable Flavia Costa Admphys Unavailable Toño Watkins Admphys DALY DOUGHERTY Admphys Unavailable Judy Dai Admphys Payers Payer Name Policy Type Policy Number Effective Date Expiration Date Debbie barnes [employer] [id number] 2019 00:00:00 [facility] [id number] 2019 00:00 :00 [facility] [employer]AMER[employer] DUAL OPTIONS STARPLUS [id number] 020-PresentHMO [id number] 2019 00:00:00 Lázaro Pedraza UHC MEDICAREUHC CONNECTED (MEDICARE-MEDICAID PLAN)xxxx [id number] 2019-PresentHMO [id number] 2020 00:00:00 Lázaro hurst Problems Condition Name Condition Details Condition Category Status Onset Date Resolution Date Last Treatment Date Treating Clinician Comments Source SHORT OF BREATH, CHEST PAIN SH ORT OF BREATH, CHEST PAIN Active 05/05/2020 [facility] Diagnosis Active 2020-05-05 00:00:0 0 2020-05-05 19:42:00 [facility] CELLULITIS OF RIGHT LOWER EXTREMITY, CHUN CELLULITIS OF RIGHT LOWER EXTREMITY, CHUN Active 05/05/2020 [facility] Diagnosis Active 2020-05-05 00:00:00 2020-05-21 14:36:00 [facility] Suspected COVID-19 virus infection Suspected COVID-19 virus infe ction Disease Active 2020-04-11 00:00:00 [place] [facility] CHEST DISCOMFORT CHES T DISCOMFORT Active 12/23/2019 [facility] Diagnosis Active 2019-12-23 00:00:00 2019-12-30 13:10:00 [facility] SOB SOB Active 07/24/2019 [facility] Diagnosis Active 2019-07-24 00:00:00 2020-07-30 11:22:00 [facility] HEART BURN , HEAR T BURN , Active 07/05/[address] [facility] Diagnosis Active 2019-07-05 00:00:00 2019-07-08 12:32:00 [facility] CELLULITIS CELL ULITIS Active 05/07/2019 [facility] Diagnosis Active 2019-05-07 00:00:00 2019-05-16 11:45:00 [facility] Bilateral lower extremity edema Bilateral lower extremity edema Dis ease Active 2019-02-27 00:00:00 Lázaro Pedraza LEG SWELLING LEG SWELLING Active 01/20/2019 [facility] Diagnosis Active 2019-01-20 00:00:00 2019-01-24 16:16:00 [facility] Acute renal failure Acute renal failure Disease Active 2019-01-14 00:00 :00 Lázaro Pedraza 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 Disease Active 2018-05-11 00:00:00 Lázaro Pedraza ABD PAIN ABD PAIN Active 12/24/2016 [facility] Diagnosis Active 2016-12-24 00:00:00 2017-01-01 05:06:00 [facility] Cellulitis Problem Active 2016-03-07 00:00:00 [facility] Hypokalemia Problem Active 2016-03-07 00:00:00 [facility] CHEST PAIN CHES T PAIN Active 08/28/2015 [facility] Active 2015-08-28 00:00:00 2015-08-28 20:19:00 [facility] ABSCESS ABSC ESS Active 07/02/2014 [facility] Active 2014-07-02 00:00:00 2014-07-02 14:28:00 [facility] TOOTH ACHE TOOT H ACHE Active 05/07/2014 [facility] Active 2014-05-07 00:00:00 2014-07-03 09:51:00 [facility] RASH RASH Active 01/04/2014 [facility] Active 2014-01-04 12:00:00 2014-07-03 09:49:00 [facility] Methicillin resistant Staphylococcus aureus (organism) Methicillin resistant Staphylococcus aureus (organism) Active 06/04/2013 Problem 05/08/2020 MRSA boil,Problem added by Discern Expert. [facility] Problem Active 2013-06-04 00:00:00 2020-05-08 21:28:42 [facility] Headache Problem Active [facility] Drug abuse Problem Active [facility] Chest pain Problem Active [facility] Anxiety (finding) Anxi ety (finding) Resolved Problem 05/08/2020 [facility] Problem Resolved 2020-05-08 21:28:42 [facility] Chronic pain (finding) Billing Services Manager adilene pain (finding) Resolved Problem 05/08/2020 [facility] Problem Resolved 2020-05-08 21:28:42 [facility] Hypertensive disorder, systemic arterial (disorder) Hypertensive disorder, systemic arterial (disorder) Resolved Problem 05/08/2020 [facility] Problem Resolved 2020-05-08 21:28:42 [facility] Psychiatry service (qualifier value) Psychiatry service (qualifier value) Resolved Problem 05/08/2020 [facility] Problem Resolved 2020-05-08 21:28:42 [facility] CELLULITIS NOS CELL ULITIS NOS Active [facility] Active 2014-07-18 12:04:00 [facility] CELLULITIS OF RIGHT LOWER LIMB CELLULITIS OF RIGHT LOWER LIMB Active [facility] Diagnosis Active 2019 14:36:00 [facility] CHEST PAIN, UNSPECIFIED CHES T PAIN, UNSPECIFIED Active [facility] Diagnosis Active 2020-05-21 14:36:00 [facility] Other chest pain Othe r chest pain 12/23/2019 12/25/2019 [facility] Problem 2019-12-23 18:00:00 2019-12-25 23:30: 38 2019-12-25 23:30:38 [facility] Acute upper respiratory infection, unspecified Acute upper respiratory infection, unspecified 07/24/2019 07/26/2019 [facility] Problem 2019-07-24 17:00:00 2019-07-26 21:29:36 2019-07-26 21:29 :36 [facility] Edema, unspecified Owen a, unspecified 05/07/2019 05/09/2019 [facility] Problem 2019-05-07 17:00:00 2019-05-09 22:10:20 2019-05-09 22:10:20 [facility] Cellulitis of right lower limb Cellulitis of right lower limb 05/07/2019 05/09/2019 [facility] Problem 6 17:00:00 2019-05-09 22:10:20 2019-05-09 22:10:20 [facility] Discharge Diagnosis: Heroin abuse Discharge Diagnosis: Heroin abuse 12/24/2016 12/27/2016 [facility] Problem 2016-12-24 06:00:00 2016-12-27 04:18:03 2016-12-27 04:18:03 [facility] Discharge Diagnosis: Chest pain Discharge Diagnosis: Chest pain 12/24/2016 12/27/2016 [facility] Problem 2016-12-24 06:00:00 2016-12-27 04:18:03 2016-12-27 04:18:03 [facility] Discharge Diagnosis: Dental caries Discharge Diagnosis: Dental caries 05/07/2014 05/09/2014 [facility] Problem 2014-05-07 05:00:00 2014-05-09 21:51:16 2014-05-09 21:51:16 [facility] Discharge Diagnosis: Dental abscess Discharge Diagnosis: Dental abscess 05/07/2014 05/09/2014 [facility] Problem 2014-05-07 05:00:00 2014-05-09 21:51:16 2014-05-09 21:51:16 [facility] Allergies, Adverse Reactions, Alerts Allergy Name Allergy Type Status Severity Reaction(s) Onset Date Inacti ve Date Treating Clinician Comments Source No Known Allergies DA Active U 2019-10-19 00:00:00 [facility] No Known Allergies DA Active U 2018-07-12 00:00:00 [facility] No Known Allergies DA Active U 2018-01-02 00:00:00 [facility] No Known Medication Allergies No Known Medication Allergies Active [facility] Family History Family Member Diagnosis Comments Start Date Stop Date Source 33 FATHER Family history of acute myocardial infarction [facility] Natural father Heart disease Lázaro Pedraza Natural father Hypertension Lázaro Pedraza Natural father Stroke [facility] thodi Natural mother No Known Problems Efren Pedraza [...] smoker 2020-04-11 00:00:00 Taye Pedraza Social History [facility] Medications Ordered Medication Name Filled Medication Name Start Date Stop Da te Current Medication? Ordering Clinician Indication Dosage Frequency Signature (SIG) Comments Components Source Furosemide Furosemide 2020-09-10 09:31:00 Yes 40 Reyna ly [facility] Potassium Chloride Potassium Chloride 2020-09-10 09:31:00 Yes 20 Daily [facility] Rivaroxaban (Xarelto) 20 Mg TABLET Rivaroxaban (Xarelto) 20 Mg TABLET 2020-09-10 09:31:00 Yes 20 Daily [facility] clindamycin 150 mg oral capsule 2020-05-06 19:40:00 Yes 450 mg = 3 cap, PO, TID, X 9 day, # 81 cap, 0 Refill(s), Pharmacy: [facility] [id number], 187.96, cm, 05/06/20 1:51:00 CDT, Height, 145.227, kg, 05/06/20 1:51:00 CDT, Weight Aki Jett Robaxin 2020-05-06 17:05:00 No Notes: (Same as:Robaxin) Aki Jett Carisoprodol 2020-05-06 16:55:00 No 350 mg, Route: PO, Drug form: TAB, BID, Dosing Weight 145.227, kg, PRN Spasm, Start date: 05/06/20 11:55:00 CDT, Duration: 5 day, Stop date: 05/11/20 11:54:00 CDT A[facility]ann Atenolol 50 MG Oral Tablet 2020-05-06 14:00:00 [...] day, Stop date: 06/04/20 23:39:00 CDT, 0 [facility] Docusate 2020-05-06 04:40:00 No Notes: (Same as: Colace) (Do Not Crush) [facility] Ondansetron 2020-05-06 04:40:00 No Notes: (Same as: Zofran) MEDICATION WASTE Product Size: 4 mg Product Wasted: ___ mg [facility] Melatonin 2020-05-06 04:40:00 No Notes: (Sa me as: Melatonin) [facility] Acetaminophen 2020-05-06 04:40:00 No Notes: Do not exceed 4 gm/day. (Same as: Tylenol) [facility] Benadryl 2020-05-06 04:38:00 No Notes: (Marco Antonio e as: Benadryl) [facility] Acetaminophen 325 MG / Hydrocodone Yevgeniy trate 7.5 MG Oral Tablet [Valencia 7.5/325] 2020-05-06 04:38:00 No Notes: Same as Valencia 325-7.5mg Do not exceed 4gm/day of acetaminophen. [facility] [place] Morphine 2020-05-06 04:38:00 No Not es: (Same as:MORPhine Sulfate) [facility] Aspirin 2020-05-06 04:23:00 No 325 mg, Route: PO, Drug form: TAB, ONCE, Dosing Weight 136.364, kg, Priority: STAT, Start date: 05/05/20 23:23:00 CDT, Stop date: 05/05/20 23:23:00 CDT [facility] [place] Morphine 2020-05-06 04:08:00 No Not es: (Same as:MORPhine Sulfate) [facility] Zofran 2020-05-06 04:08:00 No Notes: (Same as: Zofran) MEDICATION WASTE Product Size: 4 mg Product Wasted: ___ mg [facility] Clindamycin 2020-05-06 03:47:00 No 600 mg, 50 mL, Route: IVPB, Drug form: INJ, ONCE, Dosing Weight 136.364, kg, Priority: STAT, Start date: 05/05/20 22:47:00 CDT, Stop date: 05/05/20 22:47:00 CDT, ABX Indication: Skin/Soft Tissue Infection, 0 [facility] Morphine 2020-05-06 02:37:00 No 4 mg, Route: IVP, ONCE, Dosing Weight 136.364, kg, Priority: STAT, Start date: 05/05/20 21:37:00 CDT, Stop date: 05/05/20 21:37:00 CDT Aki rivera Zofran 2020-05-06 02:37:00 No 4 mg, Route: IVP, Drug form: INJ, ONCE, Dosing Weight 136.364, kg, Priority: STAT, Start date: 05/05/20 21:37:00 CDT, Stop date: 05/05/20 21:37:00 CDT Al mira Jett Saline Flush 0.9% 2020-05-05 23:56:00 [...] kg, Priority: STAT, Start date: 12/23/19 21:31:00 CATALOGUE CLERK, Stop date: 12/23/19 21:31:00 CATALOGUE CLERK Kailee Jett tramadol hydrochloride 50 MG [...] meal, # 60 cap, 1 Refill(s) [facility] Sucralfate 100 MG/ML Oral Suspension 2019-07-08 20:40:00 Ye s 1 gm = 10 ml, PO, Before Meals & Bedtime, # 400 mL, 0 Refill(s) Aki Jett Acetaminophen 325 MG / Hydrocodone Bitartrate 10 MG Or al Tablet [Valencia 10/325] 2019-07-08 18:07:00 Yes 1 tab, PO, Q6H, 0 Refill(s) Aki Jett Carisoprodol 350 MG Oral Tablet [Soma] 2019-07-08 18:07:00 Yes 350 mg = 1 tab, PO, QID, 0 Refill(s) Kailee Jett meloxicam 2019-07-08 18:07:00 Yes 20 mg, PO, Daily, 0 Refill(s) Aki Jett losartan 50 mg oral tablet 2019-07-08 18:07:00 Yes 50 mg = 1 tab, PO, Daily, 0 Refill(s) [facility] [place] Cephalexin 500 MG Oral Capsule [Keflex] 2019-05-08 01:50:00 Yes 500 mg = 1 cap, PO, QID, X 7 day, # 28 cap, 0 Refill(s) [facility] acetaminophen-codeine #3 2019-05-08 01:32:00 No Notes: Do not exceed 4gm/day of acetaminophen. (Same as: Tylenol with Codeine # 3) [facility] Keflex 2019-05-08 01:05:00 No Notes: Take on empty stomach. (Same As: Keflex) Aki Jtet Lasix 2019-05-08 01:05:00 No Notes: (Same as: Lasix) MEDICATION WASTE Product Size: 40 mg Product Wasted: ___ mg [facility] losartan (COZAAR) 50 MG tablet 2019-02-22 00:00:00 Yes 100mg QD Take 100 mg by mouth daily. Lázaro Pedraza Cephalexin 2019-01-21 19:00:00 No Notes: Take on empty stomach. (Same As: Keflex) [facility] Doxycycline 2019-01-21 19:00:00 No Notes: (Same as: Vibramycin) No milk/antacids/iron. [facility] cephalexin 500 mg oral tablet 2019-01-21 18:46:00 Yes 500 mg = 1 tab, PO, QID, X 7 day, # 28 tab, 0 Refill(s), Pharmacy: [facility] [id number] [facility] doxycycline hyclate 100 MG Oral Capsule 2019-01-21 18:46:00 Yes 100 mg = 1 cap, PO, BID, X 7 day, # 14 cap, 0 Refill(s), Pharmacy: [facility] [id number] [facility] Soma 2019-01-21 14:00:00 No 350 mg, Route: PO, Drug form: TAB, QID, Dosing Weight 140.455, kg, Start date: 01/21/19 9:00:00 CDT, Duration: 30 day, Stop date: 02/19/19 21:00:00 CDT Kailee Jett Robaxin 2019-01-21 07:30:00 No Notes: (Same as:Robaxin) [facility] Vancomycin 2019-01-21 06:00:00 No 2001 mg: infuse over 2.5 hours [facility] BD Normal Saline Flush 2019-01-21 05:34:00 No Notes: (Same as: BD Posiflush) [facility] Robaxin 2019-01-21 02:00:00 No Notes: (Same as:Robaxin) [facility] heparin 2019-01-21 02:00:00 No Notes: porci ne heparin [facility] Soma 2019-01-21 02:00:00 No 350 mg, Route: PO, Drug form: TAB, QID, Dosing Weight 140.455, kg, Start date: 01/20/19 21:00:00 CDT, Duration: 30 day, Stop date: 02/19/19 17:00:00 CDT Kailee Jett Acetaminophen 325 MG / Hydrocodone Bitartrate 10 MG Or al Tablet [Valencia 10/325] 2019-01-21 01:53:00 No Note s: Do not exceed 4gm/day of acetaminophen. (Same as: Valencia 325/10) [facility] Morphine 2019-01-21 01:53:00 No Not es: (Same as:MORPhine Sulfate) [facility] Acetaminophen 325 MG / Hydrocodone Bitartrate 10 MG Or al Tablet [Valencia 10/325] 2019-01-21 01:26:00 No Note s: Do not exceed 4gm/day of acetaminophen. (Same as: Valencia 325/10) [facility] Carisoprodol 350 MG Oral Tablet [Soma] 2019-01-20 22:48:00 Yes 350 mg = 1 tab, PO, QID, # 21 tab, 0 Refill(s) [facility] Acetaminophen 325 MG / Hydrocodone Bitartrate 10 MG Or al Tablet [Valencia 10/325] 2019-01-20 22:48:00 Yes 1-2 tab, PO, Q4-6H, PRN Pain, # 30 tab, 0 Refill(s) [facility] pneumococcal capsular polysaccharide typ e 1 vaccine / pneumococcal capsular polysaccharide type 10A vaccine / pneumococcal capsular polysaccharide type 11A vaccine / pneumococcal capsular polysaccharide type 12F vaccine / pneumococcal capsular polysacchar 2019-01-20 22:45:43 No Notes: (Same as: Pneumovax 23) [facility] cefepime 2019-01-20 22:00:00 No Notes: (Same As: Maxipime) MEDICATION WASTE Product Size: 1000 mg Product Wasted: _0__ mg [facility] Morphine 2019-01-20 21:58:00 No 2 mg, 1 mL, Route: IVP, Drug form: SOLN, ONCE, Dosing Weight 139.091, kg, Priority: STAT, Start date: 01/20/19 16:58:00 CDT, Stop date: 01/20/19 16:58:00 CDT [facility] Acetaminophen 2019-01-20 20:54:00 No Notes: Do not exceed 4 gm/day. (Same as: Tylenol) [facility] Vancomycin 2019-01-20 20:52:00 No 2001 mg: infuse over 2.5 hours [facility] Vancomycin 2019-01-20 20:18:00 No 2001 mg: infuse over 2.5 hours For adult patients only: Round to nearest 250 mg per Medical Staff approval MEDICATION WASTE Product Size: 1000 mg Product Wasted: 0mg [facility] Ancef + sterile water 20 mL 2019-01-20 20:18:00 No Notes: (Same As: Ancef, Kefzol) MEDICATION WASTE Product Size: 1000 mg Product Wasted: 0 mg [facility] Zofran 2019-01-20 18:25:00 No Notes: (Same as: Zofran) MEDICATION WASTE Product Size: 4 mg Product Wasted: _0__ mg [facility] Morphine 2019-01-20 18:25:00 No Not es: (Same as:MORPhine Sulfate) [facility] Sodium Chloride 0.9% (Bolus) IV 2019-01-20 16:49:00 No 500 mL, 500 ml/hr, Infuse Over: 1 hr, Route: IV, 500, Drug form: INJ, ONCE, Priority: STAT, Dosing Weight 139.091 kg, Start date: 01/20/19 11:49:00 CDT, Stop date: 01/20/19 11:49:00 CDT [facility] Saline Flush 0.9% 2019-01-20 16:49:00 No Notes: (Same as: BD Posiflush) [facility] Clindamycin 2019-01-20 16:49:00 No Notes: ( Same As: Cleocin) [facility] Acetaminophen 325 MG / Hydrocodone Bitartrate 5 MG Oral Tabl et [Valencia 5/325] 2019-01-20 16:49:00 No Notes: (Same as: Valencia 325/5) Do not exceed 4gm/day of acetaminophen. [facility] Saline Flush 0.9% 2016-12-24 06:41:00 No 10 mL, Route: IVP, Drug Form: INJ, Dosing Weight 121.364, kg, PRN, PRN Line Flush, Start date: 12/24/16 0:41:00 CATALOGUE CLERK, Duration: 30 day, Stop date: 01/23/17 1:40:00 CDT [facility] Acetaminophen 300 MG / Codeine Phosphate 30 MG Oral Tablet [Tylenol with Codeine #3] 2015-08-29 01:54:00 No 1 tab, Route: PO, Drug Form: TAB, Dosing Weight 136.364, kg, ONCE, STAT, Start date: 08/28/15 20:54:00, Stop date: 08/28/15 20:54:00 [facility] Ativan 2015-08-29 01:54:00 No 1 mg, Route: IVP, Drug form: INJ, ONCE, Dosing Weight 136.364, kg, Priority: STAT, Start date: 08/28/15 20:54:00, Stop date: 08/28/15 20:54:00 [facility] Saline Flush 0.9% 2015-08-28 23:43:00 No Notes: (Same as: BD Posiflush) [facility] Acetaminophen 325 MG / Hydrocodone Bitartrate 5 MG Oral Tabl et [Valencia 5/325] 2014-07-02 19:40:00 Yes 1-2 tab, PO, Q4-6H, Pain, # 15 tab, 0 Refill(s) [facility] Cephalexin 500 MG Oral Capsule [Keflex] 2014-07-02 19:40:00 Yes 500 mg = 1 cap, PO, QID, # 40 cap, 0 Refill(s) [facility] Sulfamethoxazole 800 MG / Trimethoprim 160 MG [...] Hydrocodone Bitartrate 5 MG Oral Tabl et [Valencia 5/325] 2014-05-08 01:03:00 Yes 1-2 tab, PO, Q4-6H, Pain, # 30 tab, 0 Refill(s) Aki Jett Sulfamethoxazole 800 MG / Trimethoprim 160 MG Oral Tablet [B actrim] 2014-05-08 01:03:00 Yes 1 tab, PO, BID, # 20 tab, 0 Refill(s) [facility] Bupivacaine Hydrochloride 5 MG/ML / Epinephrine 0.005 MG/ML Injectable Solution 2014-05-08 01:02:00 Yes Note s: (bupivacaine-epi 0.5%-1:200,000 30 ml VL) Not for use in continuous infusion. (Same As: Marcaine w/Epi) [facility] Acetaminophen 325 MG / Hydrocodone Bitartrate 5 MG Oral Tabl et 2014-05-08 01:02:00 No 1 tab, Rou te: PO, Dosing Weight 140, kg, ONCE, STAT, Start date: 05/07/14 20:02:00, Stop date: 05/07/14 20:02:00 [facility] Buprenorphine Hcl/Naloxone Hcl (Suboxone 8 Mg-2 Mg Sl Film) 1 Each FILM Buprenorphine Hcl/Naloxone Hcl (Suboxone 8 Mg-2 Mg Sl Film) 1 Each FILM Yes Three Times A Day I [facility] Carisoprodol (Soma) 350 Mg TABLET Carisoprodol (Soma) 350 Mg TABLET Yes 350 Four Times Daily [facility] Duloxetine Hcl (Cymbalta) 60 Mg CAPSULE. Duloxetine Hcl (Cymbalta) 60 Mg CAPSULE.DR Tirado Bedtime [facility] Gabapentin Gabapentin Yes 300 Four Times Daily [facility] Meloxicam Meloxicam Yes Three Times A Day [facility] Atenolol Atenolol 2020-09-10 00:00:00 No Twice A Day [facility] Quetiapine Fumarate (Seroquel) 100 Mg TABLET Quetiapin e Fumarate (Seroquel) 100 Mg TABLET 2020-09-08 00:00:00 No 200 Bedtime [facility] Amitriptyline Hcl Amitriptyline Hcl 2020-09-07 00:00:00 No 100 Mg [facility] Aripiprazole (Abilify) 10 Mg TABLET Aripiprazole (Abilify) 10 Mg TABLET 2020-09-07 00:00:00 No 10 Daily [facility] Buprenorphine Hcl/Naloxone Hcl (Buprenorp-Nalox 8-2 Mg Sl Film) 1 Each FILM Buprenorphine Hcl/Naloxone Hcl (Buprenorp-Nalox 8-2 Mg Sl Film) 1 Each FILM 2020-09-07 00:00:00 No [facility] Carisoprodol Carisoprodol 2020-09-07 00:00:00 No [facility] Quetiapine Fumarate Quetiapine Fumarate 2020-09-07 00:00:00 No [facility] Sulfamethoxazole/Trimethoprim (Bactrim Ds Tablet) 1 Ea ch TABLET Sulfamethoxazole/Trimethoprim (Bactrim Ds Tablet) 1 Each TABLET 2020-09-07 00:00:00 No 1 Twice A Day [facility] Vital Signs Vital Name Observation Time Observation Value Comments Source Body Temperature 2020-09-10 12:32:00 98.0 [degF] [facility] Heart Rate 2020-09-10 12:32:00 61 /min [facility] Respiratory rate 2020-09-10 12:32:00 17 /min [facility] BP Systolic 2020-09-10 12:32:00 150 mm[Hg] [facility] BP Diastolic 2020-09-10 12:32:00 87 mm[Hg] [facility] Oxygen saturation by Pulse oximetry 2020-09-10 12:32:00 98 /min [facility] Weight 2020-09-07 20:44:00 350 [lb_av] [facility] BMI (Body Mass Index) 2020-09-07 20:44:00 44.9 kg/m2 [facility] Systolic blood pressure 2020-07-04 09:20:00 120 mm[Hg] [facility] Diastolic blood pressure 2020-07-04 09:20:00 68 mm[Hg] [facility] Heart rate 2020-07-04 09:20:00 65 /min [facility] Body temperature 2020-07-04 09:20:00 36.61 [facility] [place] [facility] Respiratory rate 2020-07-04 09:20:00 19 /min [facility] [place] [facility] Oxygen saturation in Arterial blood by Pulse oximetry 07-04 09:20:00 99 /min [facility] Body height 2020-07-04 07:17:00 188 cm [facility] Body weight 2020-07-04 07:17:00 147.419 kg [facility] BMI 2020-07-04 07:17:00 41.73 kg/m2 [facility] Temperature Oral (F) 2020-05-06 16:54:00 98.2 F [facility] Heart Rate 2020-05-06 16:54:00 [facility] Respitory Rate 2020-05-06 16:54:00 [facility] Systolic (mm Hg) 2020-05-06 16:54:00 [facility] Diastolic (mm Hg) 2020-05-06 16:54:00 [facility] Temperature Oral (F) 2020-05-06 12:49:00 98.3 F [facility] [place] Systolic (mm Hg) 2020-05-06 12:49:00 [facility] [place] Diastolic (mm Hg) 2020-05-06 12:49:00 [facility] [place] Heart Rate 2020-05-06 12:49:00 [facility] Systolic (mm Hg) 2020-05-06 09:00:00 [facility] [place] Diastolic (mm Hg) 2020-05-06 09:00:00 [facility] Temperature Oral (F) 2020-05-06 09:00:00 98.1 F [facility] Heart Rate 2020-05-06 09:00:00 [facility] Height 2020-05-06 06:51:00 187.96 cm [facility] Weight 2020-05-06 06:51:00 [facility] BMI Calculated 2020-05-06 06:51:00 [facility] [place] Respitory Rate 2020-05-06 06:00:00 [facility] [place] Respitory Rate 2020-05-06 04:00:00 [facility] BMI Calculated 2020-05-05 23:56:00 [facility] Height 2020-05-05 23:45:00 187.96 cm [facility] BMI Calculated 2020-05-05 23:45:00 [facility] [place] Weight 2020-05-05 23:45:00 [facility] Respitory Rate 2019-12-24 04:26:00 [facility] Systolic (mm Hg) 2019-12-24 04:26:00 [facility] [place] Diastolic (mm Hg) 2019-12-24 04:26:00 [facility] [place] Temperature Oral (F) 2019-12-24 04:26:00 98.0 F [facility] Respitory Rate 2019-12-24 02:25:00 [facility] [place] Systolic (mm Hg) 2019-12-24 02:25:00 [facility] [place] Diastolic (mm Hg) 2019-12-24 02:25:00 [facility] BMI Calculated 2019-12-24 01:34:00 [facility] Systolic (mm Hg) 2019-12-24 00:14:00 [facility] [place] Diastolic (mm Hg) 2019-12-24 00:14:00 [facility] [place] Heart Rate 2019-12-24 00:14:00 [facility] Respitory Rate 2019-12-24 00:14:00 [facility] Temperature Oral (F) 2019-12-24 00:14:00 98.4 F [facility] Height 2019-12-24 00:14:00 187.96 cm [facility] BMI Calculated 2019-12-24 00:14:00 [facility] [place] Weight 2019-12-24 00:14:00 [facility] Systolic (mm Hg) 2019-07-24 19:15:00 [facility] [place] Diastolic (mm Hg) 2019-07-24 19:15:00 [facility] Temperature Oral (F) 2019-07-24 19:15:00 98.4 F [facility] Systolic (mm Hg) 2019-07-24 18:06:00 [facility] [place] Diastolic (mm Hg) 2019-07-24 18:06:00 [facility] Temperature Oral (F) 2019-07-24 18:06:00 98.4 F [facility] Respitory Rate 2019-07-24 18:06:00 [facility] Systolic (mm Hg) 2019-07-24 16:49:00 [facility] Diastolic (mm Hg) 2019-07-24 16:49:00 [facility] [place] Heart Rate 2019-07-24 16:49:00 [facility] Respitory Rate 2019-07-24 16:49:00 [facility] Temperature Oral (F) 2019-07-24 16:49:00 98.9 F [facility] Height 2019-07-24 16:49:00 187.96 cm [facility] BMI Calculated 2019-07-24 16:49:00 [facility] Weight 2019-07-24 16:49:00 [facility] Height 2019-07-08 18:03:00 187.96 cm [facility] Weight 2019-07-08 18:03:00 [facility] BMI Calculated 2019-07-08 18:03:00 [facility] Respitory Rate 2019-05-08 03:42:00 [facility] [place] Heart Rate 2019-05-08 03:42:00 [facility] Systolic (mm Hg) 2019-05-08 03:42:00 [facility] Diastolic (mm Hg) 2019-05-08 03:42:00 [facility] Systolic (mm Hg) 2019-05-08 01:24:00 [facility] Diastolic (mm Hg) 2019-05-08 01:24:00 [facility] Respitory Rate 2019-05-08 01:24:00 [facility] Heart Rate 2019-05-08 01:24:00 [facility] Temperature Oral (F) 2019-05-08 01:24:00 98.2 F [facility] Weight 2019-05-07 22:10:00 [facility] BMI Calculated 2019-05-07 22:10:00 [facility] [place] Height 2019-05-07 22:10:00 187.96 cm [facility] Temperature Oral (F) 2019-05-07 22:10:00 97.9 F [facility] Respitory Rate 2019-05-07 22:10:00 [facility] Systolic (mm Hg) 2019-05-07 22:10:00 [facility] Diastolic (mm Hg) 2019-05-07 22:10:00 [facility] Heart Rate 2019-05-07 22:10:00 [facility] Temperature Oral (F) 2019-01-21 20:00:00 97.8 F [facility] Heart Rate 2019-01-21 20:00:00 [facility] Respitory Rate 2019-01-21 20:00:00 [facility] [place] Systolic (mm Hg) 2019-01-21 20:00:00 [facility] [place] Diastolic (mm Hg) 2019-01-21 20:00:00 [facility] Respitory Rate 2019-01-21 16:00:00 [facility] [place] Systolic (mm Hg) 2019-01-21 16:00:00 [facility] [place] Diastolic (mm Hg) 2019-01-21 16:00:00 [facility] Temperature Oral (F) 2019-01-21 16:00:00 98.0 F [facility] Heart Rate 2019-01-21 16:00:00 [facility] Temperature Oral (F) 2019-01-21 12:00:00 97.8 F [facility] Heart Rate 2019-01-21 12:00:00 [facility] Respitory Rate 2019-01-21 12:00:00 [facility] [place] Systolic (mm Hg) 2019-01-21 12:00:00 [facility] [place] Diastolic (mm Hg) 2019-01-21 12:00:00 [facility] BMI Calculated 2019-01-20 22:40:00 [facility] Height 2019-01-20 22:40:00 187.96 cm [facility] Weight 2019-01-20 22:40:00 [facility] Weight 2019-01-20 16:40:00 [facility] BMI Calculated 2019-01-20 16:40:00 [facility] Height 2019-01-20 16:40:00 190.5 cm [facility] Respitory Rate 2016-12-24 10:30:00 [facility] Systolic (mm Hg) 2016-12-24 10:30:00 [facility] Diastolic (mm Hg) 2016-12-24 10:30:00 [facility] Systolic (mm Hg) 2016-12-24 06:53:00 [facility] [place] Diastolic (mm Hg) 2016-12-24 06:53:00 [facility] [place] Respitory Rate 2016-12-24 06:53:00 [facility] [place] BMI Calculated 2016-12-24 06:35:00 [facility] Weight 2016-12-24 06:35:00 [facility] Height 2016-12-24 06:35:00 190.5 cm [facility] Temperature Oral (F) 2016-12-24 06:35:00 98.3 F [facility] Heart Rate 2016-12-24 06:35:00 [facility] Systolic (mm Hg) 2016-12-24 06:35:00 [facility] [place] Diastolic (mm Hg) 2016-12-24 06:35:00 [facility] [place] Respitory Rate 2016-12-24 06:35:00 [facility] [place] Respitory Rate 2015-08-29 03:24:00 [facility] [place] Systolic (mm Hg) 2015-08-29 03:24:00 [facility] [place] Diastolic (mm Hg) 2015-08-29 03:24:00 [facility] [place] Systolic (mm Hg) 2015-08-29 02:48:00 [facility] Diastolic (mm Hg) 2015-08-29 02:48:00 [facility] Respitory Rate 2015-08-29 02:48:00 [facility] Systolic (mm Hg) 2015-08-29 01:40:00 [facility] Diastolic (mm Hg) 2015-08-29 01:40:00 [facility] Respitory Rate 2015-08-29 01:40:00 [facility] Heart Rate 2015-08-28 22:49:00 [facility] BMI Calculated 2015-08-28 22:49:00 [facility] Weight 2015-08-28 22:49:00 [facility] Height 2015-08-28 22:49:00 190.5 cm [facility] Temperature Oral (F) 2015-08-28 22:49:00 97.9 F [facility] Respitory Rate 2014-07-02 19:54:00 [facility] Systolic (mm Hg) 2014-07-02 19:54:00 [facility] [place] Diastolic (mm Hg) 2014-07-02 19:54:00 [facility] Temperature Oral (F) 2014-07-02 19:54:00 98.8 F [facility] Heart Rate 2014-07-02 19:54:00 [facility] Weight 2014-07-02 18:43:00 [facility] BMI Calculated 2014-07-02 18:43:00 [facility] Height 2014-07-02 18:43:00 187.96 cm [facility] Respitory Rate 2014-07-02 18:43:00 [facility] Heart Rate 2014-07-02 18:43:00 [facility] Temperature Oral (F) 2014-07-02 18:43:00 98.2 F [facility] Diastolic (mm Hg) 2014-07-02 18:43:00 [facility] Systolic (mm Hg) 2014-07-02 18:43:00 [facility] [place] Respitory Rate 2014-05-08 02:20:00 [facility] [place] Systolic (mm Hg) 2014-05-08 02:20:00 [facility] [place] Diastolic (mm Hg) 2014-05-08 02:20:00 [facility] Temperature Oral (F) 2014-05-08 02:20:00 98.1 F [facility] Heart Rate 2014-05-08 02:20:00 [facility] Temperature Oral (F) 2014-05-07 23:59:00 98.6 F [facility] Respitory Rate 2014-05-07 23:59:00 [facility] Diastolic (mm Hg) 2014-05-07 23:59:00 [facility] [place] Heart Rate 2014-05-07 23:59:00 [facility] Systolic (mm Hg) 2014-05-07 23:59:00 [facility] [place] Procedures Procedure Date / Time Performed Performing Clinician [facility] e Computed tomography of chest with contrast 2020-09-07 00:00:00 [facility] XR CHEST 1 VW PORTABLE 2020-07-04 08:22:29 Andriy Leggett [facility], E/M 30-74 MINUTES 2020-07-04 07:58:49 Andriy Leggett ECG ED PRELIMINARY INTERPRETATION 2020-07-04 07:58:49 Giles Leggett HC COMPLETE BLD COUNT W/AUTO DIFF 2020-07-04 07:46:00 Giles Leggett COMPREHENSIVE METABOLIC PANEL 2020-07-04 07:46:00 Mike Leggett TROPONIN 2020-07-04 07:46:00 Andriy Leggett ethodist ESTIMATED GFR 2020-07-04 07:46:00 Andriy Leggett ethodist ECG 12-LEAD 2020-07-04 07:28:39 Eliza Yang Computed tomography of brain without radiopaque contrast 2020-05 00:00:00 [facility] HC COMPLETE BLD COUNT W/AUTO DIFF 2020-04-14 06:40:00 Chino Barkley COMPREHENSIVE METABOLIC PANEL 2020-04-14 06:40:00 Gretchen Barkley T4, FREE 2020-04-14 06:40:00 Agustín Aguayoolamemoe Ceci Pedraza THYROID STIMULATING HORMONE 2020-04-14 06:40:00 Graciela Aguayoobol anle Ceci Pedraza ESTIMATED GFR 2020-04-14 06:40:00 Graciela Aguayoobolamemoe Ceci Pedraza VANCOMYCIN LEVEL, TROUGH 2020-04-13 09:12:00 Gretchen Barkley HC COMPLETE BLD COUNT W/AUTO DIFF 2020-04-13 03:38:00 Chino Barkley COMPREHENSIVE METABOLIC PANEL 2020-04-13 03:38:00 Gretchen Barkley ESTIMATED GFR 2020-04-13 03:38:00 Gret[address] Barkley on [facility] CT CHEST WO CONTRAST 2020-04-12 13:06:06 Soy Driscoll NM LUNG PERFUSION IMAGING 2020-04-12 13:05:05 Daly Dougherty LEGIONELLA URINARY ANTIGEN 2020-04-12 09:15:00 Gretchen Barkley STREPTOCOCCUS PNEUMONIAE URINARY ANTIGEN 2020-04-12 09:15:00 Gretchen Barkley URINE CULTURE 2020-04-12 09:15:00 Gretchen Barkley on [facility] URINALYSIS SCREEN AND MICROSCOPY, WITH REFLEX TO CULTURE 202 09:15:00 Gretchen Barkley ARTERIAL BLOOD GAS 2020-04-12 05:23:00 Daly Dougherty ethodist INFLUENZA ANTIGEN 2020-04-12 04:10:00 Daly Dougherty thodist RESPIRATORY PATHOGEN PANEL 2020-04-12 04:10:00 Daly Dougherty GROUP A STREP, RAPID ANTIGEN 2020-04-12 04:08:00 Daly Dougherty STREP SCREEN CULTURE 2020-04-12 04:08:00 Daly Dougherty HC COMPLETE BLD COUNT W/AUTO DIFF 2020-04-12 04:05:00 Ra bon Dougherty COMPREHENSIVE METABOLIC PANEL 2020-04-12 04:05:00 Lorrie Dougherty C-REACTIVE PROTEIN 2020-04-12 04:05:00 Daly Dougherty ethodist D-DIMER 2020-04-12 04:05:00 Daly Dougherty Meth odjalil CREATINE KINASE, TOTAL (CPK) 2020-04-12 04:05:00 Daly Dougherty FERRITIN LEVEL 2020-04-12 04:05:00 Daly Dougherty Meth odist FIBRINOGEN 2020-04-12 04:05:00 Daly Dougherty Meth odist LDH 2020-04-12 04:05:00 Daly Dougherty odjalil LIPID PANEL 2020-04-12 04:05:00 LadonnaDaly Lázaro Meth odist TYPE AND SCREEN 2020-04-12 04:05:00 AdiliamarioDaly Sesay Meth odist ESTIMATED GFR 2020-04-12 04:05:00 AdiliamarioDaly Meth odist TROPONIN 2020-04-12 04:05:00 AdiliamarioDaly Sesay Meth odist LACTIC ACID LEVEL, SEPSIS - NOW AND REPEAT 2X EVERY 3 HOURS 2020-04-11 22:40:00 Tanika Barbosa ECG 12-LEAD 2020-04-11 20:57:02 Tanika Barbosa Me [facility]odist [facility] E/M 30-74 MINUTES 2020-04-11 19:17:37 [...] Agueda Barbosa TROPONIN 2020-04-11 18:42:00 Tanika Barbosa Al [facility]odist B NATRIURETIC PEPTIDE 2020-04-11 18:42:00 Tanika Barbosa ESTIMATED GFR 2020-04-11 18:42:00 Tanika Barbosa [facility] XR CHEST 1 VW PORTABLE 2020-04-11 18:31:05 Tanika Barbosa stoflavia Pedraza Open removal foreign body from joint [facility] ORIF - Open reduction of fracture of ankle with internal fixatio n [facility] Ankle joint operations [facility] Appendectomy [facility] Shoulder joint operations [facility] Plan of Care Planned Activity Planned Date Details Comments Source Future Scheduled Test 2020 00:00:00 COLONOSCOPY SCREEN ING [code = COLONOSCOPY SCREENING] [facility] Future Scheduled Test 2020 00:00:00 SHINGLES VACCINES (#1) [code = SHINGLES VACCINES (#1)] [facility] Future Scheduled Test 2020-06-02 00:00:00 INFLUENZA VACCINE [code = INFLUENZA VACCINE] [facility] Instructions Chest Pain - Noncardiac [facility] Encounters Start Date/Time End Date/Time Encounter Type Admission Type Attendi [facility] Care Department Encounter ID Source 2020-07-05 20:30:00 2020-07-07 18:30:00 Inpatient 1 O yulissa [facility] TEL [id number] [facility] 2020-07-05 20:30:00 2020-07-05 20:30:00 Inpatient 1 O yulissa [facility] TEL [id number] [facility] 2020-07-04 00:00:00 2020-07-04 00:00:00 Emergency MIKE LEGGETT [facility] [id number] [facility] 2020-05-09 16:53:00 2020-05-09 16:53:00 Registered Emergency Room SCOOTER MORENO [facility] [id number] [facility] 2020-05-05 16:52:08 2020-05-06 15:48:00 Outpatient Mohit Watkins [facility] [id number] 2020-05-06 14:16:00 2020-05-06 14:16:00 Outpatient E [id number] 2020-04-11 00:00:00 2020-04-14 00:00:00 Inpatient [place] AGUAYO [facility] [id number] [facility] 2019-12-23 18:13:00 2019-12-23 22:28:00 Outpatient Guilherme Reed [facility] [id number] 2019-12-23 18:13:00 2019-12-23 18:13:00 Emergency E [facility] 0052 [facility] 2019-07-24 11:45:00 2019-07-24 14:58:00 Outpatient Enmanuel Juarez [facility] [id number] 2019-07-24 11:45:00 2019-07-24 11:45:00 Emergency E [facility] [id number] [facility] 2019-07-08 12:20:00 2019-07-08 15:45:00 Outpatient Néstor Shepherd [facility] [id number] 2019-07-08 12:20:00 2019-07-08 12:20:00 Outpatient [id number] [facility] 2019-05-07 17:05:29 2019-05-07 22:46:00 Outpatient Andrea Hanson [facility] [id number] 2019-05-07 17:05:00 2019-05-07 17:05:00 Emergency E [facility] [id number] [facility] 2019-01-20 11:35:00 2019-01-21 18:15:00 Outpatient El Dai [id number] 2016-12-24 00:30:00 2016-12-24 04:30:00 Outpatient Indira Hudson [id number] 2015-08-28 17:34:00 2015-08-28 22:45:00 Outpatient Andriy Reyez [facility] [id number] 2014-07-02 13:42:00 2014-07-02 14:49:00 Outpatient Guilherme Reed [facility]IE [id number] 2014-05-07 18:45:00 2014-05-07 21:26:00 Outpatient Arleen BarkleyIE [id number] Results Test Description Test Time Test Comments Results Result Comments Source CHEST SINGLE (PORTABLE) 2020-09-15 16:55:00 [facility] 1970 Sex: M [facility] [address] [address] Patient Name: MAGUI LAFLEUR MR #: [id number] : 1970 Age/Sex: 50/M Req #: [id number] Adm Physician: Ordered by: SCOOTER MORENO MD Report #: [id number] Location: ER Room/Bed: Procedure: [id number] DX/CHEST SINGLE (PORTABLE) Exam Date: 09/15/20 Exam Time: 1630 REPORT STATUS: Signed EXAMINATION: CHEST SINGLE (PORTABLE) INDICATION: Lower extremity edema COMPARISON: CT chest on 09/07/2020. Chest x-ray on 09/07/2020. FINDINGS: TUBES and LINES: None. LUNGS: Low lung volumes and bronchovascular crowding. Lungs are clear. No consolidations. Bibasilar atelectasis. PLEURA: No pleural effusion or pneumothorax. HEART AND MEDIASTINUM: The cardiomediastinal silhouette is unremarkable. BONES AND SOFT TISSUES: No acute osseous lesion. Soft tissues are unremarkable. UPPER ABDOMEN: No free air under the diaphragm. IMPRESSION: No acute thoracic radiographic a bnormality. Signed by: Jaiden Cary MD on 09/15/2020 4:56 PM Dictated By: JAIDEN CARY MD 55 Transcribed By: JD on 09/15/201655 COPY TO: SCOOTER MORENO MD Stress Test - Treadmill ONLY 2020-09-11 09:09:00 [facility] : 1970 Sex: [place] [address] Patient Name : MAGUI LAFLEUR MR #: [id number] : 1970 Age/Sex: 50/M Adm Physician : FATOUMATA HERNANDEZ MD Admit Date : 09/07/20 Location : MED/SURG3 Room/Bed : [facility] REPORT: Myoview Stress Test DATE OF STUDY: 09/08/2020 13:35:00 TITLE OF THE STRESS TEST: Lexiscan nuclear tomographic cardiac stress test. TECHNICAL DETAILS: This was resting stress protocol. For the resting images, a total of 13 mCi Myoview injected followed [id number] after injection with single photon computer tomography [...] dictation number for the x-ray, it is [id number]. MD QUYNH Hawley/SIMONA /[id number] Signature Date Dictated By: FIORELLA FLORES MD Transcribed By: SIMONA on 09/11/20 <Electronically signed by FIORELLA FLORES MD><<Signature on File>>09/11/20 [id number] COPY TO: Blood leukocytes automated count (number/volume) 2020-09-10 05:20:00 Test Item White Blood Count (test code = 6690-2) 6.84 10*3/uL 4.8-10.8 [facility] count (number/volume)2020-09-10 05:20:00* Test Item Value Reference Range Interpretation Comments Red Blood Count (test code = 789-8) 4.13 10*6/mL 4.3-5.7 [facility] hemoglobin measurement (moles/volume)2020-09-10 05:20:00* Test Item Value Reference Range Interpretation Comments Hemoglobin (test code = 45085-6) 11.4 g/dL 14.0-18.0 [facility] HospitalAutom[facility] blood hematocrit (volume fraction)2020-09-10 05:20:00* Test Item Value Reference Range Interpretation Comments Hematocrit (test code = 4544-3) 36.0 % 38.2-49.6 [facility] HospitalAutom[facility] erythrocyte mean corpuscular jmfjan3778-88-82 05:20:00* Test Item Value Reference Range Interpretation Comments Mean Corpuscular Volume (test code = 787-2) 87.2 81-99 [facility] erythrocyte mean corpuscular hemoglobin (mass per erythrocyte)2020-09-10 05:20:00* Test Item Value Reference Range Interpretation Comments Mean Corpuscular Hemoglobin (test code = 785-6) 27.6 pg 28-32 [facility] HospitalAutom[facility] erythrocyte mean corpuscular hemoglobin concentration measurement (mass/volume)2020-09-10 05:20:00* Test Item Value Reference Range Interpretation Comments Mean Corpuscular Hemoglobin Concent (test code = 786-4) 31.7 g/dL 31-35 [facility] HospitalRDW UlcCf-Brv6400-21-09 05:20:00* Test Item Value Reference Range Interpretation Comments Red Cell Distribution Width (test code = 98366-7) 13.5 % 11.7 -14.4 [facility] HospitalAutom[facility] blood platelet count (count/volume)2020-09-10 05:20:00* Test Item Value Reference Range Interpretation Comments Platelet Count (test code = 777-3) 257 10*3/uL 140-360 [facility] neutrophil count as percentage of total bgdajapcbk4467-37-21 05:20:00* Test Item Value Reference Range Interpretation Comments Neutrophils (%) (Auto) (test code = 20694-7) 59.7 % 38.7-80.0 [facility] HospitalAutom[facility] blood lymphocyte count as percentage ot total rqqroqerpc1688-35-94 05:20:00* Test Item Value Reference Range Interpretation Comments Lymphocytes (%) (Auto) (test code = 736-9) 27.5 % 18.0-39.1 [facility] HospitalAutom[facility] blood monocyte count as percentage of total csaugeqjjd8191-10-69 05:20:00* Test Item Value Reference Range Interpretation Comments Monocytes (%) (Auto) (test code = 5905-5) 7.6 % 4.4-11.3 [facility] HospitalAutrandolph healthed blood eosinophil count as percentage of total zuzwkeyifz5297-87-77 05:20:00* Test Item Value Reference Range Interpretation Comments Eosinophils (%) (Auto) (test code = 713-8) 3.9 % 0.0-6.0 [facility] HospitalAutrandolph healthed blood basophil count as percentage of total cbbdqgmefz4113-81-33 05:20:00* Test Item Value Reference Range Interpretation Comments Basophils (%) (Auto) (test code = 706-2) 0.9 % 0.0-1.0 [facility] HospitalFluoroscopic procedure less than one hour nlavveab7861-36-41 05:20:00* Test Item Value Reference Range Interpretation Comments IM GRANULOCYTES % (test code = IM GRANULOCYTES %) 0.4 % 0.0- 1.0 [facility] HospitalAutom[facility] blood neutrophil count 2020-09-10 05:20:00* Test Item Value Reference Range Interpretation Comments Neutrophils # (Auto) (test code = 751-8) 4.1 2.1-6.9 [facility] HospitalBlood lymphocytes count (number/volume) 2020-09-10 05:20:00* Test Item Value Reference Range Interpretation Comments Lymphocytes # (Auto) (test code = 26858-9) 1.9 1.0-3.2 [facility] monocytes automated count (number/volume)2020-09-10 05:20:00* Test Item Value Reference Range Interpretation Comments Monocytes # (Auto) (test code = 742-7) 0.5 0.2-0.8 [facility] HospitalAutomated blood eosinophil count 2020-09-10 05:20:00* Test Item Value Reference Range Interpretation Comments Eosinophils # (Auto) (test code = 711-2) 0.3 0.0-0.4 [facility] HospitalAutomated blood basophil count (count/volume)2020-09-10 05:20:00* Test Item Value Reference Range Interpretation Comments Basophils # (Auto) (test code = 704-7) 0.1 0.0-0.1 [facility] HospitalFluoroscopic procedure less than one hour kiytmxjj0113-71-56 05:20:00* Test Item Value Reference Range Interpretation Comments Absolute Immature Granulocyte (auto (lucila t code = Absolute Immature Granulocyte (auto) 0.03 10*3/uL 0-0.1 [facility] or plasma sodium measurement (moles/volume)2020-09-10 05:20:00* Test Item Value Reference Range Interpretation Comments Sodium Level (test code = 2951-2) 142 mmol/L 136-145 [facility]icser[facility] or plasma potassium measurement (moles/volume)2020-09-10 05:20:00* Test Item Value Reference Range Interpretation Comments Potassium Level (test code = 2823-3) 4.2 mmol/L 3.5-5.1 [facility] or plasma chloride measurement (moles/volume)2020-09-10 05:20:00* Test Item Value Reference Range Interpretation Comments Chloride Level (test code = 2075-0) 108 mmol/L 98-107 [facility]icserum or plasma carbon dioxide, total measurement (moles/volume)2020-09-10 05:20:00* Test Item Value Reference Range Interpretation Comments Carbon Dioxide Level (test code = 2028-9) 26 mmol/L 22-29 [facility]icserum or plasma anion zam7080-97-41 05:20:00* Test Item Value Reference Range Interpretation Comments Anion Gap (test code = 29597-1) 12.2 mmol/L 8-16 [facility]icserum or plasma urea nitrogen measurement (mass/volume)2020-09-10 05:20:00* Test Item Value Reference Range Interpretation Comments Blood Urea Nitrogen (test code = 3094-0) 14 mg/dL 7-26 [facility]icserum or plasma creatinine measurement (mass/volume)2020-09-10 05:20:00* Test Item Value Reference Range Interpretation Comments Creatinine (test code = 2160-0) 0.96 mg/dL 0.72-1.25 [facility]icserum or plasma urea nitrogen/creatinine mass nxhhk4317-00-57 05:20:00* Test Item Value Reference Range Interpretation Comments BUN/Creatinine Ratio (test code = 3097-3) 15 - [facility] HospitalEstimated glomerular filtration rate (GFR) rfwmgdchcldpc7533-78-38 05:20:00* Test Item Value Reference Range Interpretation Comments Estimat Glomerular Filtration Rate (test code = 075451475) > 60 mL/ min >60 Ranges were taken from the National Kidney Disease Education Program and the [employer] [employer] literature.Reference ranges:60 or greater: Ylmkke77-80 ( for 3 consecutive months): Chronic kidney disease 15 or less: Kidney failureUT Health [facility] Carth[facility] HospitalGlucose xuwawveqvzq6125-08-79 05:20:00* Test Item Value Reference Range Interpretation Comments Glucose Level (test code = GAK7417) 88 mg/dL 74-118 [facility]icserum or plasma calcium measurement (mass/volume)2020-09-10 05:20:00* Test Item Value Reference Range Interpretation Comments Calcium Level (test code = 35690-0) 8.7 mg/dL 8.4-10.2 [facility]icserum or plasma total bilirubin measurement (mass/volume)2020-09-08 05:50:00* Test Item Value Reference Range Interpretation Comments Total Bilirubin (test code = 1975-2) 0.2 mg/dL 0.2-1.2 [facility] HospitalFluoroscopic procedure less than one hour hurvhoyj7476-63-47 05:50:00* Test Item Value Reference Range Interpretation Comments Aspartate Amino Transf (AST/SGOT) (test code = Aspartate Amino Transf (AST/SGOT)) 32 [IU]/L 5-34 [facility] Clinicserum or plasma alanine aminotransferase measurement (enzymatic activity/volume)2020-09-08 05:50:00* Test Item Value Reference Range Interpretation Comments Alanine Aminotransferase (ALT/SGPT) (test code = 1742-6) 29 [IU]/L 0-55 [facility] Clinicserum or plasma protein measurement (mass/volume)2020-09-08 05:50:00* Test Item Value Reference Range Interpretation Comments Total Protein (test code = 2885-2) 7.1 g/dL 6.5-8.1 [facility] [place] [facility] or plasma albumin measurement (mass/volume)2020-09-08 05:50:00* Test Item Value Reference Range Interpretation Comments Albumin (test code = 1751-7) 3.3 g/dL 3.5-5.0 [facility] HospitalPlasma globulin measurement (mass/volume) 2020-09-08 05:50:00* Test Item Value Reference Range Interpretation Comments Globulin (test code = 03736-3) 3.8 g/dL 2.3-3.5 [facility] [place] [facility]icserum or plasma albumin/globulin mass ffody4235-43-64 05:50:00* Test Item Value Reference Range Interpretation Comments Albumin/Globulin Ratio (test code = 1759-0) 0.9 0.8-2.0 [facility] [place] [facility] or plasma alkaline phosphatase measurement (enzymatic activity/volume)2020-09-08 05:50:00* Test Item Value Reference Range Interpretation Comments Alkaline Phosphatase (test code = 6768-6) 92 [IU]/L 40-150 [facility] [place] [facility] or plasma triglyceride measurement (mass/volume)2020-09-08 05:50:00* Test Item Value Reference Range Interpretation Comments Triglycerides Level (test code = 2571-8) 131 mg/dL 0-149 [facility] [place] [facility] or plasma cholesterol measurement (mass/volume)2020-09-08 05:50:00* Test Item Value Reference Range Interpretation Comments Cholesterol Level (test code = 2093-3) 140 mg/dL 0-199 Less than 200 mg/dL Low Qigo625 - 239 mg/dL Borderline Ztem378 m g/dl and greater High Risk [facility] [place] [facility] or plasma cholesterol in LDL measurement (mass/volume) 2020-09-08 05:50:00* Test Item Value Reference Range Interpretation Comments LDL Cholesterol (test code = 2089-1) 81 mg/dL 60-130 [facility] [place] [facility] or plasma cholesterol in HDL measurement (mass/volume)2020-09-08 05:50:00* Test Item Value Reference Range Interpretation Comments HDL Cholesterol (test code = 2085-9) 33 mg/dL 40-60 [facility] [place] [facility]erum or plasma total cholesterol/cholesterol in HDL mass vowzu1728-95-48 05:50:00* Test Item Value Reference Range Interpretation Comments Cholesterol/HDL Ratio (test code = 9830-1) 4.2 3.9-4.7 [facility] [place] [facility] or plasma creatine kinase measurement (enzymatic activity/volume)2020-09-08 05:50:00* Test Item Value Reference Range Interpretation Comments Creatine Kinase (test code = 2157-6) 210 [IU]/L 30-200 [facility] [place] [facility] or plasma creatine kinase MB measurement (mass/volume)2020-09-08 05:50:00* Test Item Value Reference Range Interpretation Comments Creatine Kinase MB (test code = 45611-8) 2.30 ng/mL 0-5.0 [facility] HospitalTroponin I measurement by highly sensitive enzyme iaboitxpnkj4900-16-07 05:50:00* Test Item Value Reference Range Interpretation Comments Troponin I (test code = 25659-9) 0.004 ng/mL 0-0.300 [facility] HospitalCT CHEST [id number] 22:04:00 [facility] : 1970 Sex: M [facility] [address] [address] Patient Name: MAGUI LAFLEUR #: [id number] : 1970 Age/Sex: 50/M Req #: [id number] Adm Physician: FATOUMATA HERNANDEZ MD Order ed by: SCOOTER MORENO MD Report #: [id number] Loca tion: MED/SURG3 Room/Bed: [facility] Procedure: [id number] CT/CT CHEST W Exam Date: 09/07/20 Exam [...] O: SCOOTER MORENO MD CHEST XRAY LINE LSQIQOXFW1233-84-77 20:48:[address] [facility] : 1970 Sex: M [facility] [address] [place] [address] Patient Name: MAGUI LAFLEUR R #: [id number] : 1970 Age/Sex: 50/M Req #: [id number] Adm Physician: FATUOMATA HERNANDEZ MD Order ed by: FATOUMATA HERNANDEZ MD Report #: [id number] Loca tion: MED/SURG3 Room/Bed: [facility] Procedure: [id number] DX/CHEST XRAY LINE PLACEMENT Exam Date: 11/07/19 [...] MD Fluoroscopic procedure less than one hour raopxnql1520-77-38 17:00:00* Test Item Value Reference Range Interpretation Comments Coronavirus (PCR) (test code = Coronavirus (PCR)) NOT DETECTED NOTD ETECTED SARS-CoV-2 PCRHologic Aptima SARS-CoV-2 assay is a nucleic amplification test in tended for the qualitative detection of RNA from SARS-CoV-2 from nasopharyngeal (HAMMER ADJUSTER) specimens. It is used under Emergency Use [...] repr at testing oc clinically indicated.Tesing performed by:[facility] Laboratory Services[address] [place] [address] [id number], Jimbo dowd MD, PhDCHI [facility] SINGLE (PORTABLE) 2020-09-07 14:13:[address] [facility] : 1970 Sex: M [address] [address] Patient Name: MAGUI LAFLEUR R #: [id number] : 1970 Age/Sex: 50/M Req #: [id number] Adm Physician: Order ed by: SCOOTER MORENO MD Report #: [id number] Loca tion: ER Room/Bed: Procedure: [id number] DX/CHEST SINGLE (PORTABLE) Exam Date: 04/21 Exam [...] ically Signed By: CHARITY MCKENZIE MD on 09/07/201413 Transcribed By: JD on 04/21 COPY TO: SCOOTER MORNEO MD Prothrombin time (PT) in platelet poor plasma by coagulation xyfll5769-90-03 12:04:00* Test Item Value Reference Range Interpretation Comments Prothrombin Time (test code = 5902-2) 13.0 s 11.9-14.5 [facility] HospitalINR in Platelet poor plasma by Coagulation xyjyp1220-19-80 12:04:00* Test Item Value Reference Range Interpretation Comments Prothromb Time International Ratio (test code = 6301-6) 0.94 Oral Anticoagulant Therapy INR Values:1. Low Intensity Therapy 1.5 - 2.02 . Moderate Intensity Therapy 2.0 - 3.03. High Intensity Therapy(1) 2.5 - 3. 54. High Intensity Therapy(2) 3.0 - 4.05. Panic Value INR > 5.0 [facility] HospitalActivated partial thromboplastin time (aPTT) in platelet poor plasma by coagulation bbzes3273-77-87 12:04:00* Test Item Value Reference Range Interpretation Comments Activated Partial Thromboplast Time (test code = 33466-4) 28.1 s 23.8-35.5 [facility] HospitalFibrin D-dimer DDU measurement in platelet poor plasma (mass/volume)2020-09-07 12:04:00* Test Item Value Reference Range Interpretation Comments D-Dimer Quantitative (PE/DVT) (test code = 07436-1) 1.44 ug/mL{FEU} 0.00-0.45 [facility] [place] [facility] or plasma magnesium measurement (mass/volume)2020-09-07 12:04:00* Test Item Value Reference Range Interpretation Comments Magnesium Level (test code = 39341-4) 2.3 mg/dL 1.3-2.1 [facility] Fhb-rMhv4868-08-06 12:04:00* Test Item Value Reference Range Interpretation Comments B-Type Natriuretic Peptide (test code = 05516-1) 315.0 pg/mL 0-100 [facility] [place] [facility]icserum or plasma thyrotropin measurement by detection limit <= 0.005 miu/l (units/volume)2020-09-07 12:04:00* Test Item Value Reference Range Interpretation Comments Thyroid Stimulating Hormone (TSH) (test code = 38708-1) 0.796 0.350-4.940 [facility] HospitalUrine Cbuwkvo6240-64-76 09:24:02* Test Item Value Reference Range Interpretation [...] D C Urine Added by GL_SJM_UA_CUL_INDBasic Metabolic Okcqm3934-58-31 07:18:28* Test Item Value Reference Range Interpretation [...] Lipemia) 0 mg/dL 8-11 L Basic Metabolic Jzkux1453-00-02 07:18:28* Test Item Value Reference Range Interpretation [...] is not provided, and the patient is -Albanian, multiply by 1.212. If sex is not [...] Lipemia) 0 mg/dL 8-11 L Basic Metabolic Jsbfh7886-55-15 07:18:28* Test Item Value Reference Range Interpretation [...] is not provided, and the patient is -Albanian, multiply by 1.212. If sex is not [...] is not provided, and the patient is -Albanian, multiply by 1.212. If sex is not [...] mg/dL 8-11 L Complete Blood Count with Cjeagureisyr8166-20-05 06:53:39* Test Item Value Reference Range Interpretation [...] = NRBC Abs) 0.00 x10 N Automated Inbdmeoaosdc4659-27-54 06:53:39* Test Item Value Reference Range Interpretation Comments Neutro Auto (test code = Neutro Auto) 57.4 % 36.0-70.0 Lymph Auto (test code = Lymph Auto) 27.9 % 12.0-44.0 Starr Auto (test code = Starr Auto) 9.6 % 0.0-11.0 Eos, Auto (test code = Eos, Auto) 4.2 % 0.0-7.0 Basophil Auto (test code = Basophil Auto) 0.6 % 0.0-2.0 Neutro Absolute (test code = Neutro Absolute) 3.9 x10 1.6-7.4 Lymph Absolute (test code = Lymph Absolute) 1.88 x10 .50-4.60 Starr Absolute (test code = Starr Absolute) .65 x10 .00-1.20 Eos Absolute (test code = Eos Absolute) 0.28 x10 0.00-0.74 Baso Absolute (test code = Baso Absolute) 0.04 x10 0.00-0.21 IG Ghpfj1013-19-26 06:53:39* Test Item Value Reference Range Interpretation Comments IG (test code = IG) 0.3 % 0.0-5.0 IG Abs (test code = IG Abs) 0 x10 N Creatinine Ubenk9124-81-64 04:20:12* Test Item Value Reference Range Interpretation Comments U Creatinine (test code = U Creatinine) 153.2 mg/dL N Reference ranges have not been established for this assay. Sodium Tcuqm8011-85-12 04:20:12* Test Item Value Reference Range Interpretation Comments U Sodium (test code = U Sodium) 62 mmol/L N Reference ranges have not been established for this assay. Kidney Pdptntbik8059-70-37 04:05:30Patient: MAGUI LAFLEUR Date/Time07/06/2020 03:43 CDTReason for ExamNausea and vomitingReportAFTER HOURS SERVICE ON: 07/06/2020 4:03 AMRenal UltrasoundLocation Code A22Sexedgf: Nausea and vomitingTechnique: Real-time johnson scale and [...] Mohammad TSigned (Electronic Signature): 07/06/2020 4:05 amUrinalysis Vkkljzfzqep6384-12-96 02:35:46* Test Item Value Reference Range Interpretation [...] Cast) 1-5 A Urinalysis with Culture, if fqazunrub3186-96-50 02:18:42* Test Item Value Reference Range Interpretation [...] Indicated Not Indicate d A Basic Metabolic Vwucy3714-04-68 01:10:56* Test Item Value Reference Range Interpretation [...] Lipemia) 0 mg/dL 8-11 L Basic Metabolic Xnpas8135-30-56 01:10:56* Test Item Value Reference Range Interpretation [...] is not provided, and the patient is -Albanian, multiply by 1.212. If sex is not [...] Lipemia) 0 mg/dL 8-11 L Basic Metabolic Nufvs9536-13-39 01:10:56* Test Item Value Reference Range Interpretation [...] is not provided, and the patient is -Albanian, multiply by 1.212. If sex is not [...] is not provided, and the patient is -Albanian, multiply by 1.212. If sex is not [...] 8-[address] Abdomen and Pelvis w/o Uujwwrmb2036-11-43 00:11:06Patient: MAGUI LAFLEUR Date/Time07/05/2020 23:30 CDTReason for Examcreat too high for contrast;InjuryReportLOCATION: [id number]: 49-year-old male who presents with a trauma [...] 07/06/2020 0:11 a mCT Spine Lumbar w/o Yjvojzmc4113-41-16 00:11:06Patient: MAGUI LAFLEUR Date/Time07/05/2020 23:30 CDTReason for ExamTraumaReportLOCATION: [id number]: 49-year-old male who presents with a trauma [...] no acute injury seen in this pa tieleslee's chest, abdomen, pelvis, thoracic spine, or lumbar spine this series of C T examinations obtained with trauma technique. Final Dictated by: Judy gonzalez MD, Andriy LDictated DT/TM: 07/06/2020 0:06 amSigned by: MD Tera, Mike koehler LSigned (Electronic Signature): 07/06/2020 0:11 amCT Spine Thoracic w/o Bdldefrb6474-05-97 00:11:06Patient: MAGUI LAFLEUR Date/Time07/05/2020 23:30 CDTReason for ExamTraumaReportLOCATION: [id number]: 49-year-old male who presents with a trauma [...] Final Dictated by: Judy gonzalez MD, Andriy GANictated DT/TM: 07/06/2020 0:06 amSigned by: MD Haley Rober t LSigned (Electronic Signature): 07/06/2020 0:11 amCT Chest w/o Contrast 2020-07-06 00:11:06Patient: MAGUI LAFLEUR Date/Time07/05/2020 23:30 CDTReason for Examcreat too high for contrast;InjuryReportLOCATION: [id number]: 49-year-old male who presents with a trauma [...] Signature): 07/06/2020 0:11 a mCT Maxillofacial w/o Ckjcnrdh4281-34-04 00:04:15Patient: MAGUI LAFLEUR Date/Time07/05/2020 23:30 CDTReason for ExamInjuryReportLOCATION: [id number]: 49-year-old male who presents with a trauma [...] 07/06/2020 0 :04 amCT Spine Cervical w/o Tpsavjnc9687-87-10 00:04:15Patient: MAGUI LAFLEUR Date/Time07/05/2020 23:30 CDTReason for ExamTraumaReportLOCATION: [id number]: 49-year-old male who presents with a trauma [...] Signature): 07/06/2020 0 :04 amCT Brain/Head w/o Evnrsmpm0505-50-28 00:04:15Patient: MAGUI LAFLEUR Date/Time07/05/2020 23:30 CDTReason for ExamTraumaReportLOCATION: [id number]: 49-year-old male who presents with a trauma [...] 07/06/2020 0 :04 amComplete Blood Count with Jiwmeaupcirg5510-41-76 22:52:05* Test Item Value Reference Range Interpretation [...] = NRBC Abs) 0.00 x10 N Automated Mvwoljbvykmd2756-58-58 22:52:05* Test Item Value Reference Range Interpretation Comments Neutro Auto (test code = Neutro Auto) 63.1 % 36.0-70.0 Lymph Auto (test code = Lymph Auto) 21.7 % 12.0-44.0 Starr Auto (test code = Starr Auto) 11.4 % 0.0-11.0 H Eos, Auto (test code = Eos, Auto) 2.6 % 0.0-7.0 Basophil Auto (test code = Basophil Auto) 0.8 % 0.0-2.0 Neutro Absolute (test code = Neutro Absolute) 6.4 x10 1.6-7.4 Lymph Absolute (test code = Lymph Absolute) 2.21 x10 .50-4.60 Starr Absolute (test code = Starr Absolute) 1.16 x10 .00-1.20 Eos Absolute (test code = Eos Absolute) 0.26 x10 0.00-0.74 Baso Absolute (test code = Baso Absolute) 0.08 x10 0.00-0.21 IG Jfxtd3047-22-43 22:52:05* Test Item Value Reference Range Interpretation Comments IG (test code = IG) 0.4 % 0.0-5.0 IG Abs (test code = IG Abs) 0 x10 N Comprehensive Metabolic Rxcng1659-94-97 22:45:36* Test Item Value Reference Range Interpretation [...] = Lipemia) 0 g/dL 1-2 Comprehensive Metabolic Cwuud3314-21-27 22:45:36* Test Item Value Reference Range Interpretation [...] is not provided, and the patient is -Albanian, multiply by 1.212. If sex is not [...] code = Lipemia) 0 g/dL 1-2 Alcohol Cjxgt0940-60-59 22:45:36* Test Item Value Reference Range Interpretation Comments Ethanol Level (test code = Ethanol Level) 4.1 mg/dL N The pharmacological response to blood alcohol levels may vary from individual to individual. The fatal concentration has been reported to be >400 mg/dl. Comprehensive Metabolic Zobdi5060-40-36 22:45:36* Test Item Value Reference Range Interpretation [...] is not provided, and the patient is -Albanian, multiply by 1.212. If sex is not [...] is not provided, and the patient is -Albanian, multiply by 1.212. If sex is not [...] g/dL 1-2 XR Shoulder Complete 2+ Views Gcqup2850-23-56 21:15:39Patient: MAGUI LAFLEUR Date/Time07/05/2020 21:07 CDTReason for ExamTraumaReportLOCATION: [id number]: 49-year-old male presents with a trauma history.COMMENT:Frontal [...] LSigned (Electronic Signature): 01/2020 9:15 pmXR Humerus Gpcjy0326-31-95 21:14:40Patient: MAGUI LAFLEUR Date/Time07/05/2020 21:07 CDTReason for ExamFallReportLOCATION: [id number]: 49-year-old male who suffered a fall.COMMENT:Frontal radiographs [...] LSigned (Electronic Signature): 07/05/2020 9:14 pmECG 12 tqhg0483-47-33 08:32:30* Test Item Value Reference Range Interpretation Comments Ventricular rate (test code = 253) 67 Atrial rate (test code = 255) 67 WV interval (test code = 266) 184 QRSD [...] 8:32:27 AM Sesay MethodistXR Chest 1 Vw Ddhtrytg4383-09-75 08:24:52Hm Interface, Radiology Results 07/04/2020 8:27 AM CDTEXAMINATION: XR CHEST 1 VW PORTABLECLINICAL HISTORY: SOBCOMPARISON: Most Recent Prior at HIMPRESSION:Lines: NoneLungs and pleura: No consolidations. No pleural effusion or pneumothorax.Heart and mediastinum: Stable appearance of cardiomediastinal si lhouette. Bones: No suspicious osseous lesions. Foreign bodies present over the right chest and axilla, unchanged.[facility] COAL[facility]ATEJ-0XM3709S25Fshbmpy RonistTrkeara 2020-07-04 08:17:39* Test Item Value Reference Range Interpretation Comments Troponin (test code = 79005-5) <0.006 0-0.04 In patients suspected of having [...] OR decreased by less than 0.020 ng/mL Lázaro VelasquezistComprehensive metabolic jtogh0479-15-04 08:14:51* Test Item Value Reference Range Interpretation Comments Sodium (test code = 2951-2) 137 135- 148 mEq/L Potassium (test code = 2823-3) 3.5 3.5- 5.0 mEq/L Chloride (test code = 5-0) 98 98- 112 mEq/L CO2 (test code = 2027-9) 21 24- 31 mEq/L L Anion gap (test code = 58407-9) 18@ANIO 7- 15 mEq/L H BUN (test code = 3094-0) 23 mg/dL 6-20 H Creatinine (test code = 2160-0) 1.11 mg/dL 0.7-1.2 Glucose (test code = 2345-7) 102 mg/dL 65-99 H Calcium (test code = 91854-0) 8.4 mg/dL 8.3-10.2 Protein (test code = 2885-2) 7.6 g/dL 6.3-8.3 - 4.6- 7.0 g/dL1 week 4.4-7.6 g/dL7 months-1year 5.1-7.3 g/dL1-2 years 5.6-7.5 g/dL>3 years 6.0-8.0 g/hR74-959 6.3-8.3 g/dL Albumin (test code = 1751-7) 3.6 g/dL 3.5-5 A/G ratio (test code = 1759-0) 0.9 0.7-3.8 Alkaline phosphatase (test code = 6768-6) 121 U/L 40-129 AST (test code = 1920-8) 29 U/L 10-50 ALT (test code = 1742-6) 31 U/L 5-50 Total bilirubin (test code = 1974-) <0.2 0-1.2 Lab Interpretation (test code = 14746-6) Abnormal Lázaro MethodistEstimated KJA5457-60-75 08:14:51* Test Item Value Reference Range Interpretation Comments Estimated GFR (test code = 5488) 77 mL/min/1.73 m2 Catergory Units InterpretationG1 >=90 Normal or highG2 60-89 Mildly yzpwymdxgW5c 45-59 Mildly to moderately emrynndlnN4y 30-44 Moderately to severely decreasedG4 15-29 Severely decreasedG5 <15 Kidney failureThe eGFR was calculated using the Chronic Kidney Disease Epidemiology Collaboration (CKD-EPI) equation. Interpretation is based on recommendations of the National Kidney Foundation-Kidney Disease Outcomes Quality Initiative (NKF-KDOQI) published in 2014. [facility] XRFI1831-32-41 07:58:49Andriy Leggett DO 07/07/2020 7:24 AMCritical CarePerformed by: Andriy Leggett, DOAuthorized by: Andriy Leggett DO Critical care [...] development of treatment plan with [facility] Preliminary Interpretation - Not an Btlcs5868-52-29 07:58:49Andriy Leggett DO 07/07/2020 7:24 AMECG ED Preliminary Interpretation - Not an OrderPerformed by: Andriy Leggett, Authorized by: Andriy Leggett DO ECG reviewed by ED Physician in the absence of a teaseler: yes Previous ECG: Previous ECG: UnavailableRate: ECG rate: 68 ECG rate assessment: normal Rhythm: Rhythm: sinus rhythm Ectopy: Ectopy: none QRS: QRS axis: Normal QRS intervals: NormalConduction: Conduction: normal ST segments: ST segments: NormalT waves: T waves: normal [facility] with platelet and differential 2020-07-04 07:49:14* Test Item Value Reference Range Interpretation Comments WBC (test code = 26240-4) 9.58 4.50- 11.00 k/uL RBC (test code = 99355-5) 4.32 m/uL 4.4-6 L HGB (test code = 718-7) 12.1 g/dL 14-18 L HCT (test code = 4544-3) 36.7 % 41-51 L MCV (test code = 787-2) 85.0 fL 82-100 MCH (test code = 785-6) 28.0 pg 27-34 MCHC (test code = 786-4) 33.0 g/dL 31-37 RDW - SD (test code = 52095-4) 43.2 fL 37-55 MPV (test code = 90503-5) 10.6 fL 8.8-13.2 Platelet count (test code = 23475-4) 247 150- 400 k/uL Nucleated RBC (test code = 94154-9) 0.00 /100 WBC Neutrophils (test code = 54808-4) 63.7 % 39-69 Lymphocytes (test code = 47014-6) 24.7 % 25-45 L Monocytes (test code = 18414-9) 7.8 % 0-10 Eosinophils (test code = 41868-0) 2.9 % 0-5 Basophils (test code = 97873-6) 0.6 % 0-1 Immature granulocytes (test code = 57434-3) 0.3 % 0-1 "Immature granulocytes" (promyelocytes, myelocytes, metamyelocytes) Lab Interpretation (test code = 44335-4) Abnormal Sesay MethodistFluoroscopic procedure less than one hour iqgxtudl3851-51-93 17:58:00* Test Item Value Reference Range Interpretation Comments Lactic Acid Level (test code = Lactic Acid Level) 1.3 mmol/L 0.5- 2.0 [facility] [place] [facility]er[facility] or plasma lipase measurement (enzymatic activity/volume)2020-05-09 17:58:00* Test Item Value Reference Range Interpretation Comments Lipase (test code = 3040-3) 162 U/L [facility] HospitalBlood jadrdmt1928-36-62 17:58:00* Test Item Value Reference Range Interpretation Comments Blood Culture (test code = 02086236) NO GROWTH AFTER 5 DAYS, FINAL REPORT [facility] HospitalCHEST SINGLE (PORTABLE)2020-05-09 17:36:00 [facility] [address] [address] Patient Name: MAGUI LAFLEUR MR #: [id number] : 1970 Age/Sex: 49/M Req #: [id number] Adm Physician: Ordered by: SCOOTER MORENO MD Report #: [id number] Location: ER Room/Bed: Procedure: [id number] DX/CHEST SINGLE ( PORTABLE) Exam Date: 05/09/20 Exam Time: 170 REPORT STATUS: Signed EXAMINATION: EST SINGLE (PORTABLE) INDICATION: N/V/HEADACHE [id number] COMPARISON: [...] MORENO MD CT BRAIN WO 2020-05-09 17:31:00 [facility] [address] [place] [address] Patient Name: MAGUI LAFLEUR MR #: [id number] : 1970 Age/Sex: 49/M Req #: [id number] Adm Physician: Ordered by: CSOOTER MORENO MD Report #: [id number] Location: Room/Bed: Procedure: [id number] CT/CT BRAIN WO Lashawn xa Date: 05/09/20 Exam Time: 1705 REPORT STATUS: [...] COPY TO: SCOOTER MORENO MD Urine color tvipjvocozymm7751-30-23 17:11:00* Test Item Value Reference Range Interpretation Comments Urine Color (test code = 5778-6) YELLOW YELLOW [facility] HospitalUrine jwteogd0720-73-74 17:11:00* Test Item Value Reference Range Interpretation Comments Urine Clarity (test code = 88672-2) CLEAR CLEAR [facility] [place] [facility] Clinicspecific gravity of Urine by Test strip 2020-05-09 17:11:00* Test Item Value Reference Range Interpretation Comments Urine Specific [place] (test code = 5811-5) 1.015 1.010-1.02 5 [facility] HospitalUrine pH measurement by automated test pyaqk0500-25-24 17:11:00* Test Item Value Reference Range Interpretation Comments Urine pH (test code = 79315-0) 6.5 5-7 [facility] HospitalUrine leukocyte esterase detection by jknsthxx4114-03-20 17:11:00* Test Item Value Reference Range Interpretation Comments Urine Leukocyte Esterase (test code = 5799-2) NEGATIVE NEGATIVE [facility] HospitalUrine nitrite bzwwfqdod4218-43-98 17:11:00* Test Item Value Reference Range Interpretation Comments Urine Nitrite (test code = 57060-5) NEGATIVE NEGATIVE [facility] HospitalUrine protein measurement by test strip (mass/volume)2020-05-09 17:11:00* Test Item Value Reference Range Interpretation Comments Urine Protein (test code = 5804-0) NEGATIVE NEGATIVE [facility] HospitalUrine glucose bndopokir6549-64-38 17:11:00* Test Item Value Reference Range Interpretation Comments Urine Glucose (UA) (test code = 2349-9) NEGATIVE NEGATIVE [facility] HospitalUrine ketones detection by automated test pnrno8080-51-51 17:11:00* Test Item Value Reference Range Interpretation Comments Urine Ketones (test code = 98210-8) NEGATIVE NEGATIVE [facility] HospitalUrine urobilinogen measurement by test strip (mass/volume)2020-05-09 17:11:00* Test Item Value Reference Range Interpretation Comments Urine Urobilinogen (test code = 82473-8) 0.2 mg/dL 0.2-1 [facility] HospitalUrine total bilirubin measurement (mass/volume)2020-05-09 17:11:00* Test Item Value Reference Range Interpretation Comments Urine Bilirubin (test code = 1978-6) NEGATIVE NEGATIVE [facility] HospitalUrine erythrocytes fgwhshkxr7882-79-34 17:11:00* Test Item Value Reference Range Interpretation Comments Urine Blood (test code = 63183-9) NEGATIVE NEGATIVE [facility] HospitalAutomated urine sediment leukocyte count by microscopy (number/high power field)2020-05-09 17:11:00* Test Item Value Reference Range Interpretation Comments Urine WBC (test code = 5821-4) 6-10 /[HPF] 0-5 [facility] HospitalErythrocytes detection in urine sediment by light uwseuztnhp6371-38-06 17:11:00* Test Item Value Reference Range Interpretation Comments Urine RBC (test code = 36468-7) NONE /[HPF] 0-5 [facility] HospitalBacteria detection in urine sediment by light utwwxrlwqs7257-53-37 17:11:00* Test Item Value Reference Range Interpretation Comments Urine Bacteria (test code = 44664-6) NONE /[HPF] NONE [facility] HospitalEpithelial cells detection in urine sediment by light cajnricrjo9454-29-59 17:11:00* Test Item Value Reference Range Interpretation Comments Urine Epithelial Cells (test code = 37735-2) FEW /[LPF] NONE [facility] HospitalCARDIAC AOBRKKF1430-64-68 10:51:00<0.02 [facility]annCHEM NZSQV1767-84-60 10:51:0095[facility]annCHEM PANEL 2020-05-06 10:51:0023[facility]annCHEM YTYUR7514-29-44 10:51:001.15[facility]annCHEM ZGOIG1821-56-16 10:51:29361Zdlswdxh HermannCHEM ZDIRS6359-42-69 10:51:004.4[facility]annCHEM AUJKD1658-22-79 10:51:71648Peppabgj HermannCHEM JUPDH9407-15-68 10:51:0028[facility]annCHEM KEFYY7795-89-99 10:51:008.1 [facility]CHE[facility] TVUTN9646-26-40 10:51:009.4[facility]annCHEM PANEL 2020-05-06 10:51:0074[facility] OcptaijHUPTIPICTQ3766-68-95 10:51:005.1[facility] IiftfbxDBSXDGPUTZ9372-48-27 10:51:004.26[facility] JekumazWUZSBHVVFQ3742-61-69 10:51:0011.9[facility] OdaqgxlHBSXLLTMXN1892-13-11 10:51:0036.4[facility] VSQRHRMPWN8994-45-01 10:51:0085.3[facility] VxikljsXECWZKKGQW6996-82-24 10:51:00* Test Item Value Reference Range Interpretation Comments MCH (test code = MCH) 28.0 pg 27.0-31.0 [facility] TmkxmtgUIWRCUMWTE9012-46-27 10:51:0032.8[facility] HermannHEMATOLOGY 2020-05-06 10:51:0014.1[facility] EaugoywVZPQPOMLTY3194-01-14 10:51:37405Vmbwtfek SrkufvmXFTQUOLXJZ6963-16-81 10:51:008.6[facility] HfxtbpfYZMDEBEKYP6940-88-80 10:51:0036.7[facility] VpltzexMWPHRFFUUZ5886-21-73 10:51:0040.4[facility] TIILNJVUFZ2362-40-22 10:51:0015.2[facility] TfnkgfhFZTODYIWUF4292-19-56 10:51:00 6.8[facility] TatnhcbWRNNOVOKIA4265-69-69 10:51:000.9[facility] HermannHEMATOLOGY 2020-05-06 10:51:001.9[facility] EqfigrjPAUKRPZEGG0111-53-62 10:51:002.1[facility] PjwpilzDINIXJIKQM6733-08-12 10:51:000.8[facility] CflvibmAMMYEZIAHH9873-26-80 10:51:000.4[facility] HermannBACTERIAL - TOPYPYCO8577-47-27 06:31:00Negative (05/06/20 1:31 AM)[facility]annCARDIAC DORPILR9806-94-21 06:01:00<0.02[facility]annCHEM YUNPB6944-51-29 05:00:001.7[facility]annCHEM EBATZ0421-12-10 02:26:001.2[facility] HermannCARDIAC HFURGKU3551-81-48 00:28:36517Hsfnvfsb [place] CARDIAC KJMIFSB2478-77-38 00:28:0062[facility]annCHEM YTLVE9660-72-82 00:28:0089[facility]annCHEM JMEJS5830-36-32 00:28:0023[facility]annCHEM VRXYL7381-02-23 00:28:001.48[facility]annCHEM KTERR0665-17-09 00:28:95024 [facility]CHE[facility] RPTDX7076-79-37 00:28:004.5[facility]annCHEM PANEL 2020-05-06 00:28:61505Aahuqriq HermannCHEM OFUUM3076-71-66 00:28:0032[facility]annCHEM KKATK6508-51-45 00:28:008.8[facility]annCHEM YTSRN9430-48-20 00:28:007.9[facility]annCHEM WIJBL7314-92-18 00:28:003.7[facility]annCHEM XGYWR2775-08-34 00:28:0035[facility]annCHEM NKVUP7963-60-25 00:28:0032 [facility]annCHE[facility] LEZVG1939-41-62 00:28:28108Svatuvot HermannCHEM PANEL 2020-05-06 00:28:000.3[facility]annCHEM OFRDN0106-90-35 00:28:007.5[facility]annCHEM ENHXD5982-71-76 00:28:00* Test Item Value Reference Range Interpretation Comments B/C Ratio (test code = B/C Ratio) 16 1 6-25 [facility]CHE[facility] WAQZH6934-84-37 00:28:004.2[facility]annCHEM PANEL 2020-05-06 00:28:00* Test Item Value Reference Range Interpretation Comments A/G Ratio (test code = A/G Ratio) 0.9 1 0.7-1.6 [facility]CHE[facility] EPOKQ6402-06-01 00:28:0055[facility]annCHEM PANEL 2020-05-06 00:28:000.08[facility] QekensoRNWXELAKZN6416-93-89 00:28:006.1[facility] AinevunJBQQBYMWAE4181-32-27 00:28:004.44[facility] BogcrfuVDZUPCFWTS1728-26-68 00:28:0012.4[facility] FbflgdaLRCRGNAWQV3955-25-32 00:28:0038.2[facility] NDYXWFKLPQ6452-85-90 00:28:0086.1[facility] QbppvqvJHJZIWQXOQ9394-44-05 00:28:00* Test Item Value Reference Range Interpretation Comments MCH (test code = MCH) 28.0 pg 27.0-31.0 [facility] GrhiqoaHYBIFRJWSX4090-87-09 00:28:0032.5[facility] HermannHEMATOLOGY 2020-05-06 00:28:0014.5[facility] UsfypyzIOZWECRICZ0027-66-25 00:28:24654Tkkxcvvk IpviylvHVTZDVBFKY4183-07-11 00:28:008.1[facility] VwkpzhrUSMIWMPIVQ0300-63-10 00:28:00Normal (05/05/20 7:28 PM)[facility] CouoktrMMBMIQIECJ7117-69-88 00:28:00 Normal (05/05/20 7:28 PM)[facility] TrlkbbyKMSJYNIVEP0860-97-43 00:28:0045.3[facility] ZxiyumiHNMSXGGMJZ1431-25-16 00:28:0035.2[facility] FeiofqvCRZKQGOMSA1743-44-30 00:28:0013.0[facility] GvdzyznELQQWEZGQO6222-12-90 00:28:005.7[facility] [place] LTHNRSKUHR7737-10-64 00:28:000.8[facility] FlimaenPEKPJLUDNC0377-22-48 00:28:002.8 [facility] ScfkiysUAYPVGHJRJ7434-60-21 00:28:002.2[facility] HermannHEMATOLOGY 2020-05-06 00:28:000.8[facility] WevuxirMSQMUNYFAA8462-27-15 00:28:000.3[facility] HermannBlood culture, aerobic & jahgxjntb8778-23-57 00:03:03* Test Item Value Reference Range Interpretation Comments Blood culture isolate (test code = 600-7) No growth after 5 days of incubation. Specimen InformationSpecimen Source: BloodSpecimen Site: Arm, left [place] MethodistStrep screen ibdgsty3298-19-10 11:47:01* Test Item Value Reference Range Interpretation Comments Strep screen culture isolate (test code = 2246) No bet a hemolytic Streptococci isolated Specimen Information Specimen Source: ThroatSpecimen Site: Not otherwise specified [place] MethodistGroup A strep, rapid bnlxmrx8603-97-75 11:47:01* Test Item Value Reference Range Interpretation Comments Group A strep, rapid antigen result (test code = 57416 79) Negative for Group A Streptococcus antigen. Specimen Informat ionSpecimen Source: ThroatSpecimen Site: Not otherwise specified [place] MethodistT4, pefx8188-17-60 07:42:53* Test Item Value Reference Range Interpretation Comments T4, free (test code = 3024-7) 1.3 ng/dL 0.8-1.8 [place] SikhThyroid stimulating dbbtasv6950-06-29 07:42:53* Test Item Value Reference Range Interpretation Comments TSH (test code = 3016-3) 3.50 0.55- 4.78 uIU/mL [place] SikhVancomycin level, nzbxyf9033-68-58 09:54:01* Test Item Value Reference Range Interpretation Comments Vancomycin, trough (test code = 28679-4) 20.2 ug/mL 10-20 HH Therapeutic Ranges: Peak 30.0 - 40.0 ug/mL Trough 10.0 - 20.0 ug/mLFinal results called to and read back by Clayton White RN 04/13/2020 09:51 edp Lab Interpretation (test code = 34990-8) Abnormal [place] SikhLegionella urinary nslbfbk9526-78-00 17:08:11* Test Item Value Reference Range Interpretation Comments Legionella urinary antigen (test code = 1658) Negative for Legionella serogroup 1 antigen. Specimen Information Specimen Source: UrineSpecimen Site: Random void [place] Auretreptococcus pneumoniae urinary dscyqhn2729-98-00 17:08:11* Test Item Value Reference Range Interpretation Comments Strep pneumo urinary Ag (test code = 2245) Negative fo r Streptococcus pneumoniae antigen. Specimen Information Specimen Source: UrineSpecimen Site: [facility] Perfusion Xoqwvxb6338-19-63 16:40:31Hm Interface, Radiology Results 04/12/2020 4:43 PM CDTPROCEDURE: NM LUNG PERFUSION IMAGINGINDICATION: PE suspected intermediate prob positive D-d kolton.COMPARISON: CT chest dated April 12, 2020. VQ scan dated February 07, 2007.TECH NIQUE: Ventilation images were not obtained. The patient was injected with 5 mC i of ofmtisjdxd-08z-EZJ intravenously, followed by imaging of the lungs in 8 pro jections.FINDINGS: Mild left perihilar perfusion defect, nonsegmental. IMPRESSI ON:Very Low probability for pulmonary embolism. [facility]-[id number] and appro tarun by radiology services manager/fellow: Kemal Sandra, Fatoumata Grimes, personal ly reviewed the images and resident's/fellow's findings and agree with the final report.[facility] Chest Wo Sxrkgdyc1731-16-55 13:29:43Hm Interface, Radiology Results - 04/12/2020 1:32 [...] changes are noted involving the spine.Other: None.SUMMARY:1.Negative study.[facility]-[id number] MethodistRespiratory pathogen beamc8013-51-91 12:40:04* Test Item Value Reference Range Interpretation [...] Detected Bordetella pertussis PCR (test code = 7513812) Not Detected Bordetella parapertussis PCR (test code = 6603210) Not Detected Chlamydia pneumoniae PCR (test code = 3753) Not Detected Mycoplasma pneumoniae PCR (test code = 7110) Not Detected Influenza A no sub type PCR (test code = 7127) Not Reported [place] MethodistUrinalysis screen and microscopy, with reflex to culture 2020-04-12 09:48:58* Test Item Value Reference Range Interpretation Comments Specimen site (test code = 6269632) Clean catch Color, UA (test code = 5778-6) Yellow YELLOW Appearance, UA (test code = 5767-9) Clear Clear Specific gravity, UA (test code = 5811-5) 1.009 1.005-1.030 pH, UA (test code = 5803-2) 6.0 5.0-8.0 Protein, UA (test code = 45680-4) Negative Negative Glucose, UA (test code = 64054-4) Negative Negative Ketones, UA (test code = 2514-8) Negative Negative Bilirubin, UA (test code = 5770-3) Negative Negative Blood, UA (test code = 5794-3) Negative Negative Nitrite, UA (test code = 5802-4) Negative NEGATIVE Urobilinogen, UA (test code = 14466-9) <2.0 <2.0 E.U./dL Leukocyte esterase, UA (test code = 5799-2) Negative Negative Epithelial cells, UA (test code = 5787-7) <1 0- 15 /HPF WBC, UA (test code = 5821-4) 1 0- 5 /Hpf RBC, UA (test code = 91035-7) 3 0- 5 /HPF Bacteria, UA (test code = 25048-8) Few None seen A Yeast, UA (test code = 39935-0) None seen None Seen Yeast with pseudohyphae, UA (test code = 07431-5) None seen Lab Interpretation (test code = 42689-4) Abnormal [place] MethodistUrine hhsrffz3774-35-44 09:36:40* Test Item Value Reference Range Interpretation Comments Urine culture (test code = 0000980) SEE COMMENT Bacteriuria screen negative. [place] MethodistInfluenza tkwxfmv0722-39-22 05:53:21* Test Item Value Reference Range Interpretation Comments Influenza antigen (test code = 92607-0) Negative for Influenza A/B antigen. Specimen InformationSpecimen Source: NaresSpecimen Site: Left [place] MethodistArterial blood cri4491-64-52 05:41:54* Test Item Value Reference Range Interpretation Comments pH, arterial (test code = 2744-1) 7.38 7.35- 7.45 Units pCO2, arterial (test code = 2018-) 39 35- 45 mmHg pO2, arterial (test [...] VOL % Lab Interpretation (test code = 80660-9) Abnormal [place] MethodistType and usfuvs3348-61-15 05:28:00* Test Item Value Reference Range Interpretation Comments ABO grouping (test code = 883-9) O Rh type (test code = 38003-5) POS Antibody screen (gel) (test code = 890-4) NEG [place] MethodistLipid xnpcp0931-23-16 05:17:03* Test Item Value Reference Range Interpretation Comments Cholesterol (test code = 3-3) 120 mg/dL 0-199 Triglycerides (test code = 2571-8) 90 mg/dL 0-149 HDL cholesterol (test code = 2084-9) 37 mg/dL 40-9999 L LDL cholesterol (test code = 2088-1) 74 mg/dL 0-99 Lipid panel interpretation (test code = 52652-5) See below Total Cholesterol (mg/dL) <200 Desirable [...] (>=200 mg/dL) Lab Interpretation (test code = 82416-4) Abnormal [place] MethodistFerritin mhoue3603-39-47 05:17:03* Test Item Value Reference Range Interpretation Comments Ferritin level (test code = 2276-4) 132 ng/mL 18-464 [place] MethodistCreatine kinase, total (CPK)2020-04-12 05:17:01* Test Item Value Reference Range Interpretation Comments Creatine kinase (test code = 2157-6) 90 U/L 35-200 Sesay JcjcfcgzwPPJ6830-40-72 05:16:58* Test Item Value Reference Range Interpretation Comments LDH (test code = 79333-7) 195 U/L 300-600 L Lab Interpretation (test code = 69756-8) Abnormal [place] RonistC-reactive wldchfq7841-63-50 05:16:58* Test Item Value Reference Range Interpretation Comments CRP (test code = 1988-5) 3.40 mg/dL 0-1 H Lab Interpretation (test code = 55882-0) Abnormal [place] RzhlrcpguI-bdmjs5032-23-11 04:59:42* Test Item Value Reference Range Interpretation Comments D-dimer (test code = 19366-5) 2.37 0.00- 0.40 ug/mL FEU H When [...] and malignancies. Lab Interpretation (test code = 09859-3) Abnormal [place] OwymvhxjdWpzopwlgra8199-56-26 04:57:03* Test Item Value Reference Range Interpretation Comments Fibrinogen (test code = 86934-8) 406.0 mg/dL 200-450 The reference range has changed starting 04/02/2010 @12:00pm [place] SikhCOVID-19 qualitative APN0043-56-53 04:39:21* Test Item Value Reference Range Interpretation Comments Interpretation (test code = 6207543) Negative results do not preclude 2019-nCoV infection and should not be used as the sole basis for treatment or other patient management decisions. Negative results must be combined with clinical observations, patient history, and epidemiological information. COVID-19 qualitative PCR result (test code = 83962-7) Not-Detect ed Not-Detected COVID-19 qualitative PCR (test code = 7070) See link below for P DF Lab Report Lázaro MethodistLactic acid level, SEPSIS - Now and repeat 2x every 3 hours 2020-04-11 23:12:04* Test Item Value Reference Range Interpretation Comments Lactic acid (test code = 67021-8) 2.4 mmol/L 0.5-2.2 H Lab Interpretation (test code = 88817-7) Abnormal [place] MethodistB natriuretic ghlyiti2120-37-68 19:38:44* Test Item Value Reference Range Interpretation Comments BNP (test code = 10972-3) 56 pg/mL 0-100 [place] MethodistCRITICAL DOTV6160-81-53 19:17:37Tanika Barbosa MD 04/11/2020 9:02 PMCritical CarePerformed [...] of patient's condition and review of old chartsButler MethodistCARDIAC ZTPVDPY1595-23-76 02:08:54942Goascuzp Johnie CARDIAC JKKKPYY2175-17-03 02:08:00<0.02[facility]annCARDIAC HYXDOMF0901-36-03 02:08:0053[facility] HermannCHEM EKUVX4230-28-22 02:08:0087[facility] HermannCHEM AVPQG0213-30-48 02:08:0022[facility] HermannCHEM FWPPU4868-89-35 02:08:001.13 [facility]annCHEM RFTSL4048-30-14 02:08:68820Trdvcprh HermannCHEM PANEL 2019-12-24 02:08:004.3[facility] HermannCHEM PHLBG5427-71-12 02:08:96329Ftyzgkbs HermannCHEM YUAFL9020-75-66 02:08:0025[facility] HermannCHEM YTVSW4596-50-70 02:08:009.1[facility] HermannCHEM OXIWV0306-86-58 02:08:009.2[facility] HermannCHEM OMHNR4069-10-72 02:08:004.2[facility] HermannCHEM TNQCM1744-74-88 02:08:0044 [facility] HermannCHEM JYXUA2039-76-07 02:08:0026[facility] HermannCHEM PANEL 2019-12-24 02:08:20743Fhsvynwk HermannCHEM PZYEO7531-21-76 02:08:000.3[facility] HermannCHEM HKCAC0391-48-52 02:08:009.3[facility] HermannCHEM LZTJS0849-62-96 02:08:00* Test Item Value Reference Range Interpretation Comments B/C Ratio (test code = B/C Ratio) 19 1 6-25 [facility]annCHEM BYFZT5632-63-10 02:08:005.0[facility] HermannCHEM PANEL 2019-12-24 02:08:00* Test Item Value Reference Range Interpretation Comments A/G Ratio (test code = A/G Ratio) 0.8 1 0.7-1.6 [facility]annCHEM DSGFU5358-26-91 02:08:0076[facility] HermannHEMATOLOGY 2019-12-24 02:08:009.4[facility] EjbkdxdJEAEWHRYAP2854-10-97 02:08:004.64[facility] WurhashNLFFSPICGI5062-91-48 02:08:0013.2[facility] UlwgflbWMLIXALCAG4901-50-30 02:08:0039.9[facility] RzxpxmxVWAERKBQNM4662-47-21 02:08:0086.0[facility] [place] BPXFVGZGWO4308-38-96 02:08:00* Test Item Value Reference Range Interpretation Comments MCH (test code = MCH) 28.4 pg 27.0-31.0 [facility] NrsvslzFBMJEVEZFW9991-12-92 02:08:0033.0[facility] HermannHEMATOLOGY 2019-12-24 02:08:0015.1[facility] VjzzsyiHGCTPWTVVK5819-34-11 02:08:47957Qgdczzjd ZymyaanBCEQLQXFSR9320-89-57 02:08:009.3[facility] AntftuaAYRAPMFATH1384-37-40 02:08:0070.1[facility] LlvqhcaSTVRHRJWTK1982-36-66 02:08:0019.3[facility]ie ZGNGABTTGK8276-09-72 02:08:007.8[facility] LgjjgbcREKJKLBDVC4909-73-51 02:08:001.6 [facility] XwhojhrPUTIEALBKL8705-57-18 02:08:001.2[facility] HermannHEMATOLOGY 2019-12-24 02:08:006.6[facility] JqsbsbbRUZEEHPVID0635-12-95 02:08:001.8[facility] GstboqbUKQMQVZWPL8235-24-52 02:08:000.7[facility] YidgadfROPOHJYJPC2812-28-58 02:08:000.2[facility] FlpqidcXGWUKWPBPF8975-21-21 02:08:000.1[facility] [place] JVMLRALG-S7363-74-18 02:11:00* Test Item Value Reference Range Interpretation Comments TROPONIN-I (test code = TROPI) <0.020 ng/mL 0.000-0.034 N BASIC METABOLIC RJBBF9713-84-67 02:02:00* Test Item Value Reference Range Interpretation [...] CA) 8.7 mg/dL 8.5-10.5 N CBC W/AUTO TGEF7568-20-66 01:42:00* Test Item Value Reference Range Interpretation [...] 3/uL 0.0-0.1 N - XR CHEST 1 G9400-40-18 01:32:00Patient Name: MAGUI LAFLEUR Unit No: [id number] EXAMS: CPT: [id number] XR CHEST 1 V 91571 CHEST 1 VIEW CLINICAL HISTORY: Shortness of [...] 10/19/2019 (0135) BATCH NO: N/A Name: MAGUI LAFLEUR [facility] Phys: Ochoa Ellington MD [address] : 1970 Age: 49 Sex: [place] [address] Loc: N.ERS Exam Date: 10/19/2019 Status: PRE ER PH: FAX: PAGE 1 Signed Report CARDIAC ENZYMES 2019-07-24 18:04:55468Rmqqhxnb HermannCHEM UPOXY6381-54-27 18:04:36859Pfqxxqst HermannCHEM MJBDR8259-43-86 18:04:0022[facility] HermannCHEM EZVAY4070-99-96 18:04:001.36[facility] HermannCHEM OREZD6277-49-01 18:04:95077Tmmcdbyq HermannCHEM AIMDT4107-38-88 18:04:004.0[facility] HermannCHEM JHDBZ2774-02-03 18:04:73782 [facility] HermannCHEM HVGVS6346-00-61 18:04:0025[facility] HermannCHEM PANEL 2019-07-24 18:04:009.3[facility] HermannCHEM SOWVY3790-30-25 18:04:009.3[facility] HermannCHEM JGPRC0743-18-51 18:04:004.2[facility] HermannCHEM WWCIP3396-38-53 18:04:0032[facility] HermannCHEM QTYNB9806-24-14 18:04:0028[facility] HermannCHEM DLBBB3963-16-70 18:04:48583Bkfvcnvm HermannCHEM QCRSQ2716-08-65 18:04:000.4 [facility] HermannCHEM SDZRV0857-89-00 18:04:0061[facility] HermannCHEM PANEL 2019-07-24 18:04:0011.0[facility] HermannCHEM EZLEG9797-32-63 18:04:00* Test Item Value Reference Range Interpretation Comments B/C Ratio (test code = B/C Ratio) 16 1 6-25 [facility] HermannCHEM AWPCK1367-27-15 18:04:005.1[facility] HermannCHEM PANEL 2019-07-24 18:04:00* Test Item Value Reference Range Interpretation Comments A/G Ratio (test code = A/G Ratio) 0.8 1 0.7-1.6 [facility] TesmrnlQZWUTNACCS7036-71-92 18:04:0010.2[facility] HermannHEMATOLOGY 2019-07-24 18:04:004.87[facility] IylstcjFNSLHWQQRL9402-19-10 18:04:0014.1[facility] ImvtpxyDNFRLARITQ7309-54-94 18:04:0042.6[facility] HkmecyfFOWDYDUOPT6384-52-78 18:04:0087.5[facility] QsgoagpXJPUQCZQOJ5401-92-21 18:04:00* Test Item Value Reference Range Interpretation Comments MCH (test code = MCH) 29.0 pg 27.0-31.0 [facility] MsavbmpHREQKIAQKN9523-44-86 18:04:0033.1[facility] HermannHEMATOLOGY 2019-07-24 18:04:0014.5[facility] QwvjwayNGSNPSTOFA2823-35-38 18:04:07888Uqctrpoe ZdpfuapXSVSDYPEAX0009-77-90 18:04:007.7[facility] SgqvihuYORDFSJTDS6486-88-47 18:04:0068.3[facility] GjwocbwOWCZZFWMMM7262-20-99 18:04:0022.0[facility] [place] UXKDIQXNLO3496-70-03 18:04:008.3[facility] ItiyvroEKDNPCLHKA3094-47-76 18:04:000.7 [facility] OclofdrINENPWCEEO5695-46-47 18:04:000.7[facility] HermannHEMATOLOGY 2019-07-24 18:04:007.0[facility] HvrvpnkZSTBIFRHKP7994-01-90 18:04:002.2[facility] PxwcovkITUNCSCKTH3421-95-83 18:04:000.8[facility] QgonmcsJMKQQXUVWM6447-11-76 18:04:000.1[facility] OmylokuHAUDWZMHOJ1764-24-62 18:04:000.1[facility] CenterannBASIC METABOLIC UZHFQ7247-14-63 14:52:00* Test Item Value Reference Range Interpretation [...] mg/dL 8.5-10.1 N IS FINISHED FOR BLOOD. V.LAB.MO 06/26/19 1420CBC W/AUTO IBPN1599-06-09 14:42:00 * Test Item Value Reference Range [...] code = MDIFF) NO DONE FOR BLOOD V.LAB.MO 06/26/19 1421CBC W/AUTO QBRX9107-01-23 14:38:00* Test Item Value Reference Range Interpretation [...] = BA#) K/mm3 0.0-0.2 DONE FOR BLOOD V.LAB.MO 06/26/19 1421- XR TIBIA/FIBULA 2 V RN2430-48-55 14:30:00 FAX: Elissa Siddiqui MD [phone] [place]: St: [facility] FAX: Guille Haley MD [phone] Name: LAW LAFLEUR [facility] : 1970 Age/S: 48/M [address] [facility] Unit #: [id number] Loc: [place] [address] Phys: Guille Haley MD Acct: [id number] Dis Date: Status: REG ER PHONE #: [phone] Exam Date: 06/26/2019 1408 FAX #: [phone] Reason: concern for fx EXAMS: CPT CODE: [id number] XR TIBIA/FIBULA 2 [place] [address] CLINICAL HISTORY: Pain status post fall TECHNIQUE: [...] T rnscrd Date/Time/By: 06/26/2019 (1430) : By: [email or web address] Orig Print D/T: S: 06/26/2019 (8606) PAGE 1 Sign ed Report CARDIAC ZHLMHWB1927-61-54 00:09:0097 [facility]annCHEM JEVZI9322-23-78 00:09:95918Tlzjwegp HermannCHEM PANEL 2019-05-08 00:09:0099[facility] HermannCHEM PLGCU8830-85-42 00:09:006[facility] HermannCHEM GRRKM6105-88-09 00:09:000.80[facility] HermannCHEM FBNVZ6574-63-60 00:09:000.4[facility] HermannCHEM NEDWD7676-81-16 00:09:82566Fhiopogw HermannCHEM BRJQG7572-39-09 00:09:0048[facility] HermannCHEM IWEAW7916-77-47 00:09:0043 [facility]annCHEM BMDOF0536-06-10 00:09:007.6[facility] HermannCHEM PANEL 2019-05-08 00:09:003.2[facility] HermannCHEM VRJYQ1965-20-50 00:09:008.5[facility] HermannCHEM QPUHD4509-25-56 00:09:003.5[facility] HermannCHEM NVFGF7721-03-42 00:09:99338Ottzkdzc HermannCHEM CFMPP0598-51-97 00:09:92678Syuuttff HermannCHEM TSBZG8981-28-37 00:09:0026[facility] HermannCHEM FBGID1456-80-10 00:09:00* Test Item Value Reference Range Interpretation Comments A/G Ratio (test code = A/G Ratio) 0.7 1 0.7-1.6 [facility] HermannCHEM KNGKG8575-90-94 00:09:00* Test Item Value Reference Range Interpretation Comments B/C Ratio (test code = B/C Ratio) 8 1 6-25 [facility] HermannCHEM HGEVY8901-32-16 00:09:004.4[facility] HermannCHEM PANEL 2019-05-08 00:09:009.5[facility] UqirbfjAVZFDEAUXU6336-13-01 00:09:007.9[facility] WmndrxmTHRHQVBHJD8023-39-08 00:09:02803Ewkorhhd MolpaqhYCEREWIAEZ2787-84-49 00:09:00* Test Item Value Reference Range Interpretation Comments MCH (test code = MCH) 28.7 pg 27.0-31.0 [facility] JjsedeqPRSOCLCVVJ0746-67-85 00:09:0033.2[facility] HermannHEMATOLOGY 2019-05-08 00:09:0014.3[facility] VxmyshhZKZXYZBNZM3387-69-37 00:09:0011.8[facility] NivfahkRGDXWRVBFO9109-03-11 00:09:005.4[facility] LxzfymsECKIQUFXNE7681-32-26 00:09:004.13[facility] ZfchisyWAAKITMQMN7610-99-68 00:09:0086.4[facility]ie KOMBRBAZBO6997-97-92 00:09:0035.7[facility] XgzhfhzQLAKPLQWKP3381-43-65 00:09:00* Test Item Value Reference Range Interpretation Comments PT (test code = PT) 13.4 s 12.0-14.7 [facility] UotfgugJKHIQCAOFC2218-58-50 00:09:00* Test Item Value Reference Range Interpretation Comments INR (test code = INR) 1.04 1 0.85-1.17 [facility] PbzvcfaLVTUVEPMXD9146-97-95 00:09:00* Test Item Value Reference Range Interpretation Comments PTT (test code = PTT) 30.6 s 22.9-35.8 [facility] AtvlnhwWXDGRMKJFM7836-39-09 00:09:000.6[facility] 2019-[facility]-08 00:09:000.0[facility] BwhlqqrHIXSPQIZON1488-51-59 00:09:000.3[facility] BbfhecqJKHYHUCWCR6498-50-23 00:09:004.9[facility] ZnddislOVSIPEEDFF9786-38-23 00:09:003.3[facility] CchutfePMGIXUQLJY6413-60-53 00:09:001.2[facility] SJHKMEVNQI7726-10-05 00:09:000.5[facility] MmllishEIHFBEEENJ0450-04-01 00:09:00 61.2[facility] AuelqyrHFPFLPDZRZ2935-07-08 00:09:0012.0[facility]annHEMATOLOGY 2019-05-08 00:09:0021.4[facility]annCHEM QOQZI6433-23-12 09:24:42428Pseaxexh HermannCHEM RENPA8000-58-64 09:24:07625Nwfaatfv HermannCHEM RWYKP4545-17-44 09:24:0016[facility]annCHEM SFFFW9580-42-50 09:24:000.76[facility]annCHEM ZIOJH4680-04-45 09:24:0092[facility]annCHEM FBCCE3063-51-30 09:24:0026 [facility]annCHE[facility] QXATF3243-56-48 09:24:004.2[facility]annCHEM PANEL 2019-01-21 09:24:56359Ypuqgdhw HermannCHEM EDDOA3159-04-18 09:24:0020[facility]annCHE[facility] RPWIL1498-77-22 09:24:007.6[facility]annCHE[facility] AOIDK3406-14-69 09:24:006.6[facility]annCHE[facility] NDEYF3530-82-93 09:24:002.6[facility]annCHE[facility] CGWTN2276-88-50 09:24:0017[facility]annCHE[facility] CHVWI5275-89-04 09:24:0078 [facility]CHE[facility] FLHDF4687-40-72 09:24:000.2[facility]annCHEM PANEL 2019-01-21 09:24:00* Test Item Value Reference Range Interpretation Comments A/G Ratio (test code = A/G Ratio) 0.6 1 0.7-1.6 [facility]annCHE[facility] UASFT5218-79-38 09:24:00* Test Item Value Reference Range Interpretation Comments B/C Ratio (test code = B/C Ratio) 21 1 6-25 [facility]CHE[facility] GUQTA4386-48-88 09:24:004.0[facility]annCHEM PANEL 2019-01-21 09:24:007.2[facility] BqsyytzAWILUXOUCP5116-71-25 09:24:008.2[facility] CmkrvalYVAATYLGHD7551-36-70 09:24:96987Fwyqiebk VbuhkykHDTJOVDTDK0716-80-27 09:24:0014.3[facility] BighuraTYYGXSTYMD0824-03-84 09:24:006.5[facility] NGSFFWCVKZ0735-11-98 09:24:003.31[facility] GrtndrsMAKHAGGMTK8491-18-64 09:24:00 9.6[facility] NysslvkXXRCDDPUDA6608-60-67 09:24:0028.2[facility]annHEMATOLOGY 2019-01-21 09:24:00* Test Item Value Reference Range Interpretation Comments MCH (test code = MCH) 29.0 pg 27.0-31.0 [facility] YmctmgiIAGXWXCTSK7404-99-38 09:24:0085.2[facility]annHEMATOLOGY 2019-01-21 09:24:0034.0[facility] ZcsnbbzSDAXLMXMNH9611-46-23 09:24:0011.1[facility] XewvwedWRAHITKIKK0394-41-04 09:24:000.9[facility] BmsknjyVNXBUJJMKH8169-38-61 09:24:008.0[facility] KfyhzhgSAHALXQJBH4641-21-68 09:24:000.1[facility] FDTJDTEYHD6901-77-88 09:24:000.5[facility] VxxoiboYRTIMVLXMB7968-41-67 09:24:003.7 [facility] OhrgzyrXSUJYKRHXD9090-21-29 09:24:000.7[facility]annHEMATOLOGY 2019-01-21 09:24:001.5[facility] ZqwylffSVXTAEFESJ7944-56-51 09:24:0057.0[facility] XsxyrevBCMVNQKDFT0771-13-78 09:24:0023.0[facility]annBACTERIAL - SEROLOGY 2019-01-21 04:24:00Negative (01/20/19 11:24 PM)[facility]annCHEM PANEL 2019-01-20 21:56:001.2[facility]annDRUG SDNQQQ6418-58-62 18:53:00Negative *NA*(01/20/19 1:53 PM)[facility] RYXNHK0756-65-08 18:53:00See Note (01/20/19 1:53 PM)[facility] VDSVGD4214-28-98 18:53:00Negative *NA*(01/20/19 1:53 PM)[facility] KWXOWF5615-13-34 18:53:00Positive *ABN*(01/20/19 1:53 PM)[facility] SVXUMX8963-57-89 18:53:00Negative *NA*(01/20/19 1:53 PM)[facility] RSOHIO4789-23-58 18:53:00Negative *NA*(01/20/19 1:53 PM)[facility] XQGORP4961-22-13 18:53:00Negative *NA*(01/20/19 1:53 PM)[facility]annDR[facility] SHDMDD8800-21-48 18:53:00Negative *NA*(01/20/19 1:53 PM)[facility]annCARDIAC AGAMFVH0743-86-26 17:17:0031 [facility]CARD[facility]AC PSXUNGJ1750-55-90 17:17:00<0.02[facility]annCHEM HZXNY0320-92-42 17:17:002.1[facility]annCHEM KMPFH5759-26-16 17:17:0089 [facility]annCHE[facility] YRBOD2232-16-66 17:17:0098[facility]annCHEM PANEL 2019-01-20 17:17:0024[facility]annCHEM QJUOU5245-78-30 17:17:0027[facility]annCHEM LOKSO9443-91-59 17:17:000.2[facility]annCHEM ZRLVI7284-16-37 17:17:91152Eysctoxq HermannCHEM ZSOLR9082-75-61 17:17:0026[facility]annCHEM DVZPT8882-18-69 17:17:008.0[facility]annCHEM BGEKC2800-73-16 17:17:008.3 [facility]annCHE[facility] SDNRF5268-59-87 17:17:003.1[facility]annCHEM PANEL 2019-01-20 17:17:001.00[facility]annCHEM ITMMI3414-87-80 17:17:0020[facility]annCHEM UDCYM4823-35-91 17:17:004.0[facility]annCHEM LIMDU5640-04-97 17:17:43543Xzjvnidp HermannCHEM ZGRJJ2036-54-66 17:17:0086[facility]annCHEM UKWBX6448-83-36 17:17:00* Test Item Value Reference Range Interpretation Comments B/C Ratio (test code = B/C Ratio) 20 1 6-25 [facility]annCHE[facility] NKCKJ2583-39-20 17:17:00* Test Item Value Reference Range Interpretation Comments A/G Ratio (test code = A/G Ratio) 0.6 1 0.7-1.6 [facility]annCHE[facility] DRCFN4560-60-20 17:17:004.9[facility]annCHEM PANEL 2019-01-20 17:17:0011.0[facility] JnwbqywWNAUMWKIWZ1597-36-09 17:17:0096[facility] JzfdrjbZXDANHFQES4305-71-09 17:17:43944Hyjecfgx CaefzcaZSXFXPNNLM6808-30-73 17:17:008.0[facility] AzihwnqJBQCGAWBME0977-67-29 17:17:0085.4[facility] QXLENKRFOX5876-78-78 17:17:00* Test Item Value Reference Range Interpretation Comments MCH (test code = MCH) 28.5 pg 27.0-31.0 [facility] TwwsxylYXIAJDNJAK3424-08-71 17:17:0014.5[facility]annHEMATOLOGY 2019-01-20 17:17:0033.3[facility] BgijbpgEEMWXXQAGF5242-25-57 17:17:003.73[facility] SbpbbqwJOLTCWGHNQ3899-76-43 17:17:0031.9[facility] UzjyhsuNDQWBYXVJL4139-96-23 17:17:0010.6[facility] CxumkzkFXNRFIICQD7274-37-00 17:17:007.7[facility] YXCYPVDGUU0439-40-24 17:17:000.5[facility] NhddhapNBSUROBPDK7779-35-90 17:17:000.1 [facility] LnvzzwiIXRAPCQVCZ0216-01-96 17:17:007.5[facility]annHEMATOLOGY 2019-01-20 17:17:006.7[facility] YtlxsbaFCWEAFALUN0577-25-51 17:17:000.8[facility] TevecayXFOMWBFPEH2069-08-89 17:17:005.3[facility] VnxafhzIZKWZWPABN4275-25-65 17:17:001.3[facility] RosdpvaCRCQTWOLCE1560-82-78 17:17:000.6[facility] RMEDJGVWUW9241-09-15 17:17:0068.3[facility] BtsajijJFTOZICZDO0892-80-19 17:17:00 16.7[facility] TcwecxbICNATTDQNJ8081-99-96 17:17:0085.7[facility]annCARDIAC NQJHXNQ9778-69-80 09:27:003.8[facility]annCARDIAC LYBGNIM0599-82-57 09:27:00 964[facility]annCARDIAC QPCZIBF0584-07-35 09:27:00<0.02[facility] CARDIAC WJDAFCX5833-62-28 09:27:000.4[facility]annCARDIAC VGRRPYV3127-32-92 06:48:00<0.02[facility]annCARDIAC ZSGABLO7763-25-72 06:48:92309Hbgulwax HermannCARDIAC DDDNJSB1502-11-59 06:48:003.8[facility]annCARDIAC ENZYMES 2016-12-24 06:48:000.4[facility] HermannCHEM ZCTSL0071-20-02 06:48:0077[facility]annCHEM STEUC7752-51-50 06:48:0034[facility]annCHEM MBHCT1859-84-73 06:48:0033[facility]annCHEM JRKDW5879-96-94 06:48:007.5[facility]annCHEM RWRPB4207-28-80 06:48:003.4[facility]annCHEM YTVQO2969-25-16 06:48:004.1 [facility]annCHEM VAAQF0357-05-37 06:48:000.8[facility]annCHEM PANEL 2016-12-24 06:48:0011[facility]annCHEM DDNRC3623-83-17 06:48:000.6[facility]annCHEM FFBJC2789-27-06 06:48:0012.1[facility]annCHEM YINLP9751-01-90 06:48:13108Fvwaldmm HermannCHEM MSRGH1113-45-18 06:48:008.0[facility] HermannCHEM PEGMP5094-41-27 06:48:0029[facility]annCHEM BTKBG1664-75-20 06:48:75299 [facility]annCHEM UFOYB2401-16-63 06:48:62710Lqdmgtac HermannCHEM PANEL 2016-12-24 06:48:004.1[facility]annCHEM ZSLCP4793-91-23 06:48:0012[facility]annCHEM FXGCJ0667-61-18 06:48:001.14[facility]annCHEM DPOGP3196-55-51 06:48:0080[facility] GfgnkwqDAYNLWDUUO4573-02-97 06:48:007.5[facility] ZKWDSXOXIV9441-78-91 06:48:70286Rmpxkelf WxnomjuGHLWAQQIVE5055-32-24 06:48:00 14.1[facility] RjjhwhfGUDHKYLSJG1605-04-16 06:48:0033.2[facility]annHEMATOLOGY 2016-12-24 06:48:00* Test Item Value Reference Range Interpretation Comments MCH (test code = MCH) 28.3 pg 27.0-31.0 [facility] ZsviauyUBQEXNCERZ3844-44-11 06:48:0011.2[facility]annHEMATOLOGY 2016-12-24 06:48:003.97[facility] QqcvsdnXXYCIKWWHZ3634-71-03 06:48:0033.9[facility] ZgrnkgnFQHHIPASDX2596-03-05 06:48:0085.3[facility] DjtndniXWWBTXDUFJ6427-74-71 06:48:0016.6[facility] RxxaawgRCIDKIBCKV8274-92-04 06:48:000.9[facility] BHOJZCJTKE1561-63-52 06:48:001.1[facility] UpczbreAGEIIREUMG2993-55-96 06:48:00 11.4[facility] DxnwhfuTNZFXFHPOU2570-62-89 06:48:007.7[facility]annHEMATOLOGY 2016-12-24 06:48:000.2[facility] HmktkdaUGYAYXIBQI2894-07-57 06:48:0013.1[facility] NcqlqpuTZCOBWDYDH8747-27-51 06:48:000.1[facility] KlgfzowQCLYDTLTII0614-31-50 06:48:001.9[facility] ExjhmudBJQACKVJOT2955-94-16 06:48:001.3[facility] AXUWGOXWHU0739-16-77 06:48:0078.9[facility] HermannCARDIAC FYVVDAY7607-62-46 23:59:001.2[facility]annCARDIAC FRZHNAV4173-18-55 23:59:00<0.02[facility]annCARDIAC HLYXNRW3161-79-37 23:59:21603Vsdbpgqt HermannCARDIAC ENZYMES 2015-08-28 23:59:000.5[facility] HermannCHEM GGJIN4145-54-52 23:59:000.7[facility] HermannCHEM MTPTV2037-90-22 23:59:0029[facility]annCHEM DZIPJ1162-75-16 23:59:0041[facility]annCHEM HUAYS7536-57-68 23:59:0019[facility]annCHEM ZUWXT1086-03-60 23:59:004.8[facility]annCHEM HAEPJ2096-63-49 23:59:008.3 [facility]annCHEM LMUPP8205-70-56 23:59:0015[facility]annCHEM PANEL 2015-08-28 23:59:0090[facility]annCHEM KHWKC1820-83-14 23:59:96382Sngedvrd HermannCHEM LDKCA9475-97-93 23:59:000.2[facility] HermannCHEM IOMGV6698-75-70 23:59:33651Fksxrcjt HermannCHEM ALOJX1834-22-19 23:59:000.8[facility] HermannCHEM MOHBJ0927-97-37 23:59:0010.5[facility]annCHEM NCZGQ0581-36-48 23:59:003.5 [facility]annCHEM HUFGJ8948-08-41 23:59:004.5[facility] HermannCHEM PANEL 2015-08-28 23:59:85752Nvvldvbl HermannCHEM NQWYF1480-21-68 23:59:008.6[facility] HermannCHEM QGPVW1818-51-34 23:59:0029[facility]annCHEM RCMET5641-90-71 23:59:94538Nvgokrwo GsjnbpmZWLWILXPZE2263-34-70 23:59:0089.0[facility] KIUKSIGRRU6727-09-88 23:59:0013.5[facility] EbomggbGYHLPSLFLW2384-42-16 23:59:00* Test Item Value Reference Range Interpretation Comments MCH (test code = MCH) 29.4 pg 27.0-31.0 [facility] LhmnwdtPXUEGRNXLR3444-22-56 23:59:0033.1[facility]annHEMATOLOGY 2015-08-28 23:59:008.9[facility] LshlhzzKQCZNHGCAM6756-98-62 23:59:0040.7[facility] EtxhkeiRHCOHFYBRN6360-15-15 23:59:0013.2[facility] ViixupmXINGJVZWRR5952-19-17 23:59:30060Vecswcch VkazyveHQFXLNMJQN1900-07-82 23:59:004.57[facility] EWEAWLAPOF7952-03-53 23:59:0010.2[facility] PicrsezUAUHHBCKVH3124-73-39 23:59:00 0.96[facility] QlzcwryAWJJVSEDYN5524-60-63 23:59:00* Test Item Value Reference Range Interpretation Comments PTT (test code = PTT) 26.0 s 22.9-35.8 [facility] CqrcemaOQWLFDXUEN6840-70-77 23:59:00* Test Item Value Reference Range Interpretation Comments PT (test code = PT) 13.1 s 12.0-14.7 [facility] ExfpcddJKLRFNANWC2153-61-03 23:59:0034.9[facility]annHEMATOLOGY 2015-08-28 23:59:0050.5[facility] TrmvgboXZEMDYDBHQ5485-32-21 23:59:000.6[facility] ZqmrgofMIXVJYUEVZ9218-21-85 23:59:000.1[facility] HqyiwbwOUTTTXSUZD1485-47-61 23:59:000.8[facility] AgtqnwlFBOGDWDQMA0428-03-68 23:59:008.1[facility] MVEMHMLRIX7920-86-25 23:59:005.5[facility] CphgekbTARQMRFOUQ4654-68-31 23:59:003.6 [facility] WueirovQALBQLOGLD8342-07-01 23:59:001.0[facility]annHEMATOLOGY 2015-08-28 23:59:005.2[facility]
[2020-09-15 20:00] VITALS: BP 120/68
[2020-09-15] MEDS ORDERED: METOPROLOL TARTRATE INJ 1 MG/ML VIAL IV PRN (20:00)
[2020-09-15] MEDS ORDERED: TEMAZEPAM 7.5 MG CAP PO PRN (20:00)
[2020-09-15] MEDS ORDERED: POLYETHYLENE GLYCOL 3350 17 GM PACK PO PRN (20:00)
[2020-09-15] MEDS ORDERED: ACETAMINOPHEN 325 MG TAB PO PRN (20:00)
[2020-09-15] MEDS ORDERED: VANCOMYCIN 1GM/NS 250 ML 250 ML IV SCH (20:15)
[2020-09-15] MEDS: GABAPENTIN 300 MG CAP PO SCH (21:05)
[2020-09-15] MEDS: CARISOPRODOL 350 MG TAB PO SCH (21:05)
[2020-09-15] MEDS: MORPHINE SULFATE 2 MG/ML SYR 1ML IV PRN (21:05)
--- NOTE | 2020-09-15 21:05 | NUR ---
RECEIVED PATIENT FROM ER IN STABLE CONDITION, NO SIGNS OF DISTRESS NOTED. PATIENT VOICES PAIN AT A LEVEL OF 10 AND WAS MEDICATED ORDERED. REDNESS NOTED TO RIGHT LOWER EXTREMITY. BED IS IN LOWEST POSITION, BOTH SIDE RAILS ARE UP, CALL LIGHT IS WITHIN EASY REACH, WILL CONTINUE TO MONITOR.
[2020-09-15] MEDS: ONDANSETRON HCL INJ 2MG/ML 2ML 2 MG/ML VIAL IV PRN (21:06)
[2020-09-15 21:45] VITALS: BP 120/68
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
[2020-09-16] VITALS (7 sets, daily range): BP systolic 102–136; BP diastolic 62–84
[2020-09-16] MEDS ORDERED: SODIUM CHLORIDE 0.9% 250ML 250 ML ONE (00:24)
[2020-09-16] MEDS: PIPER-TAZ 3.375 GM 50 ML IV SCH ×4 (00:27→18:10)
[2020-09-16] MEDS: MORPHINE SULFATE 2 MG/ML SYR 1ML IV PRN ×4 (01:04→13:53)
[2020-09-16] MEDS: ONDANSETRON HCL INJ 2MG/ML 2ML 2 MG/ML VIAL IV PRN ×4 (01:04→13:52)
[2020-09-16] MEDS: ENOXAPARIN SODIUM INJ 100 MG/ML SYR SC SCH ×2 (05:25→18:10)
[2020-09-16 05:55] LABS: BASOPHILS # (AUTO) 0.1 (0.0-0.1); BASOPHILS % 0.8 % (0.0-1.0); EOSINOPHILS # (AUTO) 0.3 (0.0-0.4); HEMATOCRIT 36.3 % (38.2-49.6); HEMOGLOBIN 11.7 g/dL (14.0-18.0); LYMPHOCYTES % 26.2 % (18.0-39.1); MEAN CORPUSCULAR HEMOGLOBIN 28.7 pg (28-32); MEAN CORPUSCULAR HGB CONC 32.2 g/dL (31-35); NEUTROPHILS # (AUTO) 4.2 (2.1-6.9); NEUTROPHILS % 55.7 % (38.7-80.0); PLATELET COUNT 246 x10e3/uL (140-360); RED BLOOD COUNT 4.08 x10e6/uL (4.3-5.7); RED CELL DISTRIBUTION WIDTH 13.5 % (11.7-14.4)
[2020-09-16 06:15] LABS: ALANINE AMINOTRANSFERASE 52 IU/L (0-55); ALBUMIN 3.6 g/dL (3.5-5.0); ALBUMIN/GLOBULIN RATIO 0.9 (0.8-2.0); ALKALINE PHOSPHATASE 136 IU/L (40-150); ANION GAP 15.7 mmol/L (8-16); BLOOD UREA NITROGEN 19 mg/dL (7-26); BUN/CREATININE RATIO 17 (6-25); CALCIUM 8.5 mg/dL (8.4-10.2); CARBON DIOXIDE 23 mmol/L (22-29); CHLORIDE 102 mmol/L (98-107); EST GLOMERULAR FILTRATION RATE > 60 ML/MIN (60-); GLUCOSE 92 mg/dL (74-118); POTASSIUM 3.7 mmol/L (3.5-5.1); SODIUM 137 mmol/L (136-145)
[2020-09-16 06:27] LABS: MAGNESIUM 2.2 MG/DL (1.3-2.1); PHOSPHORUS 3.9 MG/DL (2.3-4.7)
[2020-09-16 06:57] LABS: CREATINE KINASE MB 1.8 ng/mL (0-5.0)
[2020-09-16] MEDS: GABAPENTIN 300 MG CAP PO SCH ×4 (08:54→21:30)
[2020-09-16] MEDS: CARISOPRODOL 350 MG TAB PO SCH ×4 (08:54→21:30)
[2020-09-16] MEDS: DOCUSATE SODIUM 100 MG CAP PO SCH ×2 (08:54→18:10)
[2020-09-16] MEDS ORDERED: FUROSEMIDE 40 MG TAB PO SCH (09:00)
[2020-09-16] MEDS ORDERED: RIVAROXABAN 20 MG TABLET PO SCH (09:00)
[2020-09-16] MEDS ORDERED: POTASSIUM CHLORIDE 20 MEQ TAB CR PO SCH (09:00)
[2020-09-16 15:33] LABS: CREATINE KINASE MB 2.1 ng/mL (0-5.0)
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
--- NOTE | 2020-09-16 17:17 | NUR ---
Picc tip is in distal SVC per radiology report by Dr Franco. Picc is okay to use
[2020-09-16] MEDS ORDERED: VANCOMYCIN 1GM/NS 250 ML 250 ML IV SCH (18:00)
[2020-09-16] MEDS: POTASSIUM CHLORIDE 20 MEQ TAB CR PO SCH (18:10)
[2020-09-16] MEDS: FUROSEMIDE INJ 10 MG/ML 4 ML VIAL IV SCH (18:10)
--- NOTE | 2020-09-16 18:13 | Consultation ---
DATE OF CONSULTATION: 09/16/2020 Cardiac Consultation REASON FOR CONSULTATION: Leg swelling, cellulitis of the right lower extremity. HISTORY OF PRESENT ILLNESS: A 50-year-old gentleman, who is known with bipolar, PTSD, hypertension, degenerative joint disease, and chronic swelling of the lower extremities. The patient was at this institution recently with chest pain, diagnosed with left popliteal deep venous thrombosis, supposed to be on Xarelto, diuretics, and other medication. The patient did not take any his medication. He said he used to live in an apartment. He got a dog, they do not allow him to keep the dog, so he moved to his mother's place. 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 He came because of the swelling and redness of the right leg. His main complaint is bilateral leg swelling, redness, and cellulitis of the right lower extremity. PAST MEDICAL HISTORY: Very long, includin. Repeated cellulitis. 2. 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 3. Past history of right popliteal fossa abscess. 4. Super morbidity. 5. Hypertensive heart disease. 6. Anxiety. 7. Depression. 8. Chronic pain syndrome. 9. Poor compliance. 10. Abnormal stress test. 11. Right-sided heart failure. 12. Possible diastolic heart failure. 13. Back surgery. 14. Left ankle surgery. 15. Right shoulder surgery. 16. Chronic pain, needing pain killers. SOCIAL HISTORY: He lives with his mother. He is disabled. He is smoker. He drinks six beers every other week, and he does not use any drugs. HOME MEDICATIONS: The patient is supposedly on: 1. Xarelto 20 mg a day. 2. Lasix. 3. Soma. 4. Potassium. 5. Gabapentin. 6. Cymbalta. 7. Meloxicam. 8. Atenolol. 9. Seroquel. 10. Other medications. REVIEW OF SYSTEMS: GENERAL: No fever, no chills. SKIN: Cellulitis of the lower extremity, chronic leg swelling and chronic skin changes. HEENT: No vision problem. No hearing problem. CARDIAC: Easy fatigability, shortness of breath on exertion, leg swelling, and orthopnea. PULMONARY: No cough. No hemoptysis. GI: No hematemesis, no melena. : Increased frequency of urination. EXTREMITIES: Lower extremities, chronic swelling and chronic skin changes, repeated cellulitis. HEMATOLOGIC: Easy bruising, but no bleeding. PSYCH: The patient with long history of psych problems. PHYSICAL EXAMINATION: GENERAL: Morbidly obese gentleman. Height of 6 feet 2 inches, weight of 235 pounds, BMI of 43, blood pressure 110/60, heart rate of 70, respiratory rate of 18. HEENT: Pupils are reactive. NECK: No elevation of jugular venous pulsation. CHEST: Decreased air entry. HEART: Distant heart sounds. ABDOMEN: Soft. EXTREMITIES: Cellulitis of the right lower extremity and chronic swelling of the lower extremities. NEUROLOGIC: No deficits. IMPRESSION AND PLAN: 1. Cellulitis of the right lower extremity. 2. Left popliteal deep vein thrombosis. 3. Poor compliance with medication. 4. Psychosis. 5. Abnormal stress test. 6. Morbid obesity. 7. Right-sided heart failure, chronic. 8. Chronic swelling of the lower extremity and repeated cellulitis. From a cardiac point of view, our recommendation, the patient needs to be back on his Xarelto. He needs to have diuresis to help his leg edema and thus I will expedite his cellulitis, watching his volume status. The patient is poorly compliant and that will pose a problem. He would not have any other recommendation for the time being except medical therapy. We are going to treat him definitely medically because he will not take his medication as proven. The patient will be followed. We will adjust his diuretics. I will continue anticoagulation. MD QUYNH Hawley/MODL /[id number]
--- NOTE | 2020-09-16 20:45 | NUR ---
PATIENT AMBULATING SAFELY DOWN HALLWAY, CONTINUING TO MONITOR.
[2020-09-16] MEDS: VANCOMYCIN 1GM/NS 250 ML 250 ML IV SCH (21:00)
[2020-09-17] VITALS (9 sets, daily range): BP systolic 112–136; BP diastolic 68–90
[2020-09-17] MEDS: PIPER-TAZ 3.375 GM 50 ML IV SCH ×4 (00:15→17:13)
[2020-09-17] MEDS: ONDANSETRON HCL INJ 2MG/ML 2ML 2 MG/ML VIAL IV PRN ×5 (00:52→22:31)
[2020-09-17] MEDS: MORPHINE SULFATE 2 MG/ML SYR 1ML IV PRN ×6 (00:52→22:31)
--- NOTE | 2020-09-17 03:40 | Progress Note ---
DATE: 09/16/2020 CONSULTING PHYSICIAN: Dee Noyola MD with Cardiology. SUBJECTIVE: The patient ambulating in the hallway upon my arrival. No new complaints. He has been having chills off and on, low-grade fever of about 99, still has redness at the right leg as well as significant swelling. No complaints of chest pain or palpitations. No new shortness of breath. OBJECTIVE: VITAL SIGNS: Temperature 99.0, pulse 70, blood pressure 108/62, respirations 18, and oxygen saturation 96% on room air. GENERAL: No acute distress. LUNGS: Clear to auscultation. Respiratory pattern even and unlabored. HEENT: EOMI. NECK: Supple. CARDIOVASCULAR: Regular rate and rhythm. No murmur. ABDOMEN: Bowel sounds positive. Soft, nontender. EXTREMITIES: With obvious swellings and redness to the right lower extremity. INTEGUMENTARY: Right lower chest redness from ECG sticker. NEUROLOGICAL: GCS 15, nonfocal. LABORATORY DATA: WBCs 7.56, hemoglobin 11.7, hematocrit 36.3, platelets 246. Sodium 137, potassium 3.7. Chemistry, generally within normal limits. BUN 19, creatinine 1.1, estimated GFR greater than 60. Potassium level 3.7. AST 58. Cardiac biomarkers within normal limits. Creatine kinase 189, CK-MB 2.1, troponin I 0.003. Right lower extremity venous Doppler ultrasound, preliminary report is negative for DVT. Per telemetry, sinus rhythm with a heart rate of 88. ASSESSMENT AND PLAN: 1. Right lower extremity cellulitis, recent left lower extremity deep vein thrombosis (popliteal vein). Per preliminary report, venous Doppler ultrasound negative for right lower extremity deep vein thrombosis. Continue IV antibiotics. We will change dose on IV vancomycin from 1 g IV every 24 hours to every 12 hours given the patient's considerable weight of 335 pounds. PICC line placement has been ordered and consent has been obtained. The patient will likely need treatment for at least 10 days. Continue Lovenox 1 mg/kg every 12 hours as per Cardiology. We will hold Xarelto for now based on Cardiology recommendations. Maintain telemetry. 2. Controlled hypertension with congestive heart failure, blood pressure 108/62, monitor. 3. Chronic diastolic congestive heart failure with ejection fraction 67% per 09/08/2020 stress test. Cardiology following. Oral Lasix discontinued as Dr. Noyola ordered 40 mg IV b.i.d. I have changed the potassium chloride from daily to 20 mEq p.o. b.i.d. Monitor potassium level closely, currently at 3.7. Fluid restriction 1.2 L per day. Strict intake and output. Monitor chest x-ray results. 4. Acute right lower extremity pain superimposed on chronic pain syndrome. Morphine p.r.n. for pain. Tylenol as needed for headache. Maintain pain control. 5. Active smoker with seven pack years. Encourage cessation. 6. Super morbid obesity with BMI 44.93. Dietary restrictions with 1800 calorie ADA diet. 7. Noncompliance with treatment plan. The patient may need a stronger support after hospitalization as he stopped taking his Xarelto for several days prior to admission. 8. Prophylaxis. Lovenox, Protonix. 9. Disposition: Case Management consult entered regarding disposition as patient will likely need IV antibiotics for minimum of 10 days for right lower extremity cellulitis. Inpatient, billing code [id number], time spent greater than 35 minutes. Dictated by Vasu Baldwin NP Bro Rebollar MD [facility] /[id number]
[2020-09-17] MEDS: ENOXAPARIN SODIUM INJ 100 MG/ML SYR SC SCH ×2 (05:30→17:13)
[2020-09-17 05:55] LABS: BASOPHILS # (AUTO) 0.1 (0.0-0.1); BASOPHILS % 0.8 % (0.0-1.0); EOSINOPHILS # (AUTO) 0.4 (0.0-0.4); EOSINOPHILS % 5.5 % (0.0-6.0); HEMATOCRIT 33.1 % (38.2-49.6); HEMOGLOBIN 10.6 g/dL (14.0-18.0); LYMPHOCYTES # (AUTO) 1.6 (1.0-3.2); LYMPHOCYTES % 24.1 % (18.0-39.1); MEAN CORPUSCULAR HEMOGLOBIN 28.2 pg (28-32); MONOCYTES # (AUTO) 0.9 (0.2-0.8); MONOCYTES % 14.3 % (4.4-11.3); NEUTROPHILS # (AUTO) 3.6 (2.1-6.9); NEUTROPHILS % 54.8 % (38.7-80.0); PLATELET COUNT 261 x10e3/uL (140-360); RED BLOOD COUNT 3.76 x10e6/uL (4.3-5.7); RED CELL DISTRIBUTION WIDTH 13.3 % (11.7-14.4)
[2020-09-17 06:49] LABS: ALANINE AMINOTRANSFERASE 40 IU/L (0-55); ALBUMIN 3.1 g/dL (3.5-5.0); ALBUMIN/GLOBULIN RATIO 0.8 (0.8-2.0); ALKALINE PHOSPHATASE 108 IU/L (40-150); ANION GAP 10.5 mmol/L (8-16); BLOOD UREA NITROGEN 12 mg/dL (7-26); BUN/CREATININE RATIO 13 (6-25); CALCIUM 8.2 mg/dL (8.4-10.2); CARBON DIOXIDE 27 mmol/L (22-29); CHLORIDE 105 mmol/L (98-107); CREATININE, SERUM 0.93 mg/dL (0.72-1.25); EST GLOMERULAR FILTRATION RATE > 60 ML/MIN (60-); GLUCOSE 99 mg/dL (74-118); POTASSIUM 3.5 mmol/L (3.5-5.1); SODIUM 139 mmol/L (136-145)
--- NOTE | 2020-09-17 07:00 | NUR ---
BEDSIDE SHIFT REPORT RECEIVED FROM THE STEEL FABRICATOR RN. EDUCATED PT ABOUT FALL PRECAUTIONS. PT VERBALIZED UNDERSTANDING. CALL LIGHT WITH IN EASY REACH. INSTRUCTED PT TO USE CALL LIGHT FOR ALL THE NEEDS. BED IS LOW AND LOCKED. SIDE RAILS X2. ALL SAFETY MEASURES IN PLACE. PT DENIES NEEDS AT THIS TIME.
[2020-09-17] MEDS: VANCOMYCIN 1GM/NS 250 ML 250 ML IV SCH ×2 (09:00→20:39)
[2020-09-17] MEDS: DOCUSATE SODIUM 100 MG CAP PO SCH ×2 (09:15→17:13)
[2020-09-17] MEDS: GABAPENTIN 300 MG CAP PO SCH ×4 (09:15→20:39)
[2020-09-17] MEDS: POTASSIUM CHLORIDE 20 MEQ TAB CR PO SCH ×2 (09:15→17:13)
[2020-09-17] MEDS: CARISOPRODOL 350 MG TAB PO SCH ×4 (10:00→20:39)
[2020-09-17] MEDS: FUROSEMIDE INJ 10 MG/ML 4 ML VIAL IV SCH ×2 (10:00→17:13)
--- NOTE | 2020-09-17 10:29 | NUR ---
Spoke to ALECIA Leone regarding outpt IV abx for discharge. States will check with Dr. Rebollar and let CM know.
[2020-09-17] MEDS ORDERED: VANCOMYCIN HCL 1 GM in SODIUM CHLORIDE 0.9% 250ML 250 ML IV SCH (16:00)
--- NOTE | 2020-09-17 19:00 | NUR ---
Resumed care of patient. Patient awake and resting in bed, no s/s of distress at this time. Bed locked and in lowest position, side rails upx3, alarm on, call light placed within reach. Patient instructed to call for assistance if needed, verbalized understanding. All safety measures in place.
--- NOTE | 2020-09-17 19:25 | NUR ---
BEDSIDE SHIFT REPORT GIVEN TO THE SHOVEL HANDLE ASSEMBLER RN. PT DENIED FURTHER NEEDS.
[2020-09-18] VITALS: BP 125/68
[2020-09-18] MEDS: PIPER-TAZ 3.375 GM 50 ML IV SCH ×3 (00:30→11:14)
--- NOTE | 2020-09-18 00:30 | NUR ---
Vasu Baldwin POLICY WRITER SALES here to see patient. Per POLICY WRITER SALES he spoke with Dr. Noyola who states patient may ambulate.
[2020-09-18 04:00] VITALS: BP 117/72
[2020-09-18 05:07] LABS: BASOPHILS # (AUTO) 0.1 (0.0-0.1); BASOPHILS % 0.9 % (0.0-1.0); EOSINOPHILS # (AUTO) 0.4 (0.0-0.4); EOSINOPHILS % 5.6 % (0.0-6.0); HEMOGLOBIN 10.9 g/dL (14.0-18.0); LYMPHOCYTES # (AUTO) 1.9 (1.0-3.2); LYMPHOCYTES % 29.7 % (18.0-39.1); MEAN CORPUSCULAR HEMOGLOBIN 28.2 pg (28-32); MEAN CORPUSCULAR HGB CONC 32.1 g/dL (31-35); MEAN CORPUSCULAR VOLUME 87.9 fL (81-99); MONOCYTES # (AUTO) 0.7 (0.2-0.8); MONOCYTES % 10.6 % (4.4-11.3); NEUTROPHILS # (AUTO) 3.4 (2.1-6.9); PLATELET COUNT 297 x10e3/uL (140-360); RED BLOOD COUNT 3.87 x10e6/uL (4.3-5.7); RED CELL DISTRIBUTION WIDTH 13.2 % (11.7-14.4)
[2020-09-18 05:31] LABS: ALANINE AMINOTRANSFERASE 34 IU/L (0-55); ALBUMIN 3.1 g/dL (3.5-5.0); ALBUMIN/GLOBULIN RATIO 0.7 (0.8-2.0); ALKALINE PHOSPHATASE 99 IU/L (40-150); ANION GAP 9.7 mmol/L (8-16); BLOOD UREA NITROGEN 12 mg/dL (7-26); BUN/CREATININE RATIO 12 (6-25); CALCIUM 8.5 mg/dL (8.4-10.2); CARBON DIOXIDE 29 mmol/L (22-29); CHLORIDE 107 mmol/L (98-107); CREATININE, SERUM 0.99 mg/dL (0.72-1.25); EST GLOMERULAR FILTRATION RATE > 60 ML/MIN (60-); GLUCOSE 96 mg/dL (74-118); POTASSIUM 3.7 mmol/L (3.5-5.1); SODIUM 142 mmol/L (136-145)
[2020-09-18] MEDS: ONDANSETRON HCL INJ 2MG/ML 2ML 2 MG/ML VIAL IV PRN (06:59)
[2020-09-18] MEDS: MORPHINE SULFATE 2 MG/ML SYR 1ML IV PRN ×2 (06:59→11:14)
--- NOTE | 2020-09-18 07:00 | NUR ---
BEDSIDE SHIFT REPORT RECEIVED FROM THE LABORER/GRADE CHECK RN. EDUCATED PT ABOUT FALL PRECAUTIONS. PT VERBALIZED UNDERSTANDING. CALL LIGHT WITH IN EASY REACH. INSTRUCTED PT TO USE CALL LIGHT FOR ALL THE NEEDS. BED IS LOW AND LOCKED. SIDE RAILS X2. BED ALARM IS ON. ALL SAFETY MEASURES IN PLACE. PT DENIES NEEDS AT THIS TIME.
--- NOTE | 2020-09-18 07:46 | Progress Note ---
DATE: 09/17/2020 CONSULTING PHYSICIAN: Dr. Dee Noyola with Cardiology. SUBJECTIVE: The patient is supine in bed, asleep, somewhat difficult to arouse as he is in a deep sleep. No chills currently. He did have chills night before last. He has been afebrile. Continues to have swelling and redness at the right leg. Headache has improved some from yesterday. OBJECTIVE: VITAL SIGNS: Temperature 97.9, pulse 60, blood pressure 118/69, respirations 20, oxygen saturation 100% on room air. GENERAL: Supine, asleep. No acute distress. LUNGS: Clear to auscultation. Respirations even and nonlabored. No supplemental oxygen. HEENT: EOMI. Oropharynx clear. NECK: Supple. CARDIOVASCULAR: Regular rate and rhythm without murmur. ABDOMEN: Bowel sounds positive. Soft, obese, nontender. EXTREMITIES : With pronounced swelling of the right lower extremity along with redness especially noted at the right lower leg. It looks about the same as yesterday, has not changed much. INTEGUMENTARY: Aforementioned redness right lower extremity. Right lower chest is also red from having ECG sticker previously. NEUROLOGICAL: GCS 15. Nonfocal. LABORATORY DATA: WBC 6.59, hemoglobin 10.6, hematocrit 33.1, platelets 261. Sodium 139, potassium 3.5, chloride 105, CO2 of 27, BUN 12, creatinine 0.93, estimated GFR greater than 60, glucose 99, calcium 8.2, total bilirubin 0.3, AST 32, ALT 40, alkaline phosphatase 108, total protein 7.2, albumin 3.1, globulin 4.1. Vancomycin trough level 7.9. On 09/15, coronavirus PCR not detected. Microbiology thus far no growth from urine or blood cultures. IMAGING/OTHER: On , preliminary report of right lower extremity venous Doppler ultrasound negative for DVT, unable to locate the final results in the EMR. ASSESSMENT AND PLAN: 1. Recurrent cellulitis of the right lower extremity. Continue vancomycin 1 g IV every 12 hours as the patient weighs 335 pounds. Right lower extremity appears unchanged to me. WBCs appear to be improving and today were 6.59, afebrile. When appearance of cellulitis begins improvement and looks better, the patient can be discharged on oral Cipro and doxycycline for 14 days. The patient has been noncompliant with medications in the past and this could be a real issue, especially if he does not take his oral antibiotics post discharge. Suggest close followup with his primary care physician Dr. Acosta as well as Dr. Noyola. I suspect he will require IV antibiotics a bit longer and a PICC line has been placed. Elevate lower extremities while in bed above the level of the heart. 2. Left popliteal deep vein thrombosis. Lovenox 100 mg 12 hours has been discontinued and Xarelto 20 mg daily started. Case was discussed with Cardiology, right lower extremity venous Doppler preliminary results are negative for DVT. I had concerns previously about the patient ambulating due to the recent deep venous thrombosis, however, case was discussed with personnel scheduler and the patient is allowed to ambulate. 3. Controlled hypertension with congestive heart failure, blood pressure 118/69. Cardiology following. Monitor blood pressure. 4. Chronic diastolic congestive heart failure with ejection fraction 67% per 09/08/2020 stress test. Cardiology following. Continue Lasix and supplemental potassium chloride. Strict intake and output. Fluid restriction 1.2 L per day. Chest x-ray negative. 5. Acute right lower extremity pain superimposed on chronic pain syndrome. Morphine p.r.n. for pain. Tylenol as needed for headache. 6. Mild acute hypokalemia. Potassium level 3.5. Reassess in the morning. 7. Active smoker with seven pack years. Encourage cessation. 8. Morbid obesity with BMI of 44.93. Dietary restrictions with 1800 calorie ADA diet. 9. Poor compliance with medications. 10. Prophylaxis, Xarelto, Protonix. Inpatient, progress note, billing code [id number], time spent greater than 35 minutes. Dictated by Vasu Baldwin, ALECIA Bro Rebollar MD [facility] /[id number]
[2020-09-18 07:56] VITALS: BP 140/88
[2020-09-18 08:00] VITALS: BP 128/64
[2020-09-18] MEDS: DOCUSATE SODIUM 100 MG CAP PO SCH (08:13)
[2020-09-18] MEDS: POTASSIUM CHLORIDE 20 MEQ TAB CR PO SCH (08:13)
[2020-09-18] MEDS: GABAPENTIN 300 MG CAP PO SCH ×2 (08:13→12:29)
[2020-09-18] MEDS: FUROSEMIDE INJ 10 MG/ML 4 ML VIAL IV SCH (08:16)
[2020-09-18] MEDS: VANCOMYCIN 1GM/NS 250 ML 250 ML IV SCH (08:27)
[2020-09-18] MEDS: CARISOPRODOL 350 MG TAB PO SCH ×2 (08:27→12:29)
[2020-09-18] MEDS ORDERED: RIVAROXABAN 20 MG TABLET PO SCH (10:30)
[2020-09-18 11:44] VITALS: BP 138/81
[2020-09-18] MEDS ORDERED: DOXYCYCLINE HY100 MG PO (12:06)
[2020-09-18] MEDS ORDERED: CIPRO500 MG PO (12:06)
--- NOTE | 2020-09-18 14:37 | NUR ---
RIGHT UPPER ARM PICC LINE REMOVED PER THE ORDER. TIP INTACT. PRESSURE DRESSING APPLIED. PT TOLERATED WELL. NO DISTRESS NOTED. PT DENIED FURTHER NEEDS.
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
== END 2020-09-18 14:52 | disposition home or self-care (01) | DRG 300 ==
LOC: ER 16:00 → ERHOLD 17:12 → MED/SURG2 20:39
PROVIDERS: ADMIT Internal Medicine; ATTEND Internal Medicine
PROC: 02HV33Z Insertion of Infusion Device into Superior Vena Cava, Percutaneous Approach (ICD-10-PCS; principal; 2020-09-16)
PROC: B548ZZA Ultrasonography of Superior Vena Cava, Guidance (ICD-10-PCS; 2020-09-16)
DX: I82.432 Acute embolism and thrombosis of left popliteal vein (principal); L03.115 Cellulitis of right lower limb; I50.32 Chronic diastolic (congestive) heart failure; Z68.41 Body mass index [BMI] 40.0-44.9, adult; F29 Unspecified psychosis not due to a substance or known physiological condition; I11.0 Hypertensive heart disease with heart failure; F43.10 Post-traumatic stress disorder, unspecified; F41.9 Anxiety disorder, unspecified; F17.210 Nicotine dependence, cigarettes, uncomplicated; G89.4 Chronic pain syndrome; E66.01 Morbid (severe) obesity due to excess calories; Z82.49 Family history of ischemic heart disease and other diseases of the circulatory system; Z83.3 Family history of diabetes mellitus; Z82.3 Family history of stroke; Z72.89 Other problems related to lifestyle; Z20.828 Contact with and (suspected) exposure to other viral communicable diseases; Z95.5 Presence of coronary angioplasty implant and graft; Z91.14 Patient's other noncompliance with medication regimen; E87.6 Hypokalemia
CPT/HCPCS: 36415; 36569; 71045; 80053; 80202; 81001; 82550; 82553; 83036; 83735; 83880; 84100; 84484; 85025; 85610; 85730; 87040; 87086; 93005; 93971; 99284; J1650; J1940; J2270; J2405; J2543; J3370; J7050; U0002

== ENCOUNTER 2020-10-24 18:49 | Emergency (ER) | payer MEDICARE, OTHER ==
[~2020-10-24] VITALS: Ht 188 cm; Wt 147.4 kg
[~2020-10-24 18:49] MED LIST changes: +CIPRO500 MG PO; +DOXYCYCLINE HY100 MG PO
[2020-10-24 19:49] LABS: BASOPHILS # (AUTO) 0.1 (0.0-0.1); BASOPHILS % 0.8 % (0.0-1.0); EOSINOPHILS # (AUTO) 0.4 (0.0-0.4); EOSINOPHILS % 4.9 % (0.0-6.0); HEMATOCRIT 34.7 % (38.2-49.6); HEMOGLOBIN 11.1 g/dL (14.0-18.0); LYMPHOCYTES # (AUTO) 2.2 (1.0-3.2); MEAN CORPUSCULAR HEMOGLOBIN 27.6 pg (28-32); MEAN CORPUSCULAR VOLUME 86.3 fL (81-99); MONOCYTES # (AUTO) 0.7 (0.2-0.8); MONOCYTES % 8.5 % (4.4-11.3); NEUTROPHILS # (AUTO) 4.4 (2.1-6.9); NEUTROPHILS % 56.5 % (38.7-80.0); PLATELET COUNT 309 x10e3/uL (140-360); RED BLOOD COUNT 4.02 x10e6/uL (4.3-5.7); RED CELL DISTRIBUTION WIDTH 13.4 % (11.7-14.4)
[2020-10-24 20:03] LABS: ALANINE AMINOTRANSFERASE 19 IU/L (0-55); ALBUMIN 3.4 g/dL (3.5-5.0); ALBUMIN/GLOBULIN RATIO 0.8 (0.8-2.0); ALKALINE PHOSPHATASE 118 IU/L (40-150); ANION GAP 16.1 mmol/L (8-16); BLOOD UREA NITROGEN 10 mg/dL (7-26); BUN/CREATININE RATIO 10 (6-25); CALCIUM 8.2 mg/dL (8.4-10.2); CARBON DIOXIDE 21 mmol/L (22-29); CHLORIDE 104 mmol/L (98-107); CREATINE KINASE 116 IU/L (30-200); CREATININE, SERUM 1.01 mg/dL (0.72-1.25); EST GLOMERULAR FILTRATION RATE > 60 ML/MIN (60-); GLUCOSE 90 mg/dL (74-118); POTASSIUM 4.1 mmol/L (3.5-5.1); SODIUM 137 mmol/L (136-145)
[2020-10-24] MEDS ORDERED: FUROSEMIDE INJ 10 MG/ML 4 ML VIAL IV ONE (20:45)
[2020-10-24] MEDS ORDERED: LASIX40 MG PO (22:13)
[2020-10-24] MEDS ORDERED: HYDROCODONE/APAP 7.5MG-325MG 1 EA TAB PO PRN (23:15)
[2020-10-24] MEDS ORDERED: ATENOLOL50 MG PO (23:18)
== END 2020-10-24 23:37 | disposition home or self-care (01) ==
LOC: ER 19:15
DX: R60.9 Edema, unspecified (principal); Z86.718 Personal history of other venous thrombosis and embolism; I10 Essential (primary) hypertension; F41.9 Anxiety disorder, unspecified; F43.10 Post-traumatic stress disorder, unspecified
CPT/HCPCS: 36415; 71045; 80053; 82550; 82553; 83880; 84484; 85025; 99284; J1940

== ENCOUNTER 2020-11-14 12:43 | Emergency (ER) | payer MEDICARE, OTHER ==
[~2020-11-14] VITALS: Ht 188 cm; Wt 147.4 kg
[~2020-11-14 12:43] MED LIST changes: +ATENOLOL50 MG PO; +LASIX40 MG PO
[2020-11-14 14:27] LABS: BASOPHILS % 0.6 % (0.0-1.0); EOSINOPHILS # (AUTO) 0.4 (0.0-0.4); EOSINOPHILS % 6.2 % (0.0-6.0); HEMOGLOBIN 11.2 g/dL (14.0-18.0); LYMPHOCYTES # (AUTO) 1.7 (1.0-3.2); LYMPHOCYTES % 24.7 % (18.0-39.1); MEAN CORPUSCULAR HEMOGLOBIN 27.9 pg (28-32); MEAN CORPUSCULAR HGB CONC 32.9 g/dL (31-35); MEAN CORPUSCULAR VOLUME 84.8 fL (81-99); MONOCYTES # (AUTO) 0.7 (0.2-0.8); MONOCYTES % 9.9 % (4.4-11.3); NEUTROPHILS % 58.3 % (38.7-80.0); PLATELET COUNT 285 x10e3/uL (140-360); RED BLOOD COUNT 4.01 x10e6/uL (4.3-5.7); RED CELL DISTRIBUTION WIDTH 14.1 % (11.7-14.4)
[2020-11-14 14:32] LABS: INR 3.01; PROTHROMBIN TIME 33.8 seconds (11.9-14.5)
[2020-11-14 14:33] LABS: PARTIAL THROMBOPLASTIN TIME 58.5 seconds (23.8-35.5)
[2020-11-14 14:37] LABS: ALBUMIN 3.8 g/dL (3.5-5.0); CALCIUM 8.5 mg/dL (8.4-10.2); POTASSIUM 3.3 mmol/L (3.5-5.1)
[2020-11-14 14:52] LABS: CREATINE KINASE MB 3.5 ng/mL (0-5.0)
[2020-11-14 14:57] LABS: ALBUMIN/GLOBULIN RATIO 0.9 (0.8-2.0); ANION GAP 15.3 mmol/L (8-16); CREATININE, SERUM 1.28 mg/dL (0.72-1.25); MAGNESIUM 1.8 MG/DL (1.3-2.1)
[2020-11-14 18:58] VITALS: BP 124/79
== END 2020-11-14 19:03 | disposition home or self-care (01) ==
LOC: ER 14:00
DX: R60.9 Edema, unspecified (principal); M79.605 Pain in left leg; M79.604 Pain in right leg; I10 Essential (primary) hypertension; F41.9 Anxiety disorder, unspecified; F43.10 Post-traumatic stress disorder, unspecified; Z86.718 Personal history of other venous thrombosis and embolism
CPT/HCPCS: 36415; 71045; 80053; 82550; 82553; 83735; 83880; 84484; 85025; 85610; 85730; 93970; 99284

== ENCOUNTER 2021-08-18 21:22 | Emergency (ER) | payer MEDICARE, OTHER ==
[~2021-08-18] VITALS: Ht 190.5 cm; Wt 142.9 kg
[2021-08-18] MEDS ORDERED: LORAZEPAM 1 MG TAB PO PRN (21:45)
[2021-08-18] MEDS ORDERED: LORAZEPAM 1 MG TAB ONE (21:46)
== END 2021-08-18 23:20 | disposition home or self-care (01) ==
LOC: ER 21:32
DX: F41.9 Anxiety disorder, unspecified (principal); I10 Essential (primary) hypertension; F43.10 Post-traumatic stress disorder, unspecified; M54.9 Dorsalgia, unspecified; G89.29 Other chronic pain; Z86.718 Personal history of other venous thrombosis and embolism
CPT/HCPCS: 99282

== ENCOUNTER 2021-11-12 15:26 | Inpatient (IN) | payer MEDICARE, OTHER ==
[~2021-11-12] VITALS: Ht 190.5 cm; Wt 142.9 kg
[2021-11-12 16:13] LABS: BASOPHILS % 0.5 % (0.0-1.0); EOSINOPHILS # (AUTO) 0.4 (0.0-0.4); HEMATOCRIT 33.7 % (38.2-49.6); HEMOGLOBIN 10.9 g/dL (14.0-18.0); LYMPHOCYTES # (AUTO) 1.9 (1.0-3.2); LYMPHOCYTES % 23.9 % (18.0-39.1); MEAN CORPUSCULAR HEMOGLOBIN 27.7 pg (28-32); MEAN CORPUSCULAR HGB CONC 32.3 g/dL (31-35); MEAN CORPUSCULAR VOLUME 85.5 fL (81-99); MONOCYTES # (AUTO) 0.9 (0.2-0.8); MONOCYTES % 10.8 % (4.4-11.3); NEUTROPHILS # (AUTO) 4.8 (2.1-6.9); NEUTROPHILS % 59.5 % (38.7-80.0); PLATELET COUNT 295 x10e3/uL (140-360); RED BLOOD COUNT 3.94 x10e6/uL (4.3-5.7); RED CELL DISTRIBUTION WIDTH 13.4 % (11.7-14.4)
[2021-11-12 16:23] LABS: INR 0.98; PROTHROMBIN TIME 13.8 seconds (11.9-14.5)
[2021-11-12 16:24] LABS: PARTIAL THROMBOPLASTIN TIME 39.4 seconds (23.8-35.5)
[2021-11-12 16:30] LABS: ALBUMIN 3.4 g/dL (3.5-5.0); ALBUMIN/GLOBULIN RATIO 0.8 (0.8-2.0); ANION GAP 11.8 mmol/L (8-16); CALCIUM 8.9 mg/dL (8.4-10.2); CREATININE, SERUM 1.12 mg/dL (0.72-1.25); POTASSIUM 3.8 mmol/L (3.5-5.1)
[2021-11-12 16:38] LABS: CREATINE KINASE MB 21.6 ng/mL (0-5.0)
[2021-11-12] MEDS ORDERED: SODIUM CHLORIDE 0.9% 500ML 500 ML IV ONE (17:15)
[2021-11-12] MEDS ORDERED: PIPERACILLIN/TAZOBACTAM 3.375 GM in SODIUM CHLORIDE 0.9% 50ML 50 ML IV ONE (17:15)
[2021-11-12] MEDS ORDERED: KETOROLAC TROMETHAMINE 30 MG/ML VIAL IV ONE (18:00)
[2021-11-12] MEDS: SODIUM CHLORIDE 0.9% 1000ML 1,000 ML IV SCH (18:15)
[2021-11-12] MEDS: Morphine 2mg Syringe 2 MG/ML SYR IV PRN (20:08)
[2021-11-12 21:00] VITALS: BP 109/63
[2021-11-13] VITALS (10 sets, daily range): BP systolic 92–138; BP diastolic 53–90
[2021-11-13] MEDS: Morphine 2mg Syringe 2 MG/ML SYR IV PRN ×3 (00:48→13:08)
[2021-11-13] MEDS ORDERED: SODIUM CHLORIDE 0.9% 50ML 50 ML ONE (00:55)
[2021-11-13] MEDS: Clindamycin INJ 600 MG 600 MG in SODIUM CHLORIDE 0.9% 50ML 50 ML IV SCH ×4 (01:00→21:17)
[2021-11-13 05:42] LABS: BASOPHILS % 0.4 % (0.0-1.0); EOSINOPHILS # (AUTO) 0.4 (0.0-0.4); EOSINOPHILS % 8.4 % (0.0-6.0); HEMATOCRIT 29.7 % (38.2-49.6); HEMOGLOBIN 9.3 g/dL (14.0-18.0); LYMPHOCYTES # (AUTO) 1.6 (1.0-3.2); LYMPHOCYTES % 32.6 % (18.0-39.1); MEAN CORPUSCULAR HEMOGLOBIN 27.5 pg (28-32); MEAN CORPUSCULAR HGB CONC 31.3 g/dL (31-35); MEAN CORPUSCULAR VOLUME 87.9 fL (81-99); MONOCYTES # (AUTO) 0.7 (0.2-0.8); MONOCYTES % 13.7 % (4.4-11.3); NEUTROPHILS # (AUTO) 2.1 (2.1-6.9); NEUTROPHILS % 44.7 % (38.7-80.0); PLATELET COUNT 237 x10e3/uL (140-360); RED BLOOD COUNT 3.38 x10e6/uL (4.3-5.7); RED CELL DISTRIBUTION WIDTH 13.8 % (11.7-14.4)
[2021-11-13] MEDS: SODIUM CHLORIDE 0.9% 1000ML 1,000 ML IV SCH ×3 (05:50→17:16)
[2021-11-13 06:07] LABS: ANION GAP 8.3 mmol/L (8-16); CALCIUM 8.1 mg/dL (8.4-10.2); CREATININE, SERUM 0.91 mg/dL (0.72-1.25); POTASSIUM 3.3 mmol/L (3.5-5.1)
[2021-11-13 07:09] LABS: FERRITIN 96.56 ng/mL (21.81-274.66)
[2021-11-13] MEDS: ATENOLOL 50 MG TAB PO SCH (08:59)
[2021-11-13] MEDS: RIVAROXABAN 20 MG TABLET PO SCH (08:59)
[2021-11-13] MEDS ORDERED: FUROSEMIDE 40 MG TAB PO SCH (09:00)
[2021-11-13] MEDS ORDERED: POTASSIUM CHLORIDE 20 MEQ TAB CR PO ONE (14:45)
[2021-11-13] MEDS: Morphine 4mg Syringe 4 MG/ML INJ IV PRN ×2 (16:44→21:17)
[2021-11-13] MEDS ORDERED: ENOXAPARIN SOD INJ 40 MG/0.4 ML SYR SC SCH (17:00)
[2021-11-13] MEDS ORDERED: IOPAMIDOL 370 MG/ML 200 ML INFUS..BTL INJ ONE (18:42)
[2021-11-13 19:00] LABS: CLARITY,URINE CLEAR (CLEAR); COLOR,URINE YELLOW (YELLOW); KETONES,URINE NEGATIVE (NEGATIVE); LEUKOCYTE ESTERASE ,URINE NEGATIVE (NEGATIVE); NITRITE,URINE NEGATIVE (NEGATIVE); PROTEIN,URINE DIPSTICK NEGATIVE (NEGATIVE); URINE UROBILINOGEN 0.2 mg/dL (0.2 - 1)
[2021-11-13] MEDS: HYDROCODONE/APAP 5MG-325MG TAB PO PRN (19:35)
[2021-11-13] MEDS: DULOXETINE HCL 30 MG DELAYED RELEASE PO SCH (21:17)
[2021-11-14] VITALS (10 sets, daily range): BP systolic 100–168; BP diastolic 58–99
[2021-11-14] MEDS: Morphine 4mg Syringe 4 MG/ML INJ IV PRN ×7 (00:30→20:45)
[2021-11-14] MEDS: HYDROCODONE/APAP 5MG-325MG TAB PO PRN ×2 (02:05→20:17)
[2021-11-14] MEDS: SODIUM CHLORIDE 0.9% 1000ML 1,000 ML IV SCH ×2 (02:26→09:34)
[2021-11-14] MEDS: Clindamycin INJ 600 MG 600 MG in SODIUM CHLORIDE 0.9% 50ML 50 ML IV SCH ×3 (05:46→21:41)
[2021-11-14 06:08] LABS: BASOPHILS % 0.7 % (0.0-1.0); EOSINOPHILS # (AUTO) 0.4 (0.0-0.4); EOSINOPHILS % 7.2 % (0.0-6.0); HEMATOCRIT 29.4 % (38.2-49.6); HEMOGLOBIN 8.8 g/dL (14.0-18.0); LYMPHOCYTES # (AUTO) 1.8 (1.0-3.2); LYMPHOCYTES % 30.5 % (18.0-39.1); MEAN CORPUSCULAR HEMOGLOBIN 27.3 pg (28-32); MEAN CORPUSCULAR HGB CONC 29.9 g/dL (31-35); MEAN CORPUSCULAR VOLUME 91.3 fL (81-99); MONOCYTES # (AUTO) 0.5 (0.2-0.8); MONOCYTES % 9.1 % (4.4-11.3); NEUTROPHILS % 52.3 % (38.7-80.0); PLATELET COUNT 231 x10e3/uL (140-360); RED BLOOD COUNT 3.22 x10e6/uL (4.3-5.7); RED CELL DISTRIBUTION WIDTH 14.2 % (11.7-14.4)
[2021-11-14 06:51] LABS: ALBUMIN 2.6 g/dL (3.5-5.0); ALBUMIN/GLOBULIN RATIO 0.7 (0.8-2.0); ANION GAP 7.1 mmol/L (8-16); CALCIUM 7.9 mg/dL (8.4-10.2); CREATININE, SERUM 0.84 mg/dL (0.72-1.25); MAGNESIUM 1.8 MG/DL (1.3-2.1); POTASSIUM 4.1 mmol/L (3.5-5.1)
[2021-11-14] MEDS ORDERED: FUROSEMIDE INJ 10 MG/ML 4 ML VIAL IV SCH (09:00)
[2021-11-14] MEDS: RIVAROXABAN 20 MG TABLET PO SCH (09:34)
[2021-11-14] MEDS: ATENOLOL 50 MG TAB PO SCH (09:34)
[2021-11-14] MEDS: FUROSEMIDE INJ 100 MG in SODIUM CHLORIDE 0.9% 100 ML 90 ML IV SCH ×2 (10:30→20:17)
[2021-11-14] MEDS: DULOXETINE HCL 30 MG DELAYED RELEASE PO SCH (21:41)
[2021-11-15] VITALS (7 sets, daily range): BP systolic 109–138; BP diastolic 60–87
[2021-11-15] MEDS: Morphine 4mg Syringe 4 MG/ML INJ IV PRN ×7 (00:06→23:44)
[2021-11-15] MEDS: Clindamycin INJ 600 MG 600 MG in SODIUM CHLORIDE 0.9% 50ML 50 ML IV SCH ×2 (05:12→13:07)
[2021-11-15 05:20] LABS: BASOPHILS % 0.6 % (0.0-1.0); EOSINOPHILS # (AUTO) 0.6 (0.0-0.4); HEMATOCRIT 33.7 % (38.2-49.6); HEMOGLOBIN 10.4 g/dL (14.0-18.0); LYMPHOCYTES # (AUTO) 2.2 (1.0-3.2); LYMPHOCYTES % 31.5 % (18.0-39.1); MEAN CORPUSCULAR HEMOGLOBIN 27.4 pg (28-32); MEAN CORPUSCULAR HGB CONC 30.9 g/dL (31-35); MEAN CORPUSCULAR VOLUME 88.9 fL (81-99); MONOCYTES # (AUTO) 0.7 (0.2-0.8); MONOCYTES % 9.7 % (4.4-11.3); NEUTROPHILS # (AUTO) 3.5 (2.1-6.9); NEUTROPHILS % 49.9 % (38.7-80.0); PLATELET COUNT 281 x10e3/uL (140-360); RED BLOOD COUNT 3.79 x10e6/uL (4.3-5.7); RED CELL DISTRIBUTION WIDTH 14.4 % (11.7-14.4)
[2021-11-15 05:41] LABS: ALBUMIN 3.2 g/dL (3.5-5.0); ALBUMIN/GLOBULIN RATIO 0.8 (0.8-2.0); ANION GAP 9.6 mmol/L (8-16); CREATININE, SERUM 1.02 mg/dL (0.72-1.25); POTASSIUM 3.6 mmol/L (3.5-5.1)
[2021-11-15] MEDS: FUROSEMIDE INJ 100 MG in SODIUM CHLORIDE 0.9% 100 ML 90 ML IV SCH ×2 (06:15→16:36)
[2021-11-15 06:18] LABS: PHOSPHORUS 4.7 MG/DL (2.3-4.7)
[2021-11-15 06:37] LABS: THYROID STIMULATING HORMONE 2.25 uIU/mL (0.350-4.940)
[2021-11-15] MEDS: ATENOLOL 50 MG TAB PO SCH (08:00)
[2021-11-15] MEDS: RIVAROXABAN 20 MG TABLET PO SCH (08:00)
[2021-11-15] MEDS: HYDROCODONE/APAP 5MG-325MG TAB PO PRN (09:39)
[2021-11-15] MEDS: CLINDAMYCIN HCL 150 MG CAP PO SCH ×2 (18:54→23:44)
[2021-11-15] MEDS: DULOXETINE HCL 30 MG DELAYED RELEASE PO SCH (20:06)
[2021-11-16 00:22] VITALS: BP 108/59
[2021-11-16] MEDS: FUROSEMIDE INJ 100 MG in SODIUM CHLORIDE 0.9% 100 ML 90 ML IV SCH (01:38)
[2021-11-16] MEDS: Morphine 4mg Syringe 4 MG/ML INJ IV PRN ×2 (03:30→07:45)
[2021-11-16 05:07] VITALS: BP 94/57
[2021-11-16] MEDS: CLINDAMYCIN HCL 150 MG CAP PO SCH (06:22)
[2021-11-16 06:51] LABS: BASOPHILS % 0.5 % (0.0-1.0); EOSINOPHILS # (AUTO) 0.4 (0.0-0.4); EOSINOPHILS % 6.3 % (0.0-6.0); HEMATOCRIT 33.7 % (38.2-49.6); HEMOGLOBIN 10.6 g/dL (14.0-18.0); LYMPHOCYTES % 32.3 % (18.0-39.1); MEAN CORPUSCULAR HEMOGLOBIN 27.2 pg (28-32); MEAN CORPUSCULAR HGB CONC 31.5 g/dL (31-35); MEAN CORPUSCULAR VOLUME 86.6 fL (81-99); MONOCYTES # (AUTO) 0.6 (0.2-0.8); MONOCYTES % 9.7 % (4.4-11.3); NEUTROPHILS # (AUTO) 3.2 (2.1-6.9); PLATELET COUNT 276 x10e3/uL (140-360); RED BLOOD COUNT 3.89 x10e6/uL (4.3-5.7); RED CELL DISTRIBUTION WIDTH 14.3 % (11.7-14.4)
[2021-11-16 07:23] LABS: ANION GAP 10.6 mmol/L (8-16); CALCIUM 8.7 mg/dL (8.4-10.2); CREATININE, SERUM 0.96 mg/dL (0.72-1.25); MAGNESIUM 1.7 MG/DL (1.3-2.1); POTASSIUM 3.6 mmol/L (3.5-5.1)
[2021-11-16] MEDS: RIVAROXABAN 20 MG TABLET PO SCH (07:45)
[2021-11-16] MEDS: ATENOLOL 50 MG TAB PO SCH (07:50)
[2021-11-16 08:10] VITALS: BP 106/76
[2021-11-16 08:25] VITALS: BP 106/76
[2021-11-16] MEDS ORDERED: FUROSEMIDE 40 MG TAB PO SCH (09:00)
[2021-11-16] MEDS ORDERED: POTASSIUM CHLORIDE 20 MEQ TAB CR PO SCH (09:00)
[2021-11-16 11:45] VITALS: BP 112/73
== END 2021-11-16 13:52 | disposition home or self-care (01) | DRG 602 ==
LOC: ER 17:00 → ERHOLD 19:09 → MED/SURG2 20:14
PROVIDERS: ADMIT Internal Medicine; ATTEND Internal Medicine
DX: L03.115 Cellulitis of right lower limb (principal); U07.1 COVID-19; I50.33 Acute on chronic diastolic (congestive) heart failure; E87.2 Acidosis; M62.82 Rhabdomyolysis; I82.532 Chronic embolism and thrombosis of left popliteal vein; L03.116 Cellulitis of left lower limb; F41.9 Anxiety disorder, unspecified; F43.10 Post-traumatic stress disorder, unspecified; M19.90 Unspecified osteoarthritis, unspecified site; F32.A Depression, unspecified; D64.9 Anemia, unspecified; I11.0 Hypertensive heart disease with heart failure; D63.8 Anemia in other chronic diseases classified elsewhere; Z86.718 Personal history of other venous thrombosis and embolism; Z72.0 Tobacco use
CPT/HCPCS: 36415; 71045; 73701; 80048; 80053; 80061; 81001; 82550; 82553; 82607; 82728; 82746; 83540; 83605; 83735; 83880; 84100; 84443; 84466; 84484; 85025; 85045; 85610; 85651; 85730; 86141; 87040; 93005; 93306; 93970; 94799; 97139; 99284; J1885; J1940; J2270; J2543; J7030; J7040; Q9967; U0002

== ENCOUNTER 2022-01-12 21:55 | Emergency (ER) | payer MEDICARE, OTHER ==
[~2022-01-12] VITALS: Ht 373.4 cm; Wt 142.9 kg
[2022-01-12 22:26] LABS: BASOPHILS % 0.4 % (0.0-1.0); EOSINOPHILS # (AUTO) 0.4 (0.0-0.4); EOSINOPHILS % 4.4 % (0.0-6.0); HEMATOCRIT 34.4 % (38.2-49.6); HEMOGLOBIN 11.1 g/dL (14.0-18.0); LYMPHOCYTES # (AUTO) 2.1 (1.0-3.2); LYMPHOCYTES % 25.8 % (18.0-39.1); MEAN CORPUSCULAR HEMOGLOBIN 28.6 pg (28-32); MEAN CORPUSCULAR HGB CONC 32.3 g/dL (31-35); MEAN CORPUSCULAR VOLUME 88.7 fL (81-99); MONOCYTES # (AUTO) 0.6 (0.2-0.8); MONOCYTES % 7.6 % (4.4-11.3); NEUTROPHILS % 61.7 % (38.7-80.0); PLATELET COUNT 270 x10e3/uL (140-360); RED BLOOD COUNT 3.88 x10e6/uL (4.3-5.7); RED CELL DISTRIBUTION WIDTH 13.4 % (11.7-14.4)
[2022-01-12 22:54] LABS: AMPHETAMINES SCREEN,URINE NEGATIVE (NEGATIVE); BENZODIAZEPINES SCREEN,URINE NEGATIVE (NEGATIVE); CLARITY,URINE CLEAR (CLEAR); COLOR,URINE YELLOW (YELLOW); KETONES,URINE NEGATIVE (NEGATIVE); LEUKOCYTE ESTERASE ,URINE NEGATIVE (NEGATIVE); NITRITE,URINE NEGATIVE (NEGATIVE); PHENCYCLIDINE SCREEN,URINE NEGATIVE (NEGATIVE); PROTEIN,URINE DIPSTICK NEGATIVE (NEGATIVE); URINE UROBILINOGEN 0.2 mg/dL (0.2 - 1)
[2022-01-12 22:56] LABS: BACTERIA,URINE FEW /HPF; EPITHELIAL CELLS,URINE RARE /LPF; WBC,URINE (MAN) 0-5 /HPF (0-5)
[2022-01-12 23:14] LABS: ALBUMIN 3.3 g/dL (3.5-5.0); ALBUMIN/GLOBULIN RATIO 0.8 (0.8-2.0); ANION GAP 14.6 mmol/L (8-16); CREATININE, SERUM 1.15 mg/dL (0.72-1.25); POTASSIUM 3.6 mmol/L (3.5-5.1)
[2022-01-12 23:20] LABS: CREATINE KINASE MB 1.2 ng/mL (0-5.0)
== END 2022-01-13 00:42 | disposition home or self-care (01) ==
LOC: ER 22:02
DX: R07.9 Chest pain, unspecified (principal); R06.00 Dyspnea, unspecified; L03.116 Cellulitis of left lower limb; L03.115 Cellulitis of right lower limb; R60.9 Edema, unspecified; I10 Essential (primary) hypertension; F41.9 Anxiety disorder, unspecified; F43.10 Post-traumatic stress disorder, unspecified; M54.9 Dorsalgia, unspecified; G89.29 Other chronic pain; Z20.822 Contact with and (suspected) exposure to COVID-19
CPT/HCPCS: 36415; 71045; 80053; 80307; 81001; 82550; 82553; 84484; 85025; 93005; 99284; U0002

== ENCOUNTER 2022-03-12 13:40 | Emergency (ER) | payer MEDICARE, OTHER ==
[~2022-03-12] VITALS: Ht 373.4 cm; Wt 142.9 kg
[2022-03-12] MEDS ORDERED: HYDROCODONE/APAP 7.5MG-325MG 1 EA TAB PO PRN (14:15)
[2022-03-12] MEDS ORDERED: MOTRIN800 MG PO (15:41)
== END 2022-03-12 16:11 | disposition home or self-care (01) ==
LOC: ER 14:05
DX: R07.89 Other chest pain (principal); S20.212A Contusion of left front wall of thorax, initial encounter; W18.2XXA Fall in (into) shower or empty bathtub, initial encounter; Y93.E1 Activity, personal bathing and showering; Y92.002 Bathroom of unspecified non-institutional (private) residence as the place of occurrence of the external cause; I10 Essential (primary) hypertension; F41.9 Anxiety disorder, unspecified; F43.10 Post-traumatic stress disorder, unspecified; M54.9 Dorsalgia, unspecified; G89.29 Other chronic pain; Z86.718 Personal history of other venous thrombosis and embolism
CPT/HCPCS: 71101; 99284

== ENCOUNTER 2022-07-14 16:37 | Emergency (ER) | payer MEDICARE, OTHER ==
[~2022-07-14] VITALS: Ht 188 cm; Wt 145.1 kg
[~2022-07-14 16:37] MED LIST changes: +MOTRIN800 MG PO
[2022-07-14] MEDS ORDERED: DOXYCYCLINE HY100 MG PO (17:31)
== END 2022-07-14 17:38 | disposition home or self-care (01) ==
LOC: ER 16:48
DX: R60.9 Edema, unspecified (principal); M79.605 Pain in left leg; M79.604 Pain in right leg; I10 Essential (primary) hypertension; F41.9 Anxiety disorder, unspecified; F32.A Depression, unspecified; M54.9 Dorsalgia, unspecified; G89.29 Other chronic pain; Z86.718 Personal history of other venous thrombosis and embolism; F17.210 Nicotine dependence, cigarettes, uncomplicated
CPT/HCPCS: 99282

== ENCOUNTER 2022-09-15 16:24 | Emergency (ER) | payer MEDICARE ==
[~2022-09-15] VITALS: Ht 188 cm; Wt 145.1 kg
[2022-09-15] MEDS ORDERED: Vancomycin IV 1 GM in SODIUM CHLORIDE 0.9% 250ML 250 ML IV SCH (17:00)
[2022-09-15] MEDS ORDERED: HYDROCODONE/APAP 5MG-325MG TAB PO PRN (17:00)
[2022-09-15 17:10] LABS: BASOPHILS # (AUTO) 0.1 (0.0-0.1); EOSINOPHILS # (AUTO) 0.3 (0.0-0.4); EOSINOPHILS % 4.8 % (0.0-6.0); HEMATOCRIT 38.5 % (38.2-49.6); HEMOGLOBIN 12.3 g/dL (14.0-18.0); LYMPHOCYTES # (AUTO) 1.7 (1.0-3.2); LYMPHOCYTES % 24.9 % (18.0-39.1); MEAN CORPUSCULAR HEMOGLOBIN 29.4 pg (28-32); MEAN CORPUSCULAR HGB CONC 31.9 g/dL (31-35); MEAN CORPUSCULAR VOLUME 92.1 fL (81-99); MONOCYTES # (AUTO) 0.6 (0.2-0.8); MONOCYTES % 8.7 % (4.4-11.3); NEUTROPHILS # (AUTO) 4.1 (2.1-6.9); NEUTROPHILS % 60.5 % (38.7-80.0); PLATELET COUNT 354 x10e3/uL (140-360); RED BLOOD COUNT 4.18 x10e6/uL (4.3-5.7); RED CELL DISTRIBUTION WIDTH 12.2 % (11.7-14.4)
[2022-09-15 17:20] LABS: INR 0.91; PROTHROMBIN TIME 13.1 seconds (11.9-14.5)
[2022-09-15 17:27] LABS: ALBUMIN 3.7 g/dL (3.5-5.0); ALBUMIN/GLOBULIN RATIO 0.8 (0.8-2.0); ANION GAP 17.7 mmol/L (8-16); CALCIUM 8.9 mg/dL (8.4-10.2); CREATININE, SERUM 1.44 mg/dL (0.72-1.25); POTASSIUM 3.7 mmol/L (3.5-5.1)
[2022-09-15 17:36] LABS: MAGNESIUM 1.6 MG/DL (1.3-2.1); PHOSPHORUS 4.1 MG/DL (2.3-4.7)
[2022-09-15] MEDS ORDERED: DOXYCYCLINE HY100 MG PO (18:02)
[2022-09-15] MEDS ORDERED: HYDROCHLOROTHIA25 MG PO (18:02)
[2022-09-15] MEDS ORDERED: DOXYCYCLINE HYCLATE TABLET 100 MG TAB PO ONE (18:15)
== END 2022-09-15 19:14 | disposition home or self-care (01) ==
LOC: ER 16:28
DX: M25.521 Pain in right elbow (principal); L03.116 Cellulitis of left lower limb; L03.115 Cellulitis of right lower limb; I89.0 Lymphedema, not elsewhere classified; R60.9 Edema, unspecified; N17.9 Acute kidney failure, unspecified; I10 Essential (primary) hypertension; F41.9 Anxiety disorder, unspecified; F43.10 Post-traumatic stress disorder, unspecified
CPT/HCPCS: 36415; 71045; 80053; 83735; 83880; 84100; 84484; 85025; 85610; 93005; 99284; J2543